=== PATIENT | female | born 1940 | race Caucasian/White ===

== ENCOUNTER 2018-04-02 13:24 | Outpatient (CLI) | payer MEDICARE, MEDICAID, SELFPAY ==
[2018-04-02 13:23] VITALS: BP 151/71; PULSE 84; RESP 14; O2SAT 94
--- NOTE | 2018-04-02 13:45 | DI.REPORT_ITS ---
SYMPTOMS/DIAGNOSIS: LUMBAR RADICULOPATHY PAIN CLINIC LUMBAR SPINE: Fluoroscopy Time: 42.15 sec C-arm fluoroscopy was provided for guidance with Pain Clinic injections. Please see procedure note for details.
[2018-04-02] MEDS: methylPREDNISolone ACETATE 40 MG/ML VIAL 80 MG IM (13:49)
[2018-04-02] MEDS: Omnipaque 240 MG/ML 50 ML BTL IJ (13:59)
[2018-04-02 14:00] VITALS: BP 132/91; PULSE 92; RESP 19; O2SAT 94
--- NOTE | 2018-04-02 14:07 | PDOC.PAIN_ITS ---
Date of Service: 04/02/18 Time of Service: 14:05 Pain Clinic Procedure Note Patient Problems: Current Active Problems Problem Status Onset Spondylosis of lumbar region without myelopathy or radiculopathy Chronic CANDAL EPIDURAL STEROID WITH CATHETER INJECTION PROCEDURE NOTE COMMENTS: Previous back surgery. I reviewed the patient's evaluation with Ms. Mcnamara. DX: Lumbosacral radiculopathy VIRGEN CASIANO has been referred to the [facility] for lumbar epidural steroid injection. Patient was greeted by the nurse who verified patients name and . Patient was then taken to the fluoroscopy suite. Patient was interviewed and the medical record reviewed. There were no medical , pharmacologic, radiographic, or other structural contraindications to attempting fluoroscopically guided lumbar epidural steroid injection. Risks and expected side effects as well as potential benefits of the procedure were reviewed and voiced concerns addressed. The patient consent form was signed and witnessed. Standard time-out procedure was performed. Patient was placed in the prone position on the fluoroscopy table and automated blood pressure cuff and pulse oximeter applied. The skin entry point for entering/approaching the epidural space at the sacral hiatus and marked. Following thorough chlorhexadine preparation of the skin and draping and 1% lidocaine infiltration of the skin entry point and subcutaneous tissues, a 17 gauge Touhy needle was placed under fluoroscopic guidance and with loss of resistance technique into the epidural space. Needle tip placement and depth were aided and confirmed by fluoroscopy. There was no paresthesia or return of blood or CSF through the needle. An Arrow cath was thread to the L5 vertebral body and 1 cc's of Omnipaque 240 was injected with clear epidural spread confirmed with fluoroscopy. 80mg depomedrol was injected. There was not any unusual discomfort expressed. Vital signs were stable throughout the procedure and were as recorded in nursing records. Follow up plans and appointments were discussed.Post procedure instruction was given as documented in nursing records and having met discharge criteria and was discharged from the [facility]. COMMENTS: If this procedure is found to be helpful, it can be completed up to 3 times per 12 months.
== END 2018-04-02 13:25 ==
PROVIDERS: PCP Nurse Practitioner; Visit Provider Preventive Medicine Occupational Medicine
DX: M54.16 Radiculopathy, lumbar region (principal); G89.29 Other chronic pain
CPT/HCPCS: 62323; 72100; J1030; Q9967

== ENCOUNTER 2018-05-07 12:38 | Outpatient (CLI) | payer MEDICARE, MEDICAID, SELFPAY ==
--- NOTE | 2018-05-07 06:00 | DI.COMBO_ITS ---
SYMPTOMS/DIAGNOSIS: CAUDAL EPIDURAL STEROID INJECTION PAIN CLINIC LUMBAR SPINE: Fluoroscopy Time: 62.3 sec C-arm fluoroscopy was provided for guidance with Pain Clinic injection. Hard copy images show needle positioning over the sacrum. Please see procedure note for details.
[2018-05-07 12:47] VITALS: BP 125/63; PULSE 93; RESP 18; TEMP 36.8; O2SAT 97
--- NOTE | 2018-05-07 13:17 | PDOC.PAIN ---
Pain Clinic Procedure Note Current Active Problems Problem Status Onset Lumbar radiculitis Acute CAUDAL EPIDURAL STEROID WITH CATHETER INJECTION PROCEDURE NOTE COMMENTS: She did very well with her last caudal epidural steroid injection. VIRGEN CASIANO has been referred to the [facility] for lumbar epidural steroid injection. Patient was greeted by the nurse who verified patients name and . Patient was then taken to the fluoroscopy suite. Patient was interviewed and the medical record reviewed. There were no medical, pharmacologic, radiographic, or other structural contraindications to attempting fluoroscopically guided lumbar epidural steroid injection. Risks and expected side effects as well as potential benefits of the procedure were reviewed and voiced concerns addressed. The patient consent form was signed and witnessed. Standard time-out procedure was performed. Patient was placed in the prone position on the fluoroscopy table and automated blood pressure cuff and pulse oximeter applied. The skin entry point for entering/approaching the epidural space at the sacral hiatus and marked. Following thorough chlorhexadine preparation of the skin and draping and 1% lidocaine infiltration of the skin entry point and subcutaneous tissues, a 17 gauge Touhy needle was placed under fluoroscopic guidance and with loss of resistance technique into the epidural space. Needle tip placement and depth were aided and confirmed by fluoroscopy. There was no paresthesia or return of blood or CSF through the needle. An Arrow cath was thread to the L5-S1 and 1 cc's of Omnipaque 240 was injected with clear epidural spread confirmed with fluoroscopy. 80mg depomedrol was injected. There was not any unusual discomfort expressed. Vital signs were stable throughout the procedure and were as recorded in nursing records. Follow up plans and appointments were discussed.Post procedure instruction was given as documented in nursing records and having met discharge criteria and was discharged from the [facility]. COMMENTS: This procedure can be completed up to 3 times per 12 months if it is found to be effective.
[2018-05-07 13:28] VITALS: BP 130/71; PULSE 96; RESP 20; O2SAT 95
[2018-05-07] MEDS: Omnipaque 240 MG/ML 50 ML BTL IJ (13:29)
[2018-05-07] MEDS: methylPREDNISolone ACETATE 80 MG/ML VIAL IM (13:30)
--- NOTE | 2018-05-25 15:07 | PDOC.PAIN_ITS ---
Pain Clinic Procedure Note Current Active Problems Problem Status Onset Lumbar radiculitis Acute CAUDAL EPIDURAL STEROID WITH CATHETER INJECTION PROCEDURE NOTE COMMENTS: She did very well with her last caudal epidural steroid injection. VIRGEN CASIANO has been referred to the [facility] for lumbar epidural steroid injection. Patient was greeted by the nurse who verified patients name and . Patient was then taken to the fluoroscopy suite. Patient was interviewed and the medical record reviewed. There were no medical , pharmacologic, radiographic, or other structural contraindications to attempting fluoroscopically guided lumbar epidural steroid injection. Risks and expected side effects as well as potential benefits of the procedure were reviewed and voiced concerns addressed. The patient consent form was signed and witnessed. Standard time-out procedure was performed. Patient was placed in the prone position on the fluoroscopy table and automated blood pressure cuff and pulse oximeter applied. The skin entry point for entering/approaching the epidural space at the sacral hiatus and marked. Following thorough chlorhexadine preparation of the skin and draping and 1% lidocaine infiltration of the skin entry point and subcutaneous tissues, a 17 gauge Touhy needle was placed under fluoroscopic guidance and with loss of resistance technique into the epidural space. Needle tip placement and depth were aided and confirmed by fluoroscopy. There was no paresthesia or return of blood or CSF through the needle. An Arrow cath was thread to the L5-S1 and 1 cc' s of Omnipaque 240 was injected with clear epidural spread confirmed with fluoroscopy. 80mg depomedrol was injected. There was not any unusual discomfort expressed. Vital signs were stable throughout the procedure and were as recorded in nursing records. Follow up plans and appointments were discussed.Post procedure instruction was given as documented in nursing records and having met discharge criteria and was discharged from the [facility]. COMMENTS: This procedure can be completed up to 3 times per 12 months if it is found to be effective.
== END 2018-05-07 12:58 ==
PROVIDERS: PCP Nurse Practitioner; Visit Provider Preventive Medicine Occupational Medicine
DX: M54.16 Radiculopathy, lumbar region (principal)
CPT/HCPCS: 62323; 72100; J1040; Q9967

== ENCOUNTER 2018-07-11 21:36 | Inpatient (IN) | payer MEDICARE, MEDICAID, SELFPAY ==
[2018-07-11] VITALS (7 sets, daily range): BP systolic 110–164; BP diastolic 34–135; PULSE 90–98; RESP 15–24; TEMP 36.9; O2SAT 95–98
--- NOTE | 2018-07-11 22:00 | W.ED.GENAD ---
Discharge Plan Disposition Patient Disposition: [facility] INPATIENT Condition: Improving Discharge Details Chief Complaint: Dizzy/Sync Clinical Impression: Near syncope Reason For Visit: ALEX Primary Care Provider: Jocy Kate ED Provider: Raffy Licea Home Meds and New Rx's Prescriptions: No Action pregabalin 75 mg capsule 75 mg PO BID 28 Days Qty: 56 RF: 0 tolterodine 4 MG capsule,extended release 24hr 4 mg PO DAILY Qty: 90 RF: 3 omeprazole 40 MG capsule,delayed release(DR/EC) 40 mg PO DAILY Qty: 30 RF: 12 levothyroxine [Synthroid] 125 MCG tablet 125 mcg PO DAILY Qty: 90 RF: 3 enalapril maleate 20 MG tablet 20 mg PO DAILY Qty: 135 RF: 3 acetaminophen 650 MG tablet 1,300 mg PO PRN RF: 0 diaper,brief,adult,disposable [Adult Briefs - Large] 1 EACH misc 1 ea Miscellaneous PRN Qty: 100 RF: 6 trazodone 100 MG tablet 100 mg PO DAILY Qty: 90 RF: 3 nitroglycerin 0.4 MG tablet, sublingual 0.4 mg Sublingual PRN Qty: 100 RF: 3 duloxetine 60 mg Capsule,Delayed Release(Dr/Ec) 60 mg PO DAILY RF: 0 Medical Decision Making 77-year-old female presents from home with generalized weakness over a day and a half time associated with one mechanical fall in the second this evening associated with lightheadedness and during which she struck her head. She arrives to the emergency department awake, alert, interactive; afebrile, pulse 97, blood pressure 164/70. Differential diagnosis includes UTI, occult [place], dehydration, electrolyte abnormality. Patient had IV access established, referred for laboratory testing, EKG, CT scan of the head and cervical spine. Diagnostic studies show slightly low magnesium and mildly elevated BUN and creatinine. Her CT scan of the head and C-spine are unremarkable for acute findings as is her chest x-ray. Given her age, near syncope, I do feel she will be admitted for mild fluid resuscitation and telemetry. Case discussed with Dr Le and patient to be admited. Lab Data Lab results reviewed: Yes I reviewed the patient's lab results. Laboratory Tests Range/Units 07/11/18 07/11/18 07/11/18 22:00 22:00 22:09 WBC (4.4-10.8) k/cumm 11.07 H RBC (4.00-5.20) m/cumm 3.29 L Hgb (12.0-15.5) g/dL 10.2 L Hct (36.0-46.0) % 31.6 L MCV (80-95) fL 96.0 H MCH (27.0-33.0) pg 31.0 MCHC (32.0-36.0) g/dL 32.3 RDW (11.7-14.6) % 14.7 H Plt Count (130-400) x1000/uL 263 MPV (8.0-11.0) fL 9.8 Immature Gran % 1.2 Neutrophils % 69.2 Lymphocytes % 19.1 Monocytes % 9.1 Eosinophils % 1.1 Basophils % 0.3 Absolute Neutrophils (1.2-6.7) k/cumm 7.66 H Absolute Lymphocytes (1.2-3.4) k/cumm 2.11 Absolute Monocytes (0.11-0.7) k/cumm 1.01 H Absolute Eosinophils (0.0-0.7) k/cumm 0.12 Absolute Basophils (0.0-0.2) k/cumm 0.03 Sodium (136-145) mmol/L 138 Potassium (3.5-5.1) mmol/L 4.2 Chloride (98-107) mmol/L 99 Carbon Dioxide (21.0-32.0) mmol/L 28.7 Anion Gap (3-11) mmol/L 10.3 BUN (7-18) mg/dL 19 H Creatinine (0.55-1.02) mg/dL 1.32 H Estimated GFR/1.73 m2 (mL/min/1.73m2) 39.13 Glucose (70-100) mg/dL 160 H Calcium (8.5-10.1) mg/dL 8.8 Magnesium (1.8-2.4) mg/dL 1.7 L Total Bilirubin (0.2-1.0) mg/dL 0.4 AST (15-37) U/L 27 ALT (12-78) U/L 28 Alkaline Phosphatase (46-116) U/L 61 Troponin I (0.00-0.06) ng/mL < 0.02 Total Protein (6.4-8.2) g/dL 6.9 Albumin (3.4-5.0) g/dL 3.4 Urine Color (Yellow) Yellow Urine Clarity Clear Urine pH (5-8) 6.5 Ur Specific [place] (1.005-1.025) 1.015 Urine Protein (Negative) mg/dL Negative Urine Ketones (Negative) mg/dL Negative Urine Blood (Negative) Negative Urine Nitrite (Negative) Negative Urine Bilirubin (Negative) Negative Urine Urobilinogen (Up TO 0.2) EU/dL 1.0 H Ur Leukocyte Esterase (Negative) Negative Urine Glucose (Negative) mg/dL Negative ECG Data Attestation: I personally reviewed and interpreted this ECG (s) as follows: Interpretation: Elderly normal sinus rhythm, rate of 96, the QRS is narrow, there is no ST segment elevation. There are Q waves present in the inferior leads HPI General Mode of arrival: EMS. Date/Time Provider Initiated Documentation: 07/11/18 22:06. Limitations to Documentation: no limitations. Information obtained by: patient. History of Present Illness 77 year old F presents to the emergency department with the chief complaint of Fall at home with weakness, described as moderate, and is localized to the back. Patient reports no radiation. and it has been constant. No relieving factors improve symptom(s), No exacerbating factors reported . HPI Narrative: 77-year-old female presents from home via EMS. Says she has a day and a half of the gradual onset of generalized weakness. Associated with mild lightheadedness. She states that she had 2 falls at home today. The first was a mechanical fall which her slipper caught, second felt lightheaded but did fall striking her right knee and struck her head. No loss of consciousness. She has no new numbness, tingling, or weakness of the lower extremity. She has chronic back pain and spinal stenosis which is persistent. Denies recent illness. States she lives alone at the [facility]. Related Data Home Medications Medication Instructions Recorded Confirmed levothyroxine [Synthroid] 125 mcg PO DAILY #90 tab-cap 10/15/17 07/11/18 omeprazole 40 mg PO DAILY #30 capsule. 10/15/17 07/11/18 tolterodine 4 mg PO DAILY #90 tab-cap 10/15/17 07/11/18 enalapril maleate 20 mg PO DAILY #135 tab-cap 12/22/17 07/11/18 acetaminophen 1,300 mg PO PRN 01/13/18 07/11/18 diaper,brief,adult,disposable #100 ea 01/27/18 06/30/18 [Adult Brief] nitroglycerin 0.4 mg SUBLINGUAL PRN #100 tab-cap 03/16/18 07/11/18 trazodone 100 mg PO DAILY #90 tab-cap 03/16/18 07/11/18 pregabalin 75 mg capsule 75 mg PO BID 28 Days #56 cap 06/30/18 07/11/18 duloxetine 60 mg PO DAILY 07/11/18 07/11/18 Previous Rx's Medication Instructions Recorded levothyroxine [Synthroid] 125 mcg PO DAILY #90 tab-cap 10/15/17 omeprazole 40 mg PO DAILY #30 capsule. 10/15/17 tolterodine 4 mg PO DAILY #90 tab-cap 10/15/17 enalapril maleate 20 mg PO DAILY #135 tab-cap 12/22/17 diaper,brief,adult,disposable #100 ea 01/27/18 [Adult Brief] nitroglycerin 0.4 mg SUBLINGUAL PRN #100 tab-cap 03/16/18 trazodone 100 mg PO DAILY #90 tab-cap 03/16/18 pregabalin 75 mg capsule 75 mg PO BID 28 Days #56 cap 06/30/18 Allergies Allergy/AdvReac Type Severity Reaction Status Date / Time fentanyl [From Duragesic] Allergy Intermediate RASH, Verified 07/11/18 21:53 ITCHING oxybutynin chloride AdvReac Intermediate Itching Verified 07/11/18 21:53 [From Ditropan] tramadol AdvReac Intermediate ITCHING Verified 07/11/18 21:53 ENVIRONMENTAL Allergy RHINITIS Uncoded 07/11/18 21:53 General Stated Complaint: Dizzy/Sync ARMEN: 3 Review of Systems Review of Systems 8 systems reviewed and otherwise negative PFSH Family History Mother Essential hypertension Neoplasm Sister Diabetes Medical History Angina pectoris Arthropathy COPD (chronic obstructive pulmonary disease) Chronic low back pain Claustrophobia Diet-controlled diabetes mellitus Diverticulosis Essential hypertension Gastroesophageal reflux disease Hyperlipidemia Hypothyroidism Impaired mobility Migraine Osteoarthritis RLS (restless legs syndrome) Spinal stenosis Urge urinary incontinence Social History Smoking/Tobacco Use Status: Former Tobacco Use Surgical History Abdominal hysterectomy Cholecystectomy (~09/2002) Colonoscopy - MAC (05/23/17) Extraction of cataract (~10/2007) Laminectomy (03/27/09) Open Carpal Tunnel release (~1998) Replacement of total knee joint TVT (~05/2004) Exam Narrative Exam Narrative: GEN: awake, alert, oriented 3. Pleasant, well groomed, interactive. HEAD: Normocephalic, atraumatic ENT: Mucous membranes moist, oropharynx unremarkable, External ear exam unremarkable EYES: PERRL, EOMI NECK: Full ROM, no GONZALO, no menigismus, minimal upper midline tenderness to palpation CHEST/RESP: Nontender, clear to auscultation bilateral, no wheeze/rhonchi/rales CARDIOVASCULAR: RRR, no murmur, rub liborio. 2+ Rad pulse bilateral ABDOMEN: Soft, nontender, no mass. +Bowel sounds. Patient with minimal back pain on palpation without step-off or deformity peer EXT: Full ROM, no edema, no rash. With each leg off the bed independently, motor grade 5 out of 5. Sensation intact throughout including the saddle distribution. Mild edematous changes of both lower extremities, right greater than left. No palpable cords or focal tenderness Neuro: Grossly normal neurologic exam, conversant, interactive. Psych: Speech fluent, thoughts congruent, affect normal Course Vital Signs Temperature 36.9 C 07/11/18 21:43 Pulse 97 H 07/11/18 21:43 Respiratory Rate 24 07/11/18 21:43 Blood Pressure 164/70 H 07/11/18 21:43 Pulse Oximetry 96 07/11/18 21:43 Temperature 36.9 C 07/11/18 21:43 Temperature Source Skin 07/11/18 21:43 Pulse 97 H 07/11/18 21:43 Respiratory Rate 24 07/11/18 21:56 Respiratory Effort Non-Labored 07/11/18 21:56 Respiratory Depth Normal 07/11/18 21:56 Respiratory Pattern Normal 07/11/18 21:56 Blood Pressure 164/70 H 07/11/18 21:43 Pulse Oximetry 96 07/11/18 21:43 Oxygen Delivery Method Room Air 07/11/18 21:43 Oxygen Flow Rate 0 07/11/18 21:43 Pain Level 10 07/11/18 21:43
[2018-07-11 22:12] LABS: Abs Immature Grans 0.13 k/cumm (0.0-0.09); Absolute Basophil Count 0.03 k/cumm (0.0-0.2); Absolute Eosinophil Count 0.12 k/cumm (0.0-0.7); Absolute Lymphocyte Count 2.11 k/cumm (1.2-3.4); Absolute Monocyte Count 1.01 k/cumm (0.11-0.7); Absolute Neutrophil Count 7.66 k/cumm (1.2-6.7); Basophils % 0.3; Eosinophils % 1.1; HCT 31.6 % (36.0-46.0); HGB 10.2 g/dL (12.0-15.5); Immature Grans % 1.2; Lymphocytes % 19.1; Mean Corp. HGB Concentration 32.3 g/dL (32.0-36.0); Mean Platelet Volume 9.8 fL (8.0-11.0); Monocytes % 9.1; Neutrophils % 69.2; Platelet Count 263 x1000/uL (130-400); RBC 3.29 m/cumm (4.00-5.20); RBC Distribution Width 14.7 % (11.7-14.6); White Blood Cell Count 11.07 k/cumm (4.4-10.8)
[2018-07-11 22:15] LABS: Bilirubin Negative (Negative); Blood Negative (Negative); Clarity Clear; Glucose Negative (Negative); Ketones Negative (Negative); Leukocyte Esterase Negative (Negative); Nitrite Negative (Negative); Specific Gravity 1.015 (1.005-1.025); pH 6.5 (5-8)
--- NOTE | 2018-07-11 22:15 | DI.RAD_ITS ---
SYMPTOMS/DIAGNOSIS: FALL, POSTERIOR PAIN CHEST X-RAY, PA AND LATERAL: Comparison is 12/05/17. The heart size and pulmonary vasculature are within normal limits. The lungs are clear and well expanded. No effusions or pneumothoraces are identified. Degenerative changes are seen in the spine. IMPRESSION: No acute pulmonary process.
[2018-07-11 22:30] LABS: ALT 28 U/L (12-78); AST 27 U/L (15-37); Albumin 3.4 g/dL (3.4-5.0); Alkaline Phosphatase 61 U/L (46-116); Anion Gap 10.3 mmol/L (3-11); BUN 19 mg/dL (7-18); Bilirubin, Total 0.4 mg/dL (0.2-1.0); CO2 28.7 mmol/L (21.0-32.0); CREATININE 1.32 mg/dL (0.55-1.02); Calcium 8.8 mg/dL (8.5-10.1); Chloride 99 mmol/L (98-107); Estimated GFR 39.13 (mL/min/1.73m2); Glucose 160 mg/dL (70-100); Magnesium 1.7 mg/dL (1.8-2.4); Potassium 4.2 mmol/L (3.5-5.1); Sodium 138 mmol/L (136-145); Total Protein 6.9 g/dL (6.4-8.2); Troponin I < 0.02 ng/mL (0.00-0.06)
--- NOTE | 2018-07-11 22:36 | DI.CT_ITS ---
SYMPTOMS/DIAGNOSIS: POSTERIOR PAIN S/P FALL CT BRAIN: Noncontrast examination. No priors. The ventricles and sulci are consistent with the patient's age. There are areas of decreased attenuation in the white matter consistent with small vessel ischemic disease. No intracranial hemorrhage, infarct, midline shift or mass effect is identified. The ventricles are intact. The basilar cisterns are patent. The visualized paranasal sinuses are clear. There is opacification of a few of the inferior left mastoid air cells, but no fracture is identified. The left mastoid air cells are well pneumatized. The calvarium is intact. IMPRESSION: No acute intracranial process. CT SCAN OF THE CERVICAL SPINE: Multiple contiguous axial images of the cervical spine were obtained. Sagittal and coronal reformatted images were evaluated on the Siemens workstation. There is patient motion artifact, which does limit the examination. There is a reversal of the normal cervical lordosis centered at C4. No acute fractures or subluxations are seen. Moderately severe degenerative changes are present throughout the cervical spine. The odontoid is intact. The lateral masses are well aligned. There is no significant prevertebral soft tissue swelling. The visualized lung apices are clear. IMPRESSION: No acute fracture or subluxation of the cervical spine.
--- NOTE | 2018-07-11 22:41 | DI.VRAD_ITS ---
EXAM: XR Chest, 2 Views EXAM DATE/TIME: 07/11/2018 10:01 PM CLINICAL HISTORY: 77 years old, female; Injury or trauma; Fall; Initial encounter; Sprain or strain; Patient HX: S/P fall, posterior pain TECHNIQUE: XR of the chest, 2 views. COMPARISON: CR CHEST 2 VIEWS PA,LAT 12/05/2017 8:41 PM FINDINGS: Lungs: No airspace consolidation. Pleural space: No pleural effusion. No pneumothorax. Heart/Mediastinum: No cardiomegaly. Vasculature: Tortuous thoracic aorta similar to the previous study. Bones/joints: Probable calcific tendinitis in the right shoulder. Degenerative changes in the shoulders. Degenerative changes in the spine. IMPRESSION: No acute cardiopulmonary pathology. Dictated and Authenticated by: Fabby Arevalo MD. Ordering:TOMMY HERNANDEZ MD
--- NOTE | 2018-07-11 22:52 | DI.VRAD_ITS ---
EXAM: CT Head Without Intravenous Contrast EXAM DATE/TIME: 07/11/2018 10:01 PM CLINICAL HISTORY: 77 years old, female; Injury or trauma; Fall; Initial encounter; Sprain or strain, cervical ligaments; Patient HX: S/P fall, posterior pain TECHNIQUE: Axial computed tomography images of the head/brain without intravenous contrast. All CT scans at this facility use at least one of these dose optimization techniques: automated exposure control; mA and/or kV adjustment per patient size (includes targeted exams where dose is matched to clinical indication); or iterative reconstruction. Coronal and sagittal reformatted images were created and reviewed. COMPARISON: No relevant prior studies available. FINDINGS: Brain: Moderate cerebral atrophy. Moderate periventricular white matter hypodensity. Ventricles: No ventriculomegaly. Bones/joints: No acute fracture. Sinuses: No acute sinusitis. Mastoid air cells: Small amount of fluid in the inferior right mastoid air cells. Soft tissues: No suspicious lesions. Vasculature: Atherosclerosis. IMPRESSION: No acute intracranial findings. EXAM: CT Cervical Spine Without Intravenous Contrast EXAM DATE/TIME: 07/11/2018 10:01 PM CLINICAL HISTORY: 77 years old, female; Injury or trauma; Fall; Initial encounter; Sprain or strain, cervical ligaments; Patient HX: S/P fall, posterior pain TECHNIQUE: Axial computed tomography images of the cervical spine without intravenous contrast. Coronal and sagittal reformatted images were created and reviewed. COMPARISON: No relevant prior studies available. FINDINGS: Vertebrae: Reversal of the normal cervical lordosis. No acute fracture or subluxation. Discs/Spinal canal/Neural foramina: Uncovertebral hypertrophy. Posterior disc osteophyte complexes, multilevel, contributing to multilevel neuroforaminal and central canal stenosis. Multilevel disc space narrowing. Soft tissues: No suspicious lesions. Lungs: No consolidation. Vasculature: Atherosclerosis. IMPRESSION: No cervical spine fracture. Degenerative changes. Dictated and Authenticated by: Fabby Arevalo MD. Ordering:TOMMY HERNANDEZ MD
[2018-07-11] MEDS: Normal Saline 1,000 ML 150 ML IV (23:14)
[2018-07-11] MEDS: MAGNESIUM SULFATE 1 GM/100 ML BAG IVPB (23:14)
[2018-07-12] VITALS (11 sets, daily range): BP systolic 110–158; BP diastolic 47–81; PULSE 81–93; RESP 4–20; TEMP 36–37.5; O2SAT 93–99
--- NOTE | 2018-07-12 04:54 | W.PM.HP.N ---
Date of service: 07/11/18 Time of Service: 23:55 Assessment and Plan (1) Near syncope: Current visit: Yes Status: Acute Patient had tripping at home but also felt dizzy with near syncopal episode. She did strike her head with a negative CT of her head. Her neck also no findings on CT. Continue to monitor on telemetry as we monitor for occult infection with low-grade fever. She does have chronic COPD and chronic untreated diabetes. She may have been dehydrated with her diabetes untreated and urinary frequency and we will IV hydrate during the stay. (2) Frequent falls: Current visit: Yes Status: Acute Patient has had increased falls recently with her spinal stenosis and increased pain in her lower extremities. She also is overweight. She has lost her over the last year and a half and lives alone which may have also caused her to have increased falling. Physical therapy can assess as needed. She may need assisted living at this time. (3) Spinal stenosis: Current visit: No Status: Chronic She has back pain with lower extremity weakness which is chronic status post failed surgery for spinal stenosis. She is on Lyrica which is new for and is sedating her which may put her at increased risk for falls with her already decreased mobility from arthritis and back pain. Monitor during the hospital stay if she increases ambulation. (4) Diabetes mellitus, controlled: Current visit: No Status: Chronic Hypoglycemia upon admission, need to check glucometers with short acting insulin coverage and reevaluate glycemic control with a hemoglobin A1c. Long-term she may need to restart therapy. Dietary counseling as needed. History of Present Illness Chief Complaint: No syncope with tripping and falling and generalized weakness over 2 days Narrative: This is a 77-year-old lady who lives alone in her apartment at [facility] having lost her about a year and a half ago. She has a history of increasing weakness over the last couple of days with tripping and falling one time striking the back of her head and her right lower extremity. She also has had increased edema over her right lower extremity. She denies any loss of consciousness with her falling but did feel dizzy. She has been eating and drinking normally and recently has stopped treatment for diabetes with chronic urinary frequency on treatment for overactive bladder. She denies any hypoglycemic symptoms. She has no new focalizing neurological complaints with weakness in the lower extremities status post surgery for spinal stenosis. She is overweight and is having problems with ambulation with her arthritis and chronic back pain which radiates into her lower extremities. Back surgery basically failed. She recently was placed on Lyrica and she attributes her right leg swelling to the change in this medication. This medication does make her more sedated. Does not appear to be helping her back pain and radiation of pain into her legs thus far 1 month of treatment. She does have a history of COPD but does not use inhalers presently. She was a previous smoker. Denies any cough or increasing shortness of breath. She has had no chills or rigors and denies any upper respiratory symptoms. She has no GI complaints as mentioned. She presently has no headache even though she did strike the back of her head and in the ED evaluation did reveal a negative CT of the neck and head. Chest x-ray was also done and had no evidence of acute process. The nurse who admitted the patient does report that she has a low-grade fever presently. Her urine dipstick was negative in the emergency room. A urine culture will be sent. She did have a low magnesium and appears slightly dry upon presentation to the ED and is on IV hydration presently. Pertinent review of systems and history otherwise unrevealing. Patient has been having more difficulty going around since the of her and she is overweight with significant musculoskeletal restrictions. Review of Systems Review of Systems As per HPI, otherwise negative or noncontributory. PFSH Family History Mother Essential hypertension Neoplasm Sister Diabetes Medical History Angina pectoris Arthropathy COPD (chronic obstructive pulmonary disease) Chronic low back pain Claustrophobia Diet-controlled diabetes mellitus Diverticulosis Essential hypertension Gastroesophageal reflux disease Hyperlipidemia Hypothyroidism Impaired mobility Migraine Osteoarthritis RLS (restless legs syndrome) Spinal stenosis Urge urinary incontinence Social History Smoking/Tobacco Use Status: Former Tobacco Use Surgical History Abdominal hysterectomy Cholecystectomy (~09/2002) Colonoscopy - MAC (05/23/17) Extraction of cataract (~10/2007) Laminectomy (03/27/09) Open Carpal Tunnel release (~1998) Replacement of total knee joint TVT (~05/2004) Meds Home Medications Medication Instructions Recorded Confirmed Type levothyroxine [Synthroid] 125 mcg PO DAILY #90 tab-cap 10/15/17 07/11/18 Rx omeprazole 40 mg PO DAILY #30 capsule. 10/15/17 07/11/18 Rx tolterodine 4 mg PO DAILY #90 tab-cap 10/15/17 07/11/18 Rx enalapril maleate 20 mg PO DAILY #135 tab-cap 12/22/17 07/11/18 Rx acetaminophen 1,300 mg PO PRN 01/13/18 07/11/18 History diaper,brief,adult,disposable #100 ea 01/27/18 06/30/18 Rx [Adult Brief] nitroglycerin 0.4 mg SUBLINGUAL PRN #100 tab-cap 03/16/18 07/11/18 Rx trazodone 100 mg PO DAILY #90 tab-cap 03/16/18 07/11/18 Rx pregabalin 75 mg capsule 75 mg PO BID 28 Days #56 cap 06/30/18 07/11/18 Rx duloxetine 60 mg PO DAILY 07/11/18 07/11/18 History Allergies Allergy/AdvReac Type Severity Reaction Status Date / Time fentanyl [From Duragesic] Allergy Intermediate RASH, Verified 07/11/18 21:53 ITCHING oxybutynin chloride AdvReac Intermediate Itching Verified 07/11/18 21:53 [From Ditropan] tramadol AdvReac Intermediate ITCHING Verified 07/11/18 21:53 ENVIRONMENTAL Allergy RHINITIS Uncoded 07/11/18 21:53 Exam Narrative Exam Narrative: General: Patient is awake, alert and oriented x3. She is in no acute distress. HEENT: Normocephalic with eyes revealing pupils equal reactive light symmetrically with extraocular movement intact, there is evidence of bilateral cataract surgery with lens implants, sclera anicteric. Ears with increased cerumen right ear but normal tympanic membranes bilaterally. Oropharynx with pink, moist mucosa without lesions and the patient is edentulous with her denture plates at home. Neck: Supple without JVD or carotid bruits. Back: Kyphotic with loss of lordotic curve in the lumbar spine, decreased range of motion and tender to palpation of the lumbar spine with surgical scar noted. No CVA tenderness. Lungs: Decreased aeration diffusely with slightly increased expiratory phase but no expiratory wheeze, rhonchi with coarse rales on the right hemithorax without focalizing. Heart: Regular rate and rhythm with quite systolic murmur left sternal border. Breasts: Grossly normal with detailed exam not performed. Abdomen: Obese, slightly protuberant but soft with bowel sounds positive in all quadrants. No palpable hepatosplenomegaly. Nontender. Genitalia and rectal exam: Deferred. Extremities: 1+ pitting edema over the right ankle and trace over the left with negative Homans sign on the right, no cyanosis or clubbing. Pulses are intact with good capillary refill. Well-healed surgical scar over the left knee. Neuro: Cranial nerves II through XII grossly intact, no focalizing motor deficits. Skin: Pale, warm and dry. Neuropsych: Normal memory and mentation, normal affect with good variation and good eye contact. Normal mood. Results Labs : 07/12/18 05:37 07/12/18 05:37 Laboratory Results - last 24 hr 07/11/18 07/11/18 07/11/18 22:00 22:00 22:09 WBC 11.07 H RBC 3.29 L Hgb 10.2 L Hct 31.6 L MCV 96.0 H MCH 31.0 MCHC 32.3 RDW 14.7 H Plt Count 263 MPV 9.8 Immature Gran % 1.2 Neutrophils % 69.2 Lymphocytes % 19.1 Monocytes % 9.1 Eosinophils % 1.1 Basophils % 0.3 Absolute Neutrophils 7.66 H Absolute Lymphocytes 2.11 Absolute Monocytes 1.01 H Absolute Eosinophils 0.12 Absolute Basophils 0.03 Sodium 138 Potassium 4.2 Chloride 99 Carbon Dioxide 28.7 Anion Gap 10.3 BUN 19 H Creatinine 1.32 H Estimated GFR/1.73 m2 39.13 Glucose 160 H Calcium 8.8 Magnesium 1.7 L Total Bilirubin 0.4 AST 27 ALT 28 Alkaline Phosphatase 61 Troponin I < 0.02 Total Protein 6.9 Albumin 3.4 Urine Color Yellow Urine Clarity Clear Urine pH 6.5 Ur Specific [place] 1.015 Urine Protein Negative Urine Ketones Negative Urine Blood Negative Urine Nitrite Negative Urine Bilirubin Negative Urine Urobilinogen 1.0 H Ur Leukocyte Esterase Negative Urine Glucose Negative Last Vital Signs Temp 37.5 C 07/12/18 00:40 Pulse 86 07/12/18 00:40 Resp 20 07/12/18 00:40 BP 144/81 H 07/12/18 00:40 Pulse Ox 94 L 07/12/18 00:40
[2018-07-12 05:49] LABS: HCT 30.6 % (36.0-46.0); HGB 9.9 g/dL (12.0-15.5); Mean Corp. HGB Concentration 32.4 g/dL (32.0-36.0); Mean Corpuscular Hemoglobin 31.3 pg (27.0-33.0); Mean Corpuscular Volume 96.8 fL (80-95); Mean Platelet Volume 9.4 fL (8.0-11.0); Platelet Count 226 x1000/uL (130-400); RBC 3.16 m/cumm (4.00-5.20); RBC Distribution Width 14.6 % (11.7-14.6)
[2018-07-12] MEDS: Levothyroxine 125 MCG TAB PO (05:51)
[2018-07-12] MEDS: Enoxaparin 40 MG/0.4 ML SYR SC (05:51)
[2018-07-12] MEDS: Albuterol/Ipratropium 3 ML UPD VIAL UPD (05:52)
[2018-07-12] MEDS: Normal Saline 1,000 ML 150 ML IV (06:03)
[2018-07-12 06:11] LABS: ALT 24 U/L (12-78); AST 19 U/L (15-37); Albumin 3.1 g/dL (3.4-5.0); Alkaline Phosphatase 48 U/L (46-116); Anion Gap 6.5 mmol/L (3-11); BUN 17 mg/dL (7-18); Bilirubin, Total 0.5 mg/dL (0.2-1.0); CO2 31.5 mmol/L (21.0-32.0); CREATININE 1.16 mg/dL (0.55-1.02); Calcium 8.5 mg/dL (8.5-10.1); Chloride 102 mmol/L (98-107); Estimated GFR 45.42 (mL/min/1.73m2); Glucose 129 mg/dL (70-100); Magnesium 2.2 mg/dL (1.8-2.4); Potassium 3.9 mmol/L (3.5-5.1); Sodium 140 mmol/L (136-145); TSH (W/Ref FT4) 2.94 uIU/mL (0.358-3.74); Total Protein 6.3 g/dL (6.4-8.2)
[2018-07-12 06:12] LABS: Troponin I < 0.02 ng/mL (0.00-0.06)
--- NOTE | 2018-07-12 07:35 | PHARADMIT ---
Addendum entered by Brea Angel 07/13/18 14:06: Pharmacy Note Subjective Patient is working w/ PT due to increased falls Objective VS okay SCr-1.14(down) h/h-10.5/33.0(up) BNP-pending A1c-6.5 Assessment enalapril dose decreased from 20 to 10 mg daily furosemide given X1 Plan contiune to watch VS, labs and for med changes Original Note: Admission Pharmacy Clinical Review near syncope, mild dehydration Code Status Full Code Current Weight Wgt- 107.4 kg Renally Cleared and Narrow Therapeutic Index Meds CrCl~ 35.6 mL/min Meds-OK QTc Value / Action Taken QTc-440 NA BP Control, Fever BP- 144/81 Tmax- 37.5C Electrolytes reviewed Na- 140 K+3.9 Mag-2.2 DVT Prophylaxis Yes Lovenox 40mg Opiate Usage / Scheduled Bowel Regimen Ordered No Yes Plt/SCr for Heparin / Enoxaparin Plts-226 SCr-1.16 INR for Warfarin na H/H stable, WBC/Bands H&H- 9.9/30.6 WBC-8.20 Antibiotic appropriateness none Cultures and Sensitivities none Surgical ABX d/c within 24 hr NA DM control / Insulin Dosing BG- 129 Aspart Heart Failure (Check EF%) (SEBASTIÁN's, B-Block, Diuretics) Vasotec, NTG IV to PO Switch no Home Meds Reviewed Yes Home Meds Not Ordered Ordered Comments
--- NOTE | 2018-07-12 07:46 | PDOC.CMIN ---
Care Management Initial Assess REASON FOR HOSPITALIZATION:: Near syncope, mild dehydration PAST MEDICAL HISTORY/PAST SURGICAL HISTORY:: Medical: Angina Pectrois, COPD, Clausrophobia, diabetes, hypertension, hypothyroidism, migraine. Surgical: CJ, Cholecystectomy, colonoscopy, cataract extraction, laminectomy, carpal tunnel release, TKA PREVIOUS FUNCTIONAL STATUS/SOCIAL/FAMILY SUPPORTS:: Lives alone at her apartment in [place] at the [facility]. One son, Feliberto, still lives in [place] and remains very supportive. CURRENT FUNCTIONAL STATUS:: Sveta was sitting up on the edge of the bed preparing to transfer into her recliner. Telemetry was in place. Alert and cheerful. Uses her FWW to ambulate at home. ADVANCE DIRECTIVES:: None on file Has patient been provided with information about the portal?: No Did the patient sign up for the portal?: No CODE STATUS:: Full Code INSURANCE COVERAGE / FINANCIAL ISSUES:: Medicare. Medicaid CURRENT HOME/COMMUNITY SERVICES/EQUIPMENT:: Homemaker service 4 hours/wk through [facility] and [place] Owns a FWW. PRIMARY CARE PHYSICIAN:: KIN: Jocy Kate NP POTENTIAL DISCHARGE NEEDS:: Sveta would like to have the Homemaker service for more than 4 hours per week. States that there is not enough time to complete all of the tasks and clean the floors. PATIENT/FAMILY EDUCATION NEEDS:: Discharge instructions and understanding the importance of follow up visits with her PCP. ANTICIPATED BARRIERS TO DISCHARGE:: None identified TRANSPORTATION:: Private car with son, Feliberto. PLAN:: Sveta will return home to her apartment at the [facility] and resume her current services. Feliberto will transport.
[2018-07-12] MEDS: DULoxetine 30 MG CAP 60 MG PO (08:27)
[2018-07-12] MEDS: Tolterodine 2 MG CAPCR 4 MG PO (08:28)
[2018-07-12] MEDS: Omeprazole 20 MG CAPCR 40 MG PO (08:28)
[2018-07-12] MEDS: ENALAPRIL 10 MG TAB 20 MG PO (08:28)
[2018-07-12] MEDS: Pregabalin 25 MG CAP 75 MG PO (08:28)
[2018-07-12] MEDS: Insulin Aspart 300 UNITS/3 ML PEN SC (08:29)
--- NOTE | 2018-07-12 09:50 | INITIAL_ITS ---
Care Management Initial Assess REASON FOR HOSPITALIZATION:: Near syncope, mild dehydration PAST MEDICAL HISTORY/PAST SURGICAL HISTORY:: Medical: Angina Pectrois, COPD, Clausrophobia, diabetes, hypertension, hypothyroidism, migraine. Surgical: CJ , Cholecystectomy, colonoscopy, cataract extraction, laminectomy, carpal tunnel release, TKA PREVIOUS FUNCTIONAL STATUS/SOCIAL/FAMILY SUPPORTS:: Lives alone at her apartment in [place] at the [facility]. One son, Feliberto, still lives in [place] and remains very supportive. CURRENT FUNCTIONAL STATUS:: Sveta was sitting up on the edge of the bed preparing to transfer into her recliner. Telemetry was in place. Alert and cheerful. Uses her FWW to ambulate at home. ADVANCE DIRECTIVES:: None on file Has patient been provided with information about the portal?: No Did the patient sign up for the portal?: No CODE STATUS:: Full Code INSURANCE COVERAGE / FINANCIAL ISSUES:: Medicare. Medicaid CURRENT HOME/COMMUNITY SERVICES/EQUIPMENT:: Homemaker service 4 hours/wk through [facility] and [place] Owns a FWW. PRIMARY CARE PHYSICIAN:: KIN: Jocy Kate NP POTENTIAL DISCHARGE NEEDS:: Sveta would like to have the Homemaker service for more than 4 hours per week. States that there is not enough time to complete all of the tasks and clean the floors. PATIENT/FAMILY EDUCATION NEEDS:: Discharge instructions and understanding the importance of follow up visits with her PCP. ANTICIPATED BARRIERS TO DISCHARGE:: None identified TRANSPORTATION:: Private car with son, Feliberto. PLAN:: Sveta will return home to her apartment at the [facility] and resume her current services. Feliberto will transport.
[2018-07-12] MEDS: Normal Saline 1,000 ML 75 ML IV (12:30)
--- NOTE | 2018-07-12 13:12 | PGE_ITS ---
Date of Service Date of service: 07/12/18 Time of Service: 12:15 Assessment and Plan (1) Near syncope: Current visit: Yes Status: Acute Patient's clinical presentation does appear to be multifactorial. She may have been slightly dehydrated on presentation, though she is not orthostatic this morning or clinically dehydrated after getting fluids overnight. She did strike her head but she had a negative CT of her head. Continue to monitor on telemetry. She has not been febrile or had other symptoms of occult infection. She does have subacutely developing right lower extremity swelling that is asymmetric. She did not experience symptoms consistent with acute PE, but I think I will get a d-dimer and consider CT of the chest if positive. Given lack of response to Lyrica and possible contribution to her dizziness, we will stop this medication. (2) Frequent falls: Current visit: Yes Status: Acute Patient has had increased falls recently with her spinal stenosis and increased pain in her lower extremities. She also is overweight. She has lost her over the last year and a half and lives alone which may have also caused her to have increased falling. Physical therapy can assess as needed. She may need assisted living at this time. (3) Spinal stenosis: Current visit: No Status: Chronic Chronic back pain and right lower extremity weakness related to her spinal stenosis likely contributed to her tripping. I would like her to get a physical therapy evaluation before leaving.. (4) Diabetes mellitus, controlled: Current visit: No Status: Chronic Mild hyperglycemia. A1c ordered for the morning. (5) Anemia, macrocytic: Current visit: Yes Status: Acute Anemia stable overnight, I do not think there is an acute bleed. I agree with checking occult blood of the stool. It is macrocytic, so with her vague neurologic symptoms I think a B12 level would be prudent. (6) DVT prophylaxis: Current visit: Yes Status: Acute On Lovenox Subjective Patient reports: tolerating a regular diet; denies diarrhea, nausea, vomiting and fever Interval history since last seen: States he feels a little better than she did last night. She has not had any new falls. She still feels a shaky sensation in her body that she relates to the dizziness that she feels in her chest and arms and legs. Her extremities sometimes will shake. She also notes her chronic back pain and right lower extremity weakness, as well as the recent development of swelling in that right lower extremity as noted in the HPI. She denies any episodes of chest pain or acute shortness of breath related to her presentation over the last few days. She does think that Lyrica may be contributing to her symptoms, and states has not helped her pain at all. She denies shortness of breath now, but states she does get short of breath with any exertion. Exam Narrative Exam Narrative: General: Patient is awake, alert and oriented. She is in no acute distress. HEENT: Normocephalic, atraumatic, including in nuchal area where she hit her head. MMM. Lungs: CTAB with normal effort Heart: Regular rate and rhythm with 1/6 systolic murmur left sternal border. Abdomen: Obese, slightly protuberant but soft and nontender. Extremities: 1-2+ pitting edema over the right ankle and trace over the left with some tenderness with palpation of the foot, but not up the calf on the right. No redness or heat. no cyanosis or clubbing. Pulses are intact with good capillary refill. Neuro: sensation to light touch grossly normal, but she does seem to have slightly diminished strength to plantar and dorsiflexion on the right foot versus left. Normal speech and coordination. Skin: Pale, warm and dry. No rash. Objective Objective Clinical Data: Abnormal lab results 07/11/18 07/11/18 07/11/18 Range/Units 22:00 22:00 22:09 WBC 11.07 H (4.4-10.8) k/cumm RBC 3.29 L (4.00-5.20) m/cumm Hgb 10.2 L (12.0-15.5) g/dL Hct 31.6 L (36.0-46.0) % MCV 96.0 H (80-95) fL RDW 14.7 H (11.7-14.6) % Absolute Neutrophils 7.66 H (1.2-6.7) k/cumm Absolute Monocytes 1.01 H (0.11-0.7) k/cumm BUN 19 H (7-18) mg/dL Creatinine 1.32 H (0.55-1.02) mg/dL Glucose 160 H (70-100) mg/dL Magnesium 1.7 L (1.8-2.4) mg/dL Total Protein (6.4-8.2) g/dL Albumin (3.4-5.0) g/dL Urine Urobilinogen 1.0 H (Up TO 0.2) EU/dL 07/12/18 07/12/18 Range/Units 05:37 05:37 WBC (4.4-10.8) k/cumm RBC 3.16 L (4.00-5.20) m/cumm Hgb 9.9 L (12.0-15.5) g/dL Hct 30.6 L (36.0-46.0) % MCV 96.8 H (80-95) fL RDW (11.7-14.6) % Absolute Neutrophils (1.2-6.7) k/cumm Absolute Monocytes (0.11-0.7) k/cumm BUN (7-18) mg/dL Creatinine 1.16 H (0.55-1.02) mg/dL Glucose 129 H (70-100) mg/dL Magnesium (1.8-2.4) mg/dL Total Protein 6.3 L (6.4-8.2) g/dL Albumin 3.1 L (3.4-5.0) g/dL Urine Urobilinogen (Up TO 0.2) EU/dL Vital Signs Temperature 36.8 C 07/12/18 11:42 Temperature Source Tympanic 07/12/18 11:42 Pulse 81 07/12/18 11:42 Pulse Rhythm Regular 07/12/18 09:12 Pulse 90 07/11/18 23:40 Respiratory Rate 18 07/12/18 11:42 Respiratory Effort Non-Labored 07/12/18 09:12 Respiratory Depth Normal 07/12/18 09:12 Respiratory Pattern Normal 07/12/18 09:12 Blood Pressure 125/56 L 07/12/18 11:42 Blood Pressure Mean 62 07/11/18 23:02 Pulse Oximetry 94 L 07/12/18 11:42 Oxygen Delivery Method Room Air 07/12/18 11:42 Oxygen Flow Rate 0 07/12/18 11:42 Pain Level 0 07/12/18 11:42 Intake & Output 07/11/18 07/12/18 07/12/18 23:59 11:59 23:59 Intake Total 1100 / 1100 967.5 / 967.5 Output Total 950 / 950 Balance 150 / 150 967.5 / 967.5 Weight 107.411 kg 107.411 kg Intake: IV 1100 / 1100 967.5 / 967.5 Output: Urine 950 / 950 Other: Urine Color Yellow Urine Appearance Clear Urine Odor Normal Comment Patient was incontinent of large amount of urine and also voided 4oo cc in commode. Voiding Methods Diaper Incontinent Laboratory Results WBC 8.20 k/cumm (4.4-10.8) 07/12/18 05:37 RBC 3.16 m/cumm (4.00-5.20) L 07/12/18 05:37 Hgb 9.9 g/dL (12.0-15.5) L 07/12/18 05:37 Hct 30.6 % (36.0-46.0) L 07/12/18 05:37 MCV 96.8 fL (80-95) H 07/12/18 05:37 MCH 31.3 pg (27.0-33.0) 07/12/18 05:37 MCHC 32.4 g/dL (32.0-36.0) 07/12/18 05:37 RDW 14.6 % (11.7-14.6) 07/12/18 05:37 Plt Count 226 x1000/uL (130-400) 07/12/18 05:37 MPV 9.4 fL (8.0-11.0) 07/12/18 05:37 Immature Gran % 1.2 07/11/18 22:00 Neutrophils % 69.2 07/11/18 22:00 Lymphocytes % 19.1 07/11/18 22:00 Monocytes % 9.1 07/11/18 22:00 Eosinophils % 1.1 07/11/18 22:00 Basophils % 0.3 07/11/18 22:00 Absolute Neutrophils 7.66 k/cumm (1.2-6.7) H 07/11/18 22:00 Absolute Lymphocytes 2.11 k/cumm (1.2-3.4) 07/11/18 22:00 Absolute Monocytes 1.01 k/cumm (0.11-0.7) H 07/11/18 22:00 Absolute Eosinophils 0.12 k/cumm (0.0-0.7) 07/11/18 22:00 Absolute Basophils 0.03 k/cumm (0.0-0.2) 07/11/18 22:00 Sodium 140 mmol/L (136-145) 07/12/18 05:37 Potassium 3.9 mmol/L (3.5-5.1) 07/12/18 05:37 Chloride 102 mmol/L (98-107) 07/12/18 05:37 Carbon Dioxide 31.5 mmol/L (21.0-32.0) 07/12/18 05:37 Anion Gap 6.5 mmol/L (3-11) 07/12/18 05:37 BUN 17 mg/dL (7-18) 07/12/18 05:37 Creatinine 1.16 mg/dL (0.55-1.02) H 07/12/18 05:37 Estimated GFR/1.73 m2 45.42 (mL/min/1.73m2) 07/12/18 05:37 Glucose 129 mg/dL (70-100) H 07/12/18 05:37 Calcium 8.5 mg/dL (8.5-10.1) 07/12/18 05:37 Magnesium 2.2 mg/dL (1.8-2.4) 07/12/18 05:37 Total Bilirubin 0.5 mg/dL (0.2-1.0) 07/12/18 05:37 AST 19 U/L (15-37) 07/12/18 05:37 ALT 24 U/L (12-78) 07/12/18 05:37 Alkaline Phosphatase 48 U/L (46-116) 07/12/18 05:37 Troponin I < 0.02 ng/mL (0.00-0.06) 07/12/18 05:37 Total Protein 6.3 g/dL (6.4-8.2) L 07/12/18 05:37 Albumin 3.1 g/dL (3.4-5.0) L 07/12/18 05:37 TSH 2.94 uIU/mL (0.358-3.74) 07/12/18 05:37 Urine Color Yellow (Yellow) 07/11/18 22:09 Urine Clarity Clear 07/11/18 22:09 Urine pH 6.5 (5-8) 07/11/18 22:09 Ur Specific [place] 1.015 (1.005-1.025) 07/11/18 22:09 Urine Protein Negative mg/dL (Negative) 07/11/18 22:09 Urine Ketones Negative mg/dL (Negative) 07/11/18 22:09 Urine Blood Negative (Negative) 07/11/18 22:09 Urine Nitrite Negative (Negative) 07/11/18 22:09 Urine Bilirubin Negative (Negative) 07/11/18 22: Urine Urobilinogen 1.0 EU/dL (Up TO 0.2) H 07/11/18 22:09 Ur Leukocyte Esterase Negative (Negative) 07/11/18 22:09 Urine Glucose Negative mg/dL (Negative) 07/11/18 22:09
[2018-07-12 14:25] LABS: Troponin I < 0.02 ng/mL (0.00-0.06)
[2018-07-12] MEDS: Nystatin POWDER 60 GM JAR TP ×2 (14:36→21:27)
[2018-07-12 14:39] LABS: D-Dimer 671 ng/mlFEU (<500)
--- NOTE | 2018-07-12 17:26 | DI.CT_ITS ---
SYMPTOM/DIAGNOSIS: POSITIVE D-DIMER, R/O PE CT CHEST: CT angiography was performed with multi slice acquisition and multi planar and 3D reconstruction. CT scan of the chest was performed according to the pulmonary embolus protocol. Comparison chest x-ray is 07/11/18 There is no evidence of a pulmonary embolus. The thoracic aorta is of normal caliber with atherosclerosis present. No aneurysm or dissection is seen. Heart size is within normal limits. No significant pericardial effusion is seen. No findings to suggest right ventricular dysfunction present. Coronary artery calcifications are present. No significant mediastinal or hilar adenopathy, pleural effusion or pneumothorax is identified. No focal consolidating infiltrates are seen in the lungs. There is scarring in the bases bilaterally. The tracheobronchial tree is unremarkable. Mild emphysematous changes are seen in the lung apices. Degenerative changes are seen in the spine. IMPRESSION: No evidence of a pulmonary embolus, thoracic aortic dissection or aneurysm.
[2018-07-12] MEDS: Omnipaque 350 MG/ML 100 ML BTL IJ (18:06)
--- NOTE | 2018-07-12 18:24 | DI.VRAD_ITS ---
EXAM: CT Angiography Chest With Intravenous Contrast EXAM DATE/TIME: 07/12/2018 5:28 PM CLINICAL HISTORY: 77 years old, female; Pain; Other: Positive d - dimer R/O pe TECHNIQUE: Axial computed tomographic angiography images of the chest with intravenous contrast using CT angiography protocol. All CT scans at this facility use at least one of these dose optimization techniques: automated exposure control; mA and/or kV adjustment per patient size (includes targeted exams where dose is matched to clinical indication); or iterative reconstruction. Coronal and sagittal reformatted images were created and reviewed. MIP reconstructed images were created and reviewed. CONTRAST: 100 ml of omni 350 administered intravenously. COMPARISON: CR XR CHEST 2V PA LATERAL 07/11/2018 10:12 PM FINDINGS: No evidence of PE. No significant focal consolidation. No pleural effusion. No pneumothorax. No adenopathy. Unremarkable upper abdomen. No acute mediastinal or aortic abnormality. IMPRESSION: No specific etiology identified for the patient's symptoms. Dictated and Authenticated by: Richie Box MD. Ordering:ZULEYMA LAZO MD
[2018-07-12] MEDS: Acetaminophen 500 MG TAB 1000 MG PO (21:27)
[2018-07-12] MEDS: traZODone 100 MG TAB PO (21:27)
[2018-07-12] MEDS: Normal Saline Flush 10 ML SYR IVP (21:27)
[2018-07-13] VITALS (13 sets, daily range): BP systolic 113–163; BP diastolic 54–76; PULSE 79–95; RESP 1–20; TEMP 36.5–37.3; O2SAT 92–96
[2018-07-13] MEDS: Levothyroxine 125 MCG TAB PO (06:03)
[2018-07-13] MEDS: Albuterol/Ipratropium 3 ML UPD VIAL UPD (06:03)
[2018-07-13] MEDS: Enoxaparin 40 MG/0.4 ML SYR SC (06:03)
[2018-07-13 06:51] LABS: HGB 10.5 g/dL (12.0-15.5); Mean Corp. HGB Concentration 31.8 g/dL (32.0-36.0); Mean Corpuscular Hemoglobin 31.2 pg (27.0-33.0); Mean Corpuscular Volume 97.9 fL (80-95); Mean Platelet Volume 10.1 fL (8.0-11.0); Platelet Count 225 x1000/uL (130-400); RBC 3.37 m/cumm (4.00-5.20); RBC Distribution Width 14.7 % (11.7-14.6); White Blood Cell Count 6.44 k/cumm (4.4-10.8)
[2018-07-13 07:05] LABS: Hemoglobin A1C 6.5 % (4.5-6.2)
[2018-07-13 07:34] LABS: Anion Gap 5.2 mmol/L (3-11); BUN 14 mg/dL (7-18); CO2 32.8 mmol/L (21.0-32.0); CREATININE 1.14 mg/dL (0.55-1.02); Calcium 9.1 mg/dL (8.5-10.1); Chloride 103 mmol/L (98-107); Estimated GFR 46.34 (mL/min/1.73m2); Glucose 133 mg/dL (70-100); Potassium 4.7 mmol/L (3.5-5.1); Sodium 141 mmol/L (136-145); Vitamin B12 436 pg/mL (193-986)
[2018-07-13] MEDS: Nystatin POWDER 60 GM JAR TP ×3 (08:22→21:11)
[2018-07-13] MEDS: Omeprazole 20 MG CAPCR 40 MG PO (08:22)
[2018-07-13] MEDS: DULoxetine 30 MG CAP 60 MG PO (08:23)
[2018-07-13] MEDS: ENALAPRIL 10 MG TAB 20 MG PO (08:23)
[2018-07-13] MEDS: Tolterodine 2 MG CAPCR 4 MG PO (08:23)
--- NOTE | 2018-07-13 09:48 | PT.INIE ---
Date of service: 07/13/18 Time of Service: 09:48 PT Notes Inpatient Physical Therapy Evaluation Date: 07/13/18 Referring Doctor: Felipe Nick PT Orders: PT CONSULT: assess for safety and mobility Precautions: Fall precautions Patient Profile/Admitting Diagnosis: Pt is a 77yr old female admitted with near syncope and right lower extremity edema and weakness, fall at home. PMHX: spinal stenosis s/p laminectomy, chronic obstructive pulmonary disease, diabetes mellitus, migraines, osteoarthritis, urinary urge incontinence, left total knee arthroplasty, restless leg syndrome, hypertension, diverticulosis, cholecystectomy, claustrophobia, gastroesophageal reflux disease, hypothyroidism, cataract extraction, carpal tunnel release Social History/Home Situation: Lives alone in an apartment at [facility], has elevator to enter, no stairs. Baseline mobility independent gait household distances with FWW, independent with ADLS. States she would like to get a commode because she has urinary frequency and sometimes doesn't make it to the bathroom at night. Reports she has had ongoing right leg weakness of unknown cause, it is just weaker and sometimes my knee gives out. Equipment Owned/DME: 4WW, would like a bedside commode for nighttime due to urinary urgency Subjective: Pt sitting in chair, alert and agreeable to PT Consult. States she fell once at home because the floor was slippery, the second time was because she felt lightheaded. Pt states her head still feels funny but cannot be more specific. Objective: General Observation: telemetry Mental Status: A&Ox3 Pain: no c/o pain ROM: Right Upper Extremity: AROM shoulder flexion 95 degrees, elbow and wrist WNL Left Upper Extremity: AROM shoulder flexion 95 degrees, elbow and wrist WNL Right Lower Extremity: AROM hip flexion 95, knee and ankle WNL Left Lower Extremity: AROM hip flexion 90, knee and ankle WNL Strength: Right Upper Extremity: 4/5 shoulder flexion, 5/5 bicep, 5/5 paint tinter Left Upper Extremity: 4/5 shoulder flexion, 5/5 bicep, 5/5 paint tinter Right Lower Extremity: 2/5 hip flexion, 3/5 quad, 1/5 DF/PF Left Lower Extremity: 4/5 hip flexion, 4/5 quad, 5/5 DF/PF Bed Mobility/Transfers: Sit-stand: supervision Stand-sit: SBA Gait: SBA with FWW 40ftx2, slow step to gait pattern, cues to stand closer to FWW, pt has tendency to stand behind walker and lean over. Pt reports head feeling funny but no syncope or shortness of breath with exertion. Pt left up in chair when session completed. Therex: Pt issued and instructed in LE Strengthening therex program and performed ankle pumps, long arc quads x 20 reps, hip flexion R 10 reps, hip flexion left 20 reps Balance: Static Sitting: normal Dynamic Sitting: normal Static Standing: fair Dynamic Standing: fair Special Tests: Mobility Limitations Standardized Measure [facility] AM-PAC 6 clicks Basic Mobility Inpatient Short Form: Raw Score: 18 Standardized Score: 43.63 CMS Score: 46.58% CMS Modifier: CK Informed Consent/Education: Patient instructed in purpose of PT consult and plan of care. Assessment: Pt is a 77yr old female admitted with near syncope and right lower extremity edema and weakness, fall at home in setting of spinal stenosis s/p laminectomy, chronic obstructive pulmonary disease, diabetes mellitus, migraines, osteoarthritis, urinary urge incontinence, left total knee arthroplasty. Patient presents with the following impairment level findings: weakness throughout right LE making it difficult for her to lift her leg into/out of car and bed and putting her at increased risk of falls with mobility, decreased strength with sit-stand transfers due to right leg weakness, decreased static and dynamic balance putting her at risk of falls requiring use of FWW or 4WW for gait stability, decreased gait distance duration due to weakness. Pt would benefit from physical therapy intervention for strengthening and progressive mobility training, anticipate she will be able to return to home setting when medically cleared, would benefit from home PT to improve her strength and reduce risk of falls. Pt would benefit from bedside commode to improve safety with toileting at night due to urinary urgency and right leg weakness putting her at risk of falling if rushing to the bathroom. Impairments are contributing to the following functional limitations: AMPAC score CMS Score: 46.58% Patient is assessed as a Moderate 84955 complexity based on the following: History: see above Examination:see above Presentation: evolving Decision Making: AMPAC score CMS Score: 46.58% Goals: Goals X1 week 1. Supine-Sit : independent 2. Sit-Supine : independent 3. Sit-Stand : supervision with FWW 4. Stand-Sit : supervision 5. Bed-Chair : supervision with FWW 6. Chair-Bed : supervision with FWW 7. Gait : SBA with FWW 75ftx2 8. Independent with home exercise program Plan of Care/Treatment Plan: 1-2x/day, 7 days/week x 1 week. Plan of care has been reviewed with the ENVIRONMENTAL EPIDEMIOLOGIST providing the service under Physical Therapy direction. Initiate Physical Therapy intervention for strengthening, bed mobility, transfers, gait, stairs, balance training, use of assistive device. DISCHARGE RECOMMENDATIONS: Home with home PT, bedside commode for safe toileting at night TREATMENT CODE/TIME: 35 IE 9:46 G Codes in the area mobility of walking and moving around: current status [id number] CK projected status GP [id number]. Discharge status (if discharging) GP [id number] CK based on [facility] score CMS Score: 46.58% Cortney Maldonado PT
--- NOTE | 2018-07-13 10:00 | IN_ITS ---
Date of service: 07/13/18 Time of Service: 09:48 PT Notes Inpatient Physical Therapy Evaluation Date: 07/13/18 Referring Doctor: Felipe Nick PT Orders: PT CONSULT: assess for safety and mobility Precautions: Fall precautions Patient Profile/Admitting Diagnosis: Pt is a 77yr old female admitted with near syncope and right lower extremity edema and weakness, fall at home. PMHX: spinal stenosis s/p laminectomy, chronic obstructive pulmonary disease, diabetes mellitus, migraines, osteoarthritis, urinary urge incontinence, left total knee arthroplasty, restless leg syndrome, hypertension, diverticulosis, cholecystectomy, claustrophobia, gastroesophageal reflux disease, hypothyroidism , cataract extraction, carpal tunnel release Social History/Home Situation: Lives alone in an apartment at [facility], has elevator to enter, no stairs. Baseline mobility independent gait household distances with FWW, independent with ADLS. States she would like to get a commode because she has urinary frequency and sometimes doesn't make it to the bathroom at night. Reports she has had ongoing right leg weakness of unknown cause, it is just weaker and sometimes my knee gives out. Equipment Owned/DME: 4WW, would like a bedside commode for nighttime due to urinary urgency Subjective: Pt sitting in chair, alert and agreeable to PT Consult. States she fell once at home because the floor was slippery, the second time was because she felt lightheaded. Pt states her head still feels funny but cannot be more specific. Objective: General Observation: telemetry Mental Status: A&Ox3 Pain: no c/o pain ROM: Right Upper Extremity: AROM shoulder flexion 95 degrees, elbow and wrist WNL Left Upper Extremity: AROM shoulder flexion 95 degrees, elbow and wrist WNL Right Lower Extremity: AROM hip flexion 95, knee and ankle WNL Left Lower Extremity: AROM hip flexion 90, knee and ankle WNL Strength: Right Upper Extremity: 4/5 shoulder flexion, 5/5 bicep, 5/5 hull inspector Left Upper Extremity: 4/5 shoulder flexion, 5/5 bicep, 5/5 hull inspector Right Lower Extremity: 2/5 hip flexion, 3/5 quad, 1/5 DF/PF Left Lower Extremity: 4/5 hip flexion, 4/5 quad, 5/5 DF/PF Bed Mobility/Transfers: Sit-stand: supervision Stand-sit: SBA Gait: SBA with FWW 40ftx2, slow step to gait pattern, cues to stand closer to FWW, pt has tendency to stand behind walker and lean over. Pt reports head feeling funny but no syncope or shortness of breath with exertion. Pt left up in chair when session completed. Therex: Pt issued and instructed in LE Strengthening therex program and performed ankle pumps, long arc quads x 20 reps, hip flexion R 10 reps, hip flexion left 20 reps Balance: Static Sitting: normal Dynamic Sitting: normal Static Standing: fair Dynamic Standing: fair Special Tests: Mobility Limitations Standardized Measure [facility] AM-PAC 6 clicks Basic Mobility Inpatient Short Form: Raw Score: 18 Standardized Score: 43.63 CMS Score: 46.58% CMS Modifier: CK Informed Consent/Education: Patient instructed in purpose of PT consult and plan of care. Assessment: Pt is a 77yr old female admitted with near syncope and right lower extremity edema and weakness, fall at home in setting of spinal stenosis s /p laminectomy, chronic obstructive pulmonary disease, diabetes mellitus, migraines, osteoarthritis, urinary urge incontinence, left total knee arthroplasty. Patient presents with the following impairment level findings: weakness throughout right LE making it difficult for her to lift her leg into/out of car and bed and putting her at increased risk of falls with mobility, decreased strength with sit-stand transfers due to right leg weakness, decreased static and dynamic balance putting her at risk of falls requiring use of FWW or 4WW for gait stability, decreased gait distance duration due to weakness. Pt would benefit from physical therapy intervention for strengthening and progressive mobility training, anticipate she will be able to return to home setting when medically cleared, would benefit from home PT to improve her strength and reduce risk of falls. Pt would benefit from bedside commode to improve safety with toileting at night due to urinary urgency and right leg weakness putting her at risk of falling if rushing to the bathroom. Impairments are contributing to the following functional limitations: AMPAC score CMS Score: 46.58% Patient is assessed as a Moderate 20730 complexity based on the following: History: see above Examination:see above Presentation: evolving Decision Making: AMPAC score CMS Score: 46.58% Goals: Goals X1 week 1. Supine-Sit : independent 2. Sit-Supine : independent 3. Sit-Stand : supervision with FWW 4. Stand-Sit : supervision 5. Bed-Chair : supervision with FWW 6. Chair-Bed : supervision with FWW 7. Gait : SBA with FWW 75ftx2 8. Independent with home exercise program Plan of Care/Treatment Plan: 1-2x/day, 7 days/week x 1 week. Plan of care has been reviewed with the AUDIOVISUAL LIBRARIAN providing the service under Physical Therapy direction. Initiate Physical Therapy intervention for strengthening, bed mobility, transfers, gait, stairs, balance training, use of assistive device. DISCHARGE RECOMMENDATIONS: Home with home PT, bedside commode for safe toileting at night TREATMENT CODE/TIME: 35 IE 9:46 G Codes in the area mobility of walking and moving around: current status [id number]- CK projected status GP [id number]. Discharge status (if discharging) GP G8980 CK based on [facility] score CMS Score: 46.58% Cortney Maldonado PT
--- NOTE | 2018-07-13 11:28 | PDOC.CMPRO ---
- If Service Date Differs Date of service: 07/13/18 Time of Service: 11:28 Care Management Progress Note S/O: CM met with Sveta in her room she is sitting up in the chair. CM reviewed patients chart and patient was reviewed at multidisciplinary rounds. Sveta continues as an inpatient today. She continues to have some dizziness with ambulation. She is not feeling ready to return home today.CM left a voicemail for [facility] case resource manager Analisa Damon to notify of admission and assist in facilitating community resources. Sveta does not have clothes to return home in and would like some brought from her home. CM will also contact [facility] nurse to see if she can be of assistance. A: Sveta is a 77 year old female admitted with dehydration and near syncope. P: Sveta will be discharged home when she is medically ready per provider. She states she will transport home with RCT coordinated by CM, at time of discharge. CM attempting to coordinate obtaining clothes for patient for time of discharge. She will resume services through [facility] homemaker and her community CM Analisa Damon.
--- NOTE | 2018-07-13 11:40 | CMPROGNOTE_ITS ---
- If Service Date Differs Date of service: 07/13/18 Time of Service: 11:28 Care Management Progress Note S/O: CM met with Sveta in her room she is sitting up in the chair. CM reviewed patients chart and patient was reviewed at multidisciplinary rounds. Sveta continues as an inpatient today. She continues to have some dizziness with ambulation. She is not feeling ready to return home today.CM left a voicemail for [facility] manager of case management Analisa Damon to notify of admission and assist in facilitating community resources. Sveta does not have clothes to return home in and would like some brought from her home. CM will also contact [facility] nurse to see if she can be of assistance. A: Sveta is a 77 year old female admitted with dehydration and near syncope. P: Sveta will be discharged home when she is medically ready per provider. She states she will transport home with RCT coordinated by CM, at time of discharge. CM attempting to coordinate obtaining clothes for patient for time of discharge. She will resume services through [facility] homemaker and her community CM Analisa Damon.
--- NOTE | 2018-07-13 12:44 | W.PM.PROGNOT ---
Date of Service Date of service: 07/13/18 Time of Service: 12:45 Assessment and Plan (1) Near syncope: Current visit: Yes Status: Acute Patient's lightheadedness still appears to be multifactorial. Dehydrated on presentation, though not orthostatic the next morning. Her blood pressures have been running low for her age, so I have decreased the enalapril dose. Continue to monitor on telemetry, no events so far. She has not been febrile or had other symptoms of occult infection. She does have subacutely developing right lower extremity swelling that is asymmetric. Elevated d-dimer but CT chest negative for PE or other pathology. She may have some CHF with lower extremity edema and now some rales. I will get a BNP and try a dose of Lasix. She may just have atelectasis she is not moving much. Given lack of response to Lyrica and possible contribution to her dizziness, we will stop this medication. (2) Frequent falls: Current visit: Yes Status: Acute Patient has had increased falls recently with her spinal stenosis and increased pain in her lower extremities. She also is overweight. She has lost her over the last year and a half and lives alone which may have also caused her to have increased falling. Physical therapy consult ordered, and they are working with her. (3) Spinal stenosis: Current visit: No Status: Chronic Chronic back pain and right lower extremity weakness related to her spinal stenosis likely contributed to her tripping. Getting physical therapy. We have also stopped the Lyrica as it may have been contributing to her dizziness was not helping her pain. (4) Diabetes mellitus, controlled: Current visit: No Status: Chronic Mild hyperglycemia. A1c ordered for the morning shows good control with an A1c of 6.5 (5) Anemia, macrocytic: Current visit: Yes Status: Acute Anemia stable again, no acute bleed. No occult blood of the stool. It is macrocytic, but B12 level normal. (6) DVT prophylaxis: Current visit: Yes Status: Acute On Lovenox Subjective Patient reports: tolerating a regular diet and voiding w/o difficulty; denies diarrhea, nausea, vomiting, shortness of breath and fever Interval history since last seen: Patient states she is feeling a little better today. She still feels a little lightheaded when she is up walking in the room. She denies chest pain or palpitations. She still has swelling in her legs. She has been working with physical therapy. Exam Narrative Exam Narrative: General: Patient is awake, alert and oriented. She is in no acute distress. HEENT: MMM. No neck masses or jugular venous distention Lungs: CTAB with normal effort Heart: Regular rate and rhythm with 1/6 systolic murmur left sternal border. Abdomen: Obese, slightly protuberant but soft and nontender. Extremities: 1+ pitting edema over the right ankle and trace over the left with no tenderness. Pulses are intact with good capillary refill. Skin: Pale, warm and dry. No rash. Objective Objective Clinical Data: Abnormal lab results 07/12/18 07/13/18 07/13/18 Range/Units 13:56 06:07 06:07 RBC 3.37 L (4.00-5.20) m/cumm Hgb 10.5 L (12.0-15.5) g/dL Hct 33.0 L (36.0-46.0) % MCV 97.9 H (80-95) fL MCHC 31.8 L (32.0-36.0) g/dL RDW 14.7 H (11.7-14.6) % D-Dimer 671 H (<500) ng/mlFEU Carbon Dioxide 32.8 H (21.0-32.0) mmol/L Creatinine 1.14 H (0.55-1.02) mg/dL Glucose 133 H (70-100) mg/dL Hemoglobin A1c (4.5-6.2) % 07/13/18 Range/Units 06:07 RBC (4.00-5.20) m/cumm Hgb (12.0-15.5) g/dL Hct (36.0-46.0) % MCV (80-95) fL MCHC (32.0-36.0) g/dL RDW (11.7-14.6) % D-Dimer (<500) ng/mlFEU Carbon Dioxide (21.0-32.0) mmol/L Creatinine (0.55-1.02) mg/dL Glucose (70-100) mg/dL Hemoglobin A1c 6.5 H (4.5-6.2) % Vital Signs Temperature 36.7 C 07/13/18 11:30 Temperature Source Tympanic 07/13/18 11:30 Pulse 85 07/13/18 11:30 Pulse Rhythm Regular 07/13/18 07:27 Pulse 90 07/11/18 23:40 Respiratory Rate 18 07/13/18 11:30 Respiratory Effort Non-Labored 07/13/18 07:27 Respiratory Depth Normal 07/13/18 07:27 Respiratory Pattern Normal 07/13/18 07:27 Blood Pressure 113/54 L 07/13/18 11:30 Blood Pressure Mean 62 07/11/18 23:02 Pulse Oximetry 95 07/13/18 11:30 Oxygen Delivery Method Room Air 07/13/18 11:30 Oxygen Flow Rate 0 07/13/18 11:30 Pain Level 0 07/12/18 15:35 Intake & Output 07/12/18 07/13/18 07/13/18 23:59 11:59 23:59 Intake Total 1606.25 / 1606.25 250 / 250 Output Total 1400 / 1400 600 / 600 Balance 206.25 / 206.25 -350 / -350 Intake: IV 1126.25 / 1126.25 Oral 480 / 480 250 / 250 Output: Urine 1400 / 1400 600 / 600 Other: Urine Color Yellow Yellow Yellow Urine Appearance Clear Clear Urine Odor Normal Comment pt voided independently and provided self richard care at this time. Stool Size Moderate Stool Characteristics Soft Brown Voiding Methods Bedside Commode Bedside Commode Bedside Commode Laboratory Results WBC 6.44 k/cumm (4.4-10.8) 07/13/18 06:07 RBC 3.37 m/cumm (4.00-5.20) L 07/13/18 06:07 Hgb 10.5 g/dL (12.0-15.5) L 07/13/18 06:07 Hct 33.0 % (36.0-46.0) L 07/13/18 06:07 MCV 97.9 fL (80-95) H 07/13/18 06:07 MCH 31.2 pg (27.0-33.0) 07/13/18 06:07 MCHC 31.8 g/dL (32.0-36.0) L 07/13/18 06:07 RDW 14.7 % (11.7-14.6) H 07/13/18 06:07 Plt Count 225 x1000/uL (130-400) 07/13/18 06:07 MPV 10.1 fL (8.0-11.0) 07/13/18 06:07 Immature Gran % 1.2 07/11/18 22:00 Neutrophils % 69.2 07/11/18 22:00 Lymphocytes % 19.1 07/11/18 22:00 Monocytes % 9.1 07/11/18 22:00 Eosinophils % 1.1 07/11/18 22:00 Basophils % 0.3 07/11/18 22:00 Absolute Neutrophils 7.66 k/cumm (1.2-6.7) H 07/11/18 22:00 Absolute Lymphocytes 2.11 k/cumm (1.2-3.4) 07/11/18 22:00 Absolute Monocytes 1.01 k/cumm (0.11-0.7) H 07/11/18 22:00 Absolute Eosinophils 0.12 k/cumm (0.0-0.7) 07/11/18 22:00 Absolute Basophils 0.03 k/cumm (0.0-0.2) 07/11/18 22:00 D-Dimer 671 ng/mlFEU (<500) H 07/12/18 13:56 Sodium 141 mmol/L (136-145) 07/13/18 06:07 Potassium 4.7 mmol/L (3.5-5.1) D 07/13/18 06:07 Chloride 103 mmol/L (98-107) 07/13/18 06:07 Carbon Dioxide 32.8 mmol/L (21.0-32.0) H 07/13/18 06:07 Anion Gap 5.2 mmol/L (3-11) 07/13/18 06:07 BUN 14 mg/dL (7-18) 07/13/18 06:07 Creatinine 1.14 mg/dL (0.55-1.02) H 07/13/18 06:07 Estimated GFR/1.73 m2 46.34 (mL/min/1.73m2) 07/13/18 06:07 Glucose 133 mg/dL (70-100) H 07/13/18 06:07 Hemoglobin A1c 6.5 % (4.5-6.2) H 07/13/18 06:07 Calcium 9.1 mg/dL (8.5-10.1) 07/13/18 06:07 Magnesium 2.2 mg/dL (1.8-2.4) 07/12/18 05:37 Total Bilirubin 0.5 mg/dL (0.2-1.0) 07/12/18 05:37 AST 19 U/L (15-37) 07/12/18 05:37 ALT 24 U/L (12-78) 07/12/18 05:37 Alkaline Phosphatase 48 U/L (46-116) 07/12/18 05:37 Troponin I < 0.02 ng/mL (0.00-0.06) 07/12/18 13:56 Total Protein 6.3 g/dL (6.4-8.2) L 07/12/18 05:37 Albumin 3.1 g/dL (3.4-5.0) L 07/12/18 05:37 Vitamin B12 436 pg/mL (193-986) 07/13/18 06:07 TSH 2.94 uIU/mL (0.358-3.74) 07/12/18 05:37 Urine Color Yellow (Yellow) 07/11/18 22:09 Urine Clarity Clear 07/11/18 22:09 Urine pH 6.5 (5-8) 07/11/18 22:09 Ur Specific [place] 1.015 (1.005-1.025) 07/11/18 22:09 Urine Protein Negative mg/dL (Negative) 07/11/18 22:09 Urine Ketones Negative mg/dL (Negative) 07/11/18 22:09 Urine Blood Negative (Negative) 07/11/18 22:09 Urine Nitrite Negative (Negative) 07/11/18 22:09 Urine Bilirubin Negative (Negative) 07/11/18 22:09 Urine Urobilinogen 1.0 EU/dL (Up TO 0.2) H 07/11/18 22:09 Ur Leukocyte Esterase Negative (Negative) 07/11/18 22:09 Urine Glucose Negative mg/dL (Negative) 07/11/18 22:09
[2018-07-13] MEDS: Furosemide 20 MG/2 ML VIAL IVP (13:03)
[2018-07-13] MEDS: Normal Saline Flush 10 ML SYR IVP ×2 (13:04→21:10)
--- NOTE | 2018-07-13 13:22 | PT.INTREAT ---
Date of service: 07/13/18 Time of Service: 13:22 PT Notes Inpatient Physical Therapy Treatment Note Date: 07/13/18 PRECAUTIONS: Fall precautions SUBJECTIVE: Pt sitting in chair, states she feels better than she did this morning, maybe I will go home tomorrow?. Reports her head feels fuzzy but not lightheaded. OBJECTIVE: General observation: telemetry Pain: no c/o pain Bed Mobility/Transfers: Sit-stand: supervision Stand-sit: supervision Gait: SBA with FWW 40ftx2, slow step to gait pattern, cues to stand closer to FWW. Improved jolie this afternoon. Pt with right dorsiflexion weakness which could put her at increased risk of falls if she has decreased clearance right foot, discussed with patient importance of strengthening right dorsiflexion, right quad and right hip flexors to improve step sequence and stability with gait. Therex: Performed ankle pumps, long arc quads x 20 reps, hip flexion R 10 reps, hip flexion left 20 reps Balance: Static Sitting: normal Dynamic Sitting: normal Static Standing: fair Dynamic Standing: fair ASSESSMENT: Mobilizing well with transfers and short distance gait with FWW, continues with right LE weakness which was present prior to admission. Pt would benefit from home PT follow up at discharge to focus on R LE strengthening, balance training and gait training. PLAN: Progress gait Progress strengthening TREATMENT CODE/TIME: 23min TAx1 TPX 1 1326 Cortney Maldonado PT
--- NOTE | 2018-07-13 16:02 | CHAPLAIN ---
Sveta was sitting up in her chair playing games on her iPad when I visited. She was very pleasant and easily engaged in conversation. Her a year a half ago and they had moved the [employer] from [facility] because their son wanted to them to be closer. He lives in [place] and is very supportive, Sveta said. She has trouble getting around some, because of arthritis in her back and this keeps her from getting out, and even going to the meals at the [employer]. She seems to be comfortable here, and expects to be discharged soon.
[2018-07-13 16:06] LABS: NT-proBNP 519 pg/mL
--- NOTE | 2018-07-13 16:21 | DM INPTCON_ITS ---
DESCRIPTION/ASSESSMENT: Appreciate diabetes consult for Sveta Persaud, 77 year old who is hospitalized with recent falls secondary to spinal stenosis. BMI 40 A1c 6.6 now at 6.5 taking no diabetes medication at home. Blood sugars here 120-142 eating 38-43 grams carbohydrate at a meal. INTERVENTION: Given her age, A1c without medication, and her current blood sugars, no intervention suggested at this time. PLAN: Will follow blood sugars and support self management if desired.
[2018-07-13] MEDS: Insulin Aspart 300 UNITS/3 ML PEN SC (16:42)
[2018-07-13] MEDS: traZODone 100 MG TAB PO (21:10)
[2018-07-14 03:42] VITALS: BP 148/69; PULSE 88; RESP 18; TEMP 37.2; O2SAT 92
[2018-07-14] MEDS: Enoxaparin 40 MG/0.4 ML SYR SC (05:55)
[2018-07-14] MEDS: Levothyroxine 125 MCG TAB PO (05:55)
[2018-07-14 06:49] LABS: HCT 34.9 % (36.0-46.0); HGB 11.3 g/dL (12.0-15.5); Mean Corp. HGB Concentration 32.4 g/dL (32.0-36.0); Mean Corpuscular Hemoglobin 31.1 pg (27.0-33.0); Mean Corpuscular Volume 96.1 fL (80-95); Mean Platelet Volume 9.6 fL (8.0-11.0); Platelet Count 264 x1000/uL (130-400); RBC 3.63 m/cumm (4.00-5.20); RBC Distribution Width 14.6 % (11.7-14.6); White Blood Cell Count 8.66 k/cumm (4.4-10.8)
[2018-07-14 06:54] LABS: Anion Gap 8.3 mmol/L (3-11); BUN 19 mg/dL (7-18); CO2 30.7 mmol/L (21.0-32.0); CREATININE 1.13 mg/dL (0.55-1.02); Calcium 9.8 mg/dL (8.5-10.1); Chloride 99 mmol/L (98-107); Estimated GFR 46.82 (mL/min/1.73m2); Glucose 134 mg/dL (70-100); Potassium 4.5 mmol/L (3.5-5.1); Sodium 138 mmol/L (136-145)
[2018-07-14 07:19] VITALS: PULSE 85
[2018-07-14 07:25] VITALS: O2SAT 94
[2018-07-14 07:40] VITALS: BP 141/67; PULSE 82; RESP 18; TEMP 37.3; O2SAT 94
[2018-07-14] MEDS: ENALAPRIL 10 MG TAB PO (08:13)
[2018-07-14] MEDS: Tolterodine 2 MG CAPCR 4 MG PO (08:13)
[2018-07-14] MEDS: DULoxetine 30 MG CAP 60 MG PO (08:13)
[2018-07-14] MEDS: Nystatin POWDER 60 GM JAR TP (08:13)
[2018-07-14] MEDS: Omeprazole 20 MG CAPCR 40 MG PO (08:13)
--- NOTE | 2018-07-14 09:34 | PT.INTREAT ---
Date of service: 07/14/18 Time of Service: 09:35 PT Notes Inpatient Physical Therapy Treatment Note Date: 07/14/18 PRECAUTIONS: Fall SUBJECTIVE: Sveta states that she feels better today than she has over the past several days. OBJECTIVE: PAIN: No complaints of pain BED MOBILITY/TRANSFERS Sit-stand: S Stand-sit: S GAIT Assistive Device: FWW Weight bearing: Full Assist: SBA Distance: 200' Deviation: Increased fatigue THEREX: Patient completed several exercises for UE strengthening, as per flow sheet. ASSESSMENT: Patient tolerated session with complaints of increased fatigue following gait training. Patient was able to tolerate a progression in gait distance with FWW support requiring SBA only. Patient would benefit from continued gait and transfer training as well as strengthening for improved ability to perform daily functional tasks as well as for improved gait duration. PLAN: Continue with PTs POC TREATMENT CODE/TIME: 25 minutes; TA x2
--- NOTE | 2018-07-14 10:03 | PDOC.CMDIS ---
- If Service Date Differs Date of service: 07/14/18 Time of Service: 10:04 LACE Index Scoring Tool - Questions: Length of Stay (in days): 3 Acuity (Admit via E.D.?): Yes Comorbidities: Diabetes w/o Complication Care Management Discharge Reason for Hospitalization: Near syncope, mild dehydration Discharge Plan: Sveta will be discharged home with new services through home health PT. CM contacted home health and provided update. CM spoke with Josep DUARTE and he will bring up Sveta's clothing.CM to coordinate RCT services at time of discharge. She will follow up with primary care as directed. She will resume services through [facility] moderate needs and [facility] she will return to [facility]. Patient/Family Education Needs: Discharge education, limitations and follow up plan of care including ask me three and self management. AMANDA reviewed Sveta's readiness to return home she states she feels better however she does not like the thought of traveling in the snow. Services Needed at Discharge: Home Health Care Services, Physical Therapy, Transportation
--- NOTE | 2018-07-14 10:12 | CMDISCH_ITS ---
- If Service Date Differs Date of service: 07/14/18 Time of Service: 10:04 LACE Index Scoring Tool - Questions: Length of Stay (in days): 3 Acuity (Admit via E.D.?): Yes Comorbidities: Diabetes w/o Complication Care Management Discharge Reason for Hospitalization: Near syncope, mild dehydration Discharge Plan: Sveta will be discharged home with new services through home health PT. CM contacted home health and provided update. CM spoke with Josep DUARTE and he will bring up Sveta's clothing.CM to coordinate RCT services at time of discharge. She will follow up with primary care as directed. She will resume services through [facility] moderate needs and [facility] she will return to [facility]. Patient/Family Education Needs: Discharge education, limitations and follow up plan of care including ask me three and self management. AMANDA reviewed Sveta's readiness to return home she states she feels better however she does not like the thought of traveling in the snow. Services Needed at Discharge: Home Health Care Services, Physical Therapy, Transportation
[2018-07-14 11:35] VITALS: BP 141/72; PULSE 90; RESP 18; TEMP 36.7; O2SAT 95
--- NOTE | 2018-07-14 12:22 | W.PM.DS.N ---
Date of service: 07/14/18 Time of Service: 12:22 DS: Diagnosis Discharge Diagnosis (1) Near syncope: Status: Acute (2) Frequent falls: Status: Acute (3) Spinal stenosis: Status: Chronic (4) Diabetes mellitus, controlled: Status: Chronic (5) Anemia, macrocytic: Status: Acute Discharge Plan Disposition Patient Disposition: HOME W/HOME HEALTH SERVICE Condition: Improving Discharge Details Chief Complaint: Dizzy/Sync Reason For Visit: NEAR SYNCOPE, MILD DEHYDRATION Admit Date/Time: 07/11/18 23:03 Admit Provider: Jon Alexander Attending Provider: Jon Alexander Primary Care Provider: Jocy Kate ED Provider: Raffy Licea Hospital Course Hospital Course: Sveta Persaud is a 77 year old female with a past medical history significant for controlled diabetes, spinal stenosis, with chronic right leg weakness, hypertension, hypothyroidism and GERD who presented to the ED on 07/12/18 with reports of increasing weakness over the days prior to her presentation. She reported that she had fallen at home and struck the back of her head and her right leg. She also reported increased edema in her RLE which she believed to be related to recently starting Lyrica. The Lyrica has also been making her very sleepy and not helping her pain. She reported dizziness but no loss of consciousness. In the ED she had a negative CT of the neck and head. Chest x-ray was also done and had no evidence of acute process. UA was not suspicious for infection. She did have a low magnesium at 1.7 and received supplementation with improvement to 2.2. She appeared to be dehydrated and was admitted for IV hydration and further work up of her near syncope with telemetry monitoring. She was not found to be orthostatic, however, her blood pressure was mildly low and her home blood pressure medication, Enalapril, dose was cut in half. Her dizziness resolved with IV hydration and decreased blood pressure medication. Telemetry revealed normal sinus rhythm with heart rates in the 80s. She worked with PT, who recommended ongoing home PT. She lives in assisted living at [facility]. She will be discharged home with home PT and nursing as she will need medication assistance and blood pressure monitoring. She will follow up with her PCP and the pain clinic as scheduled. She will remain on the lowered dose of Enalapril upon discharge home. This case was discussed with Dr. Pedroza who is in agreement. Home Meds and New Rx's Prescriptions: New enalapril maleate 10 mg Tablet 10 mg PO DAILY Qty: 30 RF: 0 acetaminophen [Mapap Extra Strength] 500 mg Tablet 1,000 mg PO Q4H PRN PRN (Reason: fever or pain) Qty: 0 RF: 0 nystatin 100,000 unit/gram Powder Topical TID Qty: 0 RF: 0 Continue tolterodine 4 MG capsule,extended release 24hr 4 mg PO DAILY Qty: 90 RF: 3 omeprazole 40 MG capsule,delayed release(DR/EC) 40 mg PO DAILY Qty: 30 RF: 12 levothyroxine [Synthroid] 125 MCG tablet 125 mcg PO DAILY Qty: 90 RF: 3 diaper,brief,adult,disposable [Adult Briefs - Large] 1 EACH misc 1 ea Miscellaneous PRN Qty: 100 RF: 6 trazodone 100 MG tablet 100 mg PO DAILY Qty: 90 RF: 3 nitroglycerin 0.4 MG tablet, sublingual 0.4 mg Sublingual PRN Qty: 100 RF: 3 duloxetine 60 mg Capsule,Delayed Release(Dr/Ec) 60 mg PO DAILY RF: 0 Discontinued pregabalin 75 mg capsule 75 mg PO BID 28 Days Qty: 56 RF: 0 enalapril maleate 20 MG tablet 20 mg PO DAILY Qty: 135 RF: 3 acetaminophen 650 MG tablet 1,300 mg PO PRN RF: 0 Discharge Instructions Instructions: Dehydration (DC) Additional Instructions: Your Enalapril dose has been decreased to 10 mg. Stop taking Lyrica. Follow up with your PCP and at the pain clinic as scheduled. Home health will see you at home for PT and to monitor your blood pressure. Be careful changing positions. Wear the ROBERTO stockings during the day, elevate your feet when you are sitting. Take care! Stand Alone Forms: Nursing Discharge Form Referrals: Jocy Kate NP [Primary Care Provider] - 07/21/18 9:30 am Activity:: Activity as Tolerated Equipment/Supplies:: No Equipment Needed Diet:: Carb Counting Discharge Orders Discharge Orders: Discharge Order (Routine); Ordered 07/14/18 Ordered By: Heidi Eng Exam Const General: cooperative, comfortable and no acute distress Orientation: alert, awake and oriented x3 HENMT Head: normocephalic Mouth: moist mucous membranes Neck Neck: supple and no JVD Resp Effort & Inspection: normal respiratory effort Auscultation: clear to auscultation bilaterally Cardio Rate: regular rate Rhythm: regular rhythm Heart Sounds: no murmurs GI Palpation: soft, no masses and nontender Auscultation: normal bowel sounds Extrem General: edema (Edema to BLEs, right greater than left. Slight right foot drop. ) DS: Data Vitals/I&O Vitals and I&O: Vital Signs Temperature 37.3 C 07/14/18 07:40 Temperature Source Tympanic 07/14/18 07:40 Pulse 82 07/14/18 07:40 Pulse Rhythm Regular 07/14/18 08:38 Pulse 90 07/11/18 23:40 Respiratory Rate 18 07/14/18 07:40 Respiratory Effort Non-Labored 07/14/18 08:38 Respiratory Depth Normal 07/14/18 08:38 Respiratory Pattern Normal 07/14/18 08:38 Blood Pressure 141/67 H 07/14/18 07:40 Blood Pressure Mean 62 07/11/18 23:02 Pulse Oximetry 94 L 07/14/18 07:40 Oxygen Delivery Method Room Air 07/14/18 07:40 Oxygen Flow Rate 0 07/14/18 07:40 Pain Level 0 07/13/18 15:19 Intake & Output 07/13/18 07/14/18 07/14/18 23:59 11:59 23:59 Intake Total 850 / 850 240 / 240 Output Total 1300 / 1300 800 / 800 Balance -450 / -450 -560 / -560 Weight 102.73 kg Intake: Oral 850 / 850 240 / 240 Output: Urine 1300 / 1300 800 / 800 Other: Urine Color Yellow Yellow Urine Appearance Clear Clear Urine Odor None Stool Size Moderate Stool Characteristics Soft Brown Voiding Methods Bedside Commode Bedside Commode Incontinent Completed studies during hospitalization [Text1]: 07/13/18: CHEST X-RAY, PA AND LATERAL: Comparison is 12/05/17. The heart size and pulmonary vasculature are within normal limits. The lungs are clear and well expanded. No effusions or pneumothoraces are identified. Degenerative changes are seen in the spine. IMPRESSION: No acute pulmonary process. CT BRAIN: Noncontrast examination. No priors. The ventricles and sulci are consistent with the patient's age. There are areas of decreased attenuation in the white matter consistent with small vessel ischemic disease. No intracranial hemorrhage, infarct, midline shift or mass effect is identified. The ventricles are intact. The basilar cisterns are patent. The visualized paranasal sinuses are clear. There is opacification of a few of the inferior left mastoid air cells, but no fracture is identified. The left mastoid air cells are well pneumatized. The calvarium is intact. IMPRESSION: No acute intracranial process. CT SCAN OF THE CERVICAL SPINE: Multiple contiguous axial images of the cervical spine were obtained. Sagittal and coronal reformatted images were evaluated on the Siemens workstation. There is patient motion artifact, which does limit the examination. There is a reversal of the normal cervical lordosis centered at C4. No acute fractures or subluxations are seen. Moderately severe degenerative changes are present throughout the cervical spine. The odontoid is intact. The lateral masses are well aligned. There is no significant prevertebral soft tissue swelling. The visualized lung apices are clear. IMPRESSION: No acute fracture or subluxation of the cervical spine. CT CHEST: CT angiography was performed with multi slice acquisition and multi planar and 3D reconstruction. CT scan of the chest was performed according to the pulmonary embolus protocol. Comparison chest x-ray is 07/11/18 There is no evidence of a pulmonary embolus. The thoracic aorta is of normal caliber with atherosclerosis present. No aneurysm or dissection is seen. Heart size is within normal limits. No significant pericardial effusion is seen. No findings to suggest right ventricular dysfunction present. Coronary artery calcifications are present. No significant mediastinal or hilar adenopathy, pleural effusion or pneumothorax is identified. No focal consolidating infiltrates are seen in the lungs. There is scarring in the bases bilaterally. The tracheobronchial tree is unremarkable. Mild emphysematous changes are seen in the lung apices. Degenerative changes are seen in the spine. IMPRESSION: No evidence of a pulmonary embolus, thoracic aortic dissection or aneurysm. Labs on day of discharge: Labs from last 24 hours 07/14/18 07/14/18 07/13/18 06:20 06:20 15:27 WBC 8.66 D RBC 3.63 L Hgb 11.3 L Hct 34.9 L MCV 96.1 H MCH 31.1 MCHC 32.4 RDW 14.6 Plt Count 264 MPV 9.6 Sodium 138 Potassium 4.5 Chloride 99 Carbon Dioxide 30.7 Anion Gap 8.3 BUN 19 H Creatinine 1.13 H Estimated GFR/1.73 m2 46.82 Glucose 134 H Calcium 9.8 NT-Pro-B Natriuret Pep 519 H
--- NOTE | 2018-07-14 12:51 | PT.INDS ---
Date of service: 07/14/18 Time of Service: 12:51 PT Notes Inpatient Physical Therapy Discharge Summary Date: 07/14/18 Dates of Service: 07/13/18-07/14/18 SUBJECTIVE: NT OBJECTIVE: 07/13/18-07/14/18 Bed Mobility/Transfers: Sit-stand: supervision Stand-sit: supervision Gait: SBA with FWW 200ft Balance: Static Sitting: normal Dynamic Sitting: normal Static Standing: fair Dynamic Standing: fair Assessment: Pt is a 77yr old female admitted with near syncope and right lower extremity edema and weakness, fall at home in setting of spinal stenosis s/p laminectomy, chronic obstructive pulmonary disease, diabetes mellitus, migraines, osteoarthritis, urinary urge incontinence, left total knee arthroplasty. Patient was seen for 3 PT visits. Progressed from SBA gait with FWW 40ftx2 to SBA gait with FWW 200ft. Pt is discharged to home, home PT recommended for R LE Strengthening, balance training and gait training. Goals: Goals X1 week 1. Supine-Sit : independent 2. Sit-Supine : independent 3. Sit-Stand : supervision with FWW 4. Stand-Sit : supervision 5. Bed-Chair : supervision with FWW 6. Chair-Bed : supervision with FWW 7. Gait : SBA with FWW 75ftx2 8. Independent with home exercise program Pt met goals 1-8 DISCHARGE RECOMMENDATIONS: Home with home PT, bedside commode for safe toileting at night G Codes in the area mobility of walking and moving around: projected status GP [id number]. Discharge status (if discharging) GP [id number] CK Cortney Maldonado PT
--- NOTE | 2018-07-14 12:54 | INDS_ITS ---
Date of service: 07/14/18 Time of Service: 12:51 PT Notes Inpatient Physical Therapy Discharge Summary Date: 07/14/18 Dates of Service: 07/13/18-07/14/18 SUBJECTIVE: NT OBJECTIVE: 07/13/18-07/14/18 Bed Mobility/Transfers: Sit-stand: supervision Stand-sit: supervision Gait: SBA with FWW 200ft Balance: Static Sitting: normal Dynamic Sitting: normal Static Standing: fair Dynamic Standing: fair Assessment: Pt is a 77yr old female admitted with near syncope and right lower extremity edema and weakness, fall at home in setting of spinal stenosis s /p laminectomy, chronic obstructive pulmonary disease, diabetes mellitus, migraines, osteoarthritis, urinary urge incontinence, left total knee arthroplasty. Patient was seen for 3 PT visits. Progressed from SBA gait with FWW 40ftx2 to SBA gait with FWW 200ft. Pt is discharged to home, home PT recommended for R LE Strengthening, balance training and gait training. Goals: Goals X1 week 1. Supine-Sit : independent 2. Sit-Supine : independent 3. Sit-Stand : supervision with FWW 4. Stand-Sit : supervision 5. Bed-Chair : supervision with FWW 6. Chair-Bed : supervision with FWW 7. Gait : SBA with FWW 75ftx2 8. Independent with home exercise program Pt met goals 1-8 DISCHARGE RECOMMENDATIONS: Home with home PT, bedside commode for safe toileting at night G Codes in the area mobility of walking and moving around: projected status GP [id number]. Discharge status (if discharging) GP [id number] CK Cortney Maldonado PT
[2018-07-14 13:07] VITALS: PULSE 92
--- NOTE | 2018-07-14 15:28 | PDOC.HHF2F ---
1. Encounter Date and Reason I certify that VIRGEN CASIANO was seen by Heidi Eng on 07/14/18 and that I had a [id number] encounter with this patient that meets the physician face to face encounter requirements. 2. Clinical Findings Supporting Skilled Need and Homebound Status I certify that home health services are medically necessary, include either intermittent care home and/or physical/speech therapy, and that this patient is homebound in that absences from the home require considerable and taxing effort and are infrequent or of short duration, or are attributable to the need to receive medical care. [X] (a) Attached documentation from encounter provides clinical findings supporting skilled need and homebound status (including what assistance patient requires to leave the home). The encounter with the patient was in whole, or in part, for the following medical condition, which is the primary reason for home health care: NEAR SYNCOPE, MILD DEHYDRATION [facility]: Needed to monitor medical conditions, monitor blood pressure and heart rate (Enalapril decreased). Assist with medication adherence. Physical Therapy: Needed to work on strength and endurance after hospitalization. Ongoing PT recommended by PT at [facility]. Speech Therapy: Homebound: Unable to leave home without assistance. 3. Certification and Authentication I certify that I composed the above information based on my clinical judgement relating to this patient's medical condition and, if applicable, clinical findings communicated to me by the NPP or inpatient physician who performed the Home Health Referral. All further orders will be obtained through Dr. Son (Community Based Physician - PCP)
--- NOTE | 2018-07-14 15:31 | HHF2F_ITS ---
1. Encounter Date and Reason I certify that VIRGEN CASIANO was seen by Heidi Eng on 07/14/18 and that I had a [id number] encounter with this patient that meets the physician face to face encounter requirements. 2. Clinical Findings Supporting Skilled Need and Homebound Status I certify that home health services are medically necessary, include either intermittent prison and/or physical/speech therapy, and that this patient is homebound in that absences from the home require considerable and taxing effort and are infrequent or of short duration, or are attributable to the need to receive medical care. [X] (a) Attached documentation from encounter provides clinical findings supporting skilled need and homebound status (including what assistance patient requires to leave the home). The encounter with the patient was in whole, or in part, for the following medical condition, which is the primary reason for home health care: NEAR SYNCOPE, MILD DEHYDRATION [facility]: Needed to monitor medical conditions, monitor blood pressure and heart rate (Enalapril decreased). Assist with medication adherence. Physical Therapy: Needed to work on strength and endurance after hospitalization. Ongoing PT recommended by PT at [facility]. Speech Therapy: Homebound: Unable to leave home without assistance. 3. Certification and Authentication I certify that I composed the above information based on my clinical judgement relating to this patient's medical condition and, if applicable, clinical findings communicated to me by the NPP or inpatient physician who performed the Home Health Referral. All further orders will be obtained through Dr. Son ( Community Based Physician - PCP)
== END 2018-07-14 13:59 | disposition home health service (06) | DRG 312 ==
LOC: ER 23:11 → MS 07-12 01:18
PROVIDERS: Family Medicine; Admitting Provider Family Medicine; Emergency Provider Emergency Medicine; PCP Nurse Practitioner; Visit Provider Internal Medicine
DX: R55 Syncope and collapse (principal); R79.1 Abnormal coagulation profile; E86.0 Dehydration; Z04.3 Encounter for examination and observation following other accident; R29.6 Repeated falls; M48.00 Spinal stenosis, site unspecified; E11.9 Type 2 diabetes mellitus without complications; D53.9 Nutritional anemia, unspecified; I10 Essential (primary) hypertension; E03.9 Hypothyroidism, unspecified; K21.9 Gastro-esophageal reflux disease without esophagitis; W19.XXXA Unspecified fall, initial encounter; N32.81 Overactive bladder; J44.9 Chronic obstructive pulmonary disease, unspecified
CPT/HCPCS: 36415; 71275; 80048; 80053; 85027; 93005; 96361; 96365; 97110; 97162; 97530; 99223; 99232; 99239; 99285; J1650; 70450; 71046; 72125; 81003; 82272; 82607; 83036; 83735; 83880; 84443; 84484; 85025; 85379; 93010; J1941; J3475; J3490; J7620

== ENCOUNTER → 2018-10-13 10:24 | Outpatient (BNVA) | payer MEDICARE, SELFPAY | PROVIDERS: PCP Nurse Practitioner; Referring Provider Nurse Practitioner; Visit Provider Orthopaedic Surgery | DX: M19.011 Primary osteoarthritis, right shoulder (principal); M25.511 Pain in right shoulder; M25.562 Pain in left knee; Z96.652 Presence of left artificial knee joint | CPT/HCPCS: 99213 ==

== ENCOUNTER 2018-11-02 08:32 | Day surgery (SDC) | payer MEDICARE, MEDICAID, SELFPAY ==
[2018-11-02 08:46] VITALS: BP 130/56; PULSE 89; RESP 18; TEMP 37.4; O2SAT 92
--- NOTE | 2018-11-02 10:06 | DI.RAD_ITS ---
SYMPTOMS/DIAGNOSIS: OSTEOARTHRITIS RT SHOULDER C-ARM FLUOROSCOPY OF THE RIGHT SHOULDER: Fluoroscopy Time: 3.4 seconds 0.28mGys Fluoroscopy was provided for Dr. Paulson for guidance with shoulder injection. Please see procedure note for details.
[2018-11-02] MEDS: methylPREDNISolone ACETATE 80 MG/ML VIAL (10:30)
--- NOTE | 2018-11-02 10:38 | W.PM.DSUDISC ---
Discharge Plan Disposition Patient Disposition: HOME Condition: Good Discharge Details Reason For Visit: flouroscopically guided R shoulder injection Attending Provider: Raffy Paulson Primary Care Provider: Jocy Kate Home Meds and New Rx's Prescriptions: Continued hydrocodone-acetaminophen 5-325 mg tablet 1 tab PO BID MDD 2 tabs PRN (Reason: pain) Qty: 14 RF: 0 trazodone 100 MG tablet 100 mg PO DAILY Qty: 90 RF: 3 nitroglycerin 0.4 MG tablet, sublingual 0.4 mg Sublingual PRN Qty: 100 RF: 3 enalapril maleate 10 mg tablet 10 mg PO DAILY Qty: 90 RF: 3 tolterodine 2 mg tablet 2 mg PO BID Qty: 60 RF: 3 Adult Briefs - Large misc 1 ea Miscellaneous PRN Qty: 100 RF: 6 multivitamin [Daily Multi-Vitamin] 1 EACH tablet 1 tab DAILY RF: 0 celecoxib [Celebrex] 200 MG capsule 200 mg BID RF: 0 sennosides [Senokot] 1 TAB tablet 4 tab PRN RF: 0 polyethylene glycol 3350 17 GM powder in packet DAILY RF: 0 enalapril maleate 5 MG tablet 5 mg DAILY RF: 0 atorvastatin [Lipitor] 10 MG tablet 1 tab DAILY RF: 0 metoprolol succinate 200 MG tablet extended release 24 hr 200 mg DAILY RF: 0 acetaminophen-codeine [Tylenol-Codeine #3] 1 TAB tablet 1 tab PRN RF: 0 amlodipine [Norvasc] 5 MG tablet 1 tab DAILY RF: 0 esomeprazole magnesium [Nexium] 40 MG capsule,delayed release(DR/EC) 1 tab DAILY RF: 0 hydrochlorothiazide 25 MG tablet 1 tab DAILY RF: 0 loratadine 10 MG tablet 1 tab PRN RF: 0 escitalopram oxalate [Lexapro] 10 MG tablet 10 mg DAILY RF: 0 duloxetine 60 mg Capsule,Delayed Release(Dr/Ec) 60 mg PO DAILY RF: 0 acetaminophen [Mapap Extra Strength] 500 mg Tablet 1,000 mg PO Q4H PRN PRN (Reason: fever or pain) Qty: 0 RF: 0 nystatin 100,000 unit/gram Powder Topical TID Qty: 0 RF: 0 omeprazole 40 mg capsule,delayed release(DR/EC) 40 mg PO DAILY RF: 0 levothyroxine [Synthroid] 125 mcg tablet 125 mcg PO DAILY RF: 0 Discharge Instructions Additional Instructions: Apply ice to R shoulder 4 times/day for 1 hour each time for next 48 hours. Take arthritis strength tylenol for pain. Rest R arm for next 48 hours. After 48 hours, use R arm as much as your discomfort allows you to. Follow up with in one month. Referrals: Raffy Paulson MD [ [facility] STAFF PHYSICIAN] - (f/u in one month) Activity:: Activity as Tolerated Diet:: As Tolerated Discharge Orders Discharge Orders: Discharge Order (Routine); Ordered 11/02/18 Ordered By: Raffy Paulson DS: Diagnosis Discharge Diagnosis (1) DJD of both shoulders: Status: Chronic
--- NOTE | 2018-11-02 17:06 | ROE_ITS ---
DATE OF PROCEDURE: November 02, 2018 PREOPERATIVE DIAGNOSIS: Osteoarthritis, right shoulder. POSTOPERATIVE DIAGNOSIS: Same. PROCEDURE: C-arm guided injection of right shoulder with local anesthetic and corticosteroids. ANESTHESIA: Local. SURGEON: Raffy Paulson M.D. INDICATIONS: This is a 77-year-old white female with significant day-to-day pain in her right should er due to osteoarthritis. She is not presently a candidate for total shoulder arthroplasty. She wou ld like some pain relief that may delay the need for total shoulder replacement to a later date. Int erarticular injection of her right shoulder with steroids was recommended. It was felt that it shoul d be fluoroscopically-guided to ensure that the injection was indeed into the shoulder joint. The ri sks and complications of the procedure were explained to the patient in detail preoperatively. PROCEDURE: The patient was placed supine on the operating table. The anterior shoulder was prepped with alcohol. An 18 gauge spinal needle was then inserted under C-arm guidance into the right should er. I then injected into the shoulder joint 15 cc's of 0.5% Marcaine with epinephrine solution along with 80 mg of Depo-Medrol. I then removed the spinal needle. I then performed passive motion to he r shoulder to distribute the medication and within a minute had excellent relief of pain. She was no actively able to forward flex her right shoulder and abduct her right shoulder well beyond 120 degre es without pain. The patient was then discharged to the Day Surgery Unit in good condition. The patient was given instructions to apply ice to her right shoulder four times a day for an hour ea ch time over the next 48 hours. She will rest her right shoulder for 48 hours and then resume activi ties within tolerance of pain. She will follow-up in my office in one month.
== END 2018-11-02 11:20 | disposition home or self-care (01) ==
PROVIDERS: PCP Nurse Practitioner; Visit Provider Orthopaedic Surgery
PROC: (CPT 20610; principal; 2018-11-02 10:00)
DX: M19.011 Primary osteoarthritis, right shoulder (principal); M25.511 Pain in right shoulder
CPT/HCPCS: 20610; 77002; 73030; J1040

== ENCOUNTER → 2018-12-09 09:28 | Outpatient (BNVA) | payer MEDICARE, MEDICAID, SELFPAY | PROVIDERS: PCP Nurse Practitioner; Referring Provider Nurse Practitioner; Visit Provider Orthopaedic Surgery | DX: Z98.890 Other specified postprocedural states (principal); M19.011 Primary osteoarthritis, right shoulder; M19.012 Primary osteoarthritis, left shoulder | CPT/HCPCS: 99212 ==

== ENCOUNTER 2019-01-26 10:24 | Outpatient (REF) | payer MEDICARE, MEDICAID, SELFPAY ==
[2019-01-26 13:01] LABS: HCT 35.6 % (36.0-46.0); HGB 11.2 g/dL (12.0-15.5); Mean Corp. HGB Concentration 31.5 g/dL (32.0-36.0); Mean Corpuscular Hemoglobin 30.6 pg (27.0-33.0); Mean Corpuscular Volume 97.3 fL (80-95); Mean Platelet Volume 10.1 fL (8.0-11.0); Platelet Count 278 x1000/uL (130-400); RBC 3.66 m/cumm (4.00-5.20); RBC Distribution Width 14.2 % (11.7-14.6); White Blood Cell Count 6.87 k/cumm (4.4-10.8)
[2019-01-26 13:21] LABS: COMMENT (LAB VIEW ONLY) 167.97 mg/dL; Microalb ug/mg Crea 7.7 ug/mg Cr
[2019-01-26 13:28] LABS: ALT 20 U/L (12-78); AST 16 U/L (15-37); Albumin 3.9 g/dL (3.4-5.0); Alkaline Phosphatase 55 U/L (46-116); Anion Gap 8.3 mmol/L (3-11); BUN 15 mg/dL (7-18); Bilirubin, Total 0.5 mg/dL (0.2-1.0); CO2 30.7 mmol/L (21.0-32.0); CREATININE 0.97 mg/dL (0.55-1.02); Calcium 9.1 mg/dL (8.5-10.1); Chloride 103 mmol/L (98-107); Cholesterol 179 mg/dL (50-200); Estimated GFR 55.69 (mL/min/1.73m2); Glucose 127 mg/dL (70-100); HDL Cholesterol 43 mg/dL (40-60); LDL CHOLESTEROL 109 mg/dL (<100); Potassium 4.5 mmol/L (3.5-5.1); Sodium 142 mmol/L (136-145); TSH (W/Ref FT4) 1.04 uIU/mL (0.358-3.74); Total Protein 7.1 g/dL (6.4-8.2); Triglyceride 140 mg/dL (30-150)
[2019-01-26 13:41] LABS: Hemoglobin A1C 6.8 % (4.5-6.2)
== END 2019-01-26 10:44 ==
LOC: LBN 10:24
PROVIDERS: PCP Nurse Practitioner; Visit Provider Nurse Practitioner
DX: D53.9 Nutritional anemia, unspecified (principal); E03.9 Hypothyroidism, unspecified; E11.9 Type 2 diabetes mellitus without complications; E78.5 Hyperlipidemia, unspecified; I10 Essential (primary) hypertension
CPT/HCPCS: 80053; 80061; 83721; 85027; 82043; 82570; 83036; 84443

== ENCOUNTER 2019-06-02 11:45 | Outpatient (CLI) | payer MEDICARE, MEDICAID, SELFPAY ==
--- NOTE | 2019-06-02 10:51 | DI.RAD_ITS ---
EXAM: XR KNEE RT 2V AP,LAT INDICATION: KNEE PAIN. COMPARISON: RIGHT KNEE 3 VIEWS from 06/14/2014 TECHNIQUE: 2D digital imaging was performed. FINDINGS: The bones are intact and normally mineralized. The articular surfaces appear well maintained. There is a small suprapatellar joint effusion. Atherosclerosis is present. IMPRESSION: Small joint effusion.
--- NOTE | 2019-06-02 10:52 | DI.RAD_ITS ---
EXAM: XR SHOULDER LT COMPLETE 2+V INDICATION: SHOULDER PAIN. COMPARISON: LEFT SHOULDER COMPLETE from 09/16/2017 TECHNIQUE: 2D digital imaging was performed. FINDINGS: There is again seen a large osteophyte arising from the inferior aspect of the humeral head. The gle nohumeral joint is otherwise unremarkable. Mild degenerative changes are also seen at the acromiocla vicular joint. No acute fracture or dislocation is present. No suspicious lytic or sclerotic lesion s are seen. The soft tissues are unremarkable. IMPRESSION: Stable degenerative changes of the left shoulder.
== END 2019-06-02 12:05 ==
PROVIDERS: PCP Nurse Practitioner; Referring Provider Nurse Practitioner; Visit Provider Orthopaedic Surgery
DX: M25.512 Pain in left shoulder (principal); M19.012 Primary osteoarthritis, left shoulder; M25.712 Osteophyte, left shoulder; M25.561 Pain in right knee; M25.461 Effusion, right knee; M17.11 Unilateral primary osteoarthritis, right knee; M19.011 Primary osteoarthritis, right shoulder
CPT/HCPCS: 20610; 99214; 73030; 73560; J1040

== ENCOUNTER 2019-06-07 09:04 | Day surgery (SDC) | payer MEDICARE, MEDICAID, SELFPAY ==
[2019-06-07 09:10] VITALS: BP 162/66; PULSE 78; RESP 18; TEMP 36; O2SAT 97
[2019-06-07] MEDS: methylPREDNISolone ACETATE 80 MG/ML VIAL IM (10:29)
--- NOTE | 2019-06-07 10:37 | W.PM.DSUDISC ---
Discharge Plan Disposition Patient Disposition: HOME Condition: Good Discharge Details Reason For Visit: OA (L) SHOULDER Attending Provider: Raffy Paulson Primary Care Provider: Jocy Kate Home Meds and New Rx's Prescriptions: Continued albuterol sulfate 90 mcg/actuation aerosol powdr breath activated 2 inh IH Q6H PRN (Reason: shortness of breath or wheezing) Qty: 1 RF: 5 duloxetine 60 mg capsule,delayed release(DR/EC) 60 mg PO DAILY Qty: 30 RF: 5 trazodone 100 mg tablet 100 mg PO DAILY Qty: 90 RF: 3 nitroglycerin 0.4 mg tablet, sublingual 0.4 mg Sublingual PRN Qty: 100 RF: 3 enalapril maleate 10 mg tablet 10 mg PO DAILY Qty: 90 RF: 3 acetaminophen [Mapap Extra Strength] 500 mg tablet 1,000 mg PO Q4H PRN PRN (Reason: fever or pain) Qty: 120 RF: 3 hydrocodone-acetaminophen 5-325 mg tablet 1 tab PO QHS MDD chronic back pain PRN (Reason: pain) Qty: 28 RF: 0 flu vacc qs 2019-20 (6 mos up) 60 mcg (15 mcg x 4)/0.5 mL suspension 0.5 ml IM ONCE Qty: 1 RF: 0 (DME) blood-glucose meter [Accu-Chek Guide Glucose Meter] Misc See Rx Instructions .ROUTE .MEDSUPPLY Qty: 1 RF: 0 (DME) Blood Glucose Test Strip See Rx Instructions .ROUTE .MEDSUPPLY Qty: 50 RF: 3 (DME) lancets Misc See Rx Instructions .ROUTE .MEDSUPPLY Qty: 50 RF: 3 (DME) diaper,brief,adult,disposable Misc 1 ea Miscellaneous PRN Qty: 100 RF: 6 Myrbetriq 25 mg tablet extended release 24 hr 25 mg PO DAILY Qty: 90 RF: 1 multivitamin [Daily Multi-Vitamin] 1 EACH tablet 1 tab DAILY RF: 0 omeprazole 40 mg capsule,delayed release(DR/EC) 40 mg PO DAILY RF: 0 levothyroxine [Synthroid] 125 mcg tablet 125 mcg PO DAILY RF: 0 Discharge Instructions Additional Instructions: Rest L shoulder for next 48 hours. Apply ice bag to L shoulder 4 times/day for 1 hour each time over next 48 hours. After 48 hours, use L arm as much as your discomfort allows. Follow up with in 1 month. Referrals: Raffy Paulson MD [ [facility] STAFF PHYSICIAN] - (f/u in one month.) Activity:: Activity as Tolerated Diet:: As Tolerated Discharge Orders Discharge Orders: Discharge Order (Routine); Ordered 06/07/19 Ordered By: Raffy Paulson DS: Diagnosis Discharge Diagnosis (1) DJD of both shoulders: Status: Chronic
--- NOTE | 2019-06-07 11:26 | DI.RAD_ITS ---
EXAM: LT SHOULDER INJECTION CLINICAL HISTORY: OSTEOARTHRITIS, LEFT SHOULDER TECHNIQUE: 2D and realtime digital imaging was performed. COMPARISON: No exams were available for comparison FINDINGS: A needle is positioned over the left shoulder joint in conjunction with a joint injection carried out by Dr. Paulson. Please see the procedure report for further information. Fluoro Time: 3.8 sec
--- NOTE | 2019-06-07 15:32 | ROE_ITS ---
DATE OF PROCEDURE: June 07, 2019 PREOPERATIVE DIAGNOSIS: Osteoarthritis, left shoulder. POSTOPERATIVE DIAGNOSIS: Same. PROCEDURE: [id number] intra-articular steroid injection, left shoulder. ANESTHESIA: Local, 0.5% Marcaine with an epinephrine solution. SURGEON: Raffy Paulson M.D. INDICATIONS: This is a 78-year-old white female with bilateral osteoarthritis of the shoulders. She received a O-ewk-[id number] steroid injection to her right shoulder several months ago with good relief of pain. She is so pleased with the pain relief on the right side, she wishes now to have an injecti on into her left shoulder because of increasing pain from osteoarthritis. The risks and complication s of the procedure have been explained to the patient in detail preoperatively. PROCEDURE: The patient was taken to the Operating Room on 06/07/19. She was placed supine on the ope rating table. With the help of the C-arm image intensifier and a pair of ring forceps I localized th e shoulder joint. I prepped the skin with alcohol and put an 18 gauge needle directly through my ski n cong into the shoulder joint. I advanced the needle until it encountered the humeral head. C-arm image intensification was used to confirm that the needle was in fact in the shoulder joint. I then injected through the spinal needle 15 cc's of 0.5% Marcaine with an epinephrine solution, along with 80 mg of Depo-Medrol into her left shoulder. The needle was removed. Hemostasis was obtained with p ressure. I passively put her left shoulder through a range of motion for a couple of minutes to dist ribute the medication. Within a couple of minutes she had full relief of her pain and improved activ e motion of her left shoulder. The patient was discharged to the Day Surgery Unit in good condition. The patient was discharged home from the Day Surgery Unit when fully recovered from her procedure. S he was given instructions to rest her shoulder for 48 hours. After 48 hours she may resume activitie s as tolerated. She will apply ice to the left shoulder four times a day for an hour each time over the next 48 hours. She should follow-up with me in one month.
== END 2019-06-07 10:52 | disposition home or self-care (01) ==
PROVIDERS: PCP Nurse Practitioner; Visit Provider Orthopaedic Surgery
PROC: (CPT 20610; principal; 2019-06-07 09:45)
DX: M19.011 Primary osteoarthritis, right shoulder (principal); M25.511 Pain in right shoulder
CPT/HCPCS: 20610; 77002; 73020; J1040

== ENCOUNTER → 2019-06-22 12:58 | Outpatient (BNVA) | payer MEDICARE, MEDICAID, SELFPAY | PROVIDERS: PCP Nurse Practitioner; Referring Provider Nurse Practitioner; Visit Provider Nurse Practitioner Gerontology | DX: R32 Unspecified urinary incontinence (principal); E11.9 Type 2 diabetes mellitus without complications; I10 Essential (primary) hypertension | CPT/HCPCS: 51798; 99204; 99215 ==

== ENCOUNTER → 2019-07-06 09:08 | Outpatient (BNVA) | payer MEDICARE, MEDICAID, SELFPAY | PROVIDERS: PCP Nurse Practitioner; Referring Provider Nurse Practitioner; Visit Provider Orthopaedic Surgery | DX: Z98.890 Other specified postprocedural states (principal); M19.012 Primary osteoarthritis, left shoulder; J44.9 Chronic obstructive pulmonary disease, unspecified; Z87.891 Personal history of nicotine dependence; I10 Essential (primary) hypertension | CPT/HCPCS: 99213 ==

== ENCOUNTER 2019-08-04 00:55 | Outpatient (CLI) | payer MEDICARE, MEDICAID, SELFPAY ==
--- NOTE | 2019-08-04 14:21 | DI.US_ITS ---
EXAM: US CAROTID CLINICAL HISTORY: decreased pedal pulse, impaired circulation, angina pectoris, essential HTN, other specific signs and symptoms involving circulatory, R09.89, I99.9, I20.9, I10, E78.5 TECHNIQUE: Ultrasound performed using standard protocol. COMPARISON: No exams were available for comparison FINDINGS: There is mixed calcific and noncalcific plaque seen along the common carotid arteries and in the comm on carotid bulbs and proximal internal and external carotid arteries. The right internal carotid art twin shows velocity elevations in the proximal and midportion consistent with 50-69 percent stenosis. This is not significantly changed from the previous exam. The left internal carotid artery shows si gnificantly elevated systolic velocities, consistent with a greater than 70 percent stenosis. Both v ertebral arteries show antegrade flow. IMPRESSION: Stenosis of the right proximal and mid internal carotid artery of 50-69 percent. Greater than 70 per cent stenosis of the left internal carotid artery.
== END 2019-08-04 01:15 ==
PROVIDERS: PCP Nurse Practitioner; Visit Provider Nurse Practitioner
DX: I65.23 Occlusion and stenosis of bilateral carotid arteries (principal); I20.9 Angina pectoris, unspecified; I10 Essential (primary) hypertension; E78.5 Hyperlipidemia, unspecified; R09.89 Other specified symptoms and signs involving the circulatory and respiratory systems
CPT/HCPCS: 93880

== ENCOUNTER 2019-09-04 10:28 | Emergency (ER) | payer MEDICARE, MEDICAID, SELFPAY ==
[2019-09-04 10:31] VITALS: BP 138/50; PULSE 106; RESP 16; TEMP 37.2; O2SAT 95
--- NOTE | 2019-09-04 11:00 | ED.GENADUL_ITS ---
Discharge Plan Disposition Patient Disposition: HOME Discharge Details Chief Complaint: Orthopedic Clinical Impression: Leg pain, right Primary Care Provider: Jocy Kate ED Provider: Raul Orellana Home Meds and New Rx's Prescriptions: Continued albuterol sulfate 90 mcg/actuation aerosol powdr breath activated 2 inh IH Q6H PRN (Reason: shortness of breath or wheezing) Qty: 1 RF: 5 duloxetine 60 mg capsule,delayed release(DR/EC) 60 mg PO DAILY Qty: 30 RF: 5 trazodone 100 mg tablet 100 mg PO DAILY Qty: 90 RF: 3 nitroglycerin 0.4 mg tablet, sublingual 0.4 mg Sublingual PRN Qty: 100 RF: 3 enalapril maleate 10 mg tablet 10 mg PO DAILY Qty: 90 RF: 3 acetaminophen [Mapap Extra Strength] 500 mg tablet 1,000 mg PO Q4H PRN PRN (Reason: fever or pain) Qty: 120 RF: 3 flu vacc qs 2019- (6 mos up) 60 mcg (15 mcg x 4)/0.5 mL suspension 0.5 ml IM ONCE Qty: 1 RF: 0 (DME) blood-glucose meter [Accu-Chek Guide Glucose Meter] Misc See Rx Instructions .ROUTE .MEDSUPPLY Qty: 1 RF: 0 (DME) Blood Glucose Test Strip See Rx Instructions .ROUTE .MEDSUPPLY Qty: 50 RF: 3 (DME) lancets Misc See Rx Instructions .ROUTE .MEDSUPPLY Qty: 50 RF: 3 baclofen 10 mg tablet 10 mg PO QHS Qty: 30 RF: 4 (DME) diaper,brief,adult,disposable Misc 1 ea Miscellaneous PRN Qty: 100 RF: 6 Myrbetriq 25 mg tablet extended release 24 hr 25 mg PO DAILY Qty: 90 RF: 1 aspirin [Adult Low Dose Aspirin] 81 mg tablet,delayed release (DR/EC) 81 mg PO DAILY RF: 0 atorvastatin 40 mg tablet 40 mg PO QPM Qty: 90 RF: 3 multivitamin [Daily Multi-Vitamin] 1 EACH tablet 1 tab DAILY RF: 0 omeprazole 40 mg capsule,delayed release(DR/EC) 40 mg PO DAILY RF: 0 levothyroxine [Synthroid] 125 mcg tablet 125 mcg PO DAILY RF: 0 No Action prednisone 20 mg tablet 20 mg PO DAILY Qty: 7 RF: 0 Discharge Instructions Instructions: Fall Prevention for Older Adults (ED), Leg Pain (ED) Additional Instructions: It is unclear at this time with causing her leg pain. I am concerned about the potential for a deep vein thrombus (DVT). Please start taking blood thinner as prescribed. You should have an ultrasound performed as soon as possible. An ultrasound has been ordered to be performed on Friday. Please call [facility] diagnostic imaging Friday morning to arrange time for this study - . Please contact your primary care physician to arrange follow-up. Return to the ER for any worsening or new concerning symptoms. Referrals: Jocy Kate NP [Primary Care Provider] - Discharge Data Discharge Date/Time-TO BE ENTERED AT DEPARTURE: 09/04/19 12:03 Medical Decision Making 1104??78-year-old female here with right lower extremity pain over the past month, chronic edema, tender posteriorly specifically proximal lower leg posteriorly. I obtained and reviewed outside hospital records including results of CT angiogram aortic lower extremity runoff from 08/18/2019 that revealed diffuse erythematous changes in keeping with the patient's age, with multifocal stenosis in mesenteric and renal arteries and focal severe stenosis of both right and left common iliac arteries that are heavily calcified. Three-vessel runoff present bilaterally. Also of note a 14 mm hyperenhancing left liver mass. Results were reviewed with the patient. Considered ischemic process. Patient does have palpable equal posterior tibialis. Concern for DVT. I have contacted technologist infectious disease to request DVT study. [id number] --unfortunately no mining engineering technologist is available to perform ultrasound today. I will prescribe Eliquis 2 empirically treat the patient for DVT while she awaits ultrasound study. I will order outpatient ultrasound study to expedite outpatient work-up. Patient was advised to follow-up with her primary care physician and to return immediately should have any worsening or new concerning symptoms. HPI General Mode of arrival: ambulatory . Date/Time Provider Initiated Documentation: 09/04/19 10:29 . Limitations to Documentation: no limitations . Information obtained by: patient . HPI Narrative: 78-year-old female with multiple medical problems including history of osteoarthritis, restless leg syndrome, diabetes, GERD, chronic low back pain, emphysema, presents with chief complaint of leg pain. Patient notes right leg pain is been going on for about a month. Pain much worse over the past 1 week. Pain is localized to her posterior lateral lower leg. She has associated swelling. No rash or fever. Of note, patient was recently seen at [facility] for CT angiogram aortic lower extremity runoff. Patient is not sure of the results of the study but notes she was told she would need six-month follow-up. Related Data Home Medications Medication Instructions Recorded Confirmed multivitamin [Daily Multi-Vitamin] 1 tab DAILY 06/14/14 09/04/19 levothyroxine [Synthroid] 125 mcg PO DAILY 11/02/18 09/04/19 omeprazole 40 mg PO DAILY 11/02/18 09/04/19 albuterol sulfate 90 mcg/actuation 2 inh IH Q6H PRN #1 each 01/26/19 09/04/19 breath activated powder inhaler blood sugar diagnostic #50 each 05/11/19 09/04/19 blood-glucose meter #1 each 05/11/19 09/04/19 lancets #50 each 05/11/19 09/04/19 diaper,brief,adult,disposable #100 ea 05/21/19 09/04/19 acetaminophen 500 mg tablet 1,000 mg PO Q4H PRN PRN #120 tab 05/25/19 09/04/19 duloxetine 60 mg capsule,delayed 60 mg PO DAILY #30 cap 05/25/19 09/04/19 release enalapril maleate 10 mg tablet 10 mg PO DAILY #90 tab 05/25/19 09/04/19 nitroglycerin 0.4 mg sublingual 0.4 mg SUBLINGUAL PRN #100 tab-cap 05/25/19 09/04/19 tablet trazodone 100 mg tablet 100 mg PO DAILY #90 tab-cap 05/25/19 09/04/19 mirabegron 25 mg tablet,extended 25 mg PO DAILY #90 tab 05/31/19 09/04/19 release 24 hr aspirin 81 mg tablet,delayed 81 mg PO DAILY 07/12/19 09/04/19 release atorvastatin 40 mg tablet 40 mg PO QPM #90 tab 07/19/19 09/04/19 baclofen 10 mg tablet 10 mg PO QHS #30 tab 07/27/19 09/04/19 prednisone 20 mg tablet 20 mg PO DAILY #7 tab 09/09/19 09/09/19 Previous Rx's Medication Instructions Recorded albuterol sulfate 90 mcg/actuation 2 inh IH Q6H PRN #1 each 01/26/19 breath activated powder inhaler blood sugar diagnostic #50 each 05/11/19 blood-glucose meter #1 each 05/11/19 lancets #50 each 05/11/19 diaper,brief,adult,disposable #100 ea 05/21/19 acetaminophen 500 mg tablet 1,000 mg PO Q4H PRN PRN #120 tab 05/25/19 duloxetine 60 mg capsule,delayed 60 mg PO DAILY #30 cap 05/25/19 release enalapril maleate 10 mg tablet 10 mg PO DAILY #90 tab 05/25/19 nitroglycerin 0.4 mg sublingual 0.4 mg SUBLINGUAL PRN #100 tab-cap 05/25/19 tablet trazodone 100 mg tablet 100 mg PO DAILY #90 tab-cap 05/25/19 mirabegron 25 mg tablet,extended 25 mg PO DAILY #90 tab 05/31/19 release 24 hr atorvastatin 40 mg tablet 40 mg PO QPM #90 tab 07/19/19 baclofen 10 mg tablet 10 mg PO QHS #30 tab 07/27/19 prednisone 20 mg tablet 20 mg PO DAILY #7 tab 09/09/19 Allergies Allergy/AdvReac Type Severity Reaction Status Date / Time fentanyl [From Duragesic] Allergy Intermediate RASH, Verified 09/09/19 11:33 ITCHING oxybutynin chloride AdvReac Intermediate Itching Verified 09/09/19 11:33 [From Ditropan] tramadol AdvReac Intermediate ITCHING Verified 09/09/19 11:33 ENVIRONMENTAL Allergy RHINITIS Uncoded 09/09/19 11:33 General Stated Complaint: Orthopedic ARMEN: 3 Review of Systems All systems reviewed & are unremarkable except as noted in HPI and below Cardiovascular Cardiovascular: Denies chest pain Musculoskeletal Musculoskeletal: Reports back pain (Chronic unchanged) [facility] Medical History Angina pectoris Arthropathy Chronic low back pain Claustrophobia Claustrophobia (Inactive) COPD (chronic obstructive pulmonary disease) Diverticulosis Essential hypertension Gastroesophageal reflux disease Hyperlipidemia Hypothyroidism Impaired mobility Left carotid stenosis (Acute) Lower gastrointestinal bleed (Inactive) Migraine Near syncope (Inactive) Osteoarthritis RLS (restless legs syndrome) Spinal stenosis Stress incontinence (Acute) Urge urinary incontinence Surgical History Abdominal hysterectomy Age 29 Cholecystectomy (~09/2002) Colonoscopy - MAC (05/23/17) Extraction of cataract (~10/2007) Bilateral Laminectomy (03/27/09) L3-L5,medial facetectomy,L3-L4 and L4-L5. Open Carpal Tunnel release (~1998) Left Right done by Dr. Paulson 2017 Replacement of total knee joint Left 2012 TVT (~05/2004) Family History Mother Essential hypertension Neoplasm Lymphoma Sister , DM Complications at age 53. Diabetes Social History Smoking/Tobacco Use Status: Former Tobacco Use Alcohol Intake: current Alcohol Intake frequency: holidays/special occasions only Alcohol type: wine Drug use: Never Substance use type: does not use Adopted: No Caregiver/Support person: No Foster care: No Household members: none Housing: apartment Number of Children: 3 Do you need help understanding health information?: Often Pets and animals: No Sexually active: No Current gender identity: female What type of physical activity do you participate in: none Seatbelt use: always Do you feel safe at home: Yes ([place]) Do you feel safe in your relationship?: Yes Exam Const General: cooperative and no acute distress HENMT Mouth: moist mucous membranes Resp Auscultation: clear to auscultation bilaterally, no rales, no rhonchi and no wheezes Cardio Jugular venous pressure: no JVD Rate: regular rate and not tachycardic Rhythm: regular rhythm Skin General skin exam: no rashes or lesions noted Neuro General: alert, awake and tone normal Extrem General: edema Laterality: right (Lower leg 1+ pitting (patient notes this is chronic)) Right lower extremity: edema Details: pitting and 1+ and lower leg Details: tenderness Location: of the posterior calf Course Vital Signs Vital signs: Vital Signs Temperature 37.2 C 09/04/19 10:31 Pulse 106 H 09/04/19 10:31 Respiratory Rate 16 09/04/19 10:31 Blood Pressure 138/50 L 09/04/19 10:31 Pulse Oximetry 95 09/04/19 10:31 Temperature 37.2 C 09/04/19 10:31 Temperature Source Temporal Artery Scan 09/04/19 10:31 Pulse 106 H 09/04/19 10:31 Respiratory Rate 16 09/04/19 10:31 Respiratory Effort Non-Labored 09/04/19 10:34 Blood Pressure 138/50 L 09/04/19 10:31 Blood Pressure Position Sitting 09/04/19 10:31 Pulse Oximetry 95 09/04/19 10:31 Oxygen Delivery Method Room Air 09/04/19 10:31 Oxygen Flow Rate 0 09/04/19 10:31 Pain Level 5 09/04/19 10:31
[2019-09-04] MEDS: Apixaban 5 MG TAB 10 MG PO (11:59)
== END 2019-09-04 12:03 | disposition home or self-care (01) ==
PROVIDERS: Emergency Provider Student in an Organized Health Care Education/Training Program; PCP Nurse Practitioner
DX: M79.661 Pain in right lower leg (principal); R60.0 Localized edema; E11.9 Type 2 diabetes mellitus without complications; J44.9 Chronic obstructive pulmonary disease, unspecified; Z87.891 Personal history of nicotine dependence; I10 Essential (primary) hypertension
CPT/HCPCS: 99283

== ENCOUNTER 2019-09-06 07:12 | Outpatient (CLI) | payer MEDICARE, MEDICAID, SELFPAY ==
--- NOTE | 2019-09-06 13:49 | DI.US_ITS ---
EXAM: US LOWER EXTREMITY VENOUS RT CLINICAL HISTORY: SWELLING AND PAIN x 1 MONTH, WORSE LAST WEEK TECHNIQUE: Lower extremity venous ultrasound performed using grayscale, color-flow, and spectral Dop pler analysis. COMPARISON: No exams were available for comparison FINDINGS: The common femoral, femoral and popliteal veins demonstrate normal compressibility, augmentation, and color Doppler. The posterior tibial veins are patent. The saphenous vein appears free of thrombus. No Tang's cyst or hematoma is seen. IMPRESSION: No evidence of DVT.
== END 2019-09-06 07:32 ==
PROVIDERS: PCP Nurse Practitioner; Visit Provider Student in an Organized Health Care Education/Training Program
DX: M79.661 Pain in right lower leg (principal); R22.41 Localized swelling, mass and lump, right lower limb
CPT/HCPCS: 93971

== ENCOUNTER 2019-09-17 02:07 | Outpatient (CLI) | payer MEDICARE, MEDICAID, SELFPAY ==
[2019-09-17 10:12] LABS: CREATININE 1.12 mg/dL (0.55-1.02); Estimated GFR 47.17 (mL/min/1.73m2)
--- NOTE | 2019-09-17 10:38 | DI.CT_ITS ---
EXAM: CT ABDOMEN W CLINICAL HISTORY: evaluate liver lesion. ? hemangioma, abnl CT, R93.5 TECHNIQUE: Post IV contrast during arterial, venous phases as well as delayed imaging. FINDINGS: The lesion in the lateral left lobe of the liver is somewhat difficult to evaluate due to small size and location. On the arterial phase, there is a rounded area of enhancement seen at the anterior, lateral left lobe of the liver measuring 1.6 cm. On venous phase images, the lesion is less dense. On the 5 minutes de layed image, the lesion is no longer visible. The findings likely represent a hemangioma. The patient is status post cholecystectomy. The pancreas, spleen and adrenals are unremarkable. There are bilate ral prominent extrarenal pelves. There is severe atherosclerotic changes of the abdominal aorta. Adva nced degenerative changes of the spine are also seen. IMPRESSION: 16 millimeter lesion in the lateral left lobe of the liver likely represents a hemangioma.
[2019-09-17] MEDS: Omnipaque 350 MG/ML 100 ML BTL IJ (11:11)
== END 2019-09-17 02:27 ==
PROVIDERS: PCP Nurse Practitioner; Visit Provider Nurse Practitioner
DX: R93.5 Abnormal findings on diagnostic imaging of other abdominal regions, including retroperitoneum (principal); D18.03 Hemangioma of intra-abdominal structures; K76.89 Other specified diseases of liver
CPT/HCPCS: 74160; 82565; J3490

== ENCOUNTER 2019-11-11 12:58 | Outpatient (REF) | payer MEDICARE, MEDICAID, SELFPAY ==
[2019-11-11 18:31] LABS: ALT 34 U/L (14-59); AST 25 U/L (15-37); Albumin 4.4 g/dL (3.4-5.0); Alkaline Phosphatase 58 U/L (46-116); BUN 16 mg/dL (7-18); Bilirubin, Total 0.4 mg/dL (0.2-1.0); CREATININE 0.97 mg/dL (0.55-1.02); Calcium 9.8 mg/dL (8.5-10.1); Calculated LDL 50 mg/dL (<100); Chloride 101 mmol/L (98-107); Cholesterol 124 mg/dL (<200); Estimated GFR 55.69 (mL/min/1.73m2); Glucose 138 mg/dL (74-106); HDL Cholesterol 59 mg/dL (40-60); Potassium 4.5 mmol/L (3.5-5.1); Sodium 142 mmol/L (136-145); Total Protein 7.6 g/dL (6.4-8.2); Triglyceride 79 mg/dL (<150)
[2019-11-11 19:01] LABS: HCT 30.2 % (36.0-46.0); HGB 9.2 g/dL (12.0-15.5); Mean Corp. HGB Concentration 30.5 g/dL (32.0-36.0); Mean Corpuscular Hemoglobin 28.1 pg (27.0-33.0); Mean Corpuscular Volume 92.4 fL (80-95); Platelet Count 405 x1000/uL (130-400); RBC 3.27 m/cumm (4.00-5.20); RBC Distribution Width 18.9 % (11.7-14.6); White Blood Cell Count 11.96 k/cumm (4.4-10.8)
[2019-11-11 19:04] LABS: FREE T4 1.24 ng/dL (0.76-1.46)
[2019-11-11 21:39] LABS: Hemoglobin A1C 7.2 % (3.8-5.6)
== END 2019-11-11 13:18 ==
LOC: LBN 12:58
PROVIDERS: PCP Nurse Practitioner; Visit Provider Nurse Practitioner
DX: E11.9 Type 2 diabetes mellitus without complications (principal); I10 Essential (primary) hypertension; E78.5 Hyperlipidemia, unspecified; E03.9 Hypothyroidism, unspecified; I20.9 Angina pectoris, unspecified; M47.816 Spondylosis without myelopathy or radiculopathy, lumbar region
CPT/HCPCS: 80053; 80061; 85027; 83036; 84439; 84443

== ENCOUNTER → 2020-02-15 11:30 | Outpatient (BNVA) | payer OTHER, MEDICAID, SELFPAY | PROVIDERS: PCP Nurse Practitioner; Referring Provider Nurse Practitioner; Visit Provider Orthopaedic Surgery | DX: M70.51 Other bursitis of knee, right knee (principal); M19.012 Primary osteoarthritis, left shoulder; Z79.890 Hormone replacement therapy | CPT/HCPCS: 99214 ==

== ENCOUNTER 2020-02-21 13:51 | Outpatient (REF) | payer OTHER, MEDICAID, SELFPAY ==
[2020-02-21 19:19] LABS: Anion Gap 11.9 mmol/L (3-11); BUN 20 mg/dL (7-18); CO2 28.1 mmol/L (21.0-32.0); CREATININE 1.15 mg/dL (0.55-1.02); Calcium 9.6 mg/dL (8.5-10.1); Chloride 100 mmol/L (98-107); Estimated GFR 45.64 (mL/min/1.73m2); Glucose 246 mg/dL (74-106); Potassium 3.8 mmol/L (3.5-5.1); Sodium 140 mmol/L (136-145)
== END 2020-02-21 14:11 ==
LOC: LBN 13:51
PROVIDERS: PCP Nurse Practitioner; Visit Provider Nurse Practitioner
DX: R60.0 Localized edema (principal)
CPT/HCPCS: 80048

== ENCOUNTER 2020-02-29 07:35 | Outpatient (CLI) | payer OTHER, MEDICAID, SELFPAY ==
[2020-02-29 07:56] VITALS: BP 166/54; PULSE 91; RESP 20; TEMP 36.8; O2SAT 94
--- NOTE | 2020-02-29 08:40 | DI.RAD_ITS ---
EXAM: XR PAIN CLINIC LUMBAR SP 2V CLINICAL HISTORY: Dx: Lumbar Spondylosis TECHNIQUE: 2D and realtime digital imaging was performed. CONTRAST MATERIAL: Refer to procedure report. COMPARISON: No exams were available for comparison FINDINGS: Fluoroscopy was provided for Dr. Clement during the performance of a bilateral lumbar medial branch block . Please refer to the procedure report for complete details. Fluoro time: 44.9 seconds IMPRESSION:
[2020-02-29] MEDS: Omnipaque 240 MG/ML 50 ML BTL IJ (08:41)
[2020-02-29] MEDS: Bupivacaine 0.5% Pres-Free 10 ML VIAL IJ (08:41)
[2020-02-29 08:50] VITALS: BP 129/65; PULSE 97; RESP 14; O2SAT 95
--- NOTE | 2020-02-29 09:04 | PDOC.PAIN_ITS ---
Pain Clinic Procedure Note Procedure Note Procedure Note: Lumbar/Sacral Medial Branch Blocks VIRGEN CASIANO has been referred to the [facility] Management [facility] for lumbar/sacral medial branch blocks. Pre-operative diagnosis: lumbar spondylosis Post-operative diagnosis: same as above Comment: patient is status post lumbar decompressive laminectomy by Dr Sebastian about 2-3 years ago. She continues to have axial back pain that is worse with prolonged standing. She had prior bilateral lumbar RFA, with variable results. After evaluation with Ms Mcnamara, decision was made to pursue diagnostic bilateral lumbar MBB. Patient was interviewed and the medical record reviewed. There were no medical, pharmacologic, radiographic or other structural contraindications to attempting fluoroscopically guided local anesthetic lumbar/sacral medial branch blocks. Risks and expected side effects as well as potential benefit of the procedure were reviewed and voiced concerns addressed. The printed consent form was signed and witnessed. Standard time-out procedure was performed. Patient was placed in the prone position on the fluoroscopy table and automated blood pressure cuff and pulse oximeter applied. The skin entry points for approaching the anatomic target points of the segmental medial branches of bilateral L3, L4, L5-DR were identified with anfluoroscopy and marked. Following thorough Chlorhexadine preparation of the skin and draping and 1% lidocaine infiltration of the skin entry points and subcutaneous tissues, a 22 gauge 5'' spinal needle was placed under fluoroscopic guidance down on to the target point for each respective segmental medial branch.Position was confirmed in A/P, oblique and lateral views with 0.25ml of omnipaque 240. Using this method 0.5ml 0.5% Bupivacaine was injected. Vital signs were stable throughout the procedure and were as recorded in the docflowsheet by the nursing staff. Follow up plans and appointments were discussed and was instructed to keep careful note of how the usual pain was modified by these injections. Rizwana alexander was asked to keep a pain diary for the next 24 hours using a numeric pain scale of 0-10 and report these results at the follow-up visit. Post procedure instruction was given as documented in the nursing documentation and having met discharge criteria. Patient was discharged from the Pain Management Center. Based on the medial branches blocked today, if the patient has adequate relief and we are able to proceed to radiofrequency ablation, the treatment should result in the denervation of the bilateral L4/5 and L5/S1 facets. We would expect to denervate a total of 4 facets during the radiofrequency ablation. COMMENTS: patient tolerated procedure well. Pre-procedure pain level with lumbar extension was 6 out of 10, post-procedure pain level with lumbar extension is 2 out of 6. I personally performed the entire procedure. Cesar Clement MD Pain Management CC: Jocy Kate APRN
== END 2020-02-29 07:55 ==
PROVIDERS: PCP Nurse Practitioner; Visit Provider Internal Medicine
DX: M47.816 Spondylosis without myelopathy or radiculopathy, lumbar region (principal)
CPT/HCPCS: 64493; 64494; 72100; Q9967

== ENCOUNTER 2020-03-06 12:07 | Day surgery (SDC) | payer OTHER, MEDICAID, SELFPAY ==
[2020-03-06 12:30] VITALS: BP 119/50; PULSE 85; RESP 18; TEMP 36; O2SAT 97
--- NOTE | 2020-03-06 12:45 | DI.RAD_ITS ---
EXAM: XR SHOULDER LT 1V CLINICAL HISTORY: OA left shoulder. TECHNIQUE: Fluoroscopy was provided for Dr. Paulson For guidance with performing injection procedure. COMPARISON: No exams were available for comparison FINDINGS: Please see procedure note for details. Fluoro Time: 2.6 seconds RADIATION DOSE DELIVERED:
[2020-03-06] MEDS: methylPREDNISolone ACETATE 80 MG/ML VIAL (13:40)
--- NOTE | 2020-03-06 13:45 | W.PM.DSUDISC ---
Discharge Plan Disposition Patient Disposition: HOME Condition: Good Discharge Details Reason For Visit: C-ARM GUIDED INJECTION L SHOULDER Attending Provider: Raffy Paulson Primary Care Provider: Jocy Kate Home Meds and New Rx's Prescriptions: No Action albuterol sulfate 90 mcg/actuation aerosol powdr breath activated 2 inh IH Q6H PRN (Reason: shortness of breath or wheezing) Qty: 1 RF: 5 trazodone 100 mg tablet 100 mg PO DAILY Qty: 90 RF: 3 nitroglycerin 0.4 mg tablet, sublingual 0.4 mg Sublingual PRN Qty: 100 RF: 3 enalapril maleate 10 mg tablet 10 mg PO DAILY Qty: 90 RF: 3 furosemide 20 mg tablet 20 mg PO DAILY Qty: 30 RF: 0 potassium chloride 8 mEq capsule, extended release 8 meq PO DAILY Qty: 30 RF: 0 (DME) compr.stocking,knee,long,large Misc See Rx Instructions .ROUTE .MEDSUPPLY Qty: 4 RF: 0 prednisone 5 mg tablet 5 mg PO DAILY Qty: 30 RF: 0 flu vacc qs 2019- (6 mos up) 60 mcg (15 mcg x 4)/0.5 mL suspension 0.5 ml IM ONCE Qty: 1 RF: 0 (DME) blood-glucose meter [Accu-Chek Guide Glucose Meter] Misc See Rx Instructions .ROUTE .MEDSUPPLY Qty: 1 RF: 0 (DME) blood sugar diagnostic [Blood Glucose Test] Strip See Rx Instructions .ROUTE .MEDSUPPLY Qty: 50 RF: 3 (DME) lancets Misc See Rx Instructions .ROUTE .MEDSUPPLY Qty: 50 RF: 3 aspirin [Adult Low Dose Aspirin] 81 mg tablet,delayed release (DR/EC) 81 mg PO DAILY RF: 0 atorvastatin 40 mg tablet 40 mg PO QPM Qty: 90 RF: 3 duloxetine 60 mg capsule,delayed release(DR/EC) 60 mg PO DAILY Qty: 30 RF: 5 levothyroxine [Synthroid] 125 mcg tablet 125 mcg PO DAILY Qty: 90 RF: 3 omeprazole 40 mg capsule,delayed release(DR/EC) 40 mg PO DAILY Qty: 90 RF: 3 (DME) diaper,brief,adult,disposable Misc 1 ea Miscellaneous PRN Qty: 100 RF: 6 acetaminophen [Mapap Extra Strength] 500 mg tablet 1,000 mg PO Q4H PRN PRN (Reason: fever or pain) Qty: 120 RF: 3 Myrbetriq 25 mg tablet extended release 24 hr 25 mg PO DAILY Qty: 90 RF: 1 multivitamin [Daily Multi-Vitamin] 1 EACH tablet 1 tab DAILY RF: 0 Discharge Instructions Additional Instructions: Rest L shoulder for next 2 days. After 2 days, use L arm as much as your discomfort allows. Apply ice to L shoulder 4 times/day for 1 hour each time for next 48 hours. Take Tylenol or ibuprofen for pain. Follow up with in 2 weeks. Referrals: Raffy Paulson MD [ [facility] STAFF PHYSICIAN] - (f/u in 2 weeks.) Activity:: Activity as Tolerated Diet:: As Tolerated Discharge Orders Discharge Orders: Discharge Order (Routine); Ordered 03/06/20 Ordered By: Raffy Paulson DS: Diagnosis Discharge Diagnosis (1) Primary osteoarthritis, left shoulder: Status: Acute
--- NOTE | 2020-03-06 14:05 | W.PM.OP ---
Date of service: 03/06/20 Time of Service: 14:05 Operative Note Operative Note DATE OF PROCEDURE: 03/06/20 PRE-OP DIAGNOSIS: Osteoarthritis left shoulder POST-OP DIAGNOSIS: same PROCEDURE: C arm guided intra-articular injection left shoulder SURGEON: Raffy Paulson ANESTHESIA: none COMPLICATIONS: None Patient was transported to: same day Indications: There is a 79-year-old white female with known osteoarthritis of her left shoulder. She is trying to avoid arthroplasty as long as possible. She had good relief of pain from an intra-articular injection of her left shoulder a year ago. She is requesting another C-arm guided injection of her left shoulder now for relief of pain. She is hoping to avoid arthroplasty as long as possible. Procedure Description: Patient seen the operating on 03/06/2020 and placed supine on the operative table. Uterine ring forceps were used to localize the shoulder joint with help of the C arm. The skin was marked and an 18-gauge spinal needle was then inserted anteriorly until the contacted humeral head near the glenohumeral joint space. C-arm once again was brought in to confirm good placement of the needle. Through the spinal needle I injected into her joint 15 cc of 0.5% Marcaine with epinephrine solution along with 80 mg of Depo-Medrol. Needle was removed pressure was applied to the puncture wound followed by a Band-Aid. Patient was discharged to the surgery unit in good condition. She is given instructions to rest her left arm for the next 48 hours. She is to apply ice to the left shoulder 4 times a day for an hour each time for the next 48 hours. After 48 hours she can resume activities as tolerated with the left arm. She will take Tylenol or ibuprofen for pain. She will follow-up with Dr. Paulson in the office in 1 month.
== END 2020-03-06 14:40 | disposition home or self-care (01) ==
PROVIDERS: PCP Nurse Practitioner; Visit Provider Orthopaedic Surgery
PROC: (CPT 20610; principal; 2020-03-06 14:00)
DX: M19.012 Primary osteoarthritis, left shoulder (principal); M25.512 Pain in left shoulder
CPT/HCPCS: 20610; 77002; 73020; J1040

== ENCOUNTER 2020-03-28 10:30 | Outpatient (CLI) | payer OTHER, MEDICAID, SELFPAY ==
[2020-03-28 10:33] VITALS: BP 137/66; PULSE 102; RESP 22; TEMP 36.2; O2SAT 94
--- NOTE | 2020-03-28 11:15 | DI.RAD_ITS ---
EXAM: XR PAIN CLINIC LUMBAR SP 2V CLINICAL HISTORY: Lumbar Spondylosis. TECHNIQUE: Fluoroscopy was provided for the referring physician for guidance with performing injecti on procedure. COMPARISON: No exams were available for comparison FINDINGS: Please see procedure note for details. Fluoro Time: 51.1 sec RADIATION DOSE DELIVERED:
[2020-03-28] MEDS: Lidocaine 2% Pres-Free 5 ML VIAL IJ (11:22)
[2020-03-28] MEDS: Omnipaque 240 MG/ML 50 ML BTL IJ (11:22)
[2020-03-28 11:31] VITALS: BP 168/75; PULSE 108; RESP 22; O2SAT 97
--- NOTE | 2020-03-28 12:29 | PDOC.PAIN ---
Pain Clinic Procedure Note Procedure Note Procedure Note: Lumbar/Sacral Medial Branch Blocks VIRGEN CASIANO has been referred to the [facility] for lumbar/sacral medial branch blocks. Pre-operative diagnosis: lumbar spondylosis Post-operative diagnosis: same as above Comment: patient is status post lumbar decompressive laminectomy by Dr Sebastian about 2-3 years ago. She continues to have axial back pain that is worse with prolonged standing. She had prior bilateral lumbar RFA, with variable results. After evaluation with Ms Mcnamara, decision was made to pursue diagnostic bilateral lumbar MBB. She received excellent pain relief from first diagnostic lumbar mBB and she returns for confirmatory lumbar MBB. Patient was interviewed and the medical record reviewed. There were no medical, pharmacologic, radiographic or other structural contraindications to attempting fluoroscopically guided local anesthetic lumbar/sacral medial branch blocks. Risks and expected side effects as well as potential benefit of the procedure were reviewed and voiced concerns addressed. The printed consent form was signed and witnessed. Standard time-out procedure was performed. Patient was placed in the prone position on the fluoroscopy table and automated blood pressure cuff and pulse oximeter applied. The skin entry points for approaching the anatomic target points of the segmental medial branches of bilateral L3, L4, L5-DR were identified with anfluoroscopy and marked. Following thorough Chlorhexadine preparation of the skin and draping and 1% lidocaine infiltration of the skin entry points and subcutaneous tissues, a 22 gauge 5'' spinal needle was placed under fluoroscopic guidance down on to the target point for each respective segmental medial branch.Position was confirmed in A/P, oblique and lateral views with 0.25ml of omnipaque 240. Using this method 0.5ml 2% Lidocaine was injected. Vital signs were stable throughout the procedure and were as recorded in the docflowsheet by the nursing staff. Follow up plans and appointments were discussed and was instructed to keep careful note of how the usual pain was modified by these injections. Specifically was asked to keep a pain diary for the next 24 hours using a numeric pain scale of 0-10 and report these results at the follow-up visit. Post procedure instruction was given as documented in the nursing documentation and having met discharge criteria. Patient was discharged from the [facility]. Based on the medial branches blocked today, if the patient has adequate relief and we are able to proceed to radiofrequency ablation, the treatment should result in the denervation of the bilateral L4/5 and L5/S1 facets. We would expect to denervate a total of 4 facets during the radiofrequency ablation. COMMENTS: patient tolerated procedure well. I personally performed the entire procedure. Cesar Clement MD Pain Management CC: Jocy Kate APRN
== END 2020-03-28 10:50 ==
PROVIDERS: PCP Nurse Practitioner; Visit Provider Internal Medicine
DX: M47.816 Spondylosis without myelopathy or radiculopathy, lumbar region (principal)
CPT/HCPCS: 64493; 64494; 72100; Q9967

== ENCOUNTER → 2020-06-07 10:13 | Outpatient (BNVA) | payer OTHER, MEDICAID, SELFPAY | PROVIDERS: PCP Nurse Practitioner; Referring Provider Nurse Practitioner; Visit Provider Orthopaedic Surgery | DX: M70.51 Other bursitis of knee, right knee (principal); M19.012 Primary osteoarthritis, left shoulder; Z98.890 Other specified postprocedural states; J44.9 Chronic obstructive pulmonary disease, unspecified; I10 Essential (primary) hypertension | CPT/HCPCS: 99213 ==

== ENCOUNTER 2020-07-04 14:04 | Outpatient (CLI) | payer OTHER, MEDICAID, SELFPAY ==
--- NOTE | 2020-07-04 13:00 | DI.RAD_ITS ---
EXAM: XR SHOULDER LT COMPLETE 2+V CLINICAL HISTORY: left shoulder pain. TECHNIQUE: 2D digital imaging was performed. COMPARISON: CR XR SHOULDER LT COMPLETE 2+V from 06/02/2019 FINDINGS: BONES: No acute fracture is present. No bony destructive lesion is seen. JOINTS: No dislocation present. Marked degenerative changes are seen at the glenohumeral joint with l oss of the joint space and a large osteophyte from the humeral head. Mild degenerative changes are s een at the acromioclavicular joint. SOFT TISSUE: Normal. IMPRESSION: Marked degenerative changes of the shoulder as described. DATA REPOSITORY: RADIATION DOSE DELIVERED:
== END 2020-07-04 14:24 ==
PROVIDERS: PCP Nurse Practitioner; Referring Provider Nurse Practitioner; Visit Provider Student in an Organized Health Care Education/Training Program
DX: M19.012 Primary osteoarthritis, left shoulder (principal); M25.512 Pain in left shoulder; J44.9 Chronic obstructive pulmonary disease, unspecified; I10 Essential (primary) hypertension
CPT/HCPCS: 99204; 99215; 73030

== ENCOUNTER 2020-07-13 17:07 | Emergency (ER) | payer OTHER, MEDICAID, SELFPAY ==
[2020-07-13 17:09] VITALS: BP 151/79; PULSE 104; RESP 18; TEMP 36.3; O2SAT 95
--- NOTE | 2020-07-13 17:17 | W.ED.GENAD ---
Discharge Plan Disposition Patient Disposition: HOME Condition: Stable Discharge Details Clinical Impression: Peripheral edema, Sprain of right knee/leg, Contusion of foot, right, Cellulitis of right leg Primary Care Provider: Jocy Kate ED Provider: Fidelia Mckeon Home Meds and New Rx's Prescriptions: New cephalexin [Keflex] 500 mg capsule 500 mg PO QID 7 Days Qty: 28 RF: 0 Continued (DME) compr.stocking,knee,long,large Misc See Rx Instructions .ROUTE .MEDSUPPLY Qty: 4 RF: 0 (DME) blood-glucose meter [Accu-Chek Guide Glucose Meter] Misc See Rx Instructions .ROUTE .MEDSUPPLY Qty: 1 RF: 0 (DME) Blood Glucose Test Strip See Rx Instructions .ROUTE .MEDSUPPLY Qty: 50 RF: 3 (DME) lancets Misc See Rx Instructions .ROUTE .MEDSUPPLY Qty: 50 RF: 3 aspirin [Adult Low Dose Aspirin] 81 mg tablet,delayed release (DR/EC) 81 mg PO DAILY RF: 0 levothyroxine [Synthroid] 125 mcg tablet 125 mcg PO DAILY Qty: 90 RF: 3 omeprazole 40 mg capsule,delayed release(DR/EC) 40 mg PO DAILY Qty: 90 RF: 3 (DME) diaper,brief,adult,disposable Misc 1 ea Miscellaneous PRN Qty: 100 RF: 6 acetaminophen [Mapap Extra Strength] 500 mg tablet 1,000 mg PO Q4H PRN PRN (Reason: fever or pain) Qty: 120 RF: 3 Myrbetriq 25 mg tablet extended release 24 hr 25 mg PO DAILY Qty: 90 RF: 1 albuterol sulfate 90 mcg/actuation aerosol powdr breath activated 2 inh IH Q6H PRN (Reason: shortness of breath or wheezing) Qty: 1 RF: 5 baclofen 10 mg tablet 10 mg PO QHS Qty: 30 RF: 4 atorvastatin 40 mg tablet 40 mg PO QPM Qty: 90 RF: 3 duloxetine 60 mg capsule,delayed release(DR/EC) 60 mg PO DAILY Qty: 30 RF: 5 enalapril maleate 10 mg tablet 10 mg PO DAILY Qty: 90 RF: 3 nitroglycerin 0.4 mg tablet, sublingual 0.4 mg Sublingual PRN Qty: 100 RF: 3 multivitamin [Daily Multi-Vitamin] 1 EACH tablet 1 tab DAILY RF: 0 trazodone 100 mg tablet 100 mg PO HS RF: 0 Discharge Instructions Instructions: Cellulitis (ED), Foot Contusion (ED), Leg Sprain (ED) Additional Instructions: Keep your legs elevated as much as possible. Take the antibiotics until finished. Return to the radiology department tomorrow for a right leg ultrasound to rule out a dvt (blood clot). You will follow up in the emergency department for the result and further recommendations or treatment if indicated. Discharge Data Discharge Physician: Fidelia Mckeon Medical Decision Making 1715 -- 79-year-old female with a history of COPD, osteoarthritis, morbid obesity, impaired mobility with chronic use of the walker who presents with right leg pain status post fall a few days ago. Bilateral lower extremity 1+ pitting edema. There is slight erythema to the right distal lower extremity consistent with a possible early cellulitis. She has faintly palpable pulses not neurovascular intact. There is also ecchymosis noted to the right second third and fourth toes. Differential diagnosis includes fracture, cellulitis, less likely DVT. As ultrasound not available, will obtain x-rays and give a dose of Keflex to treat for possible early cellulitis. Right foot x-ray notes a questionable thin cortical break in the medial aspect of proximal right third metatarsal bone, consider follow-up CT to further evaluate . 1900 --CT negative for acute fracture. Will give 2 tabs of Eliquis for prophylactic treatment while pending Doppler ultrasound to rule out DVT. An order was placed for Doppler ultrasound to be obtained tomorrow. We will send with a prescription for Keflex. Also send with 2 tabs of Eliquis to go for the a.m. if patient unable to return till tomorrow afternoon. Medical Records Medical records reviewed: Yes I reviewed the patient's medical records. Imaging Data Radiologic Study: Radiologist's impression: XR Right Foot Complete Exam date and time: 07/13/2020 5:54 PM Age: 79 years old Clinical indication: Injury or trauma; Fall; Blunt trauma; Lower leg and foot; Right; Injury date: Unknown TECHNIQUE: Imaging protocol: XR Right foot. Views: 3 or more views. COMPARISON: CT ANGIOGRAM AORTA LOWER EXTREMITY RUNOFF 08/18/2019 2:02 PM FINDINGS: Bones/joints: Thin cortical break in the medial aspect of the right 3rd metatarsal bone. Positioning of frontal view is somewhat obliqued. Evaluation at the Lisfranc joint is also limited. No gross evidence displaced or angulated fracture. Soft tissues: Extensive soft tissue swelling in the dorsum and plantar regions of the mid to forefoot. IMPRESSION: Somewhat limited study with thin cortical break in the medial aspect of the proximal right 3rd meta tarsal bone. Consider follow-up CT to evaluate for other fractures or dislocations, if any. XR Right Tibia and Fibula Exam date and time: 07/13/2020 5:54 PM Age: 79 years old Clinical indication: Injury or trauma; Fall; Blunt trauma; Lower leg and foot; Right; Injury date: Unknown TECHNIQUE: Imaging protocol: XR Right tibia and fibula. Views: 2 views. COMPARISON: CR XR KNEE RT 2V AP,LAT 06/02/2019 11:13 AM FINDINGS: Bones/joints: No acute fracture or dislocation. Old well corticated deformity below the medial malleolus. Soft tissues: Normal. IMPRESSION: No acute osseous injury in the tibia/fibula. CT Right Lower Extremity Without Contrast, Foot Exam date and time: 07/13/2020 6:15 PM Age: 79 years old Clinical indication: Pain; Foot; Right TECHNIQUE: Imaging protocol: CT of the Right lower extremity without contrast was performed. Exam focused on the foot. Radiation optimization: All CT scans at this facility use at least one of these dose optimization techniques: automated exposure control; mA and/or kV adjustment per patient size (includes targeted exams where dose is matched to clinical indication); or iterative reconstruction. COMPARISON: CR XR FOOT RT COMPLETE 07/13/2020 5:44 PM FINDINGS: Bones/joints: No evidence for fracture or dislocation. Incidental posterior calcaneal enthesophyte. Well-corticated fragment below the medial malleolus from prior avulsion. Soft tissues: Extensive soft tissue swelling predominantly in the dorsal aspect of the foot. No gross evidence for medial or lateral tendon rupture. The Achilles tendon is intact. IMPRESSION: 1. No acute fracture or dislocation. 2. Extensive soft tissue swelling without evidence for hematoma or significant tendinous injury. HPI General Mode of arrival: EMS. Date/Time Provider Initiated Documentation: 07/13/20 17:07. Limitations to Documentation: no limitations. Information obtained by: patient. HPI Narrative: Pt is a 79yo F who presents to the ED w/ a complaint of right leg pain after a fall a few days ago. Patient states she slipped while walking with her walker onto her bottom twisting her right leg. She states she has pain extending from her right knee down to her right foot and has bruising around her toes. She states she has still been ambulating but with pain. She does have a history of chronic leg swelling but feels it is slightly worse than her right leg. She denies any pain in her hip. Her PCP is aware of her complaint of right leg pain and also sent her in here for further evaluation for possible blood clot. Related Data Home Medications Medication Instructions Recorded Confirmed multivitamin [Daily Multi-Vitamin] 1 tab DAILY 06/14/14 07/13/20 blood sugar diagnostic #50 each 05/11/19 07/04/20 blood-glucose meter #1 each 05/11/19 07/04/20 lancets #50 each 05/11/19 07/04/20 aspirin 81 mg tablet,delayed 81 mg PO DAILY 07/12/19 07/13/20 release levothyroxine 125 mcg tablet 125 mcg PO DAILY #90 tab 10/06/19 07/13/20 omeprazole 40 mg capsule,delayed 40 mg PO DAILY #90 cap 10/06/19 07/13/20 release diaper,brief,adult,disposable #100 ea 01/10/20 07/04/20 compr.stocking,knee,long,large #4 each 02/02/20 07/04/20 acetaminophen 500 mg tablet 1,000 mg PO Q4H PRN PRN #120 tab 02/04/20 07/13/20 mirabegron 25 mg tablet,extended 25 mg PO DAILY #90 tab 02/04/20 07/13/20 release 24 hr albuterol sulfate 90 mcg/actuation 2 inh IH Q6H PRN #1 each 03/07/20 07/13/20 breath activated powder inhaler baclofen 10 mg tablet 10 mg PO QHS #30 tab 04/27/20 07/13/20 atorvastatin 40 mg tablet 40 mg PO QPM #90 tab 06/12/20 07/13/20 duloxetine 60 mg capsule,delayed 60 mg PO DAILY #30 cap 06/12/20 07/13/20 release enalapril maleate 10 mg tablet 10 mg PO DAILY #90 tab 06/12/20 07/13/20 nitroglycerin 0.4 mg sublingual 0.4 mg SUBLINGUAL PRN #100 tab-cap 06/12/20 07/13/20 tablet cephalexin [Keflex] 500 mg PO QID 7 Days #28 cap 07/13/20 trazodone 100 mg PO HS 07/13/20 07/13/20 Previous Rx's Medication Instructions Recorded blood sugar diagnostic #50 each 05/11/19 blood-glucose meter #1 each 05/11/19 lancets #50 each 05/11/19 levothyroxine 125 mcg tablet 125 mcg PO DAILY #90 tab 10/06/19 omeprazole 40 mg capsule,delayed 40 mg PO DAILY #90 cap 10/06/19 release diaper,brief,adult,disposable #100 ea 01/10/20 compr.stocking,knee,long,large #4 each 02/02/20 acetaminophen 500 mg tablet 1,000 mg PO Q4H PRN PRN #120 tab 02/04/20 mirabegron 25 mg tablet,extended 25 mg PO DAILY #90 tab 02/04/20 release 24 hr albuterol sulfate 90 mcg/actuation 2 inh IH Q6H PRN #1 each 03/07/20 breath activated powder inhaler baclofen 10 mg tablet 10 mg PO QHS #30 tab 04/27/20 atorvastatin 40 mg tablet 40 mg PO QPM #90 tab 06/12/20 duloxetine 60 mg capsule,delayed 60 mg PO DAILY #30 cap 06/12/20 release enalapril maleate 10 mg tablet 10 mg PO DAILY #90 tab 06/12/20 nitroglycerin 0.4 mg sublingual 0.4 mg SUBLINGUAL PRN #100 tab-cap 06/12/20 tablet cephalexin [Keflex] 500 mg PO QID 7 Days #28 cap 07/13/20 Allergies Allergy/AdvReac Type Severity Reaction Status Date / Time fentanyl [From Duragesic] Allergy Intermediate RASH, Verified 07/13/20 17:52 ITCHING oxybutynin chloride AdvReac Intermediate Itching Verified 07/13/20 17:52 [From Ditropan] tramadol AdvReac Intermediate ITCHING Verified 07/13/20 17:52 ENVIRONMENTAL Allergy RHINITIS Uncoded 07/13/20 17:52 General Stated Complaint: Vascular ARMEN: 3 Review of Systems All systems reviewed & are unremarkable except as noted in HPI and below Constitutional Constitutional: Reports as per HPI, Denies chills and Denies fever(s) Eyes Eyes: Denies blurry vision ENT Ears, Nose, Mouth, and Throat: Denies dizziness, Denies sore throat and Denies throat swelling Cardiovascular Cardiovascular: Denies chest pain and Denies dyspnea Respiratory Respiratory: Denies cough and Denies dyspnea Gastrointestinal Gastrointestinal: Denies abdominal pain, Denies diarrhea and Denies vomiting Genitourinary Genitourinary: Denies hematuria and Denies dysuria Musculoskeletal Musculoskeletal: Denies back pain and Denies numbness Integumentary/Breasts Skin/Breast: Denies lesions and Denies rash Neurologic Neurologic: Denies dizziness, Denies localized weakness and Denies numbness Allergic/Immunologic Allergic/Immunologic: Denies throat swelling [facility] Medical History (Updated 07/13/20 @ 19:11 by Fidelia Mckeon DO) Angina pectoris Arthropathy Chronic low back pain Chronic pain Claustrophobia Claustrophobia COPD (chronic obstructive pulmonary disease) Degenerative spondylolisthesis Diverticulosis Essential hypertension Gastroesophageal reflux disease Hyperlipidemia Hypothyroidism Impaired mobility Left carotid stenosis Lower gastrointestinal bleed Migraine Near syncope Osteoarthritis RLS (restless legs syndrome) Spinal stenosis Stress incontinence Urge urinary incontinence Surgical History Abdominal hysterectomy Age 29 Cholecystectomy (~09/2002) Colonoscopy - MAC (05/23/17) Extraction of cataract (~10/2007) Bilateral Laminectomy (03/27/09) L3-L5,medial facetectomy,L3-L4 and L4-L5. Open Carpal Tunnel release (~1998) Left Right done by Dr. Paulson 2017 Replacement of total knee joint Left 2012 TVT (~05/2004) Family History Mother Essential hypertension Neoplasm Lymphoma Sister , DM Complications at age 53. Diabetes Social History Smoking/Tobacco Use Status: Former Tobacco Use Smoking risk assessment performed?: Yes Alcohol Intake: former Drug use: Never Substance use type: does not use Adopted: No Caregiver/Support person: No Foster care: No Household members: none Housing: apartment Number of Children: 3 Do you need help understanding health information?: Often Pets and animals: No Sexually active: No Current gender identity: female What type of physical activity do you participate in: none Seatbelt use: always Do you feel safe at home: Yes ([facility]) Do you feel safe in your relationship?: Yes Exam Const General: cooperative, healthy appearing and no acute distress HENMT Head: normal to inspection Mouth: oral mucosae normal Eyes General: appearance normal, both eyes and all related structures Neck Neck: normal visual inspection Resp Effort & Inspection: normal respiratory effort and able to speak in complete sentences Cardio Rate: regular rate Skin General skin exam: no rashes or lesions noted Neuro General: patient alert, patient awake and patient oriented x3 Motor: muscle tone normal throughout Extrem Other: Bilateral lower extremity edema, 1+ pitting, extending to the foot. Fairly symmetrical bilateral legs. Right lower extremity with faint not well-circumscribed erythema extending from distal right leg down to ankle. Scattered fluid-filled vesicles to right lower extremity. No abscesses. Pain in right knee with range of motion with negative anterior and posterior drawer test. No pain with valgus or varus stress. No ligamentous laxity. No right calf tenderness. There is ecchymosis noted just proximal to the right second third and fourth toes at the base. There are faintly palpable right DP and PT pulses. Bilateral hips nontender. No pelvic instability. Right hip appears normal to inspection. Psych Appearance: grossly normal Affect: normal affect Course Vital Signs Vital signs: Vital Signs Temperature 97.3 F L 07/13/20 17:09 Pulse 104 H 07/13/20 17:09 Respiratory Rate 18 07/13/20 17:09 Blood Pressure 151/79 H 07/13/20 17:09 Pulse Oximetry 95 07/13/20 17:09 Temperature 97.3 F L 07/13/20 17:09 Temperature Source Skin 07/13/20 17:09 Pulse 104 H 07/13/20 17:09 Respiratory Rate 18 07/13/20 17:09 Respiratory Effort 07/13/20 17:15 Blood Pressure 151/79 H 07/13/20 17:09 Blood Pressure Position Sitting 07/13/20 17:09 Pulse Oximetry 95 07/13/20 17:09 Oxygen Delivery Method Room Air 07/13/20 17:09 Oxygen Flow Rate 0 07/13/20 17:09 Pain Level 0 07/13/20 17:09 Comment 07/13/20 17:09
--- NOTE | 2020-07-13 17:30 | DI.RAD_ITS ---
EXAM: XR TIB/FIB RT CLINICAL HISTORY: s/p fall, r/o acute fx. TECHNIQUE: 2D digital imaging was performed. COMPARISON: No exams were available for comparison FINDINGS: BONES: No acute fracture is present. No bony destructive lesion is seen. Visualized portion of knee a nd ankle joints are unremarkable. SOFT TISSUE: Normal. IMPRESSION: Unremarkable radiographs of the right tibia and fibula. DATA REPOSITORY: RADIATION DOSE DELIVERED:
--- NOTE | 2020-07-13 17:35 | DI.RAD_ITS ---
EXAM: XR FOOT RT COMPLETE CLINICAL HISTORY: s/p fall, r/o acute fracture toes. TECHNIQUE: 2D digital imaging was performed. COMPARISON: No previous for comparison. FINDINGS: BONES: No acute fracture is present. No bony destructive lesion is seen. JOINTS: No dislocation present. SOFT TISSUE: Prominent soft tissue swelling of the midfoot. IMPRESSION: 1. No acute fracture or dislocation. 2. Marked soft tissue swelling of the midfoot. DATA REPOSITORY: RADIATION DOSE DELIVERED:
[2020-07-13] MEDS: Cephalexin 500 MG CAP PO (18:07)
--- NOTE | 2020-07-13 18:09 | DI.VRAD_ITS ---
PROCEDURE INFORMATION: Exam: XR Right Foot Complete Exam date and time: 07/13/2020 5:54 PM Age: 79 years old Clinical indication: Injury or trauma; Fall; Blunt trauma; Lower leg and foot; Right; Injury date: Unknown TECHNIQUE: Imaging protocol: XR Right foot. Views: 3 or more views. COMPARISON: CT ANGIOGRAM AORTA LOWER EXTREMITY RUNOFF 08/18/2019 2:02 PM FINDINGS: Bones/joints: Thin cortical break in the medial aspect of the right 3rd metatarsal bone. Positioning of frontal view is somewhat obliqued. Evaluation at the Lisfranc joint is also limited. No gross evidence displaced or angulated fracture. Soft tissues: Extensive soft tissue swelling in the dorsum and plantar regions of the mid to forefoot. IMPRESSION: Somewhat limited study with thin cortical break in the medial aspect of the proximal right 3rd meta tarsal bone. Consider follow-up CT to evaluate for other fractures or dislocations, if any. Dictated and Authenticated by: Angelina Pederson MD. Ordering:TRINIDAD Mistry MD
--- NOTE | 2020-07-13 18:11 | DI.VRAD_ITS ---
PROCEDURE INFORMATION: Exam: XR Right Tibia and Fibula Exam date and time: 07/13/2020 5:54 PM Age: 79 years old Clinical indication: Injury or trauma; Fall; Blunt trauma; Lower leg and foot; Right; Injury date: Unknown TECHNIQUE: Imaging protocol: XR Right tibia and fibula. Views: 2 views. COMPARISON: CR XR KNEE RT 2V AP,LAT 06/02/2019 11:13 AM FINDINGS: Bones/joints: No acute fracture or dislocation. Old well corticated deformity below the medial malleolus. Soft tissues: Normal. IMPRESSION: No acute osseous injury in the tibia/fibula. Dictated and Authenticated by: Angelina Pederson MD. Ordering:TRINIDAD Mistry MD
--- NOTE | 2020-07-13 18:38 | DI.CT_ITS ---
EXAM: CT LOWER EXTREMITY RT WO CLINICAL HISTORY: r/o fracture R 3rd metatarsal bone. TECHNIQUE: Imaging Protocol: Axial computed tomography images with coronal and sagittal reformatted images were created and reviewed. COMPARISON: CT CT ANGIOGRAM AORTA LOWER EXTREMITY RUNOFF from 08/18/2019 FINDINGS: Bones: The osseous structures and articular surfaces are intact. There is no evidence of fracture or dislocation. Bony alignment is satisfactory. No cellulitic or osteomyelitic changes are identified. There is no evidence of joint space narrowing or cystic degeneration seen. No lytic or sclerotic le sions are identified. Soft Tissues: Extensive soft tissue swelling of the dorsal aspect of the foot. IMPRESSION: 1. No acute fracture or dislocation. 2. Extensive soft tissue swelling of the foot. RADIATION DOSE DELIVERED: 286.56mGy.cm Total DLP 286.56mGy.cm Total DLP DATA REPOSITORY: All CT scans at this facility are submitted to the National Radiology Data Registry (NRDR) Dose Index Registry (DIR) with the [employer] (ACR). RADIATION OPTIMIZATION: All CT scans at this facility use at least one of these dose optimization te chniques: automated exposure control; mA and/or kV adjustment per patient size (includes targeted exa ms where dose is matched to clinical indication); or iterative reconstruction.
--- NOTE | 2020-07-13 18:58 | DI.VRAD_ITS ---
PROCEDURE INFORMATION: Exam: CT Right Lower Extremity Without Contrast, Foot Exam date and time: 07/13/2020 6:15 PM Age: 79 years old Clinical indication: Pain; Foot; Right TECHNIQUE: Imaging protocol: CT of the Right lower extremity without contrast was performed. Exam focused on the foot. Radiation optimization: All CT scans at this facility use at least one of these dose optimization techniques: automated exposure control; mA and/or kV adjustment per patient size (includes targeted exams where dose is matched to clinical indication); or iterative reconstruction. COMPARISON: CR XR FOOT RT COMPLETE 07/13/2020 5:44 PM FINDINGS: Bones/joints: No evidence for fracture or dislocation. Incidental posterior calcaneal enthesophyte. Well-corticated fragment below the medial malleolus from prior avulsion. Soft tissues: Extensive soft tissue swelling predominantly in the dorsal aspect of the foot. No gross evidence for medial or lateral tendon rupture. The Achilles tendon is intact. IMPRESSION: 1. No acute fracture or dislocation. 2. Extensive soft tissue swelling without evidence for hematoma or significant tendinous injury. Dictated and Authenticated by: Angelina Pederson MD. Ordering:TRINIDAD Mistry MD
[2020-07-13 19:09] VITALS: BP 143/90; PULSE 94; RESP 18; TEMP 36.6; O2SAT 94
[2020-07-13] MEDS: Acetaminophen 325 MG TAB 650 MG PO (19:11)
[2020-07-13] MEDS: Apixaban 5 MG TAB 10 MG PO ×2 (19:43)
--- NOTE | 2020-07-13 19:47 | NUR.NOTE ---
Referral to Care Management needing help with transportation and making appointment.Nursing Note:
--- NOTE | 2020-07-14 12:28 | PDOC.ERCMPRO ---
- If Service Date Differs Date of service: 07/14/20 Time of Service: 12:28 Care Management Progress Note Sveta comes to the ED on 07/13/20 for a sprain of her right knee and contusion of right foot. Dr. Mckeon, ED provider, orders a doppler ultrasound for Tuesday, July 14, 2020. is asked to help coordinate the diagnostic appointment and transportation to and from the appointment. attempts to reach Sveta by phone but the phone number in her chart is not accepting messages or incoming phone calls ([phone]). A review of her patient chart reveals Sveta is connected to [facility], so CM contacts the [facility] office and speaks with Josep Suarez, coordinator. With his assistance, the message is given to Sveta, asking she call . A short while later, Sveta calls and is advised of the diagnostic appointment this afternoon at 2:00 pm. She is also instructed to call [facility] to do a covid-19 screening over the phone, so [facility] can provide transportation to and from the appointment.
== END 2020-07-13 20:00 | disposition home or self-care (01) ==
PROVIDERS: Emergency Provider Physician Assistant; PCP Nurse Practitioner
DX: L03.115 Cellulitis of right lower limb (principal); S83.91XA Sprain of unspecified site of right knee, initial encounter; S90.31XA Contusion of right foot, initial encounter; W18.39XA Other fall on same level, initial encounter; X50.9XXA Other and unspecified overexertion or strenuous movements or postures, initial encounter; J44.9 Chronic obstructive pulmonary disease, unspecified; Z87.891 Personal history of nicotine dependence; I10 Essential (primary) hypertension
CPT/HCPCS: 99284; 73590; 73630; 73700; 99285

== ENCOUNTER 2020-07-14 14:40 | Emergency (ER) | payer OTHER, MEDICAID, SELFPAY ==
[2020-07-14 14:45] VITALS: BP 125/52; PULSE 90; RESP 20; TEMP 36.6; O2SAT 96
--- NOTE | 2020-07-14 14:56 | ED.GENADUL_ITS ---
Discharge Plan Disposition Patient Disposition: HOME Condition: Stable Discharge Details Clinical Impression: Leg pain Primary Care Provider: Jocy Kate ED Provider: Mackenzie Apple Home Meds and New Rx's Prescriptions: Continued (DME) compr.stocking,knee,long,large Misc See Rx Instructions .ROUTE .MEDSUPPLY Qty: 4 RF: 0 (DME) blood-glucose meter [Accu-Chek Guide Glucose Meter] Misc See Rx Instructions .ROUTE .MEDSUPPLY Qty: 1 RF: 0 (DME) Blood Glucose Test Strip See Rx Instructions .ROUTE .MEDSUPPLY Qty: 50 RF: 3 (DME) lancets Misc See Rx Instructions .ROUTE .MEDSUPPLY Qty: 50 RF: 3 aspirin [Adult Low Dose Aspirin] 81 mg tablet,delayed release (DR/EC) 81 mg PO DAILY RF: 0 levothyroxine [Synthroid] 125 mcg tablet 125 mcg PO DAILY Qty: 90 RF: 3 omeprazole 40 mg capsule,delayed release(DR/EC) 40 mg PO DAILY Qty: 90 RF: 3 (DME) diaper,brief,adult,disposable Misc 1 ea Miscellaneous PRN Qty: 100 RF: 6 acetaminophen [Mapap Extra Strength] 500 mg tablet 1,000 mg PO Q4H PRN PRN (Reason: fever or pain) Qty: 120 RF: 3 Myrbetriq 25 mg tablet extended release 24 hr 25 mg PO DAILY Qty: 90 RF: 1 albuterol sulfate 90 mcg/actuation aerosol powdr breath activated 2 inh IH Q6H PRN (Reason: shortness of breath or wheezing) Qty: 1 RF: 5 baclofen 10 mg tablet 10 mg PO QHS Qty: 30 RF: 4 atorvastatin 40 mg tablet 40 mg PO QPM Qty: 90 RF: 3 duloxetine 60 mg capsule,delayed release(DR/EC) 60 mg PO DAILY Qty: 30 RF: 5 enalapril maleate 10 mg tablet 10 mg PO DAILY Qty: 90 RF: 3 nitroglycerin 0.4 mg tablet, sublingual 0.4 mg Sublingual PRN Qty: 100 RF: 3 multivitamin [Daily Multi-Vitamin] 1 EACH tablet 1 tab DAILY RF: 0 trazodone 100 mg tablet 100 mg PO HS RF: 0 cephalexin [Keflex] 500 mg capsule 500 mg PO QID 7 Days Qty: 28 RF: 0 Discharge Instructions Instructions: Leg Pain (ED) Additional Instructions: Follow up with primary care provider in 3-5 days. Return to ED sooner if any worsening or concerns. The ultrasound of your leg that was done today was negative for blood clot. Referrals: Jocy Kate NP [Primary Care Provider] - Discharge Data Discharge Date/Time-TO BE ENTERED AT DEPARTURE: 07/14/20 15:10 Medical Decision Making Discussed ultrasound results with patient, verbalized understanding. She is complaining of leg/knee pain, given a lidocaine patch for her knee. EXAM: US LOWER EXTREMITY VENOUS RT CLINICAL HISTORY: RT LEG PAIN, SWELLING, ? DVT TECHNIQUE: Right lower extremity venous ultrasound performed using grayscale, color-flow, and spectral Doppler analysis. COMPARISON: US US LOWER EXTREMITY VENOUS RT from 09/06/2019 FINDINGS: The right common femoral, femoral and popliteal veins demonstrate normal compressibility, augmentation, and color Doppler. The posterior tibial veins are patent. The saphenofemoral junction is unremarkable. There is no evidence of a Tang cyst. Edema seen in the soft tissues of the lower extremity. IMPRESSION: No DVT. HPI General Mode of arrival: ambulatory (walker) . Date/Time Provider Initiated Documentation: 07/14/20 14:56 . Limitations to Documentation: no limitations . Information obtained by: patient . HPI Narrative: 79-year-old female presents for recheck of ultrasound of lower extremity which is negative for DVT at this time. Patient is taking cephalexin as previously prescribed. Discussed results with patient, verbalized understanding. No complaints otherwise she is alert and oriented x3. Related Data Home Medications Medication Instructions Recorded Confirmed multivitamin [Daily Multi-Vitamin] 1 tab DAILY 06/14/14 07/14/20 blood sugar diagnostic #50 each 05/11/19 07/14/20 blood-glucose meter #1 each 05/11/19 07/14/20 lancets #50 each 05/11/19 07/14/20 aspirin 81 mg tablet,delayed 81 mg PO DAILY 07/12/19 07/14/20 release levothyroxine 125 mcg tablet 125 mcg PO DAILY #90 tab 10/06/19 07/14/20 omeprazole 40 mg capsule,delayed 40 mg PO DAILY #90 cap 10/06/19 07/14/20 release diaper,brief,adult,disposable #100 ea 01/10/20 07/14/20 compr.stocking,knee,long,large #4 each 02/02/20 07/14/20 acetaminophen 500 mg tablet 1,000 mg PO Q4H PRN PRN #120 tab 02/04/20 07/14/20 mirabegron 25 mg tablet,extended 25 mg PO DAILY #90 tab 02/04/20 07/14/20 release 24 hr albuterol sulfate 90 mcg/actuation 2 inh IH Q6H PRN #1 each 03/07/20 07/14/20 breath activated powder inhaler baclofen 10 mg tablet 10 mg PO QHS #30 tab 04/27/20 07/14/20 atorvastatin 40 mg tablet 40 mg PO QPM #90 tab 06/12/20 07/14/20 duloxetine 60 mg capsule,delayed 60 mg PO DAILY #30 cap 06/12/20 07/14/20 release enalapril maleate 10 mg tablet 10 mg PO DAILY #90 tab 06/12/20 07/14/20 nitroglycerin 0.4 mg sublingual 0.4 mg SUBLINGUAL PRN #100 tab-cap 06/12/20 07/14/20 tablet cephalexin [Keflex] 500 mg PO QID 7 Days #28 cap 07/13/20 07/14/20 trazodone 100 mg PO HS 07/13/20 07/14/20 Previous Rx's Medication Instructions Recorded blood sugar diagnostic #50 each 05/11/19 blood-glucose meter #1 each 05/11/19 lancets #50 each 05/11/19 levothyroxine 125 mcg tablet 125 mcg PO DAILY #90 tab 10/06/19 omeprazole 40 mg capsule,delayed 40 mg PO DAILY #90 cap 10/06/19 release diaper,brief,adult,disposable #100 ea 01/10/20 compr.stocking,knee,long,large #4 each 02/02/20 acetaminophen 500 mg tablet 1,000 mg PO Q4H PRN PRN #120 tab 02/04/20 mirabegron 25 mg tablet,extended 25 mg PO DAILY #90 tab 02/04/20 release 24 hr albuterol sulfate 90 mcg/actuation 2 inh IH Q6H PRN #1 each 03/07/20 breath activated powder inhaler baclofen 10 mg tablet 10 mg PO QHS #30 tab 04/27/20 atorvastatin 40 mg tablet 40 mg PO QPM #90 tab 06/12/20 duloxetine 60 mg capsule,delayed 60 mg PO DAILY #30 cap 06/12/20 release enalapril maleate 10 mg tablet 10 mg PO DAILY #90 tab 06/12/20 nitroglycerin 0.4 mg sublingual 0.4 mg SUBLINGUAL PRN #100 tab-cap 06/12/20 tablet cephalexin [Keflex] 500 mg PO QID 7 Days #28 cap 07/13/20 Allergies Allergy/AdvReac Type Severity Reaction Status Date / Time fentanyl [From Duragesic] Allergy Intermediate RASH, Verified 07/14/20 14:54 ITCHING oxybutynin chloride AdvReac Intermediate Itching Verified 07/14/20 14:54 [From Ditropan] tramadol AdvReac Intermediate ITCHING Verified 07/14/20 14:54 ENVIRONMENTAL Allergy RHINITIS Uncoded 07/14/20 14:54 General Stated Complaint: Recheck ARMEN: 5 Review of Systems All systems reviewed & are unremarkable except as noted in HPI and below Musculoskeletal Musculoskeletal: Reports arthralgias (Leg pain) [facility] Medical History (Updated 07/14/20 @ 15:08 by Mackenzie Apple) Angina pectoris Arthropathy Chronic low back pain Chronic pain Claustrophobia Claustrophobia COPD (chronic obstructive pulmonary disease) Degenerative spondylolisthesis Diverticulosis Essential hypertension Gastroesophageal reflux disease Hyperlipidemia Hypothyroidism Impaired mobility Left carotid stenosis Lower gastrointestinal bleed Migraine Near syncope Osteoarthritis RLS (restless legs syndrome) Spinal stenosis Stress incontinence Urge urinary incontinence Surgical History Abdominal hysterectomy Age 29 Cholecystectomy (~09/2002) Colonoscopy - MAC (05/23/17) Extraction of cataract (~10/2007) Bilateral Laminectomy (03/27/09) L3-L5,medial facetectomy,L3-L4 and L4-L5. Open Carpal Tunnel release (~1998) Left Right done by Dr. Paulson 2017 Replacement of total knee joint Left 2011 TVT (~05/2004) Family History Mother Essential hypertension Neoplasm Lymphoma Sister , DM Complications at age 53. Diabetes Social History Smoking/Tobacco Use Status: Former Tobacco Use Smoking risk assessment performed?: Yes Alcohol Intake: former Drug use: Never Substance use type: does not use Adopted: No Caregiver/Support person: No Foster care: No Household members: none Housing: apartment Number of Children: 3 Do you need help understanding health information?: Often Pets and animals: No Sexually active: No Current gender identity: female What type of physical activity do you participate in: none Seatbelt use: always Do you feel safe at home: Yes ([place]) Do you feel safe in your relationship?: Yes Exam Narrative Exam Narrative: Constitutional: Alert and oriented x3. Appears stated age. Normal body habitus. Chest: RRR, Normal S1, S2, distal pulses intact. Resp: Lungs clear to auscultation bilaterally, no wheezes, rales, or rhonchi. Musculoskeletal: Normal gait, 5/5 strength to all four extremities. Skin: No suspicious rashes or lesions. Capillary refill less than 2 sec. Neurologic: Cranial nerves II-XII intact. Alert and oriented x 3. DTR's intact. Hematologic/Lymphatic: No ecchymosis, no lymphadenopathy. Course Vital Signs Vital signs: Vital Signs Temperature 36.6 C 07/14/20 14:45 Pulse 90 07/14/20 14:45 Respiratory Rate 07/14/20 14:45 Blood Pressure 125/52 L 07/14/20 14:45 Pulse Oximetry 96 07/14/20 14:45 Temperature 36.6 C 07/14/20 14:45 Temperature Source Skin 07/14/20 14:45 Pulse 90 07/14/20 14:45 Respiratory Rate 20 07/14/20 14:45 Respiratory Effort 07/14/20 14:52 Blood Pressure 125/52 L 07/14/20 14:45 Blood Pressure Position Sitting 07/14/20 14:45 Pulse Oximetry 96 07/14/20 14:45 Oxygen Delivery Method Room Air 07/14/20 14:45 Oxygen Flow Rate 0 07/14/20 14:45 Pain Level 10 07/14/20 14:45
[2020-07-14] MEDS: Lidocaine 5% Patch 1 PATCH (15:21)
== END 2020-07-14 15:10 | disposition home or self-care (01) ==
PROVIDERS: Emergency Provider Registered Nurse Emergency; PCP Nurse Practitioner
DX: M79.661 Pain in right lower leg (principal); Z71.2 Person consulting for explanation of examination or test findings

== ENCOUNTER 2020-07-24 14:02 | Outpatient (REF) | payer OTHER, MEDICAID, SELFPAY ==
[2020-07-24 18:30] LABS: HCT 28.6 % (36.0-46.0); HGB 8.8 g/dL (11.2-15.7); MCH 28.8 pg (27.0-33.0); MCHC 30.8 % (32.0-36.0); MCV 93.5 fL (80-95); MPV 10.2 fL (8.0-11.0); Platelet Count 438 10^3/uL (130-400); RBC 3.06 10^6/uL (3.93-5.22); RDW 18.6 % (11.7-14.6); RDW-SD 63.8 fL; WBC 17.11 10^3/uL (4.4-10.8)
[2020-07-24 18:46] LABS: ALT 16 U/L (14-59); AST 13 U/L (15-37); Alkaline Phosphatase 60 U/L (46-116); Anion Gap 5.8 mmol/L (3-11); BUN 18 mg/dL (7-18); Bilirubin, Total 0.4 mg/dL (0.2-1.0); CO2 33.2 mmol/L (21.0-32.0); CREATININE 1.15 mg/dL (0.55-1.02); Calcium 9.3 mg/dL (8.5-10.1); Chloride 102 mmol/L (98-107); Estimated GFR 45.64 (mL/min/1.73m2); Glucose 198 mg/dL (74-106); Potassium 4.3 mmol/L (3.5-5.1); Sodium 141 mmol/L (136-145); Total Protein 7.4 g/dL (6.4-8.2)
[2020-07-24 18:50] LABS: Hemoglobin A1C 7.1 % (<5.7)
== END 2020-07-24 14:22 ==
LOC: LBN 14:02
PROVIDERS: PCP Nurse Practitioner; Visit Provider Nurse Practitioner
DX: I10 Essential (primary) hypertension (principal); E03.9 Hypothyroidism, unspecified; R60.9 Edema, unspecified; E11.9 Type 2 diabetes mellitus without complications
CPT/HCPCS: 80053; 85027; 83036; 84443

== ENCOUNTER 2020-08-27 14:10 | Inpatient (IN) | payer OTHER, MEDICAID, SELFPAY ==
[2020-08-27] VITALS (33 sets, daily range): BP systolic 133–176; BP diastolic 40–135; PULSE 72–96; RESP 15–26; TEMP 36.4–37; O2SAT 86–98
--- NOTE | 2020-08-27 14:15 | DI.RAD_ITS ---
EXAM: XR SHOULDER LT COMPLETE 2+V CLINICAL HISTORY: fall/pain. TECHNIQUE: 2D digital imaging was performed. COMPARISON: CR XR SHOULDER LT COMPLETE 2+V from 07/04/2020 FINDINGS: There is no evidence of acute fracture or dislocation. However, there are advanced osteoarthritic de generative changes in the glenohumeral joint again noted including advanced joint space narrowing and there is also a large gonzalez-type osteophyte on the inferior articular surface of the humeral head. There are no soft tissue calcifications. No osseous lesions. IMPRESSION: Advanced degenerative changes in the glenohumeral joint, unchanged from previous. DATA REPOSITORY: RADIATION DOSE DELIVERED:
--- NOTE | 2020-08-27 14:15 | RT.EKG_ITS ---
APPROVED REPORT Exam: Resting ECG Patient Location: E HR:93 bpm ECG Measurements Heart Rate 93 AXIS LA 192 P 39 QRSd 100 QRS 46 QT 411 T 54 QTc 514 Conclusion Sinus rhythm. Ventricular premature complex Prolonged QT interval...QTc >500mS
--- NOTE | 2020-08-27 14:15 | DI.RAD_ITS ---
EXAM: XR CHEST 1V IN DI DEPT CLINICAL HISTORY: fall. TECHNIQUE: 2D digital imaging was performed. COMPARISON: CR XR CHEST 2V PA LATERAL from 07/11/2018 FINDINGS: Heart size is upper normal. The mediastinum is not widened. Lungs are clear. No infiltrates nor obvious pleural effusions. IMPRESSION: No acute pulmonary findings on this single AP portable view of the chest. DATA REPOSITORY: RADIATION DOSE DELIVERED:
--- NOTE | 2020-08-27 14:15 | DI.CT_ITS ---
EXAM: CT HEAD WO CLINICAL HISTORY: fall,ams. TECHNIQUE: Imaging Protocol: Axial computed tomography images with coronal and sagittal reformatted images were created and reviewed COMPARISON: CT CT HEAD CERVICAL SPINE WO from 07/11/2018 FINDINGS: There are no skull fractures nor fluid in the visualized paranasal sinuses. There is no evidence of intracranial hemorrhage, mass effect, or shift of midline structures. There are no extra-axial fluid collections. The ventricles are not enlarged or shifted and there is no blo od within the ventricular system nor within the basal cisterns. There is calcification noted within both internal carotid arteries at the skull base as well as withi n both vertebral arteries again noted. There is some periventricular hypodensity again noted consist ent with chronic small vessel disease. Also areas of hypodensity in both external capsules, more so on the right side, most probably post ischemic and exhibiting no change from previous 2018 study. IMPRESSION: No acute intracranial findings on this noninfused CT scan of the brain. If clinically indicated follow-up MRI can be performed for added sensitivity and specificity. RADIATION DOSE DELIVERED: 909.96mGy.cm Total DLP DATA REPOSITORY: All CT scans at this facility are submitted to the National Radiology Data Registry (NRDR) Dose Index Registry (DIR) with the [employer] (ACR). RADIATION OPTIMIZATION: All CT scans at this facility use at least one of these dose optimization te chniques: automated exposure control; mA and/or kV adjustment per patient size (includes targeted exa ms where dose is matched to clinical indication); or iterative reconstruction.
--- NOTE | 2020-08-27 14:15 | RT.EKG_ITS ---
APPROVED REPORT Exam: Resting ECG Patient Location: E HR:92 bpm ECG Measurements Heart Rate 92 AXIS NM 188 P 56 QRSd 102 QRS 38 QT 416 T 52 QTc 517 Conclusion Sinus rhythm. Ventricular premature complex. QTc >500mS
[2020-08-27 14:36] LABS: Abs Immature Grans 0.08 10^3/uL (0.0-0.06); Absolute Basophil Count 0.04 10^3/uL (0.0-0.2); Absolute Eosinophil Count 0.03 10^3/uL (0.0-0.7); Absolute Neutrophil Count 12.56 10^3/uL (1.2-6.7); Basophils % 0.3; Eosinophils % 0.2; HGB 8.7 g/dL (11.2-15.7); Immature Grans % 0.5; Lymphocytes % 6.8; MCH 27.7 pg (27.0-33.0); MCHC 31.1 % (32.0-36.0); MCV 89.2 fL (80-95); MPV 9.7 fL (8.0-11.0); Monocytes % 6.8; Neutrophils % 85.4; Nucleated RBC 0 %; Platelet Count 358 10^3/uL (130-400); RBC 3.14 10^6/uL (3.93-5.22); RDW 19.1 % (11.7-14.6); RDW-SD 62.2 fL; WBC 14.71 10^3/uL (4.4-10.8)
[2020-08-27 14:49] LABS: PTT Activated 23.6 sec (21.0-27.5); Prothrombin Time 10.4 sec (9.3-11.0)
[2020-08-27 14:51] LABS: Anisocytosis 2+; Diff Comment RBC Morph Reviewed; Hypochromasia 1+; Microcytosis 1+; Polychromasia Present
[2020-08-27 14:52] LABS: Poikilocytes 2+
[2020-08-27 15:03] LABS: ALT 19 U/L (14-59); AST 31 U/L (15-37); Albumin 3.8 g/dL (3.4-5.0); Alkaline Phosphatase 56 U/L (46-116); BUN 15 mg/dL (7-18); Bilirubin, Total 0.9 mg/dL (0.2-1.0); CREATININE 1.02 mg/dL (0.55-1.02); Calcium 9.2 mg/dL (8.5-10.1); Chloride 102 mmol/L (98-107); Estimated GFR 52.41 (mL/min/1.73m2); Glucose 152 mg/dL (74-106); Magnesium 1.9 mg/dL (1.8-2.4); Potassium 4.1 mmol/L (3.5-5.1); Sodium 141 mmol/L (136-145); TSH (W/Ref FT4) 2.81 uIU/mL (0.36-3.74); Total Protein 7.6 g/dL (6.4-8.2); Troponin I < 0.05 ng/mL (<0.06)
--- NOTE | 2020-08-27 15:04 | ED.GENADUL_ITS ---
Discharge Plan Disposition Patient Disposition: [facility] INPATIENT Condition: Stable Discharge Details Clinical Impression: Fall, Dehydration Admit Date/Time: 08/28/20 11:05 Admit Provider: Jon Alexander Attending Provider: Jon Alexander Primary Care Provider: Jocy Kate ED Provider: Apolonia Pang Discharge Data Discharge Date/Time-TO BE ENTERED AT DEPARTURE: 08/27/20 19:25 Medical Decision Making <ANNIE Berman - Last Filed: 08/28/20 15:17> 79-year-old medically complicated female who lives at home alone presents via EMS for having been on the ground for an unknown period of time. She apparently fell near the bed but cannot tell me exactly why she fell or how she fell. Feel as though initiating a syncopal work-up is indicated. We will also add a CPK for evaluation of possible rhabdo. Will obtain CT imaging of her head, x-ray of her chest, x-ray of her left shoulder. Patient is initially unclear as to what she would like the disposition of this evaluation to be. She tells me she would rather go home if at all possible. I feel as though at a minimal she should be evaluated here in the ER for a minimum of a repeat EKG and troponin at 3 hours. Initial laboratory values reveal a white blood cell count of 14.71 hemoglobin 8.4, hematocrit 28, platelet count 358. The laboratory values appear to be near baseline when compared to her 2 most recent laboratory draws. INR 1.0 chemistries unremarkable. Creatinine 1.02 with a GFR 52.41. Glucose 152. Creatinine kinase 243. Initial troponin less than 0.05. TSH 281. Urinalysis is clear, negative for nitrates. Micro pending. CT imaging of head read by virtual radiology as no acute hemorrhage or midline shift. Chest x-ray read by virtual radiology as no acute cardiopulmonary process. At time of signout shoulder x-ray pending. Care signed out to my colleague ANNIE Pang. At time of signout awaiting repeat EKG and troponin and final assessment and disposition. As stated before patient states that she would ra ther go home, but she is elderly, lives at home alone, and I do have my concerns. She does appear to be of sound mind and can make her own decisions. Disposition may eventually be difficult. Medical Records Medical records reviewed: Yes I reviewed the patient's medical records. Lab Data Lab results reviewed: Yes I reviewed the patient's lab results. Lab results narrative: Laboratory Tests Range/Units 08/27/20 08/27/20 08/27/20 14:15 14:30 14:30 WBC (4.4-10.8) 10^3/uL 14.71 H RBC (3.93-5.22) 10^6/uL 3.14 L Hgb (11.2-15.7) g/dL 8.7 L Hct (36.0-46.0) % 28.0 L MCV (80-95) fL 89.2 MCH (27.0-33.0) pg 27.7 MCHC (32.0-36.0) % 31.1 L RDW (11.7-14.6) % 19.1 H Plt Count (130-400) 10^3/uL 358 MPV (8.0-11.0) fL 9.7 Immature Gran % 0.5 Neutrophils % 85.4 Lymphocytes % 6.8 Monocytes % 6.8 Eosinophils % 0.2 Basophils % 0.3 Nucleated RBC % % 0 Absolute Neutrophils (1.2-6.7) 10^3/uL 12.56 H Absolute Lymphocytes (1.2-3.4) 10^3/uL 1.00 L Absolute Monocytes (0.1-0.8) 10^3/uL 1.00 H Absolute Eosinophils (0.0-0.7) 10^3/uL 0.03 Absolute Basophils (0.0-0.2) 10^3/uL 0.04 RBC Morphology See below Polychromasia Present Hypochromasia 1+ Poikilocytosis 2+ Anisocytosis 2+ Microcytosis 1+ PT (9.3-11.0) sec INR (0.9-1.1) APTT (21.0-27.5) sec Sodium (136-145) mmol/L 141 Potassium (3.5-5.1) mmol/L 4.1 Chloride (98-107) mmol/L 102 Carbon Dioxide (21.0-32.0) mmol/L 31.0 Anion Gap (3-11) mmol/L 8.0 BUN (7-18) mg/dL 15 Creatinine (0.55-1.02) mg/dL 1.02 Estimated GFR/1.73 m2 (mL/min/1.73m2) 52.41 Glucose (74-106) mg/dL 152 H Calcium (8.5-10.1) mg/dL 9.2 Magnesium (1.8-2.4) mg/dL 1.9 Total Bilirubin (0.2-1.0) mg/dL 0.9 AST (15-37) U/L 31 ALT (14-59) U/L 19 Alkaline Phosphatase (46-116) U/L 56 Creatine Kinase (26-192) U/L 243 H Troponin I (<0.06) ng/mL < 0.05 Total Protein (6.4-8.2) g/dL 7.6 Albumin (3.4-5.0) g/dL 3.8 TSH (0.36-3.74) uIU/mL 2.81 Urine Color (Yellow) Urine Clarity (Clear) Urine pH (5-8) Ur Specific [place] (1.005-1.025) Urine Protein (Negative) mg/dL Urine Ketones (Negative) mg/dL Urine Blood (Negative) Urine Nitrite (Negative) Urine Bilirubin (Negative) Urine Urobilinogen (Up TO 0.2) EU/dL Ur Leukocyte Esterase (Negative) Urine Glucose (Negative) mg/dL Range/Units 08/27/20 08/27/20 14:30 14:55 WBC (4.4-10.8) 10^3/uL RBC (3.93-5.22) 10^6/uL Hgb (11.2-15.7) g/dL Hct (36.0-46.0) % MCV (80-95) fL MCH (27.0-33.0) pg MCHC (32.0-36.0) % RDW (11.7-14.6) % Plt Count (130-400) 10^3/uL MPV (8.0-11.0) fL Immature Gran % Neutrophils % Lymphocytes % Monocytes % Eosinophils % Basophils % Nucleated RBC % % Absolute Neutrophils (1.2-6.7) 10^3/uL Absolute Lymphocytes (1.2-3.4) 10^3/uL Absolute Monocytes (0.1-0.8) 10^3/uL Absolute Eosinophils (0.0-0.7) 10^3/uL Absolute Basophils (0.0-0.2) 10^3/uL RBC Morphology Polychromasia Hypochromasia Poikilocytosis Anisocytosis Microcytosis PT (9.3-11.0) sec 10.4 INR (0.9-1.1) 1.0 APTT (21.0-27.5) sec 23.6 Sodium (136-145) mmol/L Potassium (3.5-5.1) mmol/L Chloride (98-107) mmol/L Carbon Dioxide (21.0-32.0) mmol/L Anion Gap (3-11) mmol/L BUN (7-18) mg/dL Creatinine (0.55-1.02) mg/dL Estimated GFR/1.73 m2 (mL/min/1.73m2) Glucose (74-106) mg/dL Calcium (8.5-10.1) mg/dL Magnesium (1.8-2.4) mg/dL Total Bilirubin (0.2-1.0) mg/dL AST (15-37) U/L ALT (14-59) U/L Alkaline Phosphatase (46-116) U/L Creatine Kinase (26-192) U/L Troponin I (<0.06) ng/mL Total Protein (6.4-8.2) g/dL Albumin (3.4-5.0) g/dL TSH (0.36-3.74) uIU/mL Urine Color (Yellow) Yellow Urine Clarity (Clear) Sl cloudy Urine pH (5-8) 6.0 Ur Specific [place] (1.005-1.025) >= 1.030 H Urine Protein (Negative) mg/dL Negative Urine Ketones (Negative) mg/dL Negative Urine Blood (Negative) Negative Urine Nitrite (Negative) Negative Urine Bilirubin (Negative) Negative Urine Urobilinogen (Up TO 0.2) EU/dL 0.2 Ur Leukocyte Esterase (Negative) Negative Urine Glucose (Negative) mg/dL Negative ECG Data Attestation: I personally reviewed and interpreted this ECG (s) as follows: Interpretation: Please see official report by Dr. Licea. Sinus rhythm, ventricular rate of 93. Prolonged QT interval. No STEMI. <ANNIE Flores - Last Filed: 08/27/20 19:42> Care transition myself and Eugenio Hannah PA-C. Please see his initial note regarding presentation, history and exam. In brief, patient is a pleasant 79-year-old female who last spoke with family at noon yesterday and seemed to be well at that time. However, did not have her routine phone calls last night and was subsequently found down next to the bed today prior to arrival. Unclear mechanism. Labs completed thus far show leukocytosis with a white count of 14. She is anemic with a hemoglobin of 8.7. Was 8.8 1-month ago and 9.2 last spring. No electrolyte abnormalities. Glucose slightly high at 152. CK slightly high at 243, normal kidney function. Initial troponin less than 0.05. TSH within normal limits. UA significant for elevated specific gravity but otherwise no evidence of infection. Patient is currently receiving hydration. Imaging reviewed by radiologist: FINDINGS: Brain: There is no intra-axial hemorrhage. There are moderate confluent and patchy foci of periventricular and subcortical white matter hypodensities, unchanged and could be due to chronic microvascular ischemic disease. There is parenchymal volume loss with compensatory dilatation of ventricles, sulci and basilar cisterns. There is no extra-axial fluid collection. There is a hypodensity noted in the left medial occipital lobe (image 19 series 2), more pronounced than the previous CT head exam dated 07/11/2018. There is stable encephalomalacia in the left temporal lobe, likely sequela of remote infarction. There is stable chronic lacunar infarction in the right external capsule. Cerebral ventricles: No ventriculomegaly. Bones/joints: Unremarkable. No acute fracture. Paranasal sinuses: Visualized sinuses are unremarkable. No fluid levels. Mastoid air cells: There is opacification of the right inferior mastoid air cells, unchanged and could be due to chronic mastoid effusions. Orbital cavity: Patient is status post cataract extraction bilaterally. Vasculature: There are calcifications of bilateral carotid siphons. Soft tissues: Unremarkable. IMPRESSION: 1. No intracranial hemorrhage or midline shift. 2. There is a hypodense region in the left medial occipital lobe, new from previous exam dated 07/11/2018 and might reflect age indeterminate infarction. If the patient is symptomatic, MRI is recommended. Otherwise stable [id number] periventricular white matter hypodensities which could be due to chronic microvascular ischemic disease and stable foci of chronic infarctions. FINDINGS: Lungs: Unremarkable. No consolidation. Pleural space: Unremarkable. No pleural effusion. No pneumothorax. Heart/Mediastinum: Unremarkable. No cardiomegaly. Bones/joints: There is mild osteoarthritis of the left glenohumeral joint. There is no acute fracture. IMPRESSION: No acute cardiopulmonary process . Discussed findings with with patient. Patient seems quite drowsy throughout my discussion with her. She is alert, oriented and answering all my questions appropriately but continually has to be prompted to wake up more. I am wondering if some of this may have been due to the patient being on both oxycodone and trazodone. She is unable to tell me when she last took these medications. She is able to follow commands, no notable deficit. Patient continues to deny shortness of breath or chest pain. Denies any indication suggest CVA, PE at this time. Repeat troponin is pending. Pupils are normal, she does not appear acutely intoxicated. Spoke with patients granddaughter, Pat [phone]. She expresses concern for her grandmother. She states she has been falling more frequently over time. She states that while she is at the highest level of care b ut not getting routine care as there is limited staffing with home health. Patient's repeat troponin remains less than 0.05. Spoke with the patient regarding admission. I am quite concerned with her going home. Her son Feliberto, , also agrees to do it amado had said regarding falls. He is quite happy to hear that she can be admitted. I do feel that evaluation with physical therapy as well as consultation with care management would be appropriate for her. I am concerned for patient safety if she goes home this evening. I did advise that she and her [employer] on her person. She does report that she has [employer] but typically keeps on her walker. Consulted with Dr. Alexander who agrees to admission. HPI <ANNIE Berman - Last Filed: 08/28/20 15:17> General Mode of arrival: EMS . Date/Time Provider Initiated Documentation: 08/27/20 14:18 . Limitations to Documentation: no limitations . Information obtained by: patient, family and EMS . HPI Narrative: This is a 79-year-old female who lives at the [place] by herself, typically ambulates using a walker. She presents today via EMS. I was able to speak with her son Feliberto who gives additional HPI. They typically talk to her on a daily basis, last known contact was sometime early yesterday afternoon. She did not answer her phone yesterday evening or this morning, they went to check on her and she was lying on the ground near the bed. She was complaining of left shoulder pain. Son reports that she was talking more slowly than usual but not necessarily any more confused. He does report a cognitive decline over the past year or so. They have talked about getting her additional home resources or even getting her in a long-term care facility but she has been resistant. She has a past medical history that includes chronic low back pain, COPD, hypertension, GERD, hyperlipidemia, hypothyroidism. Patient tells me that she knows that she fell, does not recall exactly when this occurred, or why she fell. When EMS found her she has been incontinent of urine. Patient's only concern right now is that of left shoulder pain. When I talked to her son, apparently she has been evaluated for chronic shoulder pain and he is not sure whether this is new or not. Related Data Home Medications Medication Instructions Recorded Confirmed multivitamin [Daily Multi-Vitamin] 1 tab DAILY 06/14/14 08/27/20 blood sugar diagnostic #50 each 05/11/19 08/27/20 blood-glucose meter #1 each 05/11/19 08/27/20 lancets #50 each 05/11/19 08/27/20 aspirin 81 mg tablet,delayed 81 mg PO DAILY 07/12/19 08/27/20 release levothyroxine 125 mcg tablet 125 mcg PO DAILY #90 tab 10/06/19 08/27/20 omeprazole 40 mg capsule,delayed 40 mg PO DAILY #90 cap 10/06/19 08/27/20 release diaper,brief,adult,disposable #100 ea 01/10/20 08/27/20 compr.stocking,knee,long,large #4 each 02/02/20 08/27/20 mirabegron 25 mg tablet,extended 25 mg PO DAILY #90 tab 02/04/20 08/27/20 release 24 hr baclofen 10 mg tablet 10 mg PO QHS #30 tab 04/27/20 08/27/20 atorvastatin 40 mg tablet 40 mg PO QPM #90 tab 06/12/20 08/27/20 duloxetine 60 mg capsule,delayed 60 mg PO DAILY #30 cap 06/12/20 08/27/20 release enalapril maleate 10 mg tablet 10 mg PO DAILY #90 tab 06/12/20 08/27/20 nitroglycerin 0.4 mg sublingual 0.4 mg SUBLINGUAL PRN #100 tab-cap 06/12/20 08/27/20 tablet acetaminophen 500 mg tablet 1,000 mg PO Q4H PRN PRN #120 tab 07/20/20 08/27/20 albuterol sulfate 90 mcg/actuation 2 inh IH Q6H PRN #1 each 07/20/20 08/27/20 breath activated powder inhaler trazodone 100 mg tablet 100 mg PO HS #90 tab 08/21/20 08/27/20 oxycodone 5 mg tablet 5 mg PO QHS PRN #30 tab MDD 5mg 08/22/20 08/27/20 Previous Rx's Medication Instructions Recorded blood sugar diagnostic #50 each 05/11/19 blood-glucose meter #1 each 05/11/19 lancets #50 each 05/11/19 levothyroxine 125 mcg tablet 125 mcg PO DAILY #90 tab 10/06/19 omeprazole 40 mg capsule,delayed 40 mg PO DAILY #90 cap 10/06/19 release diaper,brief,adult,disposable #100 ea 01/10/20 compr.stocking,knee,long,large #4 each 02/02/20 mirabegron 25 mg tablet,extended 25 mg PO DAILY #90 tab 02/04/20 release 24 hr baclofen 10 mg tablet 10 mg PO QHS #30 tab 04/27/20 atorvastatin 40 mg tablet 40 mg PO QPM #90 tab 06/12/20 duloxetine 60 mg capsule,delayed 60 mg PO DAILY #30 cap 06/12/20 release enalapril maleate 10 mg tablet 10 mg PO DAILY #90 tab 06/12/20 nitroglycerin 0.4 mg sublingual 0.4 mg SUBLINGUAL PRN #100 tab-cap 06/12/20 tablet acetaminophen 500 mg tablet 1,000 mg PO Q4H PRN PRN #120 tab 07/20/20 albuterol sulfate 90 mcg/actuation 2 inh IH Q6H PRN #1 each 07/20/20 breath activated powder inhaler trazodone 100 mg tablet 100 mg PO HS #90 tab 08/21/20 oxycodone 5 mg tablet 5 mg PO QHS PRN #30 tab MDD 5mg 08/22/20 Allergies Allergy/AdvReac Type Severity Reaction Status Date / Time fentanyl [From Duragesic] Allergy Intermediate RASH, Verified 08/27/20 14:51 ITCHING oxybutynin chloride AdvReac Intermediate Itching Verified 08/27/20 14:51 [From Ditropan] tramadol AdvReac Intermediate ITCHING Verified 08/27/20 14:51 ENVIRONMENTAL Allergy RHINITIS Uncoded 08/27/20 14:51 General Stated Complaint: AMS/LOC ARMEN: 2 Review of Systems <ANNIE Berman - Last Filed: 08/28/20 15:17> Constitutional Constitutional: Denies fatigue, Denies fever(s) and Denies headache(s) Eyes Eyes: Denies change in vision ENT Ears, Nose, Mouth, and Throat: Denies headache(s) and Denies neck pain Cardiovascular Cardiovascular: Denies chest pain and Denies dyspnea Respiratory Respiratory: Denies cough and Denies dyspnea Gastrointestinal Gastrointestinal: Denies abdominal pain, Denies nausea and Denies vomiting Genitourinary Genitourinary: Denies dysuria Musculoskeletal Musculoskeletal: Reports back pain (Chronic) and Denies neck pain Integumentary/Breasts Skin/Breast: Denies erythema Neurologic Neurologic: Denies headache(s) Endocrine Endocrine: Denies fatigue PFSH <ANNIE Berman - Last Filed: 08/28/20 15:17> Medical History Angina pectoris Arthropathy Chronic low back pain Chronic pain Claustrophobia Claustrophobia COPD (chronic obstructive pulmonary disease) Degenerative spondylolisthesis Diverticulosis Essential hypertension Gastroesophageal reflux disease Hyperlipidemia Hypothyroidism Hypothyroidism Impaired mobility Left carotid stenosis Lower gastrointestinal bleed Migraine Near syncope Osteoarthritis RLS (restless legs syndrome) Spinal stenosis Stress incontinence Urge urinary incontinence Surgical History Abdominal hysterectomy Age 29 Cholecystectomy (~09/2002) Colonoscopy - MAC (05/23/17) Extraction of cataract (~10/2007) Bilateral Laminectomy (03/27/09) L3-L5,medial facetectomy,L3-L4 and L4-L5. Open Carpal Tunnel release (~1998) Left Right done by Dr. Paulson 2017 Replacement of total knee joint Left 2011 TVT (~05/2004) Family History Mother Essential hypertension Neoplasm Lymphoma Sister , DM Complications at age 53. Diabetes Social History Smoking/Tobacco Use Status: Former Tobacco Use Smoking risk assessment performed?: Yes Alcohol Intake: former Drug use: Never Substance use type: does not use Adopted: No Caregiver/Support person: No Foster care: No Household members: none Housing: apartment Number of Children: 3 Do you need help understanding health information?: Often Pets and animals: No Sexually active: No Current gender identity: female What type of physical activity do you participate in: none Seatbelt use: always Do you feel safe at home: Yes ([place]) Do you feel safe in your relationship?: Yes Exam <ANNIE Berman - Last Filed: 08/28/20 15:17> Const General: cooperative, comfortable and no acute distress Nutritional Appearance: obese Orientation: alert, awake and oriented x3 HENMT Head: normal to inspection, no palpable skull fracture, normocephalic and atraumatic Face and sinus: normal facial exam Mouth: moist mucous membranes Throat: posterior oropharynx normal Eyes General: appearance normal, both eyes and all related structures Alignment and Position: alignment normal Periorbital: periorbital findings normal Eyelids: eyelids normal Conjunctivae: conjunctivae normal Sclera: sclerae normal Cornea: corneas normal EOM: EOM intact bilaterally Direct ophthalmoscopy: normal light reflex Neck Neck: normal visual inspection, full ROM, no lymphadenopathy, no meningeal signs, trachea midline, supple and nontender Resp Effort & Inspection: normal respiratory effort and able to speak in complete sentences Auscultation: clear to auscultation bilaterally Cardio Rate: regular rate Rhythm: regular rhythm GI Inspection: normal to inspection and obesity Palpation: soft, not firm, no guarding, no pulsatile masses and nontender Auscultation: normal bowel sounds Back/Spine/Pelvis Back: back tenderness (Diffuse mild lumbar) Skin General skin exam: no rashes or lesions noted Trauma: other (Abrasions bilateral feet) Neuro General: patient alert, patient awake, patient oriented x3, moves all extremities and no focal motor deficits Cognition: normal cognition Speech: speech normal Motor: muscle tone normal throughout Sensory Exam: no sensory deficits noted Extrem Right upper extremity: normal to inspection, full ROM and normal capillary refill Left upper extremity: normal capillary refill and shoulder/upper arm (Left arm, elbow, hand, wrist unremarkable. ) Details: tenderness (Proximal humerus, minimal erythema-ecchymosis), axillary nerve sensory function normal and abnormal ROM Details: held in an abnormal fashion Details: in ADduction, pain with active ROM and pain with passive ROM Right lower extremity: normal to inspection, full ROM and normal capillary refill Left lower extremity: normal to inspection, full ROM and normal capillary refill Psych Appearance: grossly normal Mental Status: mental status grossly normal Course <ANNIE Berman - Last Filed: 08/28/20 15:17> Vital Signs Vital signs: Vital Signs Temperature 36.5 C 08/27/20 14:16 Pulse 93 H 08/27/20 14:16 Respiratory Rate 22 08/27/20 14:16 Pulse Oximetry 95 08/27/20 14:16 Temperature 36.5 C 08/27/20 14:16 Temperature Source Temporal Artery Scan 08/27/20 14:16 Pulse 93 H 08/27/20 14:16 Respiratory Rate 23 08/27/20 14:34 Respiratory Effort 08/27/20 14:34 Respiratory Depth Normal 08/27/20 14:34 Respiratory Pattern Normal 08/27/20 14:34 Blood Pressure Position Supine 08/27/20 14:16 Pulse Oximetry 95 08/27/20 14:16 Oxygen Delivery Method Room Air 08/27/20 14:16 Oxygen Flow Rate 0 08/27/20 14:16 Lab/Test Results Lab/Test Results: Laboratory Tests Range/Units 08/27/20 08/27/20 14:30 14:30 WBC (4.4-10.8) 10^3/uL 14.71 H RBC (3.93-5.22) 10^6/uL 3.14 L Hgb (11.2-15.7) g/dL 8.7 L Hct (36.0-46.0) % 28.0 L MCV (80-95) fL 89.2 MCH (27.0-33.0) pg 27.7 MCHC (32.0-36.0) % 31.1 L RDW (11.7-14.6) % 19.1 H Plt Count (130-400) 10^3/uL 358 MPV (8.0-11.0) fL 9.7 Immature Gran % 0.5 Neutrophils % 85.4 Lymphocytes % 6.8 Monocytes % 6.8 Eosinophils % 0.2 Basophils % 0.3 Nucleated RBC % % 0 Absolute Neutrophils (1.2-6.7) 10^3/uL 12.56 H Absolute Lymphocytes (1.2-3.4) 10^3/uL 1.00 L Absolute Monocytes (0.1-0.8) 10^3/uL 1.00 H Absolute Eosinophils (0.0-0.7) 10^3/uL 0.03 Absolute Basophils (0.0-0.2) 10^3/uL 0.04 RBC Morphology See below Polychromasia Present Hypochromasia 1+ Poikilocytosis 2+ Anisocytosis 2+ Microcytosis 1+ PT (9.3-11.0) sec 10.4 INR (0.9-1.1) 1.0 APTT (21.0-27.5) sec 23.6 Sign Out <ANNIE Berman - Last Filed: 08/28/20 15:17> Sign Out Data: Sign Out Comment: Awaiting official read of the left shoulder, final laboratory values to return including a repeat EKG and troponin at 3 hours. Patient will require repeat evaluation and final disposition. She does live at home alone, typically ambulates with a walker. Last updated by Kevin Hannah PA at 08/27/20 16:22
[2020-08-27 15:06] LABS: Bilirubin Negative (Negative); Blood Negative (Negative); Clarity Sl Cloudy (Clear); Glucose Negative (Negative); Ketones Negative (Negative); Leukocyte Esterase Negative (Negative); Nitrite Negative (Negative); Specific Gravity >= 1.030 (1.005-1.025); Urobilinogen 0.2 EU/dL (Up TO 0.2)
[2020-08-27 15:07] LABS: Creatine Kinase 243 U/L (26-192)
--- NOTE | 2020-08-27 15:58 | DI.VRAD_ITS ---
PROCEDURE INFORMATION: Exam: CT Head Without Contrast Exam date and time: 08/27/2020 3:31 PM Age: 79 years old Clinical indication: Injury or trauma; Fall; Blunt trauma (contusions or hematomas) TECHNIQUE: Imaging protocol: Computed tomography of the head without contrast. COMPARISON: CT HEAD CERVICAL SPINE WO 07/11/2018 10:20 PM FINDINGS: Brain: There is no intra-axial hemorrhage. There are moderate confluent and patchy foci of periventricular and subcortical white matter hypodensities, unchanged and could be due to chronic microvascular ischemic disease. There is parenchymal volume loss with compensatory dilatation of ventricles, sulci and basilar cisterns. There is no extra-axial fluid collection. There is a hypodensity noted in the left medial occipital lobe (image 19 series 2), more pronounced than the previous CT head exam dated 07/11/2018. There is stable encephalomalacia in the left temporal lobe, likely sequela of remote infarction. There is stable chronic lacunar infarction in the right external capsule. Cerebral ventricles: No ventriculomegaly. Bones/joints: Unremarkable. No acute fracture. Paranasal sinuses: Visualized sinuses are unremarkable. No fluid levels. Mastoid air cells: There is opacification of the right inferior mastoid air cells, unchanged and could be due to chronic mastoid effusions. Orbital cavity: Patient is status post cataract extraction bilaterally. Vasculature: There are calcifications of bilateral carotid siphons. Soft tissues: Unremarkable. IMPRESSION: 1. No intracranial hemorrhage or midline shift. 2. There is a hypodense region in the left medial occipital lobe, new from previous exam dated 07/11/2018 and might reflect age indeterminate infarction. If the patient is symptomatic, MRI is recommended. Otherwise stable lyjs-ef-hvuxnsil periventricular white matter hypodensities which could be due to chronic microvascular ischemic disease and stable foci of chronic infarctions. Dictated and Authenticated by: Jaspreet Schneider MD. Ordering:JUSTICE Brown MD
--- NOTE | 2020-08-27 16:00 | DI.VRAD_ITS ---
PROCEDURE INFORMATION: Exam: XR Chest, 1 View Exam date and time: 08/27/2020 2:27 PM Age: 79 years old Clinical indication: Injury or trauma; Fall; Blunt trauma (contusions or hematomas) TECHNIQUE: Imaging protocol: XR of the chest Views: 1 view. COMPARISON: CR XR CHEST 2V PA LATERAL 07/11/2018 10:12 PM FINDINGS: Lungs: Unremarkable. No consolidation. Pleural space: Unremarkable. No pleural effusion. No pneumothorax. Heart/Mediastinum: Unremarkable. No cardiomegaly. Bones/joints: There is mild osteoarthritis of the left glenohumeral joint. There is no acute fracture. IMPRESSION: No acute cardiopulmonary process . Dictated and Authenticated by: Jaspreet Schneider MD. Ordering:JUSTICE Brown MD
[2020-08-27] MEDS: Normal Saline 1,000 ML 1000 ML IV (16:09)
[2020-08-27] MEDS: Acetaminophen 325 MG TAB 650 MG PO ×2 (16:24→20:39)
--- NOTE | 2020-08-27 16:49 | DI.VRAD_ITS ---
PROCEDURE INFORMATION: Exam: XR Left Shoulder Exam date and time: 08/27/2020 2:29 PM Age: 79 years old Clinical indication: Injury or trauma TECHNIQUE: Imaging protocol: XR Left shoulder. Views: 2 or more views. COMPARISON: CR XR SHOULDER LT COMPLETE 2+V 1 09/03/2019 1:43 PM FINDINGS: Bones/joints: There is no definite acute fracture or dislocation. There is marked osteoarthritis of the left shoulder joint with narrowing of the glenohumeral joint, subchondral sclerosis and large marginal osteophyte. There is calcific tendinopathy of the left rotator cuff. Lungs: Visualized left lung is clear. Soft tissues: Normal. IMPRESSION: 1. No acute fracture or dislocation. 2. Moderate to marked osteoarthritis of the left shoulder joint, unchanged. Dictated and Authenticated by: Jaspreet Schneider MD. Ordering:JUSTICE Brown MD
[2020-08-27 17:52] LABS: Troponin I < 0.05 ng/mL (<0.06)
--- NOTE | 2020-08-27 18:51 | HPE_ITS ---
Date of service: 08/27/20 Time of Service: 18:52 Assessment and Plan Assessment and plan (1) Altered mental status: Start date: 08/27/20 Status: Acute Assessment and plan: This is a 79-year-old lady who lives alone and has presentation with altered mental status most likely secondary to a combination of her medical regimen which may be sedating and mild dehydration. She will be admitted for observation with gentle IV hydration overnight and follow-up CPK in the morning the patient falling at home and being found on the ground. She does not have any apparent injuries with negative imaging. She was sleeping at the time of my exam and hopefully may be reevaluated by PT and OT in the morning along with reevaluation of her living alone with what appears to be progressive dementia. Qualifiers: Altered mental status type: disorientation Qualified Code(s): R41.0 - Disorientation, unspecified (2) Dehydration: Start date: 08/27/20 Status: Acute Assessment and plan: Patient was down for an unknown amount of time home since her CPK was mildly elevated to be gently hydrated overnight watching closely for fluid overload. She does have a history of cardiac disease but there is no mention of of CHF. (3) Frequent falls: Status: Chronic Assessment and plan: Patient does have a history of frequent falls at home with chronic arthritis and chronic left shoulder pain on narcotics at night at least. He is being reevaluated by PT for safety at home and may need increased services at home prior to discharge. (4) Diabetes mellitus, controlled: Status: Chronic Assessment and plan: The patient does carry a diagnosis of diabetes but is not on treatment. She is monitored at home. She will continue monitoring during the hospital stay. Qualifiers: Diabetes mellitus type: type 2 Diabetes mellitus [facility] insulin use: without [facility] use Diabetes mellitus complication detail: with chronic kidney disease Chronic kidney disease stage: stage 3 (moderate) Diabetes mellitus complication status: with kidney complications Qualified Code(s): E11.22 - Type 2 diabetes mellitus with diabetic chronic kidney disease; N18.30 - Chronic kidney disease, stage 3 unspecified History of Present Illness History of Present Illness Chief Complaint: Follow-up at home with an unknown time down, altered mental status Narrative: This is a 79-year-old female patient who lives alone and was found by family after not answering phone calls in her home on the ground. She was down for an unknown amount of time. Patient was unable to say exactly when she fell but felt that she was near her bed. Patient had an evaluation in the ED for her syncopal episode with negative imaging and no true significant lab findings with patient chronically having CKD which is mild and stable and anemia. She had 2 troponins which were negative. He does have chronic left shoulder pain with severe arthritis with no changes on imaging today. She is moderately obese and appears fairly sedentary. He was unable to be ambulated in the ED and was admitted for observation to have PT and OT evaluation for safety at home along with no IV hydration for possible dehydration. CPKs were normal upon admission and these will be repeated in the morning. Patient was unable to offer any further history. She does take sedating medications at night for sleep with trazodone at a 100 mg dose along with Percocet for 7.5 mg dose of oxycodone. This may be the cause of altered mental status and her trazodone dose will be half tonight with Percocet being held. If she has any skin pain Toradol IV and low-dose will be given until reevaluation in the morning by PT. Review of Systems Narrative: 13 point review of systems otherwise unrevealing or stable with limitations of the interviewer secondary to altered mental status. [facility] Medical History Angina pectoris Arthropathy Chronic low back pain Chronic pain Claustrophobia Claustrophobia COPD (chronic obstructive pulmonary disease) Degenerative spondylolisthesis Diverticulosis Essential hypertension Gastroesophageal reflux disease Hyperlipidemia Hypothyroidism Hypothyroidism Impaired mobility Left carotid stenosis Lower gastrointestinal bleed Migraine Near syncope Osteoarthritis RLS (restless legs syndrome) Spinal stenosis Stress incontinence Urge urinary incontinence Surgical History Abdominal hysterectomy Age 29 Cholecystectomy (~09/2002) Colonoscopy - MAC (05/23/17) Extraction of cataract (~10/2007) Bilateral Laminectomy (03/27/09) L3-L5,medial facetectomy,L3-L4 and L4-L5. Open Carpal Tunnel release (~1998) Left Right done by Dr. Paulson 2016 Replacement of total knee joint Left 2011 TVT (~05/2004) Family History Mother Essential hypertension Neoplasm Lymphoma Sister , DM Complications at age 53. Diabetes Social History Smoking/Tobacco Use Status: Former Tobacco Use Smoking risk assessment performed?: Yes Alcohol Intake: former Drug use: Never Substance use type: does not use Adopted: No Caregiver/Support person: No Foster care: No Household members: none Housing: apartment Number of Children: 3 Do you need help understanding health information?: Often Pets and animals: No Sexually active: No Current gender identity: female What type of physical activity do you participate in: none Seatbelt use: always Do you feel safe at home: Yes ([place]) Do you feel safe in your relationship?: Yes Meds Home Medications and Allergies Home Medications Medication Instructions Recorded Confirmed Type multivitamin [Daily Multi-Vitamin] 1 tab DAILY 06/14/14 08/27/20 History blood sugar diagnostic #50 each 05/11/19 08/27/20 Rx blood-glucose meter #1 each 05/11/19 08/27/20 Rx lancets #50 each 05/11/19 08/27/20 Rx aspirin 81 mg tablet,delayed 81 mg PO DAILY 07/12/19 08/27/20 History release levothyroxine 125 mcg tablet 125 mcg PO DAILY #90 tab 10/06/19 08/27/20 Rx omeprazole 40 mg capsule,delayed 40 mg PO DAILY #90 cap 10/06/19 08/27/20 Rx release diaper,brief,adult,disposable #100 ea 01/10/20 08/27/20 Rx compr.stocking,knee,long,large #4 each 02/02/20 08/27/20 Rx mirabegron 25 mg tablet,extended 25 mg PO DAILY #90 tab 02/04/20 08/27/20 Rx release 24 hr baclofen 10 mg tablet 10 mg PO QHS #30 tab 04/27/20 08/27/20 Rx atorvastatin 40 mg tablet 40 mg PO QPM #90 tab 06/12/20 08/27/20 Rx duloxetine 60 mg capsule,delayed 60 mg PO DAILY #30 cap 06/12/20 08/27/20 Rx release enalapril maleate 10 mg tablet 10 mg PO DAILY #90 tab 06/12/20 08/27/20 Rx nitroglycerin 0.4 mg sublingual 0.4 mg SUBLINGUAL PRN #100 tab-cap 06/12/20 08/27/20 Rx tablet acetaminophen 500 mg tablet 1,000 mg PO Q4H PRN PRN #120 tab 07/20/20 08/27/20 Rx albuterol sulfate 90 mcg/actuation 2 inh IH Q6H PRN #1 each 07/20/20 08/27/20 Rx breath activated powder inhaler trazodone 100 mg tablet 100 mg PO HS #90 tab 08/21/20 08/27/20 Rx oxycodone 5 mg tablet 5 mg PO QHS PRN #30 tab MDD 5mg 08/22/20 08/27/20 Rx Allergies Allergy/AdvReac Type Severity Reaction Status Date / Time fentanyl [From Duragesic] Allergy Intermediate RASH, Verified 08/27/20 14:51 ITCHING oxybutynin chloride AdvReac Intermediate Itching Verified 08/27/20 14:51 [From Ditropan] tramadol AdvReac Intermediate ITCHING Verified 08/27/20 14:51 ENVIRONMENTAL Allergy RHINITIS Uncoded 08/27/20 14:51 Exam Narrative Exam Narrative: General: Patient is moderately obese and at the time of my visit she was sleeping and snoring loudly but arousable. She was unable to carry on conversation. She appeared in no acute distress. She was not oriented to person place or time. HEENT: Normocephalic, eyes closed but when open pupils are equal and react light symmetrically with extraocular movement intact and sclera anicteric. Oropharynx with dry oral mucosa the patient appearing edentulous. External ears and nose normal. Neck: Supple without JVD. Lungs: Fair aeration and clear to auscultation and percussion with no focalized rales or rhonchi. No expiratory wheeze. Breast: Exam deferred. Back: Appears to have stooped posture. Heart: Regular rate and rhythm with no murmurs gallops appreciated. Abdomen: Obese contour, soft and nontender to palpation with no palpable hepatosplenomegaly. Bowel sounds are positive but decreased in all quadrants. Genitalia/rectal: Exam deferred with patient wearing adult diaper. Extremities: Gross nonpitting edema lower extremities with well-healed TKA surgical scar in the left knee and osteoarthritic changes of both knees. Peripheral pulses intact. No clubbing or cyanosis. Skin: Pale, warm and dry with normal turgor. Neuro: Cranial nerves II through XII appear to be grossly intact, no focalizing motor deficits with patient moving all extremities but patient appears generally deconditioned and weak. Psych: Flattened affect and mood noninterpretable. He does not appear to be having any abnormal thought processes or delusions presently but is not at her baseline according to family. Remote and recent memory impaired presently. Results Imaging Imaging Studies: EXAM: CT HEAD WO CLINICAL HISTORY: fall,ams. TECHNIQUE: Imaging Protocol: Axial computed tomography images with coronal and sagittal reformatted images were created and reviewed COMPARISON: CT CT HEAD CERVICAL SPINE WO from 07/11/2018 FINDINGS: There are no skull fractures nor fluid in the visualized paranasal sinuses. There is no evidence of intracranial hemorrhage, mass effect, or shift of midline structures. There are no extra-axial fluid collections. The ventricles are not enlarged or shifted and there is no blood within the ventricular system nor within the basal cisterns. There is calcification noted within both internal carotid arteries at the skull base as well as within both vertebral arteries again noted. There is some periventricular hypodensity again noted consistent with chronic small vessel disease. Also areas of hypodensity in both external capsules, more so on the right side, most probably post ischemic and exhibiting no change from previous 2018 study. IMPRESSION: No acute intracranial findings on this noninfused CT scan of the brain. If clinically indicated follow-up MRI can be performed for added sensitivity and specificity. Dictated By: Trever Madera M.D. EXAM: XR CHEST 1V IN DI DEPT CLINICAL HISTORY: fall. TECHNIQUE: 2D digital imaging was performed. COMPARISON: CR XR CHEST 2V PA LATERAL from 07/11/2018 FINDINGS: Heart size is upper normal. The mediastinum is not widened. Lungs are clear. No infiltrates nor obvious pleural effusions. IMPRESSION: No acute pulmonary findings on this single AP portable view of the chest. Dictated By: Trever Madera M.D. EXAM: XR SHOULDER LT COMPLETE 2+V CLINICAL HISTORY: fall/pain. TECHNIQUE: 2D digital imaging was performed. COMPARISON: CR XR SHOULDER LT COMPLETE 2+V from 07/04/2020 FINDINGS: There is no evidence of acute fracture or dislocation. However, there are advanced osteoarthritic degenerative changes in the glenohumeral joint again noted including advanced joint space narrowing and there is also a large gonzalez- type osteophyte on the inferior articular surface of the humeral head. There are no soft tissue calcifications. No osseous lesions. IMPRESSION: Advanced degenerative changes in the glenohumeral joint, unchanged from previous. Dictated By: Trever Madera M.D. Labs Result diagrams: 08/27/20 14:30 08/27/20 14:30 Labs: Laboratory Results - last 24 hr 08/27/20 08/27/20 08/27/20 14:15 14:30 14:30 WBC 14.71 H RBC 3.14 L Hgb 8.7 L Hct 28.0 L MCV 89.2 MCH 27.7 MCHC 31.1 L RDW 19.1 H Plt Count 358 MPV 9.7 Immature Gran % 0.5 Neutrophils % 85.4 Lymphocytes % 6.8 Monocytes % 6.8 Eosinophils % 0.2 Basophils % 0.3 Nucleated RBC % 0 Absolute Neutrophils 12.56 H Absolute Lymphocytes 1.00 L Absolute Monocytes 1.00 H Absolute Eosinophils 0.03 Absolute Basophils 0.04 RBC Morphology See below Polychromasia Present Hypochromasia 1+ Poikilocytosis 2+ Anisocytosis 2+ Microcytosis 1+ PT INR APTT Sodium 141 Potassium 4.1 Chloride 102 Carbon Dioxide 31.0 Anion Gap 8.0 BUN 15 Creatinine 1.02 Estimated GFR/1.73 m2 52.41 Glucose 152 H Calcium 9.2 Magnesium 1.9 Total Bilirubin 0.9 AST 31 ALT 19 Alkaline Phosphatase 56 Creatine Kinase 243 H Troponin I < 0.05 Total Protein 7.6 Albumin 3.8 TSH 2.81 Urine Color Urine Clarity Urine pH Ur Specific [place] Urine Protein Urine Ketones Urine Blood Urine Nitrite Urine Bilirubin Urine Urobilinogen Ur Leukocyte Esterase Urine Glucose 08/27/20 08/27/20 08/27/20 14:30 14:55 17:30 WBC RBC Hgb Hct MCV MCH MCHC RDW Plt Count MPV Immature Gran % Neutrophils % Lymphocytes % Monocytes % Eosinophils % Basophils % Nucleated RBC % Absolute Neutrophils Absolute Lymphocytes Absolute Monocytes Absolute Eosinophils Absolute Basophils RBC Morphology Polychromasia Hypochromasia Poikilocytosis Anisocytosis Microcytosis PT 10.4 INR 1.0 APTT 23.6 Sodium Potassium Chloride Carbon Dioxide Anion Gap BUN Creatinine Estimated GFR/1.73 m2 Glucose Calcium Magnesium Total Bilirubin AST ALT Alkaline Phosphatase Creatine Kinase Troponin I < 0.05 Total Protein Albumin TSH Urine Color Yellow Urine Clarity Sl cloudy Urine pH 6.0 Ur Specific [place] >= 1.030 H Urine Protein Negative Urine Ketones Negative Urine Blood Negative Urine Nitrite Negative Urine Bilirubin Negative Urine Urobilinogen 0.2 Ur Leukocyte Esterase Negative Urine Glucose Negative Last Vital Signs Temp 36.4 C L 08/27/20 18:46 Pulse 87 08/27/20 18:46 Resp 21 08/27/20 18:46 BP 144/46 H 08/27/20 18:46 Pulse Ox 95 08/27/20 18:46 COVID-19 Screening Have you, or household traveled for leisure in last 14 days?: No Had IN PERSON contact w/suspected or confirmed C-19 person: No
[2020-08-27] MEDS: Baclofen 10 MG TAB PO (20:39)
[2020-08-27] MEDS: Heparin 5,000 UNITS/ML VIAL 5000 UNITS SC (20:39)
[2020-08-27] MEDS: Atorvastatin 40 MG TAB PO (20:39)
[2020-08-27] MEDS: Normal Saline Flush 10 ML SYR IVP (20:40)
[2020-08-27] MEDS: traZODone 50 MG TAB PO (21:52)
[2020-08-27] MEDS: Normal Saline 1,000 ML 100 ML IV (23:44)
[2020-08-28] VITALS (7 sets, daily range): BP systolic 109–157; BP diastolic 58–79; PULSE 70–92; RESP 17–18; TEMP 34.7–37.3; O2SAT 95–97
[2020-08-28] MEDS: Acetaminophen 325 MG TAB 650 MG PO ×3 (05:16→19:17)
[2020-08-28 07:13] LABS: Abs Immature Grans 0.11 10^3/uL (0.0-0.06); Absolute Basophil Count 0.04 10^3/uL (0.0-0.2); Absolute Eosinophil Count 0.18 10^3/uL (0.0-0.7); Absolute Lymphocyte Count 1.48 10^3/uL (1.2-3.4); Absolute Monocyte Count 0.86 10^3/uL (0.1-0.8); Absolute Neutrophil Count 5.61 10^3/uL (1.2-6.7); Basophils % 0.5; Eosinophils % 2.2; HCT 26.3 % (36.0-46.0); HGB 8.1 g/dL (11.2-15.7); Immature Grans % 1.3; Lymphocytes % 17.9; MCH 27.7 pg (27.0-33.0); MCHC 30.8 % (32.0-36.0); MCV 90.1 fL (80-95); MPV 9.6 fL (8.0-11.0); Monocytes % 10.4; Neutrophils % 67.7; Nucleated RBC 0 %; Platelet Count 318 10^3/uL (130-400); RBC 2.92 10^6/uL (3.93-5.22); RDW 19.6 % (11.7-14.6); RDW-SD 63.3 fL; WBC 8.28 10^3/uL (4.4-10.8)
[2020-08-28 07:28] LABS: ALT 18 U/L (14-59); AST 21 U/L (15-37); Albumin 3.2 g/dL (3.4-5.0); Alkaline Phosphatase 47 U/L (46-116); Anion Gap 7.2 mmol/L (3-11); BUN 12 mg/dL (7-18); Bilirubin, Total 0.6 mg/dL (0.2-1.0); CO2 28.8 mmol/L (21.0-32.0); CREATININE 0.99 mg/dL (0.55-1.02); Calcium 8.3 mg/dL (8.5-10.1); Chloride 108 mmol/L (98-107); Estimated GFR 54.25 (mL/min/1.73m2); Glucose 124 mg/dL (74-106); Potassium 3.6 mmol/L (3.5-5.1); Sodium 144 mmol/L (136-145); Total Protein 6.6 g/dL (6.4-8.2)
[2020-08-28 07:37] LABS: Anisocytosis 1+; Basophilic Stippling Present; Hypochromasia 1+; Microcytosis 1+; Polychromasia Present
[2020-08-28 08:26] LABS: Creatine Kinase 168 U/L (26-192)
[2020-08-28] MEDS: Normal Saline Flush 10 ML SYR IVP ×4 (08:29→16:33)
[2020-08-28] MEDS: Omeprazole 20 MG CAPCR 40 MG PO (08:36)
[2020-08-28] MEDS: Levothyroxine 125 MCG TAB PO (08:37)
[2020-08-28] MEDS: Multivitamin TAB 1 TAB PO (08:37)
[2020-08-28] MEDS: Aspirin E.C. 81 MG TABEC PO (08:37)
[2020-08-28] MEDS: Enalapril 5 MG TAB 10 MG PO (08:37)
[2020-08-28] MEDS: Mirabegron 25 MG TABCR PO (08:37)
[2020-08-28] MEDS: DULoxetine 30 MG CAP 60 MG PO (08:38)
[2020-08-28] MEDS: Ketorolac 15 MG/ML VIAL IVP ×2 (08:52→16:33)
[2020-08-28] MEDS: Normal Saline 1,000 ML 100 ML IV (08:53)
--- NOTE | 2020-08-28 08:55 | IN_ITS ---
Date of service: 08/28/20 Time of Service: 08:55 PT Notes Visit Reasons: ALTERED MENTAL STATUS,MILD DEHYDRATION Physical Therapy Inpatient Initial Evaluation Date: 08/20/2020 Referring Doctor: Jon Alexander MD PT Orders: PT CONSULT: Limited ability Precautions: Fall. Standard. Activity as tolerated. Patient Profile/Admitting Diagnosis: Sveta is a 79-year-old female who presented to the ED on 08/27/2020 via EMS due to family concern for patient who has not been answering her calls. Patient was found on the floor by EMS staff who are not sure how long the patient has stayed down on the floor prior to being found. Patient is diagnosed with altered mental status with question of progressive dementia, dementia, and frequent falls. PMHX: Medical History Angina pectoris Arthropathy Chronic low back pain Chronic pain Claustrophobia Claustrophobia COPD (chronic obstructive pulmonary disease) Degenerative spondylolisthesis Diverticulosis Essential hypertension Gastroesophageal reflux disease Hyperlipidemia Hypothyroidism Hypothyroidism Impaired mobility Left carotid stenosis Lower gastrointestinal bleed Migraine Near syncope Osteoarthritis RLS (restless legs syndrome) Spinal stenosis Stress incontinence Urge urinary incontinence Surgical History Abdominal hysterectomy Age 29 Cholecystectomy (~09/2002) Colonoscopy - MAC (05/23/17) Extraction of cataract (~10/2007) Bilateral Laminectomy (03/27/09) L3-L5,medial facetectomy,L3-L4 and L4-L5. Open Carpal Tunnel release (~1998) Left Right done by Dr. Paulson 2016 Replacement of total knee joint Left 2011 TVT (~05/2004) Social History/Home Situation: Lives alone on the fourth floor of the [facility]. She states that she will be getting about 20 hours of help once she goes home. Her son Feliberto has been very much involved and as of today, has just been added in patient's HIPAA list. Modified independent with all mobility ADLs using 4WW. Equipment Owned/DME: 4WW, shower chair Subjective: Complains of considerable pain and the right shoulder at 4?5/10 and was unable to readily grab the bed rail during rolling rolling activity. Re ported being shaky and unsteady and felt like her knees were going to give way. Objective: General Observation: Supine in bed. IV in the right UE. Mental Status: Alert and oriented as to person. Able to follow single step commands. Responses were a little conflicting, first stating that her L knee was weak and hurting and then later her right was the weaker and hurting more. Pain: 4-5/10 in R shoulder and in B knees ROM: Right Upper Extremity: Shoulder Flexion allows only up to 20 degrees due to pain. Shoulder abduction allows only up to 20 degrees due to pain. Elbow flexion WFL. Wrist flexion WFL. Opening and closing of hand WFL. Left Upper Extremity: Shoulder Flexion WFL. Shoulder abduction WFL. Elbow flexion WFL. Wrist flexion WFL. Opening and closing of hand WFL. Right Lower Extremity: Hip flexion allows nothing beyond 90 degrees due to weakness . Hip abduction about 20 degrees, gravity-eliminated. Knee flexion 45 degrees to about 90 degrees. Knee extension -45 degrees. Ankle dorsiflexion about 10 degrees beyond neutral. Ankle plantarflexion WFL. Left Lower Extremity: Hip flexion WFL. Hip abduction WFL. Knee flexion WFL. Ankle dorsiflexion WFL. Ankle plantarflexion WFL. Strength: Right Upper Extremity: Shoulder flexors 2-/5. Shoulder abductors 2-/5. Elbow flexors 3/5. Elbow extensors 3/5. Grief Counselor strong. Left Upper Extremity: Shoulder flexors 4-/5. Shoulder abductors 4-/5. Elbow flexors 54-5. Elbow extensors 4-/5. Grief Counselor strong. Right Lower Extremity: Hip flexors 3-/5. Hip abductors 3-/5. Knee flexors 4-/5. Knee extensors 4-/5. Ankle dorsiflexors 4/5. Ankle plantarflexors 4/5. Left Lower Extremity: Hip flexors 3-/5. Hip abductors 3-/5. Knee flexors 3-5. Knee extensors 3-/5. Ankle dorsiflexors 3-/5. Ankle plantarflexors 3-/5. Sensation: Intact as to pain and pressure on bilateral lower extremities. Bed Mobility/Transfers: Rolling moderate assist with report of 4-5/10 pain in R shoulder while reaching for the L bed rail with R hand Supine to sit CGA with HOB at 30 degrees Sit to supine minimal assist Sit to stand minimal assist Stand to sit minimal assist Bed to chair minimal assist Chair to bed minimal assist Gait: Instructed patient with trunk positioning and walker mechanics to maintain COG over B feet and walker to minimize buckling of L knee. Tolerated 8 feet appearing to be shaky and unsteady with complaints of knee wanting to give way. Reports 4-5/10 pain in R shoulder and B knees. Balance: Static Sitting: Normal Dynamic Sitting: Normal Static Standing: Fair Dynamic Standing: Fair Special Tests: Mobility Limitations Standardized Measure [facility] AM-PAC 6 clicks Basic Mobility Inpatient Short Form: Raw Score: 16 CMS Score: 54% deficit 4-stage balance Test: Unable to hold feet together, semi-tandem, full-tandem and one-legged stance for 10 seconds indicating a high risk for falls. Informed Consent/Education: Patient instructed in purpose of PT consult and plan of care. Assessment: Sveta demonstrates functional mobility decline requiring physical assistance with all mobility ADL performance, impairment with balance, difficulty with walking, and increased fall risk due to admitting diagnoses and co-morbidities. Patient presents with clinical signs and symptoms consistent with current/admitting diagnoses that have resulted to mobility limitations, gait instability, generalized weakness, and impairment of motor control as demonstrated by the following impairment level findings: 1. Decreased strength to R UE and B LE major muscle groups 2. Impaired standing balance 3. Impaired activity tolerance 4. Limitation of joint range of motion in R shoulder R LE Impairments are contributing to the following functional limitations: 1. Dependent bed mobility skills 2. Increased dependence with transfers 3. Inability to safely ambulate without assistive device and physical assistance 4. Increase completion time for mobility ADL performance 5. Increased fall risk 6. Inability to negotiate steps alone safely Patient is assessed as a 18234 moderate complexity based on the following: History: 79-year-old female with impairment level findings, functional limitations, and past medical history as indicated above Examination: Demonstrable impairment in strength, balance, and mobility level with underlying impairments and functional limitations as documented above Presentation:Evolving Decision Makin moderate complexity Goals: Goals X1 week 1. Supine-Sit independent 2. Sit-Supine independent 3. Sit-Stand independent 4. Stand-Sit independent 5. Bed-Chair independent 6. Chair-Bed independent 7. Independent gait on level surface with use of least restrictive device for at least 300 feet without report of pain nor dyspnea 8. Good static and dynamic standing balance/tolerance Plan of Care/Treatment Plan: 1-2x/day, 7 days/week x 1 week. Plan of care has been reviewed with the WIRE HANGER providing the service under Physical Therapy direction. Initiate Physical Therapy intervention for strengthening, bed mobility, transfers, gait, stairs, balance training, use of assistive device. DISCHARGE RECOMMENDATIONS: Patient will benefit from custodial facility placement for continued skilled physical therapy services in order to progress mobility level, strength, and balance in preparation for a safe discharge to home. TREATMENT CODE/TIME: 21088 x 25 minutes, 68273 x 22 minutes beginning at 8:55 AM. Thank you for the opportunity to participate in the care of this patient. May Reid PT, DPT, CLT [facility] [place], [place]
--- NOTE | 2020-08-28 11:31 | W.PM.PROGNOT ---
Date of Service Date of service: 08/28/20 Time of Service: 11:31 Assessment and Plan Assessment and plan (1) Altered mental status: Start date: 08/28/20 Start time: 12:40 Status: Acute Assessment and plan: Appears to be baseline, able to answer questions appropriately. Worsening mentation likely due to dehydration. Qualifiers: Altered mental status type: disorientation Qualified Code(s): R41.0 - Disorientation, unspecified (2) Dehydration: Start date: 08/28/20 Start time: 12:42 Status: Acute Assessment and plan: CK has normalized, BUN Creatinine better than baseline. Will d/c IVF (3) Frequent falls: Start date: 08/28/20 Start time: 12:43 Status: Chronic Assessment and plan: Continue to work with PT/OT she would benefit from rehab, however she is refusing at this time. We will keep her for PT as she was unable to make it to the door today without sitting. (4) Diabetes mellitus, controlled: Start date: 08/28/20 Start time: 12:46 Status: Chronic Assessment and plan: The patient does carry a diagnosis of diabetes but is not on treatment. She is monitored at home. She will continue monitoring during the hospital stay. Qualifiers: Diabetes mellitus type: type 2 Diabetes mellitus fci insulin use: without fci use Diabetes mellitus complication status: with kidney complications Diabetes mellitus complication detail: with chronic kidney disease Chronic kidney disease stage: stage 3 (moderate) Qualified Code(s): E11.22 - Type 2 diabetes mellitus with diabetic chronic kidney disease; N18.30 - Chronic kidney disease, stage 3 unspecified (5) Primary osteoarthritis, left shoulder: Start date: 08/28/20 Start time: 12:46 Status: Acute Assessment and plan: She is on percocet and trazadone which is likely contributing to her falls. Percocet held at this time and trazadone halved as this also could contribute to AMS. She is agreeable to voltaren gel for pain will have applied QID. (6) Discharge planning issues: Start date: 08/28/20 Start time: 12:48 Status: Acute Assessment and plan: She would benefit from rehab for strengthening and conditioning. At this time she wants to go home. She is unable to ambulate to door inside room, therefore will continue to work with PT at this time. If she does go home recommend h/h PT/OT, SKEIN BLEACHER and RN services as it appears her dementia may be worsening and she lives alone Palliative consulted. above case discussed with Dr. jarrett who is in agreement. Subjective Subjective Patient reports: no new complaints Interval history since last seen: Sitting up in chair. Feels better, c/o arm pain, offered voltaren gel which she is agreeable to. She does not want to go to rehab at this time, however she would benefit from increased rehabilitation for weakness. Will keep her as inpatient for possible SNIF placement and PT. She denies CP, SOB, N/V/D Exam Narrative Exam Narrative: Const: AAOx2, cooperative, sitting up in chair NAD Eyes: Perrla, EOMI Resp: diminished, clear Cardio: RRR, no murmur, ectopic beats GI: Abd obese soft nontender Skin: abrasion to left knee bruising to left foot and toes from fall. Extrem: no clubbing, cyanosis, +1 nonpitting edema Objective Last Vital Signs Temp 36.5 C 08/28/20 11:16 Pulse 84 08/28/20 11:16 Resp 17 08/28/20 11:16 BP 141/58 H 08/28/20 11:16 Pulse Ox 96 08/28/20 11:16 Laboratory Results - last 24 hr 08/27/20 08/27/20 08/27/20 14:15 14:30 14:30 WBC 14.71 H RBC 3.14 L Hgb 8.7 L Hct 28.0 L MCV 89.2 MCH 27.7 MCHC 31.1 L RDW 19.1 H Plt Count 358 MPV 9.7 Immature Gran % 0.5 Neutrophils % 85.4 Lymphocytes % 6.8 Monocytes % 6.8 Eosinophils % 0.2 Basophils % 0.3 Nucleated RBC % 0 Absolute Neutrophils 12.56 H Absolute Lymphocytes 1.00 L Absolute Monocytes 1.00 H Absolute Eosinophils 0.03 Absolute Basophils 0.04 RBC Morphology See below Polychromasia Present Hypochromasia 1+ Poikilocytosis 2+ Basophilic Stippling Anisocytosis 2+ Microcytosis 1+ PT INR APTT Sodium 141 Potassium 4.1 Chloride 102 Carbon Dioxide 31.0 Anion Gap 8.0 BUN 15 Creatinine 1.02 Estimated GFR/1.73 m2 52.41 Glucose 152 H Calcium 9.2 Magnesium 1.9 Total Bilirubin 0.9 AST 31 ALT 19 Alkaline Phosphatase 56 Creatine Kinase 243 H Troponin I < 0.05 Total Protein 7.6 Albumin 3.8 TSH 2.81 Urine Color Urine Clarity Urine pH Ur Specific [place] Urine Protein Urine Ketones Urine Blood Urine Nitrite Urine Bilirubin Urine Urobilinogen Ur Leukocyte Esterase Urine Glucose 08/27/20 08/27/20 08/27/20 14:30 14:55 17:30 WBC RBC Hgb Hct MCV MCH MCHC RDW Plt Count MPV Immature Gran % Neutrophils % Lymphocytes % Monocytes % Eosinophils % Basophils % Nucleated RBC % Absolute Neutrophils Absolute Lymphocytes Absolute Monocytes Absolute Eosinophils Absolute Basophils RBC Morphology Polychromasia Hypochromasia Poikilocytosis Basophilic Stippling Anisocytosis Microcytosis PT 10.4 INR 1.0 APTT 23.6 Sodium Potassium Chloride Carbon Dioxide Anion Gap BUN Creatinine Estimated GFR/1.73 m2 Glucose Calcium Magnesium Total Bilirubin AST ALT Alkaline Phosphatase Creatine Kinase Troponin I < 0.05 Total Protein Albumin TSH Urine Color Yellow Urine Clarity Sl cloudy Urine pH 6.0 Ur Specific [place] >= 1.030 H Urine Protein Negative Urine Ketones Negative Urine Blood Negative Urine Nitrite Negative Urine Bilirubin Negative Urine Urobilinogen 0.2 Ur Leukocyte Esterase Negative Urine Glucose Negative 08/28/20 08/28/20 06:03 06:03 WBC 8.28 D RBC 2.92 L Hgb 8.1 L Hct 26.3 L MCV 90.1 MCH 27.7 MCHC 30.8 L RDW 19.6 H Plt Count 318 MPV 9.6 Immature Gran % 1.3 Neutrophils % 67.7 Lymphocytes % 17.9 Monocytes % 10.4 Eosinophils % 2.2 Basophils % 0.5 Nucleated RBC % 0 Absolute Neutrophils 5.61 Absolute Lymphocytes 1.48 Absolute Monocytes 0.86 H Absolute Eosinophils 0.18 Absolute Basophils 0.04 RBC Morphology See below Polychromasia Present Hypochromasia 1+ Poikilocytosis Basophilic Stippling Present Anisocytosis 1+ Microcytosis 1+ PT INR APTT Sodium 144 Potassium 3.6 Chloride 108 H Carbon Dioxide 28.8 Anion Gap 7.2 BUN 12 Creatinine 0.99 Estimated GFR/1.73 m2 54.25 Glucose 124 H Calcium 8.3 L Magnesium Total Bilirubin 0.6 AST 21 ALT 18 Alkaline Phosphatase 47 Creatine Kinase 168 Troponin I Total Protein 6.6 Albumin 3.2 L TSH Urine Color Urine Clarity Urine pH Ur Specific [place] Urine Protein Urine Ketones Urine Blood Urine Nitrite Urine Bilirubin Urine Urobilinogen Ur Leukocyte Esterase Urine Glucose
[2020-08-28] MEDS: Heparin 5,000 UNITS/ML VIAL 5000 UNITS SC ×2 (11:51→19:19)
--- NOTE | 2020-08-28 12:13 | PT.INTREAT ---
Date of service: 08/28/20 Time of Service: 11:35 PT Notes Visit Reasons: ALTERED MENTAL STATUS,MILD DEHYDRATION Inpatient Physical Therapy Treatment Note [facility] Date: 08/28/2020 PRECAUTIONS: Fall SUBJECTIVE: Sveta states that she is having some L shoulder pain, and that she is fearful of walking as her knee has been buckling. OBJECTIVE: PAIN: Patient c/o L shoulder pain, increasing with gait training and use of FWW. BED MOBILITY/TRANSFERS Sit-stand: SBA Stand-sit: SBA GAIT Assistive Device: FWW Weight bearing: Full Assist: CGA Distance: 25' x2 Deviation: C/o increased L shoulder pain, seated rest x1 THEREX: Patient was instructed in a LE strengthening and stabilization program, in a long-sitting position, as per flow sheet. She demonstrates R LE weakness, and is not able to complete SLR. ASSESSMENT: Patient tolerated session well with c/o increased L shoulder pain with use of FWW with gait training, although was able to tolerate a progression in gait distance, requiring CGA. PLAN: She would benefit from continued gait and transfer training as well as global strengthening for improved activity tolerance and mobility. TREATMENT CODE/TIME: 25 minutes; 09342, [id number]
[2020-08-28] MEDS: Diclofenac 1% Gel 100 GM TUBE TP ×3 (12:49→19:18)
--- NOTE | 2020-08-28 14:24 | CHAPLAIN ---
Sveta was sitting up in her chair. She was pleasant and easily engaged in a conversation, telling me that she fell out of bed at home, doesn't remember falling, and was found a few hours later by her son. She said she is comfortable until she moves and that her left shoulder is very sore. We did not talk about anything in depth. She asked me to get her some water, which I did. I'll continue to visit.
--- NOTE | 2020-08-28 15:07 | PHA.REVIEW ---
Pharmacy Admission Review - Admission Clinical Review (Last Reviewed 08/27/20 @ 23:31 by Jon Alexander) Discharge planning issues (Acute) Fall (Acute) Dehydration (Acute) Dehydration (Acute) Altered mental status (Acute) Primary osteoarthritis, left shoulder (Acute) fentanyl [From Duragesic] Allergy (Intermediate, Verified 08/27/20 14:51) RASH, ITCHING oxybutynin chloride [From Ditropan] Adverse Reaction (Intermediate, Verified 08/27/20 14:51) Itching tramadol Adverse Reaction (Intermediate, Verified 08/27/20 14:51) ITCHING ENVIRONMENTAL Allergy (Uncoded 08/27/20 14:51) RHINITIS Height 5 ft 5 in Weight 101.1 kg - Renal Dosing Renal Dosing: BUN 12 mg/dL (7-18) 08/28/20 06:03 Creatinine 0.99 mg/dL (0.55-1.02) 08/28/20 06:03 Medications needing adjustments: Reviewed (Crcl ~55.2 mL/min using adjusted body weight, current meds okay.) - Anticoagulation Anticoagulation: Hgb 8.1 g/dL (11.2-15.7) L 08/28/20 06:03 Hct 26.3 % (36.0-46.0) L 08/28/20 06:03 Plt Count 318 10^3/uL (130-400) 08/28/20 06:03 INR 1.0 (0.9-1.1) 08/27/20 14:30 Creatinine 0.99 mg/dL (0.55-1.02) 08/28/20 06:03 DVT Prohphylaxis: Reviewed Medications: Heparin Therapeutic Anticoagulation: N/A - Opiate Usage Evaluate Pain Scale/Pains Meds: Reviewed Scheduled Bowel Reg ordered if on Opiates?: No (has PRN meds ordered) - Relevant Labs Sodium 144 mmol/L (136-145) 08/28/20 06:03 Potassium 3.6 mmol/L (3.5-5.1) 08/28/20 06:03 Chloride 108 mmol/L (98-107) H 08/28/20 06:03 Magnesium 1.9 mg/dL (1.8-2.4) 08/27/20 14:30 Electrolytes, C-Reactive P, ESR: Reviewed - DM Control DM Control: Glucose 124 mg/dL (74-106) H 08/28/20 06:03 Finger Stick Blood Glucose 159 Finger Stick Blood Glucose 136 Insulin Dosing: Intervened (BG elevated so far this admission, A1c from July 2020 was 7.1 and has been trending up for the past 2 years. Not on any meds for this here or at home. Will mention to provider) - Heart Failure/MT Heart Failure/MT: Troponin I < 0.05 ng/mL (<0.06) 08/27/20 17:30 EF%, SEBASTIÁN's, B-Blockers, Diuretics: Reviewed - BP Control BP Control: Blood Pressure 141/58 Blood Pressure 157/79 If elevated: Intervened (Has been elevated so far this admission, will mention to provider.) - Qtc Review If Elevated: Reviewed (Most recent QTc was 514, has tramadol ordered) - IV to PO Switch IV Medications: Reviewed - Home Meds Home Med List reviewed: Reviewed (Separate admin of levothyroxine from multivitamin. Multiple [employer]IOR [employer]IC[employer] depressants: baclofen, oxycodone,trazodone.) Relevent Home Meds Not ordered & why?: oxycodone (has tapentadol ordered PRN) - Current meds Current Medication Order Review: Intervened (Fixed sigs on albuterol order (prn prn) and nitroglycerin (Q5min prn x3 prn)) - Comments Comments/Follow Ups: Watch BP, SCr, BG, H/H, and for med changes (possible need of BM meds, avoid QT prolonging meds, renal dose adjustments).
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
[2020-08-28] MEDS: Atorvastatin 40 MG TAB PO (19:18)
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
[2020-08-28] MEDS: Baclofen 10 MG TAB PO (22:02)
[2020-08-28] MEDS: traZODone 50 MG TAB PO (22:02)
[2020-08-29] VITALS (7 sets, daily range): BP systolic 107–170; BP diastolic 54–80; PULSE 81–88; RESP 16–19; TEMP 36.4–37; O2SAT 93–98
[2020-08-29] MEDS: Acetaminophen 325 MG TAB 650 MG PO ×4 (00:26→18:17)
[2020-08-29 00:32] LABS: COVID-19 RT-PCR UVMMC Result Negative (Negative)
[2020-08-29] MEDS: Heparin 5,000 UNITS/ML VIAL 5000 UNITS SC ×3 (03:46→19:44)
[2020-08-29] MEDS: Levothyroxine 125 MCG TAB PO (06:04)
[2020-08-29] MEDS: Omeprazole 20 MG CAPCR 40 MG PO (07:30)
[2020-08-29] MEDS: DULoxetine 30 MG CAP 60 MG PO (07:30)
[2020-08-29] MEDS: Aspirin E.C. 81 MG TABEC PO (07:30)
[2020-08-29] MEDS: Enalapril 5 MG TAB 10 MG PO (07:30)
[2020-08-29] MEDS: Multivitamin TAB 1 TAB PO (07:30)
[2020-08-29] MEDS: Mirabegron 25 MG TABCR PO (07:31)
[2020-08-29] MEDS: Diclofenac 1% Gel 100 GM TUBE TP ×4 (07:39→19:43)
--- NOTE | 2020-08-29 09:08 | PT.INTREAT ---
Date of service: 08/29/20 Time of Service: 08:35 PT Notes Visit Reasons: ALTERED MENTAL STATUS,MILD DEHYDRATION Inpatient Physical Therapy Treatment Note [facility] Date: 08/29/2020 PRECAUTIONS: Fall SUBJECTIVE: Sveta reports that she is feeling better today. She reports that at baseline she uses 4WW with ambulation. OBJECTIVE: PAIN: No c/o pain BED MOBILITY/TRANSFERS Sit-stand: S Stand-sit: S GAIT Assistive Device: FWW 4WW Weight bearing: Full Assist: SBA in a.m.; S in p.m. Distance: 100' with both FWW and with 4WW in a.m.; 200' + 100' in p.m. THEREX: Patient was instructed in a LE strengthening and stabilization program, in a seated position in a.m. and in a supine position in p.m., as per flow sheet. She continues to demonstrate R LE weakness. 4WW MECHANICS: Patient demonstrates safe and appropriate use of brakes, locks, and seat to demonstrate seated rest utilizing 4WW. ASSESSMENT: Patient tolerated session well without complaint. She was able to tolerate a progression in gait distance with both FWW and 4WW with SBA. PLAN: She would benefit from continued gait and transfer training as well as global strengthening for improved activity tolerance and mobility. TREATMENT CODE/TIME: Session 1: 20 minutes; 86687 Session 2: 20 minutes; 49731, 86163
[2020-08-29] MEDS: Normal Saline Flush 10 ML SYR IVP (11:04)
[2020-08-29] MEDS: Ketorolac 15 MG/ML VIAL IVP (11:04)
--- NOTE | 2020-08-29 13:10 | PGE_ITS ---
Date of Service Date of service: 08/29/20 Time of Service: 13:10 Assessment and Plan Assessment and plan (1) Altered mental status: Status: Resolved Assessment and plan: thought to be at baseline Qualifiers: Altered mental status type: disorientation Qualified Code(s): R41.0 - Disorientation, unspecified (2) Dehydration: Status: Resolved Assessment and plan: resolved and tolerating PO (3) Frequent falls: Status: Chronic Assessment and plan: fall risk precautions PT following (4) Diabetes mellitus, controlled: Status: Chronic Assessment and plan: blood sugars controlled. continue diabetic diet sliding scale ac/hs Qualifiers: Chronic kidney disease stage: stage 3 (moderate) Diabetes mellitus complication detail: with chronic kidney disease Diabetes mellitus complication status: with kidney complications Diabetes mellitus detention insulin use: without buttermilk drier operator use Diabetes mellitus type: type 2 Qualified Code(s): E11.22 - Type 2 diabetes mellitus with diabetic chronic kidney disease; N18.30 - Chronic kidney disease, stage 3 unspecified (5) Impaired mobility and ADLs: Status: Acute Assessment and plan: PT/OT (6) Hypothyroidism: Status: Acute Assessment and plan: continue levothyroxine TSH 2.81 (7) Discharge planning issues: Status: Acute Assessment and plan: case management following plan is to discharge home in 2-3 days if medically stable and safe for discharge Subjective Subjective Patient reports: no new complaints, feels better, tolerating liquids well and tolerating a regular diet Interval history since last seen: working with physical therapy and slowly progressing Exam Const General: cooperative, comfortable and no acute distress Nutritional Appearance: obese Orientation: alert, awake and oriented x3 HENMT Head: normal to inspection, no palpable skull fracture, normocephalic and atraumatic Face and sinus: normal facial exam Mouth: moist mucous membranes Eyes General: appearance normal, both eyes and all related structures Alignment and Position: alignment normal Conjunctivae: conjunctivae normal Sclera: sclerae normal Neck Neck: normal visual inspection, full ROM, no lymphadenopathy, no meningeal signs, supple and nontender Resp Effort & Inspection: normal respiratory effort and able to speak in complete sentences Auscultation: clear to auscultation bilaterally Cardio Rate: regular rate Rhythm: regular rhythm GI Inspection: normal to inspection and obesity Palpation: soft, not firm, no guarding, no pulsatile masses and nontender Auscultation: normal bowel sounds Back/Spine/Pelvis Back: back tenderness (Diffuse mild lumbar) Skin General skin exam: no rashes or lesions noted Trauma: other (Abrasions bilateral feet) Neuro General: patient alert, patient awake, patient oriented x3, moves all extremities and no focal motor deficits Cognition: normal cognition Speech: speech normal Motor: muscle tone normal throughout Sensory Exam: no sensory deficits noted Psych Appearance: grossly normal Mental Status: mental status grossly normal Objective Last Vital Signs Temp 37 C 08/29/20 10:59 Pulse 82 08/29/20 10:59 Resp 18 08/29/20 10:59 BP 148/80 H 08/29/20 10:59 Pulse Ox 94 08/29/20 10:59 Laboratory Results - last 24 hr 08/27/20 19:00 SARS-CoV-2 (PCR) Negative Nasopharyn COVID-19 PCR Not Applicable Ref Test Perform Site [facility] lab
--- NOTE | 2020-08-29 15:53 | PDOC.CMPRO ---
- If Service Date Differs Date of service: 08/29/20 Time of Service: 15:53 Care Management Progress Note S/O: Sveta was sitting up in her chair when CM met with her. Per PT, Sveta has been working very hard and has been progressing with her goals wonderfully. CM discussed her plan with the care team, and it was decided that as long as Sveta continues to improve she will likely be ready to discharge home in 2-3 days, avoiding a SNF altogether. CM discussed this with Sveta, who was very happy at the thought of returning home, as she does not want to go to rehab, but she also doesn't want to disappoint her son, Feliberto. CM called and left a message with Feliberto, updating him on her plan. CM will continue to follow. A: Sveta is a 79 year old female admitted to [facility] on 08/28/20 with AMS, dehydration. P: Sveta continues to improve, working with PT on her goals to gain strength in order to be independent enough to return home. Per PT, she may only need a few more days working with them to get her back to her baseline, using a 4WW. She will remain at [facility] for this therapy and to be monitored medically. Once she returns home she will need new orders for PT, OT, NAVIGATING OFFICER. She will be driven home via private vehicle by family vs RCT. She will follow up with her PCP and discharge plan of care. CM will continue to follow and support discharge planning considerations.
[2020-08-29] MEDS: Atorvastatin 40 MG TAB PO (19:43)
[2020-08-29] MEDS: Baclofen 10 MG TAB PO (21:31)
[2020-08-29] MEDS: traZODone 50 MG TAB PO (21:31)
[2020-08-30] VITALS (7 sets, daily range): BP systolic 125–159; BP diastolic 68–80; PULSE 84–89; RESP 16–19; TEMP 36.5–37; O2SAT 93–97
[2020-08-30] MEDS: Acetaminophen 325 MG TAB 650 MG PO ×4 (00:29→17:59)
[2020-08-30] MEDS: Albuterol HFA 8 GM 60 PUFF INH IH (02:51)
[2020-08-30] MEDS: Heparin 5,000 UNITS/ML VIAL 5000 UNITS SC ×3 (03:03→19:55)
[2020-08-30] MEDS: Levothyroxine 125 MCG TAB PO (05:16)
--- NOTE | 2020-08-30 07:40 | OT.INIE ---
Occupational Therapy Notes Inpatient Occupational Therapy Evaluation Date: 08/30/20 Referring Doctor: Zoraida Rome NP OT Orders: Non Urgent Precautions: Fall, Standard, Full PATIENT PROFILE/ADMITTING DIAGNOSIS: Pt is a 79-year-old female who presented to the ED on 08/27/2020 via EMS. Her family was concerned after pt had not been answering her calls. Patient was found on the floor by her son and EMS was called, they are not sure how long the patient has stayed down on the floor prior to being found. Patient is admitted with the dx of altered mental status, dementia, and frequent falls. Past Medical History: Medical History Angina pectoris Arthropathy Chronic low back pain Chronic pain Claustrophobia Claustrophobia COPD (chronic obstructive pulmonary disease) Degenerative spondylolisthesis Diverticulosis Essential hypertension Gastroesophageal reflux disease Hyperlipidemia Hypothyroidism Hypothyroidism Impaired mobility Left carotid stenosis Lower gastrointestinal bleed Migraine Near syncope Osteoarthritis RLS (restless legs syndrome) Spinal stenosis Stress incontinence Urge urinary incontinence Surgical History Abdominal hysterectomy Age 29 Cholecystectomy (~09/2002) Colonoscopy - MAC (05/23/17) Extraction of cataract (~10/2007) Bilateral Laminectomy (03/27/09) L3-L5,medial facetectomy,L3-L4 and L4-L5. Open Carpal Tunnel release (~1998) Left Right done by Dr. Paulson 2016 Replacement of total knee joint Left 2011 TVT (~05/2004) Social History/Home Situation: Pt lives alone with her cat, she states that she has meals on wheels and doesn't drive any more but utilizes RCT. She notes that she is fairly (I) at her baseline level of function with her ADLs. She sometimes has difficulties with LE dressing which she states is her baseline. She has a son who lives nearby and a granddaughter who she is close with and she refers to her as her daughter. She notes that she has a walk in shower which she has grab bars and a seat. She did have a mutton puncher however notes that she is looking forward to services when she returns home. Equipment owned/DME: shower chair, grab bars, 4WW SUBJECTIVE: Pt was sitting in chair when OT arrived. She was agreeable to OT session and notes that she is not interested in SNF and is looking forward to returning home. OBJECTIVE: General Observation: Pt was pleasant and agreeable to OT session, IV (R) UE not connected. Mental Status: A&Ox3 Pain: no c/o pain ROM: RUE AROM WFL L UE AROM WFL STRENGTH: RUE 4-/5 throughout globally LUE 4/5 throughout globally FUNCTIONAL MOBILITY/ADLS: Transfers with 4WW Sit-Stand SBA Stand-sit SBA BATHING sitting in chair with max (A) Set up Bathing UE (I) face, (B) and abdomen with min (A) on lower abdomen Bathing LE (I) (B) LE To knees and max (A) below knees DRESSING sitting in chair Dressing UE Min (A) don and doffing hospital gown Dressing LE Max (A) don and doffing (B) socks GROOMING (I) brushing hair TOILETING NT EATING NT BALANCE: Static sitting Normal Dynamic Sitting Normal SPECIAL TESTS: Daily Activity Limitations Standardized Measure [facility] AM -PAC ?6 clicks? Daily Activity Inpatient Short Form: Raw score: 19 INFORMED CONSENT/EDUCATION: Pt instructed in purpose of OT Consult and plan of care. ASSESSMENT: Patient is a 79-year-old female referred to occupational therapy services with diagnosis of altered mental status, dementia, and frequent falls.. Patient presents with clinical signs and symptoms consistent with dx, as demonstrated by the following impairment level findings/functional limitations: Impairments in ADL/IADL and leisure activities, decreased standing tolerance which is likely contributed to her arthritis in her spine, decreased functional activity tolerance, decreased LE dressing and bathing, decreased functional mobility required for ADLS which is improving with progression of Physical Therapy services. AMPAC score 19 Patient is assessed as a Low 42790 complexity based on the following: History: see above Examination: see above Presentation: evolving Decision Making: AMPAC score 19 GOALS Goals x1 week 1. Transfers (S) 2. Dressing sitting in chair (I) UE/LE 3. Bathing sitting in chair (I) UE/LE 4. Toileting on toilet (I) 5. Eating (I) PLAN OF CARE/TREATMENT PLAN: 1x/day, 5 days/ week x 1week Initiate Occupational Therapy Services for bathing, dressing, grooming, toileting, eating, transfer training. DISCHARGE RECOMMENDATIONS OT recommends that pt to return home with HHOT when medically cleared per MD. TREATMENT TIME/MINUTES/CODES 38787, 85567, 30 minutes (07:10) Yesenia Neil OTR/[facility]
[2020-08-30] MEDS: Enalapril 5 MG TAB 10 MG PO (08:02)
[2020-08-30] MEDS: Multivitamin TAB 1 TAB PO (08:02)
[2020-08-30] MEDS: Mirabegron 25 MG TABCR PO (08:02)
[2020-08-30] MEDS: DULoxetine 30 MG CAP 60 MG PO (08:02)
[2020-08-30] MEDS: Aspirin E.C. 81 MG TABEC PO (08:02)
[2020-08-30] MEDS: Normal Saline Flush 10 ML SYR IVP ×2 (08:03→17:59)
[2020-08-30] MEDS: Omeprazole 20 MG CAPCR 40 MG PO (08:52)
[2020-08-30] MEDS: Diclofenac 1% Gel 100 GM TUBE TP ×4 (08:52→19:55)
--- NOTE | 2020-08-30 09:59 | W.NUTRFU ---
Date of service: 08/30/20 Time of Service: 10:00 Nutritional Follow up NOTE: 79 year old female admitted with dehydration. Palliative care patient. BMI indicates class 1 obesity. PMH: Dm2, HTN, OA, myalgia. Most recent A1c: 7.1% (07/24/20) indicates well controlled DM. Following regular diet and currently meeting nutrient and fluid needs. Does not appear at nutritional risk at this time. Will continue to follow. Time Spent in Nutritional Counseling and Treatment: 0
--- NOTE | 2020-08-30 12:15 | PT.INTREAT ---
Date of service: 08/30/20 Time of Service: 12:15 PT Notes Visit Reasons: ALTERED MENTAL STATUS,MILD DEHYDRATION Inpatient Physical Therapy Treatment Note [facility] Date: 08/30/2020 PRECAUTIONS: Fall. WBAT in BUE/LE. SUBJECTIVE: Sveta reports that she did not have a good night's rest due to the commotion that happened last night. She agrees that she has significantly improved since she first came here to the hospital. Continues to complain of left shoulder pain that is aggravated with weight bearing and exercise performance but subsides with rest. OBJECTIVE: PAIN: Pain in the left shoulder at 8/10 after ambulation activity and during exercise performance BED MOBILITY/TRANSFERS Sit-stand: S Stand-sit: S GAIT Assistive Device: 4WW Weight bearing: WBAT B UE Assist: SBA Distance: 250 feet +250 feet with complaint of 8/10 pain in the left shoulder. Trunk more erect. Increased swing time on the right side and decreased stance time on the left. Decreased step height in the right LE. THEREX/THERA ACT: Instruction and training provided in standing level exercises while holding onto stair rail to increase strength and balance awareness. Activities included sidestepping to right x5 for 2 sets, sidestepping to left x5 for 2 sets, toe taps x10 onto stair platform about 12 inches high to increase step height, bilateral heel raises x10 with complaint of 8/10 pain in the left shoulder. Heating pad placed on left shoulder after session and nurse Huy was informed of pain report. Right hip flexion significantly decreased compared to the left side. 4WW MECHANICS: Required minimal cueing x 2 given to lock walker brakes prior to sitting down for safety. ASSESSMENT: Sveta demonstrates increasing tolerance to challenges and increased ambulation distance and level of activity. Barrier to achieving goals at this time include pain in the left shoulder that continuing to limit activity performance. PLAN: Progress regimen for strengthening, balance, and gait training as tolerated by patient to achieve initially established goal. TREATMENT CODE/TIME: 36193 x 15 minutes, 36443 x 10 minutes beginning at 12:15 PM.
--- NOTE | 2020-08-30 14:38 | W.PM.PROGNOT ---
Date of Service Date of service: 08/30/20 Time of Service: 14:38 Assessment and Plan Assessment and plan (1) Altered mental status: Status: Resolved Assessment and plan: thought to be at baseline Qualifiers: Altered mental status type: disorientation Qualified Code(s): R41.0 - Disorientation, unspecified (2) Dehydration: Status: Resolved Assessment and plan: resolved and tolerating PO (3) Frequent falls: Status: Chronic Assessment and plan: fall risk precautions PT following (4) Diabetes mellitus, controlled: Status: Chronic Assessment and plan: blood sugars controlled. 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 use: without senior care use Diabetes mellitus complication status: with kidney complications Diabetes mellitus complication detail: with chronic kidney disease Chronic kidney disease stage: stage 3 (moderate) Qualified Code(s): E11.22 - Type 2 diabetes mellitus with diabetic chronic kidney disease; N18.30 - Chronic kidney disease, stage 3 unspecified (5) Impaired mobility and ADLs: Status: Acute Assessment and plan: PT/OT (6) Hypothyroidism: Status: Acute Assessment and plan: continue levothyroxine TSH 2.81 (7) Discharge planning issues: Status: Acute Assessment and plan: case management following plan is to discharge home in 1-2 days if medically stable and safe for discharge discussed with Dr Bunn Subjective Subjective Patient reports: no new complaints, feels better, tolerating liquids well and tolerating a regular diet Interval history since last seen: working with physical therapy and slowly progressing Exam Const General: cooperative, comfortable and no acute distress Nutritional Appearance: obese Orientation: alert, awake and oriented x3 [facility] Head: normal to inspection, no palpable skull fracture, normocephalic and atraumatic Face and sinus: normal facial exam Mouth: moist mucous membranes Eyes General: appearance normal, both eyes and all related structures Alignment and Position: alignment normal Conjunctivae: conjunctivae normal Sclera: sclerae normal Neck Neck: normal visual inspection, full ROM, no lymphadenopathy, no meningeal signs, supple and nontender Resp Effort & Inspection: normal respiratory effort and able to speak in complete sentences Auscultation: clear to auscultation bilaterally Cardio Rate: regular rate Rhythm: regular rhythm GI Inspection: normal to inspection and obesity Palpation: soft, not firm, no guarding, no pulsatile masses and nontender Auscultation: normal bowel sounds Back/Spine/Pelvis Back: back tenderness (Diffuse mild lumbar) Skin General skin exam: no rashes or lesions noted Trauma: other (Abrasions bilateral feet) Neuro General: patient alert, patient awake, patient oriented x3, moves all extremities and no focal motor deficits Cognition: normal cognition Speech: speech normal Motor: muscle tone normal throughout Sensory Exam: no sensory deficits noted Psych Appearance: grossly normal Mental Status: mental status grossly normal Objective Last Vital Signs Temp 36.8 C 08/30/20 11:30 Pulse 84 08/30/20 11:30 Resp 18 08/30/20 11:30 BP 139/77 08/30/20 11:30 Pulse Ox 94 08/30/20 11:30
--- NOTE | 2020-08-30 14:51 | CHAPLAIN ---
Sveta was up in her chair when I visited. She reported that she is doing well with PT and hoping to go home soon, but her son isn't able to pick her up until Friday, she said. (That may be the plan, anyway, according to CM notes.) Her son Feliberto lives in [place], and has Sveta's cat, Baby, with him. Sveta talked about her granddaughter who lives in [place], [place]. Her father, Sveta's son, was killed in a car accident when she was young, but Sveta said she has remained close with her. She and her brother often spend weekends at Sveta's house. Sveta's proud of her PT progress, and said with the extra help scheduled to come to her apartment, she thinks she will be at home by herself.
--- NOTE | 2020-08-30 16:53 | CMPROGNOTE_ITS ---
- If Service Date Differs Date of service: 08/30/20 Time of Service: 16:53 Care Management Progress Note S/O: Sveta was sitting up in her chair when CM visited with her. Her provider was in the room, and stated that she will be ready for discharge once PT feels that she is independent enough to be home by herself, with HH support. Sveta stated that she would not have a ride home until Friday. CM stated that we will arrange transportation if she is ready before the weekend. CM discussed her p rogress with PT, who reported that Sveta is doing very well, and is very close to being ready for discharge, by Friday at the latest. CM will coordinate transportation once her discharge date is clear. CM did contact HH to inform them of her potential discharge. CM will continue to follow. A: Sveta is a 79 year old female admitted to [facility] on 08/28/20 with AMS, dehydration. P: Sveta continues to improve, working with PT on her goals to gain strength in order to be independent enough to return home. Per PT, she may only need a couple more days working with them to get her back to her baseline, using a 4WW. She will remain at [facility] for this therapy and to be monitored medically. Once she returns home she will need new orders for HH RN, PT, OT, LEAF COVERER. She will be driven home via private vehicle by [facility]. She will follow up with her PCP and discharge plan of care. CM will continue to follow and support discharge planning considerations.
[2020-08-30] MEDS: Atorvastatin 40 MG TAB PO (19:55)
[2020-08-30] MEDS: Baclofen 10 MG TAB PO (21:26)
[2020-08-30] MEDS: traZODone 50 MG TAB PO (21:26)
[2020-08-31] MEDS: Acetaminophen 325 MG TAB 650 MG PO ×5 (00:16→23:33)
[2020-08-31 03:58] VITALS: BP 145/74; PULSE 87; RESP 17; TEMP 36.5; O2SAT 92
[2020-08-31] MEDS: Heparin 5,000 UNITS/ML VIAL 5000 UNITS SC ×3 (04:48→19:42)
[2020-08-31] MEDS: Levothyroxine 125 MCG TAB PO (05:28)
[2020-08-31] MEDS: Omeprazole 20 MG CAPCR 40 MG PO (06:55)
[2020-08-31 06:58] LABS: Abs Immature Grans 0.12 10^3/uL (0.0-0.06); Absolute Basophil Count 0.04 10^3/uL (0.0-0.2); Absolute Eosinophil Count 0.25 10^3/uL (0.0-0.7); Absolute Lymphocyte Count 1.92 10^3/uL (1.2-3.4); Absolute Monocyte Count 0.79 10^3/uL (0.1-0.8); Basophils % 0.5; Eosinophils % 2.9; HCT 26.1 % (36.0-46.0); Immature Grans % 1.4; Lymphocytes % 22.3; MCH 27.5 pg (27.0-33.0); MCHC 30.7 % (32.0-36.0); MCV 89.7 fL (80-95); Monocytes % 9.2; Neutrophils % 63.7; Nucleated RBC 0 %; Platelet Count 376 10^3/uL (130-400); RBC 2.91 10^6/uL (3.93-5.22); RDW 19.4 % (11.7-14.6); RDW-SD 63.1 fL; WBC 8.62 10^3/uL (4.4-10.8)
[2020-08-31 07:36] VITALS: BP 157/67; PULSE 85; RESP 18; TEMP 37.1; O2SAT 94
[2020-08-31] MEDS: Aspirin E.C. 81 MG TABEC PO (07:38)
[2020-08-31] MEDS: Enalapril 5 MG TAB 10 MG PO (07:38)
[2020-08-31] MEDS: Diclofenac 1% Gel 100 GM TUBE TP ×4 (07:39→19:42)
[2020-08-31] MEDS: Multivitamin TAB 1 TAB PO (07:39)
[2020-08-31] MEDS: DULoxetine 30 MG CAP 60 MG PO (07:39)
[2020-08-31] MEDS: Mirabegron 25 MG TABCR PO (07:39)
--- NOTE | 2020-08-31 07:54 | OT.INTREAT ---
Date of service: 08/31/20 Time of Service: 07:35 Occupational Therapy Notes Occupational Therapy Inpatient Treatment Note Date: 08/31/20 PRECAUTIONS: Fall, Standard, Full SUBJECTIVE: Pt was sitting in chair when OT arrived, she reports that she may be going home today and is agreeable to OT session. OBJECTIVE: PAIN:6/10 pain in (L) shoulder BATHING: sitting in chair with max (A) Set up/clean up with min vc throughout Upper Body: (I) face, (B) UE and abdomen Lower Body: (I) (B) LE DRESSING: sitting in chair Upper Extremity: (I) [facility] gown Lower Extremity: NT GROOMING: (I) brushing hair ASSESSMENT/PLAN: Pt is able to perform her ADLs with increased (I). She is hoping to return home today and is demonstrating increased functional activity tolerance and increased (I) in her ADL routine. TREATMENT CODES/TIME: 80628, 20 minutes (07:35) Yesenia Neil, OTR/[facility] [place]
--- NOTE | 2020-08-31 08:58 | PDOC.CMPRO ---
- If Service Date Differs Date of service: 08/31/20 Time of Service: 08:59 Care Management Progress Note S/O: Sveta was sitting up in a chair when CM met with her. She stated that she was going home today and that her son would be picking her up. According to PT she is doing very well and is now independent in her room. A little later CM received a call from her son Feliberto stating that he could not pick his mother up today and that he would do so tomorrow. CM offered to schedule transport through [facility] but Feliberto stated that she would have no way to get into her home as he has the chiang. Sveta will discharge tomorrow. A: Sveta is a 79 year old female admitted to [facility] on 08/28/20 with AMS, dehydration. 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 [facility] was notifies by CM of this admission today. She will follow up with her neurologist and PCP and plan of care. Sveta's son Feliberto will transport via private vehicle. CM will continue to follow and support discharge planning considerations.
--- NOTE | 2020-08-31 10:44 | W.PM.DS.N ---
Date of service: 08/31/20 Time of Service: 10:45 DS: Diagnosis Discharge Diagnosis (1) Altered mental status: Status: Resolved (2) Dehydration: Status: Resolved (3) Frequent falls: Status: Chronic (4) Diabetes mellitus, controlled: Status: Chronic (5) Impaired mobility and ADLs: Status: Acute (6) Hypothyroidism: Status: Acute Discharge Plan Disposition Patient Disposition: HOME W/HOME HEALTH SERVICE Condition: Stable Discharge Details Reason For Visit: ALTERED MENTAL STATUS,MILD DEHYDRATION Admit Date/Time: 08/28/20 11:05 Admit Provider: Jon Alexander Attending Provider: Jon Alexander Primary Care Provider: Jocy Kate Hospital Course Hospital Course: This is a 79-year-old lady who lives alone and presented to the ED with altered mental status, most likely secondary to a combination of her medical regimen which may be sedating and mild dehydration. She will be admitted for observation with gentle IV hydration overnight and follow-up CPK. She did not have any apparent injuries with negative imaging. She was evaluated by physical therapy and slowly started improving. Her mental status improved and she is thought to be at her baseline. She has been alert and oriented and without behavioral issues or confusion. she is eating and drinking well. case management was following and therapy feels she could benefit from some ongoing rehab. Home health services will follow her outpatient. She is medically stable and ready for discharge to home. Unfortunately her son was unavailable to pick her up or to unlock her apartment so she could enter. her discharge is delayed until tomorrow. discussed with DR Stephen Rodriguez Meds and New Rx's Prescriptions: New melatonin 5 mg capsule 5 mg PO HS MAY REPEAT X1 Qty: 60 RF: 0 Continued (DME) compr.stocking,knee,long,large Misc See Rx Instructions .ROUTE .MEDSUPPLY Qty: 4 RF: 0 (DME) blood-glucose meter [Accu-Chek Guide Glucose Meter] Misc See Rx Instructions .ROUTE .MEDSUPPLY Qty: 1 RF: 0 (DME) Blood Glucose Test Strip See Rx Instructions .ROUTE .MEDSUPPLY Qty: 50 RF: 3 (DME) lancets Misc See Rx Instructions .ROUTE .MEDSUPPLY Qty: 50 RF: 3 oxycodone 5 mg tablet 5 mg PO QHS MDD 5mg PRN (Reason: pain) Qty: 30 RF: 0 aspirin [Adult Low Dose Aspirin] 81 mg tablet,delayed release (DR/EC) 81 mg PO DAILY RF: 0 levothyroxine [Synthroid] 125 mcg tablet 125 mcg PO DAILY Qty: 90 RF: 3 omeprazole 40 mg capsule,delayed release(DR/EC) 40 mg PO DAILY Qty: 90 RF: 3 (DME) diaper,brief,adult,disposable Misc 1 ea Miscellaneous PRN Qty: 100 RF: 6 Myrbetriq 25 mg tablet extended release 24 hr 25 mg PO DAILY Qty: 90 RF: 1 baclofen 10 mg tablet 10 mg PO QHS Qty: 30 RF: 4 atorvastatin 40 mg tablet 40 mg PO QPM Qty: 90 RF: 3 duloxetine 60 mg capsule,delayed release(DR/EC) 60 mg PO DAILY Qty: 30 RF: 5 enalapril maleate 10 mg tablet 10 mg PO DAILY Qty: 90 RF: 3 nitroglycerin 0.4 mg tablet, sublingual 0.4 mg Sublingual PRN Qty: 100 RF: 3 acetaminophen [Mapap Extra Strength] 500 mg tablet 1,000 mg PO Q4H PRN PRN (Reason: fever or pain) Qty: 120 RF: 3 albuterol sulfate 90 mcg/actuation aerosol powdr breath activated 2 inh IH Q6H PRN (Reason: shortness of breath or wheezing) Qty: 1 RF: 5 multivitamin [Daily Multi-Vitamin] 1 EACH tablet 1 tab DAILY RF: 0 Changed trazodone 100 mg tablet 50 mg PO HS Qty: 90 RF: 3 Discharge Instructions Instructions: Dehydration (DC) Additional Instructions: take all medication as prescribed drink at least 6 glasses of fluids daily to stay well hydrated. Stand Alone Forms: Nursing Discharge Form Referrals: Jocy Kate NP [Primary Care Provider] - 09/13/20 9:30 am Activity:: Activity as Tolerated Equipment/Supplies:: Walker Diet:: As Tolerated Discharge Orders Discharge Orders: Discharge Order (Routine); Ordered 08/31/20 Ordered By: Jazzy Sousa DS: Summary Status at Discharge Functional status at discharge: uses cane/walker Overall status at discharge: patient is progressing back to baseline Mental Status: mental status grossly normal Speech and Movement: speech and movement normal Mood: congruent mood Affect: normal affect Exam Const General: cooperative, comfortable and no acute distress Nutritional Appearance: obese Orientation: alert, awake and oriented x3 HENRI Head: normal to inspection, no palpable skull fracture, normocephalic and atraumatic Face and sinus: normal facial exam Mouth: moist mucous membranes Eyes General: appearance normal, both eyes and all related structures Alignment and Position: alignment normal Conjunctivae: conjunctivae normal Sclera: sclerae normal Neck Neck: normal visual inspection, full ROM, no lymphadenopathy, no meningeal signs, supple and nontender Resp Effort & Inspection: normal respiratory effort and able to speak in complete sentences Auscultation: clear to auscultation bilaterally Cardio Rate: regular rate Rhythm: regular rhythm GI Inspection: normal to inspection and obesity Palpation: soft, not firm, no guarding, no pulsatile masses and nontender Auscultation: normal bowel sounds Back/Spine/Pelvis Back: back tenderness (Diffuse mild lumbar) Skin General skin exam: no rashes or lesions noted Trauma: other (Abrasions bilateral feet) Neuro General: patient alert, patient awake, patient oriented x3, moves all extremities and no focal motor deficits Cognition: normal cognition Speech: speech normal Motor: muscle tone normal throughout Sensory Exam: no sensory deficits noted Psych Appearance: grossly normal Mental Status: mental status grossly normal Speech and Movement: speech and movement normal Mood: congruent mood Affect: normal affect DS: Data Vitals/I&O Vitals and I&O: Vital Signs Temperature 37.1 C 08/31/20 07:36 Temperature Source Tympanic 08/31/20 07:36 Pulse 85 08/31/20 07:36 Pulse Rhythm Regular 08/31/20 08:21 Pulse 82 08/27/20 17:16 Respiratory Rate 18 08/31/20 07:36 Respiratory Effort Non-Labored 08/31/20 08:21 Respiratory Depth Normal 08/31/20 08:21 Respiratory Pattern Normal 08/31/20 08:21 Blood Pressure 157/67 H 08/31/20 07:36 Blood Pressure Mean 60 08/27/20 17:16 Blood Pressure Position Supine 08/27/20 14:16 Pulse Oximetry 94 08/31/20 07:36 Oxygen Delivery Method Room Air 08/31/20 07:36 Oxygen Flow Rate 0 08/31/20 07:36 Pain Level 6 08/31/20 07:36 Comment 08/31/20 07:36 Intake & Output 08/30/20 08/30/20 08/31/20 11:59 23:59 11:59 Intake Total 480 / 1130 650 / 1130 370 / 370 Balance 480 / 1130 650 / 1130 370 / 370 Weight 102.3 kg 100.1 kg Intake: IV Oral 480 / 1120 640 / 1120 360 / 360 Other: Urine Color Pale Yellow Yellow Urine Appearance Clear Clear Urine Odor Normal Strong Comment Patient was incontinent in brief before making it to the toilet in room. Stool Size Moderate Voiding Methods Toilet Incontinent Toilet Diaper Data Completed and Pending Labs on day of discharge: Labs from last 24 hours 08/31/20 08/31/20 08/31/20 06:10 06:10 06:05 WBC 8.62 RBC 2.91 L Hgb 8.0 L Hct 26.1 L MCV 89.7 MCH 27.5 MCHC 30.7 L RDW 19.4 H Plt Count 376 MPV 10.0 Immature Gran % 1.4 Neutrophils % 63.7 Lymphocytes % 22.3 Monocytes % 9.2 Eosinophils % 2.9 Basophils % 0.5 Nucleated RBC % 0 Absolute Neutrophils 5.50 Absolute Lymphocytes 1.92 Absolute Monocytes 0.79 Absolute Eosinophils 0.25 Absolute Basophils 0.04 Iron Pending TIBC Pending Transferrin % Sat Pending Ferritin Pending PFSH Medical History Angina pectoris Arthropathy Chronic low back pain Chronic pain Claustrophobia Claustrophobia COPD (chronic obstructive pulmonary disease) Degenerative spondylolisthesis Diverticulosis Essential hypertension Gastroesophageal reflux disease Hyperlipidemia Hypothyroidism Hypothyroidism Impaired mobility Left carotid stenosis Lower gastrointestinal bleed Migraine Near syncope Osteoarthritis RLS (restless legs syndrome) Spinal stenosis Stress incontinence Urge urinary incontinence Surgical History Abdominal hysterectomy Age 29 Cholecystectomy (~09/2002) Colonoscopy - MAC (05/23/17) Extraction of cataract (~10/2007) Bilateral Laminectomy (03/27/09) L3-L5,medial facetectomy,L3-L4 and L4-L5. Open Carpal Tunnel release (~1998) Left Right done by Dr. Paulson 2017 Replacement of total knee joint Left 2012 TVT (~05/2004) Family History Mother Essential hypertension Neoplasm Lymphoma Sister , DM Complications at age 53. Diabetes Social History Smoking/Tobacco Use Status: Former Tobacco Use Smoking risk assessment performed?: Yes Alcohol Intake: former Drug use: Never Substance use type: does not use Adopted: No Caregiver/Support person: No Foster care: No Household members: none Housing: apartment Number of Children: 3 Do you need help understanding health information?: Often Pets and animals: No Sexually active: No Current gender identity: female What type of physical activity do you participate in: none Seatbelt use: always Do you feel safe at home: Yes ([facility]) Do you feel safe in your relationship?: Yes
--- NOTE | 2020-08-31 10:52 | PDOC.HHF2F ---
Home Health Certification Home Health Certification: 1. Encounter Date and Reason I certify that VIRGEN CASIANO was seen by Jazzy Sousa on 08/31/20 and that I had a [id number] encounter with this patient that meets the physician face to face encounter requirements. 2. Clinical Findings Supporting Skilled Need and Homebound Status I certify that home health services are medically necessary, include either intermittent assisted and/or physical/speech therapy, and that this patient is homebound in that absences from the home require considerable and taxing effort and are infrequent or of short duration, or are attributable to the need to receive medical care. [X] (a) Attached documentation from encounter provides clinical findings supporting skilled need and homebound status (including what assistance patient requires to leave the home). The encounter with the patient was in whole, or in part, for the following medical condition, which is the primary reason for home health care: ALTERED MENTAL STATUS,MILD DEHYDRATION [facility]: routine nursing evaluation, medication oversight Physical and Occupational Therapy: routine evaluation and treatment [employer]: routine management Homebound: patient is unable to safely leave her home independently d/t decreased strength and endurance, unsteady gait, impaired transfers and inability to negotiate stairs unassisted. 3. Certification and Authentication I certify that I composed the above information based on my clinical judgement relating to this patient's medical condition and, if applicable, clinical findings communicated to me by the NPP or inpatient physician who performed the Home Health Referral. All further orders will be obtained through (Community Based Physician - PCP)
--- NOTE | 2020-08-31 10:55 | PT.INTREAT ---
Date of service: 08/31/20 Time of Service: 08:25 PT Notes Visit Reasons: ALTERED MENTAL STATUS,MILD DEHYDRATION Inpatient Physical Therapy Treatment Note [facility] Date: 08/31/2020 PRECAUTIONS: Fall SUBJECTIVE: Sveta feels that she is at her baseline, she would like to go home today. OBJECTIVE: PAIN: Patient c/o LBP with increased gait distance. BED MOBILITY/TRANSFERS Sit-stand: I Stand-sit: I Bed-chair: I Chair-bed: I GAIT Assistive Device: 4WW Weight bearing: Full Assist: S Distance: 100' + 150' Deviation: Seated rest x1 THEREX: Patient was instructed in a LE strengthening program, in a seated position, as per flow sheet. She demonstrates R LE weakness. TOILETING: Patient toileted and don/doff pull-up, independently ASSESSMENT: Patient tolerated session well with some c/o LBP with increased gait distance, requiring seated rest x1. She is able to demonstrates safety with independent transfers and ambulation within her room with 4WW at this time. PLAN: Discharge to home later today with PT services for continued global strengthening. TREATMENT CODE/TIME: 30 minutes; [id number], [id number]
[2020-08-31 10:58] LABS: Iron 21 ug/dL (50-170); Total Iron Binding Capacity 399 ug/dL (250-450); Transferrin Sat 5 % (15-50)
[2020-08-31 11:12] LABS: Ferritin 15 ng/mL (8-252)
[2020-08-31 11:30] VITALS: BP 120/62; PULSE 82; RESP 18; TEMP 36.5; O2SAT 94
[2020-08-31 15:15] VITALS: BP 137/66; PULSE 88; RESP 18; TEMP 36.7; O2SAT 95
--- NOTE | 2020-08-31 15:15 | CHAPLAIN ---
Sveta was hoping to be discharged today when I visited with her this morning. She said her son will be able to pick her up and she's looking forward to being back in her apartment at [facility], with her cat, and more support. Sveta shared some more personal history, telling me about two sons who in accidents, and twin daughters who at . Her four years ago after they were for more than 60 years. Sveta remains close with a granddaughter who lives in [place], [place].
[2020-08-31 19:28] VITALS: BP 137/80; PULSE 82; RESP 17; TEMP 36.6; O2SAT 94
[2020-08-31] MEDS: Atorvastatin 40 MG TAB PO (19:42)
[2020-08-31] MEDS: Melatonin 3 MG TAB 6 MG PO (21:07)
[2020-08-31] MEDS: Baclofen 10 MG TAB PO (21:08)
[2020-08-31] MEDS: traZODone 50 MG TAB PO (21:08)
[2020-08-31 23:46] VITALS: BP 120/71; PULSE 84; RESP 18; TEMP 36.5; O2SAT 91
[2020-09-01] MEDS: Heparin 5,000 UNITS/ML VIAL 5000 UNITS SC (03:35)
[2020-09-01 03:50] VITALS: BP 121/74; PULSE 81; RESP 18; TEMP 36.1; O2SAT 92
[2020-09-01] MEDS: Levothyroxine 125 MCG TAB PO (05:07)
[2020-09-01] MEDS: Acetaminophen 325 MG TAB 650 MG PO (05:07)
[2020-09-01] MEDS: Mirabegron 25 MG TABCR PO (07:45)
[2020-09-01] MEDS: Aspirin E.C. 81 MG TABEC PO (07:45)
[2020-09-01] MEDS: Multivitamin TAB 1 TAB PO (07:45)
[2020-09-01] MEDS: Omeprazole 20 MG CAPCR 40 MG PO (07:45)
[2020-09-01] MEDS: DULoxetine 30 MG CAP 60 MG PO (07:45)
[2020-09-01] MEDS: Enalapril 5 MG TAB 10 MG PO (07:45)
[2020-09-01] MEDS: Normal Saline Flush 10 ML SYR IVP (07:45)
[2020-09-01] MEDS: Diclofenac 1% Gel 100 GM TUBE TP (07:48)
[2020-09-01 08:14] VITALS: BP 148/61; PULSE 82; RESP 18; TEMP 36.8; O2SAT 94
--- NOTE | 2020-09-01 12:15 | CMDISCH_ITS ---
- If Service Date Differs Date of service: 09/01/20 Time of Service: 12:15 LACE Index Scoring Tool - Questions: Length of Stay (in days): 4 - 6 Acuity (Admit via E.D.?): Yes Comorbidities: Chronic Pulmonary Disease E.D. Visits: 2 - Answers: Total Score: 11 Risk of Readmission: High Risk Care Management Discharge Reason for Hospitalization: Altered Mental Status, Dehydration Discharge Plan: Sveta is returning home with new Home Health services for nu rsing, PT, OT, and [employer]UE[employer]TER. She will follow up with her neurologist, PCP, and plan of care as directed. Her son, Feliberto, is driving her home via private vehicle. Patient/Family Education Needs: Review discharge instructions, limitations, follow up plan of care, including Ask Me Three and self management.
--- NOTE | 2020-09-04 08:23 | INDS_ITS ---
Date of service: 09/04/20 Time of Service: 08:24 PT Notes Visit Reasons: ALTERED MENTAL STATUS,MILD DEHYDRATION Physical Therapy Inpatient Discharge Summary Date: 09/04/2019 Dates of Service: 08/28/2020 through 08/31/2020 This is a clinical summary of care provided on the duration of dates listed above. No charge was made in the completion of this documentation. Referring Doctor: Jon Alexander MD PT Orders: PT CONSULT: Limited ability Precautions: Fall. Standard. Activity as tolerated. Patient Profile/Admitting Diagnosis: Sveta is a 79-year-old female who presented to the ED on 08/27/2020 via EMS due to family concern for patient who has not been answering her calls. Patient was found on the floor by EMS staff who are not sure how long the patient has stayed down on the floor prior to being found. Patient is diagnosed with altered mental status with question of progressive dementia, dementia, and frequent falls. PMHX: Medical History Angina pectoris Arthropathy Chronic low back pain Chronic pain Claustrophobia Claustrophobia COPD (chronic obstructive pulmonary disease) Degenerative spondylolisthesis Diverticulosis Essential hypertension Gastroesophageal reflux disease Hyperlipidemia Hypothyroidism Hypothyroidism Impaired mobility Left carotid stenosis Lower gastrointestinal bleed Migraine Near syncope Osteoarthritis RLS (restless legs syndrome) Spinal stenosis Stress incontinence Urge urinary incontinence Surgical History Abdominal hysterectomy Age 29 Cholecystectomy (~09/2002) Colonoscopy - MAC (05/23/17) Extraction of cataract (~10/2007) Bilateral Laminectomy (03/27/09) L3-L5,medial facetectomy,L3-L4 and L4-L5. Open Carpal Tunnel release (~1998) Left Right done by Dr. Paulson 2016 Replacement of total knee joint Left 2011 TVT (~05/2004) Social History/Home Situation: Lives alone on the fourth floor of the [facility]. She states that she will be getting about 20 hours of help once she goes home. Her son Feliberto has been very much involved and as of today, has just been added in patient's HIPAA list. Modified independent with all mobility ADLs using 4WW. Equipment Owned/DME: 4WW, shower chair Subjective: NT. See most recent HOSPICE MUSIC THERAPIST notes. Objective: General Observation: NT. See most recent HOSPICE MUSIC THERAPIST notes. Mental Status: NT. See most recent HOSPICE MUSIC THERAPIST notes. Pain: NT. See most recent HOSPICE MUSIC THERAPIST notes. ROM: Right Upper Extremity: Shoulder Flexion allows only up to 20 degrees due to pain. Shoulder abduction allows only up to 20 degrees due to pain. Elbow flexion WFL. Wrist flexion WFL. Opening and closing of hand WFL. Left Upper Extremity: Shoulder Flexion WFL. Shoulder abduction WFL. Elbow flexion WFL. Wrist flexion WFL. Opening and closing of hand WFL. Right Lower Extremity: Hip flexion allows nothing beyond 90 degrees due to weakness . Hip abduction about 20 degrees, gravity-eliminated. Knee flexion 45 degrees to about 90 degrees. Knee extension -45 degrees. Ankle dorsiflexion about 10 degrees beyond neutral. Ankle plantarflexion WFL. Left Lower Extremity: Hip flexion WFL. Hip abduction WFL. Knee flexion WFL. Ankle dorsiflexion WFL. Ankle plantarflexion WFL. Strength: Right Upper Extremity: Shoulder flexors 2-/5. Shoulder abductors 2-/5. Elbow flexors 3/5. Elbow extensors 3/5. [employer] strong. Left Upper Extremity: Shoulder flexors 4-/5. Shoulder abductors 4-/5. Elbow flexors 54-5. Elbow extensors 4-/5. [employer] Ticketer strong. Right Lower Extremity: Hip flexors 3-/5. Hip abductors 3-/5. Knee flexors 4-/5. Knee extensors 4-/5. Ankle dorsiflexors 4/5. Ankle plantarflexors 4/5. Left Lower Extremity: Hip flexors 3-/5. Hip abductors 3-/5. Knee flexors 3-5. Knee extensors 3-/5. Ankle dorsiflexors 3-/5. Ankle plantarflexors 3-/5. Sensation: Intact as to pain and pressure on bilateral lower extremities. Bed Mobility/Transfers: Rolling independent Supine to sit independent Sit to supine independent Sit to stand independent Stand to sit independent Bed to chair independent Chair to bed independent Gait: 100 feet + 150 feet with FWW requiring 4WW and FWB with supervision. Balance: Static Sitting: Normal Dynamic Sitting: Normal Static Standing: Fair Dynamic Standing: Fair Assessment: Sveta continues to require FWW with all mobility ADL performance, impairment with balance, difficulty with walking, and increased fall risk due to admitting diagnoses and co-morbidities. Patient continues to present with clinical signs and symptoms consistent with current/admitting diagnoses that have resulted to mobility limitations, gait instability, generalized weakness, and impairment of motor control as demonstrated by the following impairment level findings: 1. Decreased strength to R UE and B LE major muscle groups 2. Impaired standing balance 3. Impaired activity tolerance 4. Limitation of joint range of motion in R shoulder R LE Impairments are continuing to contribute to the following functional limitations: 1. Inability to safely ambulate without assistive device 2. Increase completion time for mobility ADL performance 3. Increased fall risk 4. Inability to negotiate steps alone safely Goals: Goals X1 week 1. Supine-Sit independent MET 2. Sit-Supine independent MET 3. Sit-Stand independent MET 4. Stand-Sit independent MET 5. Bed-Chair independent MET 6. Chair-Bed independent MET 7. Independent gait on level surface with use of least restrictive device for at least 300 feet without report of pain nor dyspnea NOT MET 8. Good static and dynamic standing balance/tolerance NOT MET DISCHARGE RECOMMENDATIONS: Patient will benefit from senior care facility placement for continued skilled physical therapy services in order to progress mobility level, strength, and balance in preparation for a safe discharge to home. TREATMENT CODE/TIME: NC. Thank you for the opportunity to participate in the care of this patient. May Reid PT, DPT, CLT [facility] [place], [place]
== END 2020-09-01 11:22 | disposition home health service (06) | DRG 948 ==
LOC: ER 18:52 → MS 19:29
PROVIDERS: Internal Medicine; Nurse Practitioner Family; Physician Assistant; Admitting Provider Family Medicine; Emergency Provider Physician Assistant; PCP Nurse Practitioner; Visit Provider Family Medicine
DX: R41.0 Disorientation, unspecified (principal); T42.6X5A Adverse effect of other antiepileptic and sedative-hypnotic drugs, initial encounter; E86.0 Dehydration; W19.XXXA Unspecified fall, initial encounter; R29.6 Repeated falls; E11.22 Type 2 diabetes mellitus with diabetic chronic kidney disease; N18.30 Chronic kidney disease, stage 3 unspecified; D64.9 Anemia, unspecified; G89.29 Other chronic pain; M54.9 Dorsalgia, unspecified; J44.9 Chronic obstructive pulmonary disease, unspecified; M43.10 Spondylolisthesis, site unspecified; K57.90 Diverticulosis of intestine, part unspecified, without perforation or abscess without bleeding; I12.9 Hypertensive chronic kidney disease with stage 1 through stage 4 chronic kidney disease, or unspecified chronic kidney disease; K21.9 Gastro-esophageal reflux disease without esophagitis; E78.5 Hyperlipidemia, unspecified; I65.22 Occlusion and stenosis of left carotid artery; M48.00 Spinal stenosis, site unspecified; G43.909 Migraine, unspecified, not intractable, without status migrainosus; N39.46 Mixed incontinence; G25.81 Restless legs syndrome; M19.012 Primary osteoarthritis, left shoulder; I20.9 Angina pectoris, unspecified
CPT/HCPCS: 36415; 80053; 82550; 93005; 96360; 96361; 97110; 97162; 97165; 97530; 97535; 99220; 99233; 99239; 99254; 99285; U0003; 70450; 71045; 73030; 81003; 82728; 83540; 83550; 83735; 84443; 84484; 85025; 85610; 85730; 93010; 99222; G0378; J1644; J1885

== ENCOUNTER → 2020-09-21 14:37 | Outpatient (BNVA) | payer OTHER, MEDICAID, SELFPAY | PROVIDERS: PCP Nurse Practitioner; Referring Provider Nurse Practitioner; Visit Provider Physical Therapy Assistant | DX: D64.9 Anemia, unspecified (principal); R53.1 Weakness | CPT/HCPCS: 99214 ==

== ENCOUNTER 2020-12-12 15:17 | Outpatient (CLI) | payer OTHER, MEDICAID, SELFPAY ==
--- NOTE | 2020-12-12 15:15 | RT.EKG_ITS ---
APPROVED REPORT Exam: Resting ECG Patient Location: O HR:98 bpm ECG Measurements Heart Rate 98 AXIS VA 186 P 51 QRSd 99 QRS 30 QT 379 T 40 QTc 486 Conclusion Sinus rhythm...normal P axis, V-rate 60- 99
== END 2020-12-12 15:18 | disposition home or self-care (01) ==
PROVIDERS: PCP Nurse Practitioner; Visit Provider Nurse Practitioner
DX: Z01.810 Encounter for preprocedural cardiovascular examination (principal)
CPT/HCPCS: 93010

== ENCOUNTER 2020-12-12 18:17 | Outpatient (REF) | payer OTHER, MEDICAID, SELFPAY ==
[2020-12-12 19:59] LABS: HCT 27.2 % (36.0-46.0); HGB 8.4 g/dL (11.2-15.7); MCH 27.6 pg (27.0-33.0); MCHC 30.9 % (32.0-36.0); MCV 89.5 fL (80-95); Platelet Count 324 10^3/uL (130-400); RBC 3.04 10^6/uL (3.93-5.22); RDW 23.1 % (11.7-14.6); RDW-SD 75.7 fL; WBC 9.97 10^3/uL (4.4-10.8)
[2020-12-12 20:24] LABS: ALT 18 U/L (14-59); AST 15 U/L (15-37); Albumin 4.1 g/dL (3.4-5.0); Alkaline Phosphatase 67 U/L (46-116); Anion Gap 7.2 mmol/L (3-11); BUN 17 mg/dL (7-18); Bilirubin, Total 0.3 mg/dL (0.2-1.0); CO2 31.8 mmol/L (21.0-32.0); CREATININE 1.1 mg/dL (0.55-1.02); Calcium 9.4 mg/dL (8.5-10.1); Chloride 105 mmol/L (98-107); Estimated GFR 48.04 (mL/min/1.73m2); Glucose 160 mg/dL (74-106); Potassium 4.1 mmol/L (3.5-5.1); Sodium 144 mmol/L (136-145); Total Protein 7.3 g/dL (6.4-8.2)
== END 2020-12-12 18:18 | disposition home or self-care (01) ==
LOC: LBN 18:17
PROVIDERS: PCP Nurse Practitioner; Visit Provider Nurse Practitioner
DX: D64.9 Anemia, unspecified (principal); M25.512 Pain in left shoulder; Z01.818 Encounter for other preprocedural examination
CPT/HCPCS: 80053; 85027

== ENCOUNTER 2020-12-28 19:46 | Outpatient (REF) | payer OTHER, MEDICAID, SELFPAY ==
[2020-12-28 19:57] LABS: Abs Immature Grans 0.41 10^3/uL (0.0-0.06); Absolute Basophil Count 0.07 10^3/uL (0.0-0.2); Absolute Eosinophil Count 0.41 10^3/uL (0.0-0.7); Absolute Lymphocyte Count 2.02 10^3/uL (1.2-3.4); Basophils % 0.6; Eosinophils % 3.5; HCT 29.5 % (36.0-46.0); HGB 9.3 g/dL (11.2-15.7); Immature Grans % 3.5; Lymphocytes % 17.3; MCH 27.8 pg (27.0-33.0); MCHC 31.5 % (32.0-36.0); MCV 88.1 fL (80-95); MPV 9.7 fL (8.0-11.0); Monocytes % 8.6; Neutrophils % 66.5; Nucleated RBC 0 %; Platelet Count 335 10^3/uL (130-400); RBC 3.35 10^6/uL (3.93-5.22); RDW 18.8 % (11.7-14.6); RDW-SD 59.9 fL; WBC 11.69 10^3/uL (4.4-10.8)
[2020-12-28 19:58] LABS: Absolute Monocyte Count 1.01 10^3/uL (0.1-0.8); Absolute Neutrophil Count 7.77 10^3/uL (1.2-6.7)
[2020-12-28 21:09] LABS: Iron 49 ug/dL (50-170)
[2020-12-28 21:22] LABS: Anion Gap 5.3 mmol/L (3-11); BUN 11 mg/dL (7-18); CO2 33.7 mmol/L (21.0-32.0); Calcium 8.6 mg/dL (8.5-10.1); Chloride 101 mmol/L (98-107); Estimated GFR 53.48 (mL/min/1.73m2); Ferritin 103 ng/mL (8-252); Glucose 169 mg/dL (74-106); Potassium 4.3 mmol/L (3.5-5.1); Sodium 140 mmol/L (136-145); TSH (W/Ref FT4) 26.21 uIU/mL (0.36-3.74)
== END 2020-12-28 19:47 | disposition home or self-care (01) ==
LOC: LBN 19:46
PROVIDERS: PCP Nurse Practitioner; Visit Provider Family Medicine
DX: D64.9 Anemia, unspecified (principal); I10 Essential (primary) hypertension; E03.9 Hypothyroidism, unspecified
CPT/HCPCS: 80048; 82728; 83540; 84439; 84443; 85025

== ENCOUNTER 2021-01-02 18:45 | Outpatient (REF) | payer OTHER, MEDICAID, SELFPAY ==
[2021-01-02 19:17] LABS: Abs Immature Grans 0.21 10^3/uL (0.0-0.06); Absolute Eosinophil Count 0.42 10^3/uL (0.0-0.7); Absolute Lymphocyte Count 2.05 10^3/uL (1.2-3.4); Absolute Monocyte Count 1.16 10^3/uL (0.1-0.8); Absolute Neutrophil Count 10.69 10^3/uL (1.2-6.7); Basophils % 0.7; Eosinophils % 2.9; HCT 31.7 % (36.0-46.0); Immature Grans % 1.4; MCHC 31.5 % (32.0-36.0); MCV 88.8 fL (80-95); MPV 9.7 fL (8.0-11.0); Monocytes % 7.9; Neutrophils % 73.1; Nucleated RBC 0 %; Platelet Count 340 10^3/uL (130-400); RBC 3.57 10^6/uL (3.93-5.22); RDW 19.4 % (11.7-14.6); RDW-SD 61.1 fL; WBC 14.63 10^3/uL (4.4-10.8)
[2021-01-02 19:26] LABS: Iron 84 ug/dL (50-170)
[2021-01-02 19:41] LABS: BUN 15 mg/dL (7-18); CREATININE 0.9 mg/dL (0.55-1.02); Calcium 9.5 mg/dL (8.5-10.1); Chloride 102 mmol/L (98-107); Ferritin 127 ng/mL (8-252); Glucose 135 mg/dL (74-106); Potassium 4.4 mmol/L (3.5-5.1); Sodium 142 mmol/L (136-145)
== END 2021-01-02 18:46 | disposition home or self-care (01) ==
LOC: LBN 18:45
PROVIDERS: PCP Nurse Practitioner; Visit Provider Family Medicine
DX: R62.7 Adult failure to thrive (principal); I10 Essential (primary) hypertension; E03.9 Hypothyroidism, unspecified; D64.9 Anemia, unspecified
CPT/HCPCS: 80048; 82728; 83540; 85025

== ENCOUNTER 2021-03-20 16:35 | Emergency (ER) | payer OTHER, MEDICAID, SELFPAY ==
[2021-03-20] VITALS (18 sets, daily range): BP systolic 165–193; BP diastolic 84–149; PULSE 75–87; RESP 14–27; TEMP 36.7; O2SAT 96–99
--- NOTE | 2021-03-20 16:30 | RT.EKG_ITS ---
APPROVED REPORT Exam: Resting ECG Reason for Exam: difficulty breathing Patient Location: E HR:79 bpm ECG Measurements Heart Rate 79 AXIS TX 157 P 50 QRSd 107 QRS -18 QT 395 T -1 QTc 453 Conclusion Sinus rhythm...normal P axis, V-rate 60- 99 Inferior infarct, old...Q >35mS, II III aVF
--- NOTE | 2021-03-20 16:30 | DI.RAD_ITS ---
Exam(s) XR CHEST 2V PA LATERAL EXAM: XR CHEST 2V PA LATERAL CLINICAL HISTORY: SOB, BLE edema. TECHNIQUE: 2D digital imaging was performed. COMPARISON: CR,XR XR CHEST 1V IN DI DEPT from 08/27/2020 FINDINGS: Heart size is normal. The mediastinum is not widened. Lungs are clear. No infiltrates nor pleural effusions. There is reverse arthroplasty in left shoulder. IMPRESSION: No acute pulmonary findings. DATA REPOSITORY: RADIATION DOSE DELIVERED:
--- NOTE | 2021-03-20 16:48 | ED.GENADUL_ITS ---
Discharge Plan Disposition Patient Disposition: HOME Condition: Improving Discharge Details Clinical Impression: Elevated brain natriuretic peptide (BNP) level, Bilateral edema of lower extremity, Breath, shortness Primary Care Provider: Jocy Kate ED Provider: Apolonia Pang Home Meds and New Rx's Prescriptions: New furosemide [Lasix] 20 mg tablet 20 mg PO DAILY Qty: 4 RF: 0 Continued (DME) compr.stocking,knee,long,large Misc See Rx Instructions .ROUTE .MEDSUPPLY Qty: 4 RF: 0 oxycodone 5 mg tablet See Rx Instructions PO BID MDD 10mg PRN (Reason: pain) Qty: 20 RF: 0 acetaminophen [Mapap Extra Strength] 500 mg tablet 1,000 mg PO Q4H PRN PRN (Reason: fever or pain) Qty: 120 RF: 3 aspirin [Adult Low Dose Aspirin] 81 mg tablet,delayed release (DR/EC) 81 mg PO DAILY RF: 0 (DME) diaper,brief,adult,disposable Misc 1 ea Miscellaneous PRN Qty: 100 RF: 6 atorvastatin 40 mg tablet 40 mg PO QPM Qty: 90 RF: 3 duloxetine 60 mg capsule,delayed release(DR/EC) 60 mg PO DAILY Qty: 30 RF: 5 enalapril maleate 10 mg tablet 10 mg PO DAILY Qty: 90 RF: 3 nitroglycerin 0.4 mg tablet, sublingual 0.4 mg Sublingual PRN Qty: 100 RF: 3 albuterol sulfate 90 mcg/actuation aerosol powdr breath activated 2 inh IH Q6H PRN (Reason: shortness of breath or wheezing) Qty: 1 RF: 5 (DME) Blood Glucose Test Strip See Rx Instructions .ROUTE .MEDSUPPLY Qty: 50 RF: 3 (DME) lancets Misc See Rx Instructions .ROUTE .MEDSUPPLY Qty: 100 RF: 3 Myrbetriq 25 mg tablet extended release 24 hr 25 mg PO DAILY Qty: 90 RF: 1 levothyroxine [Synthroid] 125 mcg tablet 125 mcg PO DAILY Qty: 90 RF: 3 melatonin 5 mg capsule 5 mg PO HS PRN Qty: 90 RF: 1 omeprazole 40 mg capsule,delayed release(DR/EC) 40 mg PO DAILY Qty: 90 RF: 3 (DME) blood-glucose meter [Blood Glucose Monitoring] Kit See Rx Instructions .ROUTE .MEDSUPPLY Qty: 1 RF: 0 multivitamin [Daily Multi-Vitamin] 1 EACH tablet 1 tab DAILY RF: 0 melatonin 5 mg capsule 5 mg PO HS MAY REPEAT X1 Qty: 60 RF: 0 Discharge Instructions Instructions: Furosemide (By mouth), Dyspnea (ED) Additional Instructions: Your shortness of breath is improving after IV Lasix. This will cause you to pee out excess fluid that was causing you to be short of breath. I would like you to continue on this medication orally for the next few days. He will be sent home with 1, please take this in the morning. Please also call your primary care tomorrow morning to schedule follow-up appointment the end of the week. If you develop fever/chills, chest pain, increase shortness of breath or other new/worsening symptoms please seek care urgently once again. Referrals: Jocy Kate NP [Primary Care Provider] - Discharge Data Discharge Date/Time-TO BE ENTERED AT DEPARTURE: 03/20/21 21:05 Medical Decision Making Patient is a pleasant 80 year old female, brought in via EMS with c/ cof SOB x 3 days. STates that symptoms have been persistant throughout this entire time. States it is better when she is outside in the breeze. Has not had symptoms like this historically. Reports dry cough. Denies fevers/chills, GI upset. No other symptoms of URI. No CP. PMH pertinent for COPD, HTN, GERD, hyperlipidemia, hypothyroidism. On exam, patient appears anxious. She has crackles in bilateral bases. Abdomen benign. Pitting BLE which patient reports is new. 2+ distal pulses. No calf tenderness. ECG obtained and reviewed by Dr. Andrade. NSR, rate 79. Old inferior infarct noted. Primarily concerned for CHF. She does report orthopnea. Also concered ACS, pneumonia. She does not have evidence of dissection. She has hx of COPD but this does not correlate clinically. Labs reviewed. Hgb 11, this is baseline. CMP WNL. Troponin WNL. As symptoms have been x 3 days, I do not feel that repeat troponin is warranted at this time, particularly as she has had no CP. BNP elevated at 960, this correlates clinically and is new for the patient. Will give IV Lasix. Patient responded well to diuresis. She feels much improved, crackes have subsided. Patient and I discussed disposition. She would like to go home. She does not have her walker, we have asked EMS to help her get into her apartment. Will continue with Lasix x 4 days. Have asked that she f/u with PCP for reevluation at the end of the week. Encouraged lower extremity elevation. Advised she ab stain from salt intake. Strict return precautions were discussed, she is in agreement with this plan. HPI General Mode of arrival: EMS . Date/Time Provider Initiated Documentation: 03/20/21 16:37 . Limitations to Documentation: no limitations . Information obtained by: patient, EMS, RN notes reviewed and old records reviewed . History of Present Illness 80 year old F presents to the emergency department with the chief complaint of SOB, described as moderate, with intensity rated at 7. Quality is described as other (no pain), and is localized to the chest. Patient reports no radiation. Patient started experiencing this day(s) (3) and it has been constant. Movement improves symptom(s), (better when outside in the breeze, worse when in the home at rest) Immoblization worsens symptoms . Patient notes cough and shortness of breath; denies chest pain, fever/chills, loss of appetite, nausea/vomiting, rash, syncope and weakness. Patient did receive the following treatments prior to arrival, other (inhaler) Related Data Home Medications Medication Instructions Recorded Confirmed multivitamin [Daily Multi-Vitamin] 1 tab DAILY 06/14/14 03/20/21 aspirin 81 mg tablet,delayed 81 mg PO DAILY 07/12/19 03/20/21 release diaper,brief,adult,disposable #100 ea 01/10/20 03/20/21 compr.stocking,knee,long,large #4 each 02/02/20 03/20/21 atorvastatin 40 mg tablet 40 mg PO QPM #90 tab 06/12/20 03/20/21 duloxetine 60 mg capsule,delayed 60 mg PO DAILY #30 cap 06/12/20 03/20/21 release enalapril maleate 10 mg tablet 10 mg PO DAILY #90 tab 06/12/20 03/20/21 nitroglycerin 0.4 mg sublingual 0.4 mg SUBLINGUAL PRN #100 tab-cap 06/12/20 03/20/21 tablet albuterol sulfate 90 mcg/actuation 2 inh IH Q6H PRN #1 each 07/20/20 03/20/21 breath activated powder inhaler melatonin 5 mg PO HS MAY REPEAT X1 #60 cap 08/31/20 03/20/21 blood sugar diagnostic #50 each 09/06/20 03/20/21 lancets #100 ea 09/07/20 03/20/21 mirabegron 25 mg tablet,extended 25 mg PO DAILY #90 tab 10/02/20 03/20/21 release 24 hr levothyroxine 125 mcg tablet 125 mcg PO DAILY #90 tab 10/23/20 03/20/21 melatonin 5 mg capsule 5 mg PO HS PRN #90 cap 10/23/20 03/20/21 omeprazole 40 mg capsule,delayed 40 mg PO DAILY #90 cap 10/23/20 03/20/21 release acetaminophen 500 mg tablet 1,000 mg PO Q4H PRN PRN #120 tab 10/25/20 03/20/21 blood-glucose meter #1 ea 10/30/20 03/20/21 oxycodone 5 mg tablet See Rx Instructions PO BID PRN #20 12/12/20 03/20/21 tab MDD 10mg furosemide [Lasix] 20 mg PO DAILY #4 tab 03/20/21 Previous Rx's Medication Instructions Recorded diaper,brief,adult,disposable #100 ea 01/10/20 compr.stocking,knee,long,large #4 each 02/02/20 atorvastatin 40 mg tablet 40 mg PO QPM #90 tab 06/12/20 duloxetine 60 mg capsule,delayed 60 mg PO DAILY #30 cap 06/12/20 release enalapril maleate 10 mg tablet 10 mg PO DAILY #90 tab 06/12/20 nitroglycerin 0.4 mg sublingual 0.4 mg SUBLINGUAL PRN #100 tab-cap 06/12/20 tablet albuterol sulfate 90 mcg/actuation 2 inh IH Q6H PRN #1 each 07/20/20 breath activated powder inhaler melatonin 5 mg PO HS MAY REPEAT X1 #60 cap 08/31/20 blood sugar diagnostic #50 each 09/06/20 lancets #100 ea 09/07/20 mirabegron 25 mg tablet,extended 25 mg PO DAILY #90 tab 10/02/20 release 24 hr levothyroxine 125 mcg tablet 125 mcg PO DAILY #90 tab 10/23/20 melatonin 5 mg capsule 5 mg PO HS PRN #90 cap 10/23/20 omeprazole 40 mg capsule,delayed 40 mg PO DAILY #90 cap 10/23/20 release acetaminophen 500 mg tablet 1,000 mg PO Q4H PRN PRN #120 tab 10/25/20 blood-glucose meter #1 ea 10/30/20 oxycodone 5 mg tablet See Rx Instructions PO BID PRN #20 12/12/20 tab MDD 10mg furosemide [Lasix] 20 mg PO DAILY #4 tab 03/20/21 Allergies Allergy/AdvReac Type Severity Reaction Status Date / Time fentanyl [From Duragesic] Allergy Intermediate RASH, Verified 03/20/21 16:46 ITCHING oxybutynin chloride AdvReac Intermediate Itching Verified 03/20/21 16:46 [From Ditropan] tramadol AdvReac Intermediate ITCHING Verified 03/20/21 16:46 ENVIRONMENTAL Allergy RHINITIS Uncoded 03/20/21 16:46 General Stated Complaint: SOB ARMEN: 2 Review of Systems Constitutional Constitutional: Reports as per HPI, Denies chills, Denies fever(s), Denies headache(s), Denies lethargy and Denies poor appetite Eyes Eyes: Denies change in vision ENT Ears, Nose, Mouth, and Throat: Denies dizziness and Denies headache(s) Cardiovascular Cardiovascular: Reports as per HPI, Reports dyspnea and Denies dyspnea on exertion Respiratory Respiratory: Reports as per HPI, Denies chest congestion, Reports cough, Denies pain on inspiration, Denies pain with cough, Reports dyspnea, Denies dyspnea on exertion and Denies wheezing Gastrointestinal Gastrointestinal: Reports as per HPI, Denies abdominal pain, Denies diarrhea, Denies nausea and Denies vomiting Musculoskeletal Musculoskeletal: Reports as per HPI and Denies back pain Integumentary/Breasts Skin/Breast: Reports as per HPI and Denies rash Neurologic Neurologic: Reports as per HPI, Denies dizziness and Denies headache(s) Allergic/Immunologic Allergic/Immunologic: Denies wheezing [facility] Medical History (Updated 03/20/21 @ 19:28 by ANNIE Flores) Angina pectoris Arthropathy Chronic low back pain Chronic pain Claustrophobia Claustrophobia COPD (chronic obstructive pulmonary disease) Degenerative spondylolisthesis Diverticulosis Essential hypertension Gastroesophageal reflux disease Hyperlipidemia Hypothyroidism Hypothyroidism Impaired mobility Left carotid stenosis Lower gastrointestinal bleed Migraine Near syncope Osteoarthritis RLS (restless legs syndrome) Spinal stenosis Stress incontinence Urge urinary incontinence Surgical History Abdominal hysterectomy Age 29 Cholecystectomy (~09/2002) Colonoscopy - MAC (05/23/17) Extraction of cataract (~10/2007) Bilateral Laminectomy (03/27/09) L3-L5,medial facetectomy,L3-L4 and L4-L5. Open Carpal Tunnel release (~1998) Left Right done by Dr. Paulson 2017 Replacement of total knee joint Left 2012 Status post reverse total arthroplasty of left shoulder (~11/2020) TVT (~05/2004) Family History Mother Essential hypertension Neoplasm Lymphoma Sister , DM Complications at age 53. Diabetes Social History Smoking/Tobacco Use Status: Former Tobacco Use Smoking risk assessment performed?: Yes Alcohol Intake: former Drug use: Never Substance use type: does not use Adopted: No Caregiver/Support person: No Foster care: No Household members: none Housing: apartment Number of Children: 3 Do you need help understanding health information?: Often Pets and animals: No Sexually active: No Current gender identity: female What type of physical activity do you participate in: none Seatbelt use: always Do you feel safe at home: Yes ([facility] [facility]) Do you feel safe in your relationship?: Yes Exam Const General: cooperative, comfortable, no acute distress, well developed and anxious Nutritional Appearance: well nourished and overweight Orientation: alert, awake and oriented x3 HENMT Head: normal to inspection Ears: hearing grossly normal bilaterally Mouth: moist mucous membranes Chest Chest: normal inspection of the chest, normal palpation of entire chest wall and no crepitus Resp Effort & Inspection: normal respiratory effort, able to speak in complete sentences and no respiratory distress Auscultation: crackles bilaterally at the base, no rales, no rhonchi and no wh eezes Cardio Rate: regular rate Rhythm: regular rhythm Heart Sounds: murmur GI Inspection: normal to inspection, no edema and non-distended Palpation: soft, no hepatosplenomegaly, not firm, no guarding, not rigid and nontender Auscultation: normal bowel sounds Skin General skin exam: no rashes or lesions noted Trauma: no lacerations or abrasions Neuro General: patient alert, patient awake and patient oriented x3 Cognition: normal cognition Speech: speech normal Gait: normal gait (ambulates with assistances, uses walker at baseline) Extrem General: normal to inspection, capillary refill normal, no calf tenderness and pedal edema bilaterally pitting and 2+ Psych Appearance: grossly normal and well kempt Mental Status: mental status grossly normal Speech and Movement: speech and movement normal Course Vital Signs Vital signs: Vital Signs Temperature 36.7 C 03/20/21 16:37 Pulse 83 03/20/21 16:37 Respiratory Rate 22 03/20/21 16:37 Blood Pressure 193/84 H 03/20/21 16:37 Pulse Oximetry 98 03/20/21 16:37 Temperature 36.7 C 03/20/21 16:37 Pulse 83 03/20/21 16:37 Respiratory Rate 22 03/20/21 16:37 Respiratory Effort 03/20/21 16:45 Blood Pressure 193/84 H 03/20/21 16:37 Pulse Oximetry 98 03/20/21 16:37 Oxygen Delivery Method Room Air 03/20/21 16:37 Oxygen Flow Rate 0 03/20/21 16:37 Pain Level 7 03/20/21 16:37
[2021-03-20 17:09] LABS: Abs Immature Grans 0.15 10^3/uL (0.0-0.06); Absolute Basophil Count 0.08 10^3/uL (0.0-0.2); Absolute Eosinophil Count 0.14 10^3/uL (0.0-0.7); Absolute Lymphocyte Count 2.44 10^3/uL (1.2-3.4); Absolute Monocyte Count 0.81 10^3/uL (0.1-0.8); Absolute Neutrophil Count 6.78 10^3/uL (1.2-6.7); Basophils % 0.8; Eosinophils % 1.3; Immature Grans % 1.4; Lymphocytes % 23.5; MCH 31.3 pg (27.0-33.0); MCHC 32.4 % (32.0-36.0); MCV 96.9 fL (80-95); MPV 9.4 fL (8.0-11.0); Monocytes % 7.8; Neutrophils % 65.2; Nucleated RBC 0 %; Platelet Count 346 10^3/uL (130-400); RBC 3.51 10^6/uL (3.93-5.22); RDW 16.9 % (11.7-14.6); RDW-SD 58.8 fL
[2021-03-20 17:29] LABS: ALT 16 U/L (14-59); AST 11 U/L (15-37); Alkaline Phosphatase 63 U/L (46-116); Anion Gap 6.3 mmol/L (3-11); BUN 13 mg/dL (7-18); Bilirubin, Total 0.3 mg/dL (0.2-1.0); CO2 30.7 mmol/L (21.0-32.0); Calcium 9.4 mg/dL (8.5-10.1); Chloride 105 mmol/L (98-107); Estimated GFR 53.48 (mL/min/1.73m2); Glucose 175 mg/dL (74-106); NT-proBNP 960 pg/mL (<300); Potassium 3.9 mmol/L (3.5-5.1); Sodium 142 mmol/L (136-145); Total Protein 7.9 g/dL (6.4-8.2); Troponin I < 0.05 ng/mL (<0.06)
--- NOTE | 2021-03-20 17:36 | DI.VRAD_ITS ---
PROCEDURE INFORMATION: Exam: XR Chest Exam date and time: 03/20/2021 4:45 PM Age: 80 years old Clinical indication: Shortness of breath TECHNIQUE: Imaging protocol: XR of the chest. Views: 2 views. COMPARISON: CR XR CHEST 1V IN DI DEPT 08/27/2020 3:34 PM FINDINGS: Lungs: Unremarkable. No consolidation. Pleural spaces: Unremarkable. No pleural effusion. No pneumothorax. Heart/Mediastinum: Unremarkable. No cardiomegaly. Bones/joints: Degenerative arthritis in the spine and shoulders. Left reverse shoulder arthroplasty. IMPRESSION: No acute findings Dictated and Authenticated by: Abigail Ramesh MD. Ordering:NOEL Barksdale MD
[2021-03-20] MEDS: Furosemide 20 MG/2 ML VIAL IVP (17:41)
[2021-03-20] MEDS: Furosemide 20 MG TAB PO (19:56)
== END 2021-03-20 21:05 | disposition home or self-care (01) ==
PROVIDERS: Emergency Provider Physician Assistant; PCP Nurse Practitioner
DX: R06.02 Shortness of breath (principal); R79.89 Other specified abnormal findings of blood chemistry; R60.0 Localized edema
CPT/HCPCS: 80053; 93005; 96374; 99284; 71046; 83735; 83880; 84484; 85025; 93010; 99283; J1941

== ENCOUNTER 2021-04-19 15:50 | Outpatient (CLI) | payer OTHER, MEDICAID, SELFPAY ==
--- NOTE | 2021-04-19 14:45 | DI.US_ITS ---
Exam(s) US LOWER EXTREMITY VENOUS RT EXAM: US LOWER EXTREMITY VENOUS RT CLINICAL HISTORY: eval for possible DVT M79.604 PAIN RT LEG M79.661 PAIN LT LOWER LEG M79.89 TECHNIQUE: Grayscale, color, and doppler imaging of the deep venous system of the right lower extrem ity was performed. COMPARISON: US US LOWER EXTREMITY VENOUS RT from 07/14/2020 FINDINGS: There is no evidence of intraluminal thrombus and there is normal compression and augmentation demons trated within the common femoral vein, femoral vein, and popliteal vein. In the ipsilateral calf the interrogated veins also exhibit normal compression/ augmentation properti es. The ipsilateral saphenofemoral junction is patent. IMPRESSION: 1. No evidence of DVT in the right lower extremity. DATA REPOSITORY:
== END 2021-04-19 16:10 ==
PROVIDERS: PCP Nurse Practitioner; Visit Provider Student in an Organized Health Care Education/Training Program
DX: M79.661 Pain in right lower leg (principal); M79.89 Other specified soft tissue disorders; Z78.9 Other specified health status
CPT/HCPCS: 93971

== ENCOUNTER 2021-04-22 11:09 | Emergency (ER) | payer OTHER, MEDICAID, SELFPAY ==
[2021-04-22] VITALS (9 sets, daily range): BP systolic 109–160; BP diastolic 58–92; PULSE 78–91; RESP 18–20; TEMP 36.5–36.7; O2SAT 97–99
--- NOTE | 2021-04-22 11:30 | ED.GENADUL_ITS ---
Discharge Plan Disposition Patient Disposition: HOME Condition: Stable Discharge Details Clinical Impression: Cellulitis of right leg Primary Care Provider: Jocy Kate ED Provider: Fidelia Mckeon Home Meds and New Rx's Prescriptions: New clindamycin HCl 150 mg capsule 450 mg PO TID 7 Days Qty: 63 RF: 0 oxycodone 5 mg tablet 5 mg PO Q6H PRN (Reason: pain) Qty: 10 RF: 0 Continued (DME) compr.stocking,knee,long,large Misc See Rx Instructions .ROUTE .MEDSUPPLY Qty: 4 RF: 0 Bengay Ultra Strength 4-30-10 % cream 1 applic topical TID PRNRF: 0 oxycodone 5 mg tablet See Rx Instructions PO BID MDD 10mg PRN (Reason: pain) Qty: 30 RF: 0 furosemide [Lasix] 20 mg tablet 20 mg PO DAILY Qty: 30 RF: 0 acetaminophen [Mapap Extra Strength] 500 mg tablet 1,000 mg PO Q4H PRN PRN (Reason: fever or pain) Qty: 120 RF: 3 aspirin [Adult Low Dose Aspirin] 81 mg tablet,delayed release (DR/EC) 81 mg PO DAILY RF: 0 (DME) diaper,brief,adult,disposable Misc 1 ea Miscellaneous PRN Qty: 100 RF: 6 atorvastatin 40 mg tablet 40 mg PO QPM Qty: 90 RF: 3 duloxetine 60 mg capsule,delayed release(DR/EC) 60 mg PO DAILY Qty: 30 RF: 5 enalapril maleate 10 mg tablet 10 mg PO DAILY Qty: 90 RF: 3 nitroglycerin 0.4 mg tablet, sublingual 0.4 mg Sublingual PRN Qty: 100 RF: 3 albuterol sulfate 90 mcg/actuation aerosol powdr breath activated 2 inh IH Q6H PRN (Reason: shortness of breath or wheezing) Qty: 1 RF: 5 (DME) Blood Glucose Test Strip See Rx Instructions .ROUTE .MEDSUPPLY Qty: 50 RF: 3 (DME) lancets Misc See Rx Instructions .ROUTE .MEDSUPPLY Qty: 100 RF: 3 Myrbetriq 25 mg tablet extended release 24 hr 25 mg PO DAILY Qty: 90 RF: 1 levothyroxine [Synthroid] 125 mcg tablet 125 mcg PO DAILY Qty: 90 RF: 3 melatonin 5 mg capsule 5 mg PO HS PRN Qty: 90 RF: 1 omeprazole 40 mg capsule,delayed release(DR/EC) 40 mg PO DAILY Qty: 90 RF: 3 (DME) blood-glucose meter [Blood Glucose Monitoring] Kit See Rx Instructions .ROUTE .MEDSUPPLY Qty: 1 RF: 0 multivitamin [Daily Multi-Vitamin] 1 EACH tablet 1 tab DAILY RF: 0 melatonin 5 mg capsule 5 mg PO HS MAY REPEAT X1 Qty: 60 RF: 0 Discontinued cephalexin 500 mg capsule 500 mg PO QID Qty: 20 RF: 0 Discharge Instructions Instructions: Cellulitis (ED) Additional Instructions: Rest, ice, and elevate the affected area as much as possible. Stop taking your keflex. Prescriptions for a new antibiotic and pain medication have been sent electronically to your pharmacy. Alternate tylenol and motrin as needed and directed for pain. You can take the oxycodone as needed and directed for pain not relieved with Tylenol or Motrin. Call your primary care doctor tomorrow to schedule a follow-up appointment for reevaluation in the next few days. Return immediately to the emergency department if you develop any worsening or new concerning symptoms such as fever, worsening pain, redness or swelling. Discharge Data Discharge Physician: Fidelia Mckeon Medical Decision Making 80-year-old female with a history of morbid obesity, diabetes, COPD, hype rtension, hyperlipidemia, wheelchair-bound presents for concern for worsening infection to her right lower leg currently on Keflex. She had negative leg ultrasound 3 days ago. Her right distal lower leg is warm to touch with erythema extending from distal aspect lower leg. There is no significant edema. She is neurovascular intact. No rash or lesions. No abscess noted. Patient referred for labs which noted normal white blood cell count at 8. Lactate normal at 0.7. ESR normal at 18. CRP minimally elevated at 0.73. Will DC patient's Keflex and start on clindamycin. Discussed the importance of supplementing with probiotics to maintain her gut bacteria and prevent C. difficile diarrhea. She also complained of significant leg pain and was given oxycodone with relief. We will send also a prescription for oxycodone which she tolerated well. Medical Records Medical records reviewed: Yes I reviewed the patient's medical records. Lab Data Lab results reviewed: Yes I reviewed the patient's lab results. Labs: Laboratory Tests Range/Units 04/22/21 04/22/21 04/22/21 11:40 11:40 11:40 WBC (4.4-10.8) 10^3/uL RBC (3.93-5.22) 10^6/uL Hgb (11.2-15.7) g/dL Hct (36.0-46.0) % MCV (80-95) fL MCH (27.0-33.0) pg MCHC (32.0-36.0) % RDW (11.7-14.6) % Plt Count (130-400) 10^3/uL MPV (8.0-11.0) fL Immature Gran % Neutrophils % Lymphocytes % Monocytes % Eosinophils % Basophils % Nucleated RBC % % Absolute Neutrophils (1.2-6.7) 10^3/uL Absolute Lymphocytes (1.2-3.4) 10^3/uL Absolute Monocytes (0.1-0.8) 10^3/uL Absolute Eosinophils (0.0-0.7) 10^3/uL Absolute Basophils (0.0-0.2) 10^3/uL ESR (0-30) mm/hr 18 VBG Lactate (0.6-1.4) mmol/L 0.7 Sodium (136-145) mmol/L 142 Potassium (3.5-5.1) mmol/L 4.2 Chloride (98-107) mmol/L 106 Carbon Dioxide (21.0-32.0) mmol/L 29.4 Anion Gap (3-11) mmol/L 6.6 BUN (7-18) mg/dL 17 Creatinine (0.55-1.02) mg/dL 1.0 Estimated GFR/1.73 m2 (mL/min/1.73m2) 53.48 Glucose (74-106) mg/dL 136 H Calcium (8.5-10.1) mg/dL 9.6 Total Bilirubin (0.2-1.0) mg/dL 0.4 AST (15-37) U/L 21 ALT (14-59) U/L 23 Alkaline Phosphatase (46-116) U/L 60 C-Reactive Protein (0.0-0.3) mg/dL 0.73 H Total Protein (6.4-8.2) g/dL 7.9 Albumin (3.4-5.0) g/dL 4.1 Range/Units 04/22/21 11:40 WBC (4.4-10.8) 10^3/uL 8.60 RBC (3.93-5.22) 10^6/uL 3.29 L Hgb (11.2-15.7) g/dL 10.3 L Hct (36.0-46.0) % 32.4 L MCV (80-95) fL 98.5 H MCH (27.0-33.0) pg 31.3 MCHC (32.0-36.0) % 31.8 L RDW (11.7-14.6) % 15.5 H Plt Count (130-400) 10^3/uL 324 MPV (8.0-11.0) fL 9.5 Immature Gran % 1.2 Neutrophils % 69.6 Lymphocytes % 19.7 Monocytes % 7.2 Eosinophils % 1.6 Basophils % 0.7 Nucleated RBC % % 0 Absolute Neutrophils (1.2-6.7) 10^3/uL 5.99 Absolute Lymphocytes (1.2-3.4) 10^3/uL 1.69 Absolute Monocytes (0.1-0.8) 10^3/uL 0.62 Absolute Eosinophils (0.0-0.7) 10^3/uL 0.14 Absolute Basophils (0.0-0.2) 10^3/uL 0.06 ESR (0-30) mm/hr VBG Lactate (0.6-1.4) mmol/L Sodium (136-145) mmol/L Potassium (3.5-5.1) mmol/L Chloride (98-107) mmol/L Carbon Dioxide (21.0-32.0) mmol/L Anion Gap (3-11) mmol/L BUN (7-18) mg/dL Creatinine (0.55-1.02) mg/dL Estimated GFR/1.73 m2 (mL/min/1.73m2) Glucose (74-106) mg/dL Calcium (8.5-10.1) mg/dL Total Bilirubin (0.2-1.0) mg/dL AST (15-37) U/L ALT (14-59) U/L Alkaline Phosphatase (46-116) U/L C-Reactive Protein (0.0-0.3) mg/dL Total Protein (6.4-8.2) g/dL Albumin (3.4-5.0) g/dL HPI General Mode of arrival: wheelchair . Date/Time Provider Initiated Documentation: 04/22/21 11:24 . Limitations to Documentation: no limitations . Information obtained by: patient . HPI Narrative: Patient is a 80-year-old female with a history of diabetes, morbid obesity, COPD, hypertension, hyperlipidemia, GERD who is wheelchair-bound currently on Keflex for a right leg cellulitis presents from home for worsening right leg pain, and redness. Patient was seen at her PCP office this week for right calf pain and started on Keflex for right leg cellulitis. She was referred for outpatient ultrasound which was negative for DVT. Patient states her right leg pain is worse and the area is now more red and warm to touch. She denies any known fever. Related Data Home Medications Medication Instructions Recorded Confirmed multivitamin [Daily Multi-Vitamin] 1 tab DAILY 06/14/14 04/22/21 aspirin 81 mg tablet,delayed 81 mg PO DAILY 07/12/19 04/22/21 release diaper,brief,adult,disposable #100 ea 01/10/20 04/22/21 compr.stocking,knee,long,large #4 each 02/02/20 04/22/21 atorvastatin 40 mg tablet 40 mg PO QPM #90 tab 06/12/20 04/22/21 duloxetine 60 mg capsule,delayed 60 mg PO DAILY #30 cap 06/12/20 04/22/21 release enalapril maleate 10 mg tablet 10 mg PO DAILY #90 tab 06/12/20 04/22/21 nitroglycerin 0.4 mg sublingual 0.4 mg SUBLINGUAL PRN #100 tab-cap 06/12/20 04/22/21 tablet albuterol sulfate 90 mcg/actuation 2 inh IH Q6H PRN #1 each 07/20/20 04/22/21 breath activated powder inhaler melatonin 5 mg PO HS MAY REPEAT X1 #60 cap 08/31/20 04/22/21 blood sugar diagnostic #50 each 09/06/20 04/22/21 lancets #100 ea 09/07/20 04/22/21 mirabegron 25 mg tablet,extended 25 mg PO DAILY #90 tab 10/02/20 04/22/21 release 24 hr levothyroxine 125 mcg tablet 125 mcg PO DAILY #90 tab 10/23/20 04/22/21 melatonin 5 mg capsule 5 mg PO HS PRN #90 cap 10/23/20 04/22/21 omeprazole 40 mg capsule,delayed 40 mg PO DAILY #90 cap 10/23/20 04/22/21 release acetaminophen 500 mg tablet 1,000 mg PO Q4H PRN PRN #120 tab 10/25/20 04/22/21 blood-glucose meter #1 ea 10/30/20 04/22/21 camphor 4 %-methyl salicylate 30 1 applic TOPICAL TID PRN g 03/28/21 04/22/21 %-menthol 10 % topical cream furosemide 20 mg tablet 20 mg PO DAILY #30 tab 03/28/21 04/22/21 oxycodone 5 mg tablet See Rx Instructions PO BID PRN #30 03/28/21 04/22/21 tab MDD 10mg clindamycin HCl 450 mg PO TID 7 Days #63 cap 04/22/21 oxycodone 5 mg PO Q6H PRN #10 tab 04/22/21 Previous Rx's Medication Instructions Recorded diaper,brief,adult,disposable #100 ea 01/10/20 compr.stocking,knee,long,large #4 each 02/02/20 atorvastatin 40 mg tablet 40 mg PO QPM #90 tab 06/12/20 duloxetine 60 mg capsule,delayed 60 mg PO DAILY #30 cap 06/12/20 release enalapril maleate 10 mg tablet 10 mg PO DAILY #90 tab 06/12/20 nitroglycerin 0.4 mg sublingual 0.4 mg SUBLINGUAL PRN #100 tab-cap 06/12/20 tablet albuterol sulfate 90 mcg/actuation 2 inh IH Q6H PRN #1 each 07/20/20 breath activated powder inhaler melatonin 5 mg PO HS MAY REPEAT X1 #60 cap 08/31/20 blood sugar diagnostic #50 each 09/06/20 lancets #100 ea 09/07/20 mirabegron 25 mg tablet,extended 25 mg PO DAILY #90 tab 10/02/20 release 24 hr levothyroxine 125 mcg tablet 125 mcg PO DAILY #90 tab 10/23/20 melatonin 5 mg capsule 5 mg PO HS PRN #90 cap 10/23/20 omeprazole 40 mg capsule,delayed 40 mg PO DAILY #90 cap 10/23/20 release acetaminophen 500 mg tablet 1,000 mg PO Q4H PRN PRN #120 tab 10/25/20 blood-glucose meter #1 ea 10/30/20 furosemide 20 mg tablet 20 mg PO DAILY #30 tab 03/28/21 oxycodone 5 mg tablet See Rx Instructions PO BID PRN #30 03/28/21 tab MDD 10mg clindamycin HCl 450 mg PO TID 7 Days #63 cap 04/22/21 oxycodone 5 mg PO Q6H PRN #10 tab 04/22/21 Allergies Allergy/AdvReac Type Severity Reaction Status Date / Time fentanyl [From Duragesic] Allergy Intermediate RASH, Verified 04/22/21 11:22 ITCHING oxybutynin chloride AdvReac Intermediate Itching Verified 04/22/21 11:22 [From Ditropan] tramadol AdvReac Intermediate ITCHING Verified 04/22/21 11:22 ENVIRONMENTAL Allergy RHINITIS Uncoded 04/22/21 11:22 General Stated Complaint: Cellulitis ARMEN: 3 Review of Systems All systems reviewed & are unremarkable except as noted in HPI and below Constitutional Constitutional: Reports as per HPI, Denies chills and Denies fever(s) Eyes Eyes: Denies blurry vision ENT Ears, Nose, Mouth, and Throat: Denies dizziness, Denies sore throat and Denies throat swelling Cardiovascular Cardiovascular: Denies chest pain and Denies dyspnea Respiratory Respiratory: Denies cough and Denies dyspnea Gastrointestinal Gastrointestinal: Denies abdominal pain, Denies diarrhea and Denies vomiting Genitourinary Genitourinary: Denies hematuria and Denies dysuria Musculoskeletal Musculoskeletal: Denies back pain, Denies numbness and Reports other (R leg pain) Integumentary/Breasts Skin/Breast: Denies lesions and Denies rash Neurologic Neurologic: Denies dizziness, Denies localized weakness and Denies numbness Allergic/Immunologic Allergic/Immunologic: Denies throat swelling [facility] Medical History (Updated 04/22/21 @ 13:40 by Fidelia Mckeon DO) Angina pectoris Arthropathy Chronic low back pain Chronic pain Claustrophobia Claustrophobia COPD (chronic obstructive pulmonary disease) Degenerative spondylolisthesis Diverticulosis Essential hypertension Gastroesophageal reflux disease Hyperlipidemia Hypothyroidism Hypothyroidism Impaired mobility Left carotid stenosis Lower gastrointestinal bleed Migraine Near syncope Osteoarthritis Right leg swelling RLS (restless legs syndrome) Spinal stenosis Stress incontinence Tenderness of right calf Tender, swollen, firm, warm .. possible DVT? possible cellulitis? Urge urinary incontinence Surgical History Abdominal hysterectomy Age 29 Cholecystectomy (~09/2002) Colonoscopy - MAC (05/23/17) Extraction of cataract (~10/2007) Bilateral Laminectomy (03/27/09) L3-L5,medial facetectomy,L3-L4 and L4-L5. Open Carpal Tunnel release (~1998) Left Right done by Dr. Paulson 2017 Replacement of total knee joint Left 2011 Status post reverse total arthroplasty of left shoulder (~11/2020) TVT (~05/2004) Family History Mother Essential hypertension Neoplasm Lymphoma Sister , DM Complications at age 53. Diabetes Social History Smoking/Tobacco Use Status: Former Tobacco Use Smoking risk assessment performed?: Yes Alcohol Intake: former Drug use: Never Substance use type: does not use Adopted: No Caregiver/Support person: No Foster care: No Household members: none Housing: apartment Number of Children: 3 Do you need help understanding health information?: Often Pets and animals: No Sexually active: No Current gender identity: female What type of physical activity do you participate in: none Seatbelt use: always Do you feel safe at home: Yes ([place]) Do you feel safe in your relationship?: Yes Exam Const General: cooperative and no acute distress HENMT Head: normal to inspection Face and sinus: normal facial exam Eyes General: appearance normal, both eyes and all related structures EOM: EOM intact bilaterally Neck Neck: normal visual inspection and No submandibular swelling Lymphatic: no lymphadenopathy noted Chest Chest: normal inspection of the chest and no tenderness Resp Effort & Inspection: normal respiratory effort and able to speak in complete sentences Cardio Rate: regular rate Skin General skin exam: no rashes or lesions noted Neuro General: patient alert, patient awake and patient oriented x3 Cognition: normal cognition Speech: speech normal Motor: muscle tone normal throughout Sensory Exam: no sensory deficits noted Extrem General: full ROM, capillary refill normal and edema Ankle/foot/toe images: 1. Erythema extending upward from ankle to distal lower leg. Warm to touch, most on distal aspect. 2. Erythema extending upward from ankle to distal lower leg. Warm to touch, most on distal aspect. Other: R DP and PT pulses intact. Psych Appearance: grossly normal Mental Status: mental status grossly normal Speech and Movement: speech and movement normal Affect: normal affect Course Vital Signs Vital signs: Vital Signs Temperature 98.1 F 04/22/21 11:10 Pulse 85 04/22/21 11:10 Respiratory Rate 20 04/22/21 11:10 Blood Pressure 160/76 H 04/22/21 11:10 Pulse Oximetry 98 04/22/21 11:10 Temperature 98.1 F 04/22/21 11:10 Temperature Source Temporal Artery Scan 04/22/21 11:10 Pulse 85 04/22/21 11:10 Respiratory Rate 20 04/22/21 11:10 Respiratory Effort Non-Labored 04/22/21 11:20 Blood Pressure 160/76 H 04/22/21 11:10 Blood Pressure Position Supine 04/22/21 11:10 Pulse Oximetry 98 04/22/21 11:10 Oxygen Delivery Method Room Air 04/22/21 11:10 Oxygen Flow Rate 0 04/22/21 11:10 Pain Level 8 04/22/21 11:10
[2021-04-22 11:54] LABS: Absolute Basophil Count 0.06 10^3/uL (0.0-0.2); Absolute Eosinophil Count 0.14 10^3/uL (0.0-0.7); Absolute Lymphocyte Count 1.69 10^3/uL (1.2-3.4); Absolute Monocyte Count 0.62 10^3/uL (0.1-0.8); Absolute Neutrophil Count 5.99 10^3/uL (1.2-6.7); Basophils % 0.7; Eosinophils % 1.6; HCT 32.4 % (36.0-46.0); HGB 10.3 g/dL (11.2-15.7); Immature Grans % 1.2; Lymphocytes % 19.7; MCH 31.3 pg (27.0-33.0); MCHC 31.8 % (32.0-36.0); MCV 98.5 fL (80-95); MPV 9.5 fL (8.0-11.0); Monocytes % 7.2; Neutrophils % 69.6; Nucleated RBC 0 %; Platelet Count 324 10^3/uL (130-400); RBC 3.29 10^6/uL (3.93-5.22); RDW 15.5 % (11.7-14.6); RDW-SD 54.4 fL
[2021-04-22 11:56] LABS: Lactate 0.7 mmol/L (0.6-1.4)
[2021-04-22 12:00] LABS: ESR 18 mm/hr (0-30)
[2021-04-22 12:12] LABS: ALT 23 U/L (14-59); AST 21 U/L (15-37); Albumin 4.1 g/dL (3.4-5.0); Alkaline Phosphatase 60 U/L (46-116); Anion Gap 6.6 mmol/L (3-11); BUN 17 mg/dL (7-18); Bilirubin, Total 0.4 mg/dL (0.2-1.0); C-Reactive Protein 0.73 mg/dL (0.0-0.3); CO2 29.4 mmol/L (21.0-32.0); Calcium 9.6 mg/dL (8.5-10.1); Chloride 106 mmol/L (98-107); Estimated GFR 53.48 (mL/min/1.73m2); Glucose 136 mg/dL (74-106); Potassium 4.2 mmol/L (3.5-5.1); Sodium 142 mmol/L (136-145); Total Protein 7.9 g/dL (6.4-8.2)
[2021-04-22] MEDS: oxyCODONE 10 MG TAB PO (12:27)
[2021-04-22] MEDS: Clindamycin 150 MG CAP 450 MG PO (13:22)
[2021-04-22] MEDS: Clindamycin 150 MG CAP, 12 CAPS/BTL 450 MG PO (14:44)
== END 2021-04-22 15:25 | disposition home or self-care (01) ==
PROVIDERS: Emergency Provider Physician Assistant; PCP Nurse Practitioner
DX: L03.115 Cellulitis of right lower limb (principal); M79.604 Pain in right leg; Z99.3 Dependence on wheelchair
CPT/HCPCS: 36415; 80053; 85652; 99283; 83605; 85025; 86140; 99284

== ENCOUNTER 2021-06-07 03:14 | Outpatient (CLI) | payer MEDICARE, MEDICAID, SELFPAY ==
[2021-06-07 09:49] LABS: Abs Immature Grans 0.06 10^3/uL (0.0-0.06); Absolute Basophil Count 0.05 10^3/uL (0.0-0.2); Absolute Eosinophil Count 0.12 10^3/uL (0.0-0.7); Absolute Lymphocyte Count 1.54 10^3/uL (1.2-3.4); Absolute Monocyte Count 0.68 10^3/uL (0.1-0.8); Absolute Neutrophil Count 7.26 10^3/uL (1.2-6.7); Basophils % 0.5; Eosinophils % 1.2; HCT 30.3 % (36.0-46.0); HGB 9.6 g/dL (11.2-15.7); Immature Grans % 0.6; Lymphocytes % 15.9; MCH 31.6 pg (27.0-33.0); MCHC 31.7 % (32.0-36.0); MCV 99.7 fL (80-95); MPV 9.6 fL (8.0-11.0); Neutrophils % 74.8; Nucleated RBC 0 %; Platelet Count 288 10^3/uL (130-400); RBC 3.04 10^6/uL (3.93-5.22); RDW 16.6 % (11.7-14.6); RDW-SD 59.8 fL; WBC 9.71 10^3/uL (4.4-10.8)
[2021-06-07 10:01] LABS: Hemoglobin A1C 6.9 % (<5.7)
[2021-06-07 11:18] LABS: ALT 24 U/L (14-59); AST 14 U/L (15-37); Albumin 4.5 g/dL (3.4-5.0); Alkaline Phosphatase 47 U/L (46-116); Anion Gap 6.5 mmol/L (3-11); BUN 14 mg/dL (7-18); Bilirubin, Total 0.7 mg/dL (0.2-1.0); CO2 30.5 mmol/L (21.0-32.0); Calcium 9.8 mg/dL (8.5-10.1); Calculated LDL 48 mg/dL (<100); Chloride 104 mmol/L (98-107); Cholesterol 123 mg/dL (<200); Estimated GFR 53.48 (mL/min/1.73m2); Glucose 123 mg/dL (74-106); HDL Cholesterol 61 mg/dL (40-60); Potassium 4.4 mmol/L (3.5-5.1); Sodium 141 mmol/L (136-145); TSH (W/Ref FT4) 1.57 uIU/mL (0.36-3.74); Total Protein 7.8 g/dL (6.4-8.2); Triglyceride 71 mg/dL (<150)
== END 2021-06-07 03:15 | disposition home or self-care (01) ==
LOC: LBO 03:14
PROVIDERS: PCP Nurse Practitioner; Visit Provider Nurse Practitioner
DX: I10 Essential (primary) hypertension; E03.9 Hypothyroidism, unspecified; E11.9 Type 2 diabetes mellitus without complications; E78.5 Hyperlipidemia, unspecified; D64.9 Anemia, unspecified; F32.9 Major depressive disorder, single episode, unspecified; J45.909 Unspecified asthma, uncomplicated
CPT/HCPCS: 36415; 80053; 80061; 83036; 84443; 85025

== ENCOUNTER 2021-07-23 11:30 | Outpatient (CLI) | payer MEDICARE, MEDICAID, SELFPAY ==
--- NOTE | 2021-07-23 11:00 | DI.RAD_ITS ---
Exam(s) XR KNEE RT 2V AP,LAT EXAM: XR KNEE RT 2V AP,LAT CLINICAL HISTORY: RIGHT KNEE INJURY. TECHNIQUE: 2D digital imaging was performed. COMPARISON: CR XR KNEE RT 2V AP,LAT from 06/02/2019 FINDINGS: BONES: No acute fracture is present. No bony destructive lesion is seen. JOINTS: Moderate to severe joint space narrowing medial femoral tibial joint. Mild periarticular spu rring throughout. No joint effusion is seen. SOFT TISSUE: Normal. IMPRESSION: Severe degenerative changes medial femoral tibial joint. DATA REPOSITORY: RADIATION DOSE DELIVERED:
== END 2021-07-23 11:31 | disposition home or self-care (01) ==
LOC: DIORS 11:30
PROVIDERS: PCP Nurse Practitioner; Referring Provider Nurse Practitioner; Visit Provider Student in an Organized Health Care Education/Training Program
DX: M25.561 Pain in right knee (principal); G89.29 Other chronic pain; L03.115 Cellulitis of right lower limb; M17.11 Unilateral primary osteoarthritis, right knee
CPT/HCPCS: 20610; 73560; J1040

== ENCOUNTER → 2021-10-11 09:31 | Outpatient (BNVA) | payer MEDICARE, MEDICAID, SELFPAY | PROVIDERS: PCP Nurse Practitioner; Referring Provider Nurse Practitioner; Visit Provider Student in an Organized Health Care Education/Training Program | DX: M17.11 Unilateral primary osteoarthritis, right knee (principal) | CPT/HCPCS: 20610; 99213; J1040 ==

== ENCOUNTER 2021-10-18 16:48 | Inpatient (IN) | payer MEDICARE, MEDICAID, SELFPAY ==
[2021-10-18] VITALS (51 sets, daily range): BP systolic 74–127; BP diastolic 41–107; PULSE 67–172; RESP 19–35; TEMP 36; O2SAT 89–94
--- NOTE | 2021-10-18 16:45 | RT.EKG_ITS ---
APPROVED REPORT Exam: Resting ECG Reason for Exam: sob Patient Location: E HR:153 bpm ECG Measurements Heart Rate 153 AXIS IA 74 P 0 QRSd 134 QRS 70 QT 310 T -37 QTc 495 Conclusion Afib w RVR Right bundle branch block.
--- NOTE | 2021-10-18 17:00 | DI.RAD_ITS ---
Exam(s) XR PORTABLE CHEST AP EXAM: XR PORTABLE CHEST AP CLINICAL HISTORY: SOB, rapid heart rate TECHNIQUE: 2D digital imaging was performed of the chest. One image was obtained. An AP view was ob tained. COMPARISON: CR,XR XR CHEST 2V PA LATERAL from 03/20/2021 FINDINGS: MEDIASTINUM: Normal. HEART: Normal. PULMONARY VASCULATURE: Normal. Atherosclerosis. LUNGS: There is a question of mild airspace opacities. PLEURAL SPACE: No pleural effusion or pneumothorax. BONE:Within normal limits for the patient's age. Postsurgical changes of a left total reverse shoulde r replacement. OTHER FINDINGS:Normal. IMPRESSION: Question of bilateral airspace opacities. This may reflect pneumonia or edema. Please correlate cli nically. DATA REPOSITORY: RADIATION DOSE DELIVERED:
--- NOTE | 2021-10-18 17:03 | ED.GENADUL_ITS ---
Discharge Plan Disposition Patient Disposition: [facility] INPATIENT Condition: Improving Discharge Details Chief Complaint: SOB Clinical Impression: Atrial fibrillation with rapid ventricular response Primary Care Provider: Jocy Kate ED Provider: Raffy Licea Home Meds and New Rx's Prescriptions: No Action (DME) compr.stocking,knee,long,large Misc See Rx Instructions .ROUTE .MEDSUPPLY Qty: 4 0RF Rx Instructions: Put on in the AM, off in the evening. Bengay Ultra Strength 4-30-10 % cream 1 applic topical TID [id number] Label Comments: using 3-4 times per day bupropion HCl [Wellbutrin XL] 150 mg tablet extended release 24 hr 150 mg PO QAM Qty: 30 3RF fluticasone propionate 50 mcg/actuation spray,suspension 2 spray intranasal DAILY Qty: 16 3RF Rx Instructions: administer into each nostril albuterol sulfate 90 mcg/actuation aerosol powdr breath activated 2 inh IH Q6H PRN (Reason: shortness of breath or wheezing) Qty: 1 12RF aspirin [Adult Low Dose Aspirin] 81 mg tablet,delayed release (DR/EC) 81 mg PO DAILY Qty: 90 3RF Rx Instructions: note dated 07/09/19 [facility] [place] melatonin 5 mg capsule 5 mg PO HS PRN Qty: 90 3RF hydrocortisone [Anusol-HC] 2.5 % cream with perineal applicator 1 applic WA BID-QID PRN (Reason: pain) Qty: 60 2RF (DME) diaper,brief,adult,disposable Misc 1 ea Miscellaneous PRN Qty: 100 6RF Rx Instructions: urinary incontinence. XL cephalexin 500 mg capsule 500 mg PO QID Qty: 21 0RF oxycodone 5 mg tablet See Rx Instructions PO BID MDD 10mg PRN (Reason: pain) Qty: 50 0RF Rx Instructions: 1/2 to 1 tab PO twice a day PRN; Myrbetriq 25 mg tablet extended release 24 hr 25 mg PO DAILY Qty: 90 3RF acetaminophen [Mapap Extra Strength] 500 mg tablet 1,000 mg PO Q4H PRN PRN (Reason: fever or pain) Qty: 120 3RF Rx Instructions: Do not exceed 3000 mg in 24 hours. (DME) Blood Glucose Test Strip See Rx Instructions .ROUTE .MEDSUPPLY Qty: 50 3RF Rx Instructions: As directed to check blood glucose daily. No insulin. Dispense covered brand. (DME) lancets Misc See Rx Instructions .ROUTE .MEDSUPPLY Qty: 100 3RF Rx Instructions: No insulin. Dispense covered brand. Check daily levothyroxine [Synthroid] 125 mcg tablet 125 mcg PO DAILY Qty: 90 3RF omeprazole 40 mg capsule,delayed release(DR/EC) 40 mg PO DAILY Qty: 90 3RF (DME) blood-glucose meter [Blood Glucose Monitoring] Kit See Rx Instructions .ROUTE .MEDSUPPLY Qty: 1 0RF Rx Instructions: Please dispense One Touch Verio Flex. Test daily, keep A1c under 8 duloxetine 60 mg capsule,delayed release(DR/EC) 60 mg PO DAILY Qty: 90 3RF atorvastatin 40 mg tablet 40 mg PO QPM Qty: 90 3RF enalapril maleate 10 mg tablet 10 mg PO DAILY Qty: 90 3RF nitroglycerin 0.4 mg tablet, sublingual 0.4 mg Sublingual PRN Qty: 100 3RF Rx Instructions: 0.4mg sublingual Q5 minutes as needed for chest pain/pressure; if no relief, call 911 multivitamin [Daily Multi-Vitamin] 1 EACH tablet 1 tab DAILY 0RF melatonin 5 mg capsule 5 mg PO HS MAY REPEAT X1 Qty: 60 0RF Medical Decision Making 80-year-old female presents via EMS. She lives on her own [place] in, had noted that when using her wheelchair and transferring the last 2 days she has had some shortness of breath. She denied to me feeling chest pain or palpitations. She was evaluated by EMS, found to have rapid atrial fibrillation for which she was transported to the ER, receiving 10 mg of IV diltiazem on route. Patient arrives with a rapid atrial fibrillation with a pulse of approximately 160. She is hemodynamically stable with a pressure 104/71. Oxygenating normally at 95% on room air. Differential diagnosis includes dehydration, electrolyte abnormality, ischemia. Patient IV access established, diltiazem bolus and drip initiated, referred for laboratory testing and chest x-ray. Laboratories noted elevated white blood cell count of 19, hematocrit of 28, platelets 352. Chemistries note dehydration with a BUN of 27, creatinine 1.2 which are elevated over baseline. Patient has a slight troponin bump with a troponin I of 92. Chest x-ray: No focal consolidation. Mild patchy airspace opacity noted in both lungs, see formal report. Patient was initiated on diltiazem bolus and drip for rate control. Case discussed with Dr. Mi and patient to be admitted. Lab Data Lab results reviewed: Yes I reviewed the patient's lab results. Labs: Laboratory Results - last 24 hr 10/18/21 10/18/21 10/18/21 17:10 17:10 17:10 WBC 19.48 H RBC 2.87 L Hgb 8.9 L Hct 27.9 L MCV 97.2 H MCH 31.0 MCHC 31.9 L RDW 17.8 H Plt Count 352 MPV 10.6 Immature Gran % See Differential Neutrophils % 76.0 Band Neutrophils % 1 Lymphocytes % 12.0 Monocytes % 10.0 Eosinophils % 0.0 Basophils % 0.0 Myelocytes % 1 Nucleated RBC % 0 Absolute Neutrophils 15.00 H Absolute Lymphocytes 2.34 Absolute Monocytes 1.95 H Absolute Eosinophils 0.00 Absolute Basophils 0.00 RBC Morphology See Below Polychromasia Present Hypochromasia 1+ Poikilocytosis 1+ Anisocytosis 1+ PT 11.5 H INR 1.1 APTT 21.0 Sodium 136 Potassium 4.1 Chloride 101 Carbon Dioxide 27.4 Anion Gap 7.6 BUN 27 H Creatinine 1.2 H Estimated GFR/1.73 m2 43.34 Glucose 194 H Calcium 9.1 Magnesium 2.0 Total Bilirubin 1.2 H AST 16 ALT 25 Alkaline Phosphatase 54 Troponin I 92 H* Total Protein 7.6 Albumin 3.8 HPI General Mode of arrival: EMS . Date/Time Provider Initiated Documentation: 10/18/21 17:17 . Limitations to Documentation: no limitations . Information obtained by: patient and EMS . History of Present Illness 80 year old F presents to the emergency department with the chief complaint of Shortness of breath with exertion for the past 2 days, no chest pain, described as moderate, and is localized to the chest. Patient reports no radiation. Patient started experiencing this day(s) and it has been intermittent. improves with Rest improves symptom(s), Movement worsens symptoms . Patient notes denies chest pain and syncope. Patient did receive the following treatments prior to arrival, none Related Data Home Medications Medication Instructions Recorded Confirmed multivitamin (Daily Multi-Vitamin) 1 tab DAILY 06/14/14 10/18/21 compr.stocking,knee,long,large #4 each 02/02/20 10/18/21 melatonin 5 mg capsule 5 mg PO HS MAY REPEAT X1 #60 cap 08/31/20 10/18/21 blood sugar diagnostic (Blood #50 each 09/06/20 10/18/21 Glucose Test) lancets #100 ea 09/07/20 10/18/21 levothyroxine 125 mcg tablet 125 mcg PO DAILY #90 tab 10/23/20 10/18/21 (Synthroid) omeprazole 40 mg capsule,delayed 40 mg PO DAILY #90 cap 10/23/20 10/18/21 release acetaminophen 500 mg tablet (Mapap 1,000 mg PO Q4H PRN PRN #120 tab 10/25/20 10/18/21 Extra Strength) blood-glucose meter (Blood Glucose #1 ea 10/30/20 10/18/21 Monitoring) camphor 4 %-methyl salicylate 30 1 applic TOPICAL TID PRN g 03/28/21 10/18/21 %-menthol 10 % topical cream (Bengay Ultra Strength) bupropion HCl 150 mg 24 hr tablet, 150 mg PO QAM #30 tab 05/01/21 10/18/21 extended release (Wellbutrin XL) duloxetine 60 mg capsule,delayed 60 mg PO DAILY #90 cap 05/01/21 10/18/21 release fluticasone propionate 50 2 spray INTRANASAL DAILY #16 g 06/28/21 10/18/21 mcg/actuation nasal spray,suspension albuterol sulfate 90 mcg/actuation 2 inh IH Q6H PRN #1 each 08/30/21 10/18/21 breath activated powder inhaler aspirin 81 mg tablet,delayed 81 mg PO DAILY #90 tab 08/30/21 10/18/21 release (Adult Low Dose Aspirin) cephalexin 500 mg capsule 500 mg PO QID #21 cap 08/30/21 10/18/21 diaper,brief,adult,disposable #100 ea 08/30/21 10/18/21 hydrocortisone 2.5 % topical cream 1 applic WA BID-QID PRN #60 g 08/30/21 10/18/21 with perineal applicator (Anusol-HC) melatonin 5 mg capsule 5 mg PO HS PRN #90 cap 08/30/21 10/18/21 mirabegron 25 mg tablet,extended 25 mg PO DAILY #90 tab 09/20/21 10/18/21 release 24 hr (Myrbetriq) oxycodone 5 mg tablet See Rx Instructions PO BID PRN #50 09/20/21 10/18/21 tab MDD 10mg atorvastatin 40 mg tablet 40 mg PO QPM #90 tab 10/08/21 10/18/21 enalapril maleate 10 mg tablet 10 mg PO DAILY #90 tab 10/08/21 10/18/21 nitroglycerin 0.4 mg sublingual 0.4 mg SUBLINGUAL PRN #100 tab-cap 10/08/21 10/18/21 tablet Previous Rx's Medication Instructions Recorded compr.stocking,knee,long,large #4 each 02/02/20 melatonin 5 mg capsule 5 mg PO HS MAY REPEAT X1 #60 cap 08/31/20 blood sugar diagnostic (Blood #50 each 09/06/20 Glucose Test) lancets #100 ea 09/07/20 levothyroxine 125 mcg tablet 125 mcg PO DAILY #90 tab 10/23/20 (Synthroid) omeprazole 40 mg capsule,delayed 40 mg PO DAILY #90 cap 10/23/20 release acetaminophen 500 mg tablet (Mapap 1,000 mg PO Q4H PRN PRN #120 tab 10/25/20 Extra Strength) blood-glucose meter (Blood Glucose #1 ea 10/30/20 Monitoring) bupropion HCl 150 mg 24 hr tablet, 150 mg PO QAM #30 tab 05/01/21 extended release (Wellbutrin XL) duloxetine 60 mg capsule,delayed 60 mg PO DAILY #90 cap 05/01/21 release fluticasone propionate 50 2 spray INTRANASAL DAILY #16 g 06/28/21 mcg/actuation nasal spray,suspension albuterol sulfate 90 mcg/actuation 2 inh IH Q6H PRN #1 each 08/30/21 breath activated powder inhaler aspirin 81 mg tablet,delayed 81 mg PO DAILY #90 tab 08/30/21 release (Adult Low Dose Aspirin) cephalexin 500 mg capsule 500 mg PO QID #21 cap 08/30/21 diaper,brief,adult,disposable #100 ea 08/30/21 hydrocortisone 2.5 % topical cream 1 applic WA BID-QID PRN #60 g 08/30/21 with perineal applicator (Anusol-HC) melatonin 5 mg capsule 5 mg PO HS PRN #90 cap 08/30/21 mirabegron 25 mg tablet,extended 25 mg PO DAILY #90 tab 09/20/21 release 24 hr (Myrbetriq) oxycodone 5 mg tablet See Rx Instructions PO BID PRN #50 09/20/21 tab MDD 10mg atorvastatin 40 mg tablet 40 mg PO QPM #90 tab 10/08/21 enalapril maleate 10 mg tablet 10 mg PO DAILY #90 tab 10/08/21 nitroglycerin 0.4 mg sublingual 0.4 mg SUBLINGUAL PRN #100 tab-cap 10/08/21 tablet Allergies Allergy/AdvReac Type Severity Reaction Status Date / Time fentanyl [From Duragesic] Allergy Intermediate RASH, Verified 10/18/21 17:47 ITCHING oxybutynin chloride AdvReac Intermediate Itching Verified 10/18/21 17:47 [From Ditropan] tramadol AdvReac Intermediate ITCHING Verified 10/18/21 17:47 ENVIRONMENTAL Allergy RHINITIS Uncoded 10/18/21 17:47 General Stated Complaint: SOB ARMEN: 3 Review of Systems Narrative: States she is fully immunized against COVID-19. Denies recent illness. Has a chronic cough. No known history of atrial fibrillation. Eight systems were reviewed and otherwise negative PFSH All Active Problems (Updated 10/18/21 @ 19:11 by Raffy Licea MD) Atrial fibrillation with rapid ventricular response (Acute) Localized osteoarthritis of right knee (Acute) Depression (Chronic) Chronic pain of right knee (Acute) Cellulitis of right leg (Acute) Tenderness of right calf (Acute) Tender, swollen, firm, warm .. possible DVT? possible cellulitis? Right leg swelling (Acute) Right knee pain (Acute) Elevated brain natriuretic peptide (BNP) level (Acute) Bilateral edema of lower extremity (Acute) Breath, shortness (Acute) Impaired mobility and ADLs (Acute) Pre-op evaluation (Acute) Left shoulder pain (Acute) 12/26/20- total left shoulder arthoplasty;[facility]. Insomnia (Acute) Guaiac + stool (Acute) Anemia (Chronic) Palliative care patient (Acute) [place] Discharge planning issues (Acute) Fall (Acute) Dehydration (Acute) Edema (Acute) Hypothyroidism (Chronic) Primary osteoarthritis, left shoulder (Acute) Lower extremity edema (Acute) Degenerative spondylolisthesis (Acute) Chronic pain (Chronic) Liver hemangioma (Acute) Abnormal abdominal CT scan (Acute) PVD (peripheral vascular disease) with claudication (Acute) 08/18/19-[facility] [place] [facility]. Jon Cardenas MD Left carotid stenosis (Acute) Myalgia (Acute) Osteoarthritis of left shoulder (Acute) Spondylosis of lumbar region without myelopathy or radiculopathy (Chronic) Angina pectoris (Acute) Chronic low back pain (Acute) Diabetes mellitus, controlled (Chronic) Type II per record note recieved from previous pcp office, on 04/15/16, question as to wheter patient ever really had DM. Have stopped her Metformin and last time checked her A1C was excellent. Will juan luis Essential hypertension (Acute) Gastroesophageal reflux disease without esophagitis (Acute) Hyperlipidemia (Acute) Hypothyroidism (Acute) Impaired mobility and ADLs (Acute 06/23/17) Migraine without status migrainosus (Acute) OA (osteoarthritis) (Acute 04/16/17) Pulmonary emphysema (Acute) Restless legs syndrome (RLS) (Acute) Spinal stenosis (Chronic 04/16/17) Urinary incontinence (Acute) Lumbar radiculitis (Acute) Frequent falls (Chronic) Anemia, macrocytic (Acute) Status post total left knee replacement (Chronic) DOS (estimated from x-rays) 01/2010 DJD of both shoulders (Chronic) Diverticulosis of intestine (Acute 05/14/95) Decreased pedal pulses (Acute) Impaired circulation of right leg (Acute) Primary osteoarthritis of right knee (Acute) Injected: 06/02/2019 Stress incontinence (Acute) Medical History Angina pectoris Arthropathy Chronic low back pain Claustrophobia Claustrophobia COPD (chronic obstructive pulmonary disease) Diverticulosis Essential hypertension Gastroesophageal reflux disease Hyperlipidemia Hypothyroidism Impaired mobility Lower gastrointestinal bleed Migraine Near syncope Osteoarthritis RLS (restless legs syndrome) Spinal stenosis Urge urinary incontinence Surgical History Abdominal hysterectomy Age 29 Cholecystectomy (~09/2002) Colonoscopy - MAC (05/23/17) Extraction of cataract (~10/2007) Bilateral Laminectomy (03/27/09) L3-L5,medial facetectomy,L3-L4 and L4-L5. Replacement of total knee joint Left 2012 Status post reverse total arthroplasty of left shoulder (~11/2020) TVT (~05/2004) Family History Mother Essential hypertension Neoplasm Lymphoma Sister , DM Complications at age 53. Diabetes Social History Smoking/Tobacco Use Status: Former Tobacco Use Smoking risk assessment performed?: Yes Alcohol Intake: former Drug use: Never Substance use type: does not use Adopted: No Caregiver/Support person: No Foster care: No Household members: none Housing: apartment Number of Children: 3 Do you need help understanding health information?: Often Pets and animals: No Sexually active: No Current gender identity: female What type of physical activity do you participate in: none Seatbelt use: always Do you feel safe at home: Yes ([place]) Do you feel safe in your relationship?: Yes Exam Narrative Exam Narrative: GEN: awake, alert, oriented 3. Pleasant, well groomed, interactive. HEAD: Normocephalic, atraumatic ENT: Mucous membranes moist, oropharynx unremarkable, External ear exam unremarkable EYES: PERRL, EOMI NECK: Full ROM, no GONZALO, no menigismus CHEST/RESP: Nontender, clear to auscultation bilateral, no wheeze/rhonchi/rales CARDIOVASCULAR: Irregularly irregular, tachycardic. 2+ Rad pulse bilateral ABDOMEN: Soft, nontender, no mass. +Bowel sounds EXT: Full ROM, no rash Neuro: Grossly normal neurologic exam, conversant, interactive. Psych: Speech fluent, thoughts congruent, affect normal Course Vital Signs Vital signs: Vital Signs Pulse 162 H 10/18/21 16:52 Respiratory Rate 24 10/18/21 16:52 Blood Pressure 104/71 10/18/21 16:52 Pulse Oximetry 91 L 10/18/21 16:52 Pulse 162 H 10/18/21 16:52 Respiratory Rate 24 10/18/21 16:52 Blood Pressure 104/71 10/18/21 16:52 Blood Pressure Position Sitting 10/18/21 16:52 Pulse Oximetry 91 L 10/18/21 16:52 Oxygen Delivery Method Room Air 10/18/21 16:52 Oxygen Flow Rate 0 10/18/21 16:52 Critical Care Time Critical Care Time Critical Care Time: Yes Total Critical Care Time: 20 Attestation: Bedside management, review of records, discussion with admitting team
[2021-10-18 17:20] LABS: Abs Immature Grans 0.25 10^3/uL (0.0-0.06); HCT 27.9 % (36.0-46.0); HGB 8.9 g/dL (11.2-15.7); MCHC 31.9 % (32.0-36.0); MCV 97.2 fL (80-95); MPV 10.6 fL (8.0-11.0); Nucleated RBC 0 %; Platelet Count 352 10^3/uL (130-400); RBC 2.87 10^6/uL (3.93-5.22); RDW 17.8 % (11.7-14.6); RDW-SD 61.3 fL; WBC 19.48 10^3/uL (4.4-10.8)
[2021-10-18] MEDS: dilTIAZem 25 MG/5 ML VIAL 10 MG IVP ×2 (17:25→17:38)
[2021-10-18 17:34] LABS: INR 1.1 (0.9-1.1); Prothrombin Time 11.5 sec (9.3-11.0)
[2021-10-18 17:36] LABS: Absolute Lymphocyte Count 2.34 10^3/uL (1.2-3.4); Absolute Monocyte Count 1.95 10^3/uL (0.1-0.8); Bands % 1
[2021-10-18 17:37] LABS: Anisocytosis 1+; Diff Comment Manual Differential; Hypochromasia 1+; Myelocytes % 1; Poikilocytes 1+; Polychromasia Present
[2021-10-18 17:44] LABS: ALT 25 U/L (14-59); AST 16 U/L (15-37); Albumin 3.8 g/dL (3.4-5.0); Alkaline Phosphatase 54 U/L (46-116); Anion Gap 7.6 mmol/L (3-11); BUN 27 mg/dL (7-18); Bilirubin, Total 1.2 mg/dL (0.2-1.0); CO2 27.4 mmol/L (21.0-32.0); CREATININE 1.2 mg/dL (0.55-1.02); Calcium 9.1 mg/dL (8.5-10.1); Chloride 101 mmol/L (98-107); Estimated GFR 43.34 (mL/min/1.73m2); Glucose 194 mg/dL (74-106); Potassium 4.1 mmol/L (3.5-5.1); Sodium 136 mmol/L (136-145); Total Protein 7.6 g/dL (6.4-8.2)
[2021-10-18 17:45] LABS: Troponin I 92 ng/L (<or=60)
[2021-10-18] MEDS: dilTIAZem 125 MG in Normal Saline 100 ML 10 MG IV (17:54)
[2021-10-18] MEDS: dilTIAZem 125 MG in Normal Saline 100 ML 15 MG IV (18:03)
[2021-10-18] MEDS: Normal Saline 500 ML IV (18:48)
--- NOTE | 2021-10-18 18:53 | NUR.NOTE ---
PAtient reported a pressure sore to buttocks. Mepelex with border placed by friend
[2021-10-18 19:00] LABS: TSH 12.97 uIU/mL (0.36-3.74)
--- NOTE | 2021-10-18 19:09 | DI.VRAD_ITS ---
PROCEDURE INFORMATION: Exam: XR Chest Exam date and time: 10/18/2021 5:03 PM Age: 80 years old Clinical indication: Other: SOB, rapid heart rate TECHNIQUE: Imaging protocol: XR of the chest. Views: 1 view. COMPARISON: CR XR CHEST 2V PA LATERAL 03/20/2021 5:08 PM FINDINGS: Lungs: Mild patchy airspace opacity noted in both lungs, with relative sparing in the left lower lobe. No focal consolidation or collapse. Pleural spaces: Unremarkable. No pleural effusion. No pneumothorax. Heart/Mediastinum: Mild cardiomegaly. Bones/joints: Shoulder replacement noted on the left. Moderate arthropathy noted in the right shoulder. Degenerative changes present throughout the spine. IMPRESSION: Multifocal pneumonia and/or edema. Dictated and Authenticated by: Emanuel Guerin MD. Ordering:TOMMY Akbar MD
[2021-10-18] MEDS: Aspirin 325 MG TAB PO (19:11)
[2021-10-18 19:57] LABS: Lab Add On Test DONE
[2021-10-18 20:29] LABS: Procalcitonin 0.1 ng/mL
[2021-10-18 20:36] LABS: Troponin I 103 ng/L (<or=60)
[2021-10-18] MEDS: Normal Saline 1,000 ML 100 ML IV (21:00)
--- NOTE | 2021-10-18 21:01 | HPE_ITS ---
Date of service: 10/18/21 Time of Service: 21:01 Assessment and Plan Assessment and plan (1) Atrial fibrillation with rapid ventricular response: Status: Acute Assessment and plan: No previous h/o afib. Questionably driven by pneumonia. Now in the ICU on a diltiazem drip. Ventricular HR into the low 100's, but goes up to 140 intermittently with mild activity. Will give a total of 1000 ml of NS; volume depletion as indicated by elevated BUN and mildly elevated creatinine above her baseline. Monitor for pulmonary edema. Electrolytes normal. (2) Palliative care patient: Status: Acute Assessment and plan: Pt is a full code. (3) Hypothyroidism: Status: Chronic Assessment and plan: TSH 12.97; has been intermittently elevated as well as normal. Free T4 normal in 2019 and 2020. Ensure she administers her levothyroxine correctly. (4) PVD (peripheral vascular disease) with claudication: Status: Acute Assessment and plan: On an aspirin; no other antiplatlet meds. No acitive complaint of claudication currently. (5) Diabetes mellitus, controlled: Status: Chronic Assessment and plan: Not on medications. A1c 7.4 in September of this year. Will check ACHS accuchecks and initiate SS insulin correction dosing. Diabetic diet. 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 Now on diltiazem drip with SBP in the low 100's. (7) Hyperlipidemia: Status: Acute Assessment and plan: Cont atorvastatin. (8) COPD (chronic obstructive pulmonary disease): Assessment and plan: PRN levalbuterol nebs. May need to schedule Duoneb is requiring frequent levalbuterol. No supplemental O2 requirement at this time. (9) Community acquired pneumonia: Status: Acute Assessment and plan: CXR with bilateral infiltrates; PNA vs edema. Elevated WBC count. Rocephin and doxycycline initiated. Procal 0.1. (10) Chronic pain of right knee: Status: Acute Assessment and plan: Cont prn oxycodone. Planning treatment with pain management. History of Present Illness History of Present Illness Chief Complaint: Dyspnea on exertion Narrative: ?80 year old?female with a PMH of COPD, angina, HTN, HLD, R knee DJD, hypothyroidism, PAD, DM2. She presented to the emergency department with the chief complaint of shortness of breath with exertion for the past 2 days. No chest pain, palpitations, cough/sputum, F/C. She described her HUTCHINSON?as modera tePatient reports no radiation. Her SOA?improves with rest. She lives on her own at the [facility] and has noted that when using her wheelchair and transferring she has had some shortness of breath.? ? She was evaluated by EMS, found to have atrial fibrillation with a rapid ventricular rate. She received 10 mg of IV diltiazem ed route. No known h/o atrial fibrillation. Upon arrival to the ED, noted to be in rapid atrial fibrillation with a pulse of approximately 160.? She is hemodynamically stable with a pressure 104/71.? Oxygenating normally at 95% on room air.? Laboratories noted elevated white blood cell count of 19, hematocrit of 28, platelets 352.? Chemistries note dehydration with a BUN of 27, creatinine 1.2 which are elevated over baseline.? Patient has a slight troponin bump with a troponin I of 92. Chest x-ray: No focal consolidation.? Mild patchy airspace opacity noted in both lungs; pulmonary edema vs infectious process. Patient was initiated on diltiazem bolus and subsequently a diltiazem drip for rate control. She was admitted to the ICU. Review of Systems All systems reviewed & are unremarkable except as noted in HPI and below PFSH All Active Problems (Updated 10/18/21 @ 21:33 by Cristobal Mi MD) Community acquired pneumonia (Acute) Atrial fibrillation with rapid ventricular response (Acute) Localized osteoarthritis of right knee (Acute) Depression (Chronic) Chronic pain of right knee (Acute) Cellulitis of right leg (Acute) Tenderness of right calf (Acute) Tender, swollen, firm, warm .. possible DVT? possible cellulitis? Right leg swelling (Acute) Right knee pain (Acute) Elevated brain natriuretic peptide (BNP) level (Acute) Bilateral edema of lower extremity (Acute) Breath, shortness (Acute) Impaired mobility and ADLs (Acute) Pre-op evaluation (Acute) Left shoulder pain (Acute) 12/26/20- [facility]. Insomnia (Acute) Guaiac + stool (Acute) Anemia (Chronic) Palliative care patient (Acute) [place] Discharge planning issues (Acute) Fall (Acute) Dehydration (Acute) Edema (Acute) Hypothyroidism (Chronic) Primary osteoarthritis, left shoulder (Acute) Lower extremity edema (Acute) Degenerative spondylolisthesis (Acute) Chronic pain (Chronic) Liver hemangioma (Acute) Abnormal abdominal CT scan (Acute) PVD (peripheral vascular disease) with claudication (Acute) 08/18/19-[facility]. Jon Cardenas MD Left carotid stenosis (Acute) Myalgia (Acute) Osteoarthritis of left shoulder (Acute) Spondylosis of lumbar region without myelopathy or radiculopathy (Chronic) Angina pectoris (Acute) Chronic low back pain (Acute) Diabetes mellitus, controlled (Chronic) Type II per record note recieved from previous pcp office, on 04/15/16, question as to wheter patient ever really had DM. Have stopped her Metformin and last time checked her A1C was excellent. Will juan luis Essential hypertension (Acute) Gastroesophageal reflux disease without esophagitis (Acute) Hyperlipidemia (Acute) Hypothyroidism (Acute) Impaired mobility and ADLs (Acute 06/23/17) Migraine without status migrainosus (Acute) OA (osteoarthritis) (Acute 04/16/17) Pulmonary emphysema (Acute) Restless legs syndrome (RLS) (Acute) Spinal stenosis (Chronic 04/16/17) Urinary incontinence (Acute) Lumbar radiculitis (Acute) Frequent falls (Chronic) Anemia, macrocytic (Acute) Status post total left knee replacement (Chronic) DOS (estimated from x-rays) 01/2010 DJD of both shoulders (Chronic) Diverticulosis of intestine (Acute 05/14/95) Decreased pedal pulses (Acute) Impaired circulation of right leg (Acute) Primary osteoarthritis of right knee (Acute) Injected: 06/02/2019 Stress incontinence (Acute) Medical History Angina pectoris Arthropathy Chronic low back pain Claustrophobia Claustrophobia COPD (chronic obstructive pulmonary disease) Diverticulosis Essential hypertension Gastroesophageal reflux disease Hyperlipidemia Hypothyroidism Impaired mobility Lower gastrointestinal bleed Migraine Near syncope Osteoarthritis RLS (restless legs syndrome) Spinal stenosis Urge urinary incontinence Surgical History Abdominal hysterectomy Age 29 Cholecystectomy (~09/2002) Colonoscopy - MAC (05/23/17) Extraction of cataract (~10/2007) Bilateral Laminectomy (03/27/09) L3-L5,medial facetectomy,L3-L4 and L4-L5. Replacement of total knee joint Left 2011 Status post reverse total arthroplasty of left shoulder (~11/2020) TVT (~05/2004) Family History Mother Essential hypertension Neoplasm Lymphoma Sister , DM Complications at age 53. Diabetes Social History Smoking/Tobacco Use Status: Former Tobacco Use Smoking risk assessment performed?: Yes Alcohol Intake: former Drug use: Never Substance use type: does not use Adopted: No Caregiver/Support person: No Foster care: No Household members: none Housing: apartment Number of Children: 3 Do you need help understanding health information?: Often Pets and animals: No Sexually active: No Current gender identity: female What type of physical activity do you participate in: none Seatbelt use: always Do you feel safe at home: Yes ([facility] [facility]) Do you feel safe in your relationship?: Yes Meds Allergies and Home Medications Allergies Allergy/AdvReac Type Severity Reaction Status Date / Time fentanyl [From Duragesic] Allergy Intermediate RASH, Verified 10/18/21 17:47 ITCHING oxybutynin chloride AdvReac Intermediate Itching Verified 10/18/21 17:47 [From Ditropan] tramadol AdvReac Intermediate ITCHING Verified 10/18/21 17:47 ENVIRONMENTAL Allergy RHINITIS Uncoded 10/18/21 17:47 Home Medications Medication Instructions Recorded Confirmed Type multivitamin (Daily Multi-Vitamin) 1 tab DAILY 06/14/14 10/18/21 History compr.stocking,knee,long,large #4 each 02/02/20 10/18/21 Rx melatonin 5 mg capsule 5 mg PO HS MAY REPEAT X1 #60 cap 08/31/20 10/18/21 Rx blood sugar diagnostic (Blood #50 each 09/06/20 10/18/21 Rx Glucose Test) lancets #100 ea 09/07/20 10/18/21 Rx levothyroxine 125 mcg tablet 125 mcg PO DAILY #90 tab 10/23/20 10/18/21 Rx (Synthroid) omeprazole 40 mg capsule,delayed 40 mg PO DAILY #90 cap 10/23/20 10/18/21 Rx release acetaminophen 500 mg tablet (Mapap 1,000 mg PO Q4H PRN PRN #120 tab 10/25/20 10/18/21 Rx Extra Strength) blood-glucose meter (Blood Glucose #1 ea 10/30/20 10/18/21 Rx Monitoring) camphor 4 %-methyl salicylate 30 1 applic TOPICAL TID PRN g 03/28/21 10/18/21 History %-menthol 10 % topical cream (Bengay Ultra Strength) bupropion HCl 150 mg 24 hr tablet, 150 mg PO QAM #30 tab 05/01/21 10/18/21 Rx extended release (Wellbutrin XL) duloxetine 60 mg capsule,delayed 60 mg PO DAILY #90 cap 05/01/21 10/18/21 Rx release fluticasone propionate 50 2 spray INTRANASAL DAILY #16 g 06/28/21 10/18/21 Rx mcg/actuation nasal spray,suspension albuterol sulfate 90 mcg/actuation 2 inh IH Q6H PRN #1 each 08/30/21 10/18/21 Rx breath activated powder inhaler aspirin 81 mg tablet,delayed 81 mg PO DAILY #90 tab 08/30/21 10/18/21 Rx release (Adult Low Dose Aspirin) cephalexin 500 mg capsule 500 mg PO QID #21 cap 08/30/21 10/18/21 Rx diaper,brief,adult,disposable #100 ea 08/30/21 10/18/21 Rx hydrocortisone 2.5 % topical cream 1 applic SC BID-QID PRN #60 g 08/30/21 10/18/21 Rx with perineal applicator (Anusol-HC) melatonin 5 mg capsule 5 mg PO HS PRN #90 cap 08/30/21 10/18/21 Rx mirabegron 25 mg tablet,extended 25 mg PO DAILY #90 tab 09/20/21 10/18/21 Rx release 24 hr (Myrbetriq) oxycodone 5 mg tablet See Rx Instructions PO BID PRN #50 09/20/21 10/18/21 Rx tab MDD 10mg atorvastatin 40 mg tablet 40 mg PO QPM #90 tab 10/08/21 10/18/21 Rx enalapril maleate 10 mg tablet 10 mg PO DAILY #90 tab 10/08/21 10/18/21 Rx nitroglycerin 0.4 mg sublingual 0.4 mg SUBLINGUAL PRN #100 tab-cap 10/08/21 10/18/21 Rx tablet Exam Const General: cooperative and no acute distress Nutritional Appearance: obese Orientation: alert and oriented x3 Eyes General: appearance normal, both eyes and all related structures Sclera: sclerae normal Resp Effort & Inspection: normal respiratory effort Auscultation: clear to auscultation bilaterally and diminished lung sounds Cardio Rate: tachycardic Rhythm: abnormal rhythm irregularly irregular GI Inspection: normal to inspection and obesity Palpation: soft and nontender General: deferred Skin General skin exam: no rashes or lesions noted Neuro General: no meningeal signs and no focal motor deficits Cranial Nerves: facial strength normal Cognition: normal cognition Speech: speech normal Extrem General: no pedal edema and no calf tenderness Psych Appearance: grossly normal Mental Status: mental status grossly normal Affect: normal affect Results Labs Result diagrams: 10/18/21 17:10 10/18/21 17:10 Labs: Laboratory Results - last 24 hr 10/18/21 10/18/21 10/18/21 17:10 17:10 17:10 WBC 19.48 H RBC 2.87 L Hgb 8.9 L Hct 27.9 L MCV 97.2 H MCH 31.0 MCHC 31.9 L RDW 17.8 H Plt Count 352 MPV 10.6 Immature Gran % See Differential Neutrophils % 76.0 Band Neutrophils % 1 Lymphocytes % 12.0 Monocytes % 10.0 Eosinophils % 0.0 Basophils % 0.0 Myelocytes % 1 Nucleated RBC % 0 Absolute Neutrophils 15.00 H Absolute Lymphocytes 2.34 Absolute Monocytes 1.95 H Absolute Eosinophils 0.00 Absolute Basophils 0.00 RBC Morphology See Below Polychromasia Present Hypochromasia 1+ Poikilocytosis 1+ Anisocytosis 1+ PT 11.5 H INR 1.1 APTT 21.0 Sodium 136 Potassium 4.1 Chloride 101 Carbon Dioxide 27.4 Anion Gap 7.6 BUN 27 H Creatinine 1.2 H Estimated GFR/1.73 m2 43.34 Glucose 194 H Calcium 9.1 Magnesium 2.0 Total Bilirubin 1.2 H AST 16 ALT 25 Alkaline Phosphatase 54 Troponin I 92 H* Total Protein 7.6 Albumin 3.8 Procalcitonin TSH Add-On Test Request 10/18/21 10/18/21 10/18/21 17:10 17:10 20:05 WBC RBC Hgb Hct MCV MCH MCHC RDW Plt Count MPV Immature Gran % Neutrophils % Band Neutrophils % Lymphocytes % Monocytes % Eosinophils % Basophils % Myelocytes % Nucleated RBC % Absolute Neutrophils Absolute Lymphocytes Absolute Monocytes Absolute Eosinophils Absolute Basophils RBC Morphology Polychromasia Hypochromasia Poikilocytosis Anisocytosis PT INR APTT Sodium Potassium Chloride Carbon Dioxide Anion Gap BUN Creatinine Estimated GFR/1.73 m2 Glucose Calcium Magnesium Total Bilirubin AST ALT Alkaline Phosphatase Troponin I 103 H* Total Protein Albumin Procalcitonin 0.1 TSH 12.97 H Add-On Test Request 10/18/21 Unknown WBC RBC Hgb Hct MCV MCH MCHC RDW Plt Count MPV Immature Gran % Neutrophils % Band Neutrophils % Lymphocytes % Monocytes % Eosinophils % Basophils % Myelocytes % Nucleated RBC % Absolute Neutrophils Absolute Lymphocytes Absolute Monocytes Absolute Eosinophils Absolute Basophils RBC Morphology Polychromasia Hypochromasia Poikilocytosis Anisocytosis PT INR APTT Sodium Potassium Chloride Carbon Dioxide Anion Gap BUN Creatinine Estimated GFR/1.73 m2 Glucose Calcium Magnesium Total Bilirubin AST ALT Alkaline Phosphatase Troponin I Total Protein Albumin Procalcitonin TSH Add-On Test Request DONE Last Vital Signs Pulse 119 H 10/18/21 19:46 Resp 32 H 10/18/21 19:50 BP 119/90 10/18/21 19:46 Pulse Ox 90 L 10/18/21 19:50
[2021-10-18] MEDS: Atorvastatin 40 MG TAB PO (21:23)
[2021-10-18] MEDS: Heparin 5,000 UNITS/ML VIAL 5000 UNITS SC (21:24)
[2021-10-18] MEDS: cefTRIAXone 1 GM/50 ML BAG IVPB (21:24)
[2021-10-18 21:37] LABS: COVID-19 PCR Negative (Negative)
[2021-10-18 21:40] LABS: Source Nasal/Nares
[2021-10-18 22:13] LABS: Lab Add On Test DONE
[2021-10-18] MEDS: DOXYCYCLINE 100 MG in Normal Saline 100 ML IVPB (22:35)
[2021-10-18 22:42] LABS: NT-proBNP 5142 pg/mL (<300)
[2021-10-19] VITALS (80 sets, daily range): BP systolic 88–138; BP diastolic 33–95; PULSE 67–166; RESP 1–38; TEMP 35.8–37.1; O2SAT 3–100
--- NOTE | 2021-10-19 | DI.CT_ITS ---
Exam(s) CT CHEST PE CTA EXAM: CT CHEST PE CTA CLINICAL HISTORY: Afib, resp. distress. TECHNIQUE: Imaging Protocol: Axial CT angiography was performed with multi-slice acquisition and mu lti-planar and/or 3D reconstructions. CONTRAST MATERIAL: Intravenous: Omnipaque 350 Contrast volume:[address] ABDOMEN W from 09/17/2019 FINDINGS: The examination is limited due to patient motion artifact. Tracheobronchial tree: Patent where visualized. Pulmonary parenchyma: No pulmonary nodule. There is a small right pleural effusion and subjacent inf iltrate. No architectural distortion. Pulmonary Arteries: Peripheral pulmonary artery evaluation is limited due to patient motion artifact and poor inspiration. No central pulmonary embolus is present. Mediastinum and Carly: No dominant adenopathy or fluid collection. The esophagus is unremarkable. Visualized thyroid gland: Unremarkable. Pleura: No left pleural effusion. No pneumothorax. Heart: The heart is not dilated. Coronary artery calcification is present. No pericardial effusion. Aorta: Thoracic aorta non-dilated. Atherosclerosis. The thoracic aorta is not opacified well enough to evaluate for dissection. Upper abdomen: Status post cholecystectomy. Soft tissues: Unremarkable. Bones: Within normal limits for the patient's age. IMPRESSION: 1. The peripheral pulmonary artery evaluation is limited due to patient motion artifact and poor insp iration. No central pulmonary embolus is present. 2. There is poor opacification of the thoracic aorta. No aneurysm is seen. 3. Small right pleural effusion and subjacent infiltrate which may represent atelectasis or pneumonia . RADIATION DOSE DELIVERED: 604.03mGy.cm Total DLP DATA REPOSITORY: All CT scans at this facility are submitted to the National Radiology Data Registry (NRDR) Dose Index Registry (DIR) with the [employer] (ACR). RADIATION OPTIMIZATION: All CT scans at this facility use at least one of these dose optimization te chniques: automated exposure control; mA and/or kV adjustment per patient size (includes targeted exa ms where dose is matched to clinical indication); or iterative reconstruction.
[2021-10-19] MEDS: dilTIAZem 125 MG in Normal Saline 100 ML 15 MG IV ×2 (01:15→09:33)
[2021-10-19 01:35] LABS: Troponin I 96 ng/L (<or=60)
[2021-10-19] MEDS: Levalbuterol 0.63 MG/3 ML UPD VIAL UPD ×3 (03:30→22:56)
[2021-10-19] MEDS: Albuterol/Ipratropium 3 ML UPD VIAL UPD (06:03)
[2021-10-19] MEDS: Furosemide 20 MG/2 ML VIAL IVP ×2 (06:03→12:19)
[2021-10-19] MEDS: Levothyroxine 125 MCG TAB PO (06:04)
[2021-10-19] MEDS: Heparin 5,000 UNITS/ML VIAL 5000 UNITS SC ×3 (06:04→22:15)
[2021-10-19 07:02] LABS: Abs Immature Grans 0.22 10^3/uL (0.0-0.06); Basophils % 0.3; Eosinophils % 0.3; HCT 26.2 % (36.0-46.0); HGB 8.5 g/dL (11.2-15.7); Immature Grans % 1.2; Lymphocytes % 7.2; MCH 31.1 pg (27.0-33.0); MCHC 32.4 % (32.0-36.0); Monocytes % 8.6; Neutrophils % 82.4; Nucleated RBC 0 %; RBC 2.73 10^6/uL (3.93-5.22); RDW 17.8 % (11.7-14.6); RDW-SD 59.9 fL; WBC 18.88 10^3/uL (4.4-10.8)
[2021-10-19 07:09] LABS: Absolute Basophil Count 0.06 10^3/uL (0.0-0.2); Absolute Eosinophil Count 0.06 10^3/uL (0.0-0.7); Absolute Lymphocyte Count 1.36 10^3/uL (1.2-3.4); Absolute Monocyte Count 1.62 10^3/uL (0.1-0.8); Absolute Neutrophil Count 15.56 10^3/uL (1.2-6.7)
[2021-10-19 07:23] LABS: ALT 24 U/L (14-59); AST 20 U/L (15-37); Albumin 3.3 g/dL (3.4-5.0); Alkaline Phosphatase 54 U/L (46-116); Anion Gap 7.3 mmol/L (3-11); BUN 24 mg/dL (7-18); Bilirubin, Total 1.1 mg/dL (0.2-1.0); CO2 26.7 mmol/L (21.0-32.0); CREATININE 1.1 mg/dL (0.55-1.02); Calcium 8.9 mg/dL (8.5-10.1); Chloride 103 mmol/L (98-107); Estimated GFR 47.91 (mL/min/1.73m2); Glucose 197 mg/dL (74-106); Potassium 4.5 mmol/L (3.5-5.1); Sodium 137 mmol/L (136-145)
[2021-10-19 07:28] LABS: Basophilic Stippling Present; Diff Comment Agrees w/ Instrument; Hypochromasia 1+
[2021-10-19 07:29] LABS: Poikilocytes 1+
[2021-10-19] MEDS: Omeprazole 20 MG CAPCR 40 MG PO (08:48)
[2021-10-19] MEDS: buPROPion-XL 150 MG TABCR PO (08:48)
[2021-10-19] MEDS: DULoxetine 30 MG CAP 60 MG PO (08:49)
[2021-10-19] MEDS: Multivitamin TAB 1 TAB PO (08:49)
[2021-10-19] MEDS: Mirabegron 25 MG TABCR PO (08:49)
[2021-10-19] MEDS: Metoprolol 5 MG/5 ML VIAL 2.5 MG IVP (08:50)
[2021-10-19] MEDS: Normal Saline Flush 10 ML SYR IVP ×6 (08:50→20:11)
[2021-10-19] MEDS: Fluticasone NASAL SPRAY 16 GM BTL NS (08:51)
--- NOTE | 2021-10-19 08:51 | W.PULMCC ---
General Date of Service Date of service: 10/19/21 Time of Service: 08:00 Reason for Admission to ICU: Atrial fibrillation with RVR Assessment and Plan Assessment and plan (1) Community acquired pneumonia: Status: Acute (2) Atrial fibrillation with rapid ventricular response: Status: Acute (3) Bilateral edema of lower extremity: Status: Acute (4) Anemia: Status: Chronic (5) Diabetes mellitus, controlled: Status: Chronic Qualifiers: Diabetes mellitus type: type 2 Diabetes mellitus halfway insulin use: without classification clerk use Diabetes mellitus complication status: with kidney complications Diabetes mellitus complication detail: with chronic kidney disease Chronic kidney disease stage: stage 3 (moderate) Qualified Code(s): E11.22 - Type 2 diabetes mellitus with diabetic chronic kidney disease; N18.30 - Chronic kidney disease, stage 3 unspecified (6) Pulmonary emphysema: Status: Acute Assessment and plan: This is a 80 yo female with obesity, diabetes, HLD and right knee pain who is admitted to the ICU with A.fib with RVR. She was found to have a RLL pneumonia as the potential inciting cause. Her rate was not adequately controlled on diltiazem alone so PO metoprolol will be added. As long as her rate is below 110bpm we can work on weaning her off of the dilt gtt. Her [id number] score is at least 5 (unsure about true CHF vs volume overload) and so would warrant A/C therapy. This is not an emergency, however she should be on a DOAC by the time she is discharged. Recommendations Pulmonary: Emphysema - unknown whether COPD (no PFT's) - would switch home albuterol to levalbuterol given A.fib. Cardiac: Atrial fibrillation with RVR - continue dilt gtt while HR>110bpm - PO meoprolol added - can titrate up if needed - if having issues with control can also consider putting on PO dilt in order to liberate from drip Hypertension - hold enalapril Renal: DAVIDSON - continue to hold enalapril - UA is ok I&O: Intake & Output 10/16/21 10/17/21 10/18/21 10/19/21 23:59 23:59 23:59 23:59 Intake Total 735.25 / 735.25 48.75 / 48.75 Output Total 300 / 300 250 / 250 Balance 435.25 / 435.25 -201.25 / -201.25 Weight 101.3 kg 100.9 kg Daily Fluid Goal:: even GI Nutrition: Ok for diet Date of Last Bowel Movement: 10/17/21 Infectious Disease: Community acquired pneumonia - agree with ceftriaxone and doxucycline for 5 days of coverage - repeat CXR as outpatient in 2 months Hematologic: Anemia - chronic, continue to monitor Neurologic: No acute concerns, continue home depression meds Endocrine: Diabetes - sliding scale for coverage Hypothyroidism - TSH high during this admission - do not recommend adjusting dosage, continue with 125mcg dosing Lines: PIV Prophylaxis: No GI ppx needed Do recommend DVT ppx dosing at least or starting therapeutic A/C for A.fib Code Status: Resuscitation Status Full Code Subjective Critical and life-threatening events over the past 24 hours: This is a 80 yo female with diabetes, GERD, COPD, HLD, angina and obesity who is admitted to the ICU for A.fib with RVR. She is on a diltiazem drip at 15 and is still having tachycardia. This is the first time she has been told she has A. fib. She has been found to have a right sided pneumonia as the precipitating cause of the A. fib. She has no PE on her CTPE. There is a UA ordered but it has yet to be collected. She tells me she did not experience chest pains or shortness of breath. She is a sedentary person that she attributes to right knee pain. She tells me the is in her recliner most of the day. She does not have cardiac awareness of her rate. Exam Const General: cooperative Nutritional Appearance: obese HENMT Head: normal to inspection Mouth: oral mucosae normal Eyes Pupils: PERRL Neck Neck: normal visual inspection Resp Effort & Inspection: normal respiratory effort Auscultation: diminished lung sounds Cardio Rate: tachycardic Rhythm: abnormal rhythm Heart Sounds: no gallops, no murmurs and no rubs GI Inspection: normal to inspection Palpation: soft Skin General skin exam: no rashes or lesions noted Neuro General: patient alert, patient awake and patient oriented x3 Extrem Other: 1+ pitting edema B/L legs Most Recent VS/Results Last Vital Signs Temp 36.5 C 10/19/21 07:15 Pulse 145 H 10/19/21 07:15 Resp 30 H 10/19/21 07:15 BP 110/57 L 10/19/21 06:00 Pulse Ox 96 10/19/21 06:00 Laboratory Results - last 24 hr 10/18/21 10/18/21 10/18/21 17:10 17:10 17:10 WBC 19.48 H RBC 2.87 L Hgb 8.9 L Hct 27.9 L MCV 97.2 H MCH 31.0 MCHC 31.9 L RDW 17.8 H Plt Count 352 MPV 10.6 Immature Gran % See Differential Neutrophils % 76.0 Band Neutrophils % 1 Lymphocytes % 12.0 Monocytes % 10.0 Eosinophils % 0.0 Basophils % 0.0 Myelocytes % 1 Nucleated RBC % 0 Absolute Neutrophils 15.00 H Absolute Lymphocytes 2.34 Absolute Monocytes 1.95 H Absolute Eosinophils 0.00 Absolute Basophils 0.00 RBC Morphology See Below Polychromasia Present Hypochromasia 1+ Poikilocytosis 1+ Basophilic Stippling Anisocytosis 1+ PT 11.5 H INR 1.1 APTT 21.0 Sodium 136 Potassium 4.1 Chloride 101 Carbon Dioxide 27.4 Anion Gap 7.6 BUN 27 H Creatinine 1.2 H Estimated GFR/1.73 m2 43.34 Glucose 194 H Calcium 9.1 Magnesium 2.0 Total Bilirubin 1.2 H AST 16 ALT 25 Alkaline Phosphatase 54 Troponin I 92 H* NT-Pro-B Natriuret Pep Total Protein 7.6 Albumin 3.8 Procalcitonin TSH COVID-19 Source SARS-CoV-2 (PCR) Add-On Test Request 10/18/21 10/18/21 10/18/21 17:10 17:10 17:10 WBC RBC Hgb Hct MCV MCH MCHC RDW Plt Count MPV Immature Gran % Neutrophils % Band Neutrophils % Lymphocytes % Monocytes % Eosinophils % Basophils % Myelocytes % Nucleated RBC % Absolute Neutrophils Absolute Lymphocytes Absolute Monocytes Absolute Eosinophils Absolute Basophils RBC Morphology Polychromasia Hypochromasia Poikilocytosis Basophilic Stippling Anisocytosis PT INR APTT Sodium Potassium Chloride Carbon Dioxide Anion Gap BUN Creatinine Estimated GFR/1.73 m2 Glucose Calcium Magnesium Total Bilirubin AST ALT Alkaline Phosphatase Troponin I NT-Pro-B Natriuret Pep Total Protein Albumin Procalcitonin 0.1 TSH 12.97 H COVID-19 Source SARS-CoV-2 (PCR) Add-On Test Request DONE 10/18/21 10/18/21 10/18/21 17:10 18:27 20:05 WBC RBC Hgb Hct MCV MCH MCHC RDW Plt Count MPV Immature Gran % Neutrophils % Band Neutrophils % Lymphocytes % Monocytes % Eosinophils % Basophils % Myelocytes % Nucleated RBC % Absolute Neutrophils Absolute Lymphocytes Absolute Monocytes Absolute Eosinophils Absolute Basophils RBC Morphology Polychromasia Hypochromasia Poikilocytosis Basophilic Stippling Anisocytosis PT INR APTT Sodium Potassium Chloride Carbon Dioxide Anion Gap BUN Creatinine Estimated GFR/1.73 m2 Glucose Calcium Magnesium Total Bilirubin AST ALT Alkaline Phosphatase Troponin I 103 H* NT-Pro-B Natriuret Pep 5142 H Total Protein Albumin Procalcitonin TSH COVID-19 Source Nasal/Nares SARS-CoV-2 (PCR) Negative Add-On Test Request 10/18/21 10/19/21 10/19/21 Unknown 01:15 06:20 WBC RBC Hgb Hct MCV MCH MCHC RDW Plt Count MPV Immature Gran % Neutrophils % Band Neutrophils % Lymphocytes % Monocytes % Eosinophils % Basophils % Myelocytes % Nucleated RBC % Absolute Neutrophils Absolute Lymphocytes Absolute Monocytes Absolute Eosinophils Absolute Basophils RBC Morphology Polychromasia Hypochromasia Poikilocytosis Basophilic Stippling Anisocytosis PT INR APTT Sodium 137 Potassium 4.5 Chloride 103 Carbon Dioxide 26.7 Anion Gap 7.3 BUN 24 H Creatinine 1.1 H Estimated GFR/1.73 m2 47.91 Glucose 197 H Calcium 8.9 Magnesium Total Bilirubin 1.1 H AST 20 ALT 24 Alkaline Phosphatase 54 Troponin I 96 H* NT-Pro-B Natriuret Pep Total Protein 7.0 Albumin 3.3 L Procalcitonin TSH COVID-19 Source SARS-CoV-2 (PCR) Add-On Test Request DONE 10/19/21 06:20 WBC 18.88 H RBC 2.73 L Hgb 8.5 L Hct 26.2 L MCV 96.0 H MCH 31.1 MCHC 32.4 RDW 17.8 H Plt Count MPV Immature Gran % 1.2 Neutrophils % 82.4 Band Neutrophils % Lymphocytes % 7.2 Monocytes % 8.6 Eosinophils % 0.3 Basophils % 0.3 Myelocytes % Nucleated RBC % 0 Absolute Neutrophils 15.56 H Absolute Lymphocytes 1.36 Absolute Monocytes 1.62 H Absolute Eosinophils 0.06 Absolute Basophils 0.06 RBC Morphology See Below Polychromasia Hypochromasia 1+ Poikilocytosis 1+ Basophilic Stippling Present Anisocytosis PT INR APTT Sodium Potassium Chloride Carbon Dioxide Anion Gap BUN Creatinine Estimated GFR/1.73 m2 Glucose Calcium Magnesium Total Bilirubin AST ALT Alkaline Phosphatase Troponin I NT-Pro-B Natriuret Pep Total Protein Albumin Procalcitonin TSH COVID-19 Source SARS-CoV-2 (PCR) Add-On Test Request Review of Systems All systems reviewed & are unremarkable except as noted in HPI and below Time spent with patient Time spent in Critical Care: 45 Time spent in Critical care included: Coordination of care, Chart review, Documenting critically ill care, Time at immediate bedside and Discussing critically ill care with other medical staff
[2021-10-19] MEDS: Insulin Aspart 300 UNITS/3 ML PEN SC ×3 (08:53→17:06)
[2021-10-19] MEDS: Aspirin E.C. 81 MG TABEC PO (09:00)
[2021-10-19] MEDS: Acetaminophen 325 MG TAB PO (09:26)
[2021-10-19] MEDS: DOXYCYCLINE 100 MG in Normal Saline 100 ML IVPB ×2 (09:27→22:15)
[2021-10-19] MEDS: Omnipaque 350 MG/ML 100 ML BTL IJ (10:20)
[2021-10-19] MEDS: Metoprolol 25 MG TAB PO ×3 (11:26→22:15)
--- NOTE | 2021-10-19 11:53 | DM INPTCON_ITS ---
Date of service: 10/19/21 Time of Service: 11:54 Diabetes Inpatient Consult Reason for Visit: Inpatient Diabetes Consult Request DESCRIPTION/ASSESSMENT: Ms. Persaud has excellent PO intake on CHO counting/heart healthy diet. She is 165 cm and 100.9 kg. Her BMI is 37 kg/m2 c/w class 2 obesity. Looking back at her weight history, her weight has been entirely stable for many years. She has type 2 diabetes. A1C in September was 7.4 suggesting glycemic control is at goal given her age and comorbidities. She is on aspart here for correction however she does not take any medications for diabetes at home. INTERVENTION: Continue with current nutrition and diabetes care plan. PLAN: Will check in with Ms. Persaud prior to d/c to see if she has any diabetes educat ion needs. Time Spent in Nutritional Counseling and Treatment: 0
--- NOTE | 2021-10-19 11:57 | W.PM.PROGNOT ---
Date of Service Date of service: 10/19/21 Time of Service: 11:57 Assessment and Plan Assessment and plan (1) Atrial fibrillation with rapid ventricular response: Status: Acute Assessment and plan: HR better. We introduced metoprolol in addition to cardizem gtt. Will attempt to wean off of cardizem gtt and replace with short acting cardizem. PE ruled out. Obtain echo. Hold anticoagulation until we have results of hematest as has a h/o heme + stools. (2) Acute CHF: Status: Acute Assessment and plan: Diurese. Monitor I/O's, daily weights. Obtain echo. (3) Community acquired pneumonia: Status: Acute Assessment and plan: Continue empiric doxycycline/ceftriaxone. (4) Guaiac + stool: Status: Acute Assessment and plan: As above hold full anticoagulation. Hematest ordered (5) Hypothyroidism: Status: Acute Assessment and plan: Increase levothyroxine to 150 mcg daily (6) Hypoxia: Status: Acute Assessment and plan: Diurese. Wean O2 as tolerated (7) DVT prophylaxis: Status: Acute Assessment and plan: SC heparin while carefully monitoring for bleeding (8) Discharge planning issues: Status: Acute Assessment and plan: Full code Keep in ICU. Total Critical Care Time is 45 minutes. Subjective Subjective Interval history since last seen: Does not feel shortness of breath, palpitations, or chest discomfort. Denies dizziness, nausea. Remains on cardizem gtt at 15 mg/hr. HR in 80s-low 100s. Requiring 1 L of O2 to saturate 92%. Exam Narrative Exam Narrative: General: Pleasant obese elderly female who does not looks dyspneic/tachypneic, UPPER [place], A&Ox3 HEENT: EOMI, MMM Heart: irregularly irregular rhythm, no m/r/g Lungs: crackles at B bases Abdomen: soft, nontender, nondistended Extremities: +1 BLE edema, no c/c Objective Last Vital Signs Temp 37.1 C 10/19/21 11:30 Pulse 107 H 10/19/21 11:30 Resp 32 H 10/19/21 11:30 BP 98/50 L 10/19/21 11:30 Pulse Ox 92 10/19/21 11:30 Laboratory Results - last 24 hr 10/18/21 10/18/21 10/18/21 17:10 17:10 17:10 WBC 19.48 H RBC 2.87 L Hgb 8.9 L Hct 27.9 L MCV 97.2 H MCH 31.0 MCHC 31.9 L RDW 17.8 H Plt Count 352 MPV 10.6 Immature Gran % See Differential Neutrophils % 76.0 Band Neutrophils % 1 Lymphocytes % 12.0 Monocytes % 10.0 Eosinophils % 0.0 Basophils % 0.0 Myelocytes % 1 Nucleated RBC % 0 Absolute Neutrophils 15.00 H Absolute Lymphocytes 2.34 Absolute Monocytes 1.95 H Absolute Eosinophils 0.00 Absolute Basophils 0.00 RBC Morphology See Below Polychromasia Present Hypochromasia 1+ Poikilocytosis 1+ Basophilic Stippling Anisocytosis 1+ PT 11.5 H INR 1.1 APTT 21.0 Sodium 136 Potassium 4.1 Chloride 101 Carbon Dioxide 27.4 Anion Gap 7.6 BUN 27 H Creatinine 1.2 H Estimated GFR/1.73 m2 43.34 Glucose 194 H Calcium 9.1 Magnesium 2.0 Total Bilirubin 1.2 H AST 16 ALT 25 Alkaline Phosphatase 54 Troponin I 92 H* NT-Pro-B Natriuret Pep Total Protein 7.6 Albumin 3.8 Procalcitonin TSH COVID-19 Source SARS-CoV-2 (PCR) Add-On Test Request 10/18/21 10/18/21 10/18/21 17:10 17:10 17:10 WBC RBC Hgb Hct MCV MCH MCHC RDW Plt Count MPV Immature Gran % Neutrophils % Band Neutrophils % Lymphocytes % Monocytes % Eosinophils % Basophils % Myelocytes % Nucleated RBC % Absolute Neutrophils Absolute Lymphocytes Absolute Monocytes Absolute Eosinophils Absolute Basophils RBC Morphology Polychromasia Hypochromasia Poikilocytosis Basophilic Stippling Anisocytosis PT INR APTT Sodium Potassium Chloride Carbon Dioxide Anion Gap BUN Creatinine Estimated GFR/1.73 m2 Glucose Calcium Magnesium Total Bilirubin AST ALT Alkaline Phosphatase Troponin I NT-Pro-B Natriuret Pep Total Protein Albumin Procalcitonin 0.1 TSH 12.97 H COVID-19 Source SARS-CoV-2 (PCR) Add-On Test Request DONE 10/18/21 10/18/21 10/18/21 17:10 18:27 20:05 WBC RBC Hgb Hct MCV MCH MCHC RDW Plt Count MPV Immature Gran % Neutrophils % Band Neutrophils % Lymphocytes % Monocytes % Eosinophils % Basophils % Myelocytes % Nucleated RBC % Absolute Neutrophils Absolute Lymphocytes Absolute Monocytes Absolute Eosinophils Absolute Basophils RBC Morphology Polychromasia Hypochromasia Poikilocytosis Basophilic Stippling Anisocytosis PT INR APTT Sodium Potassium Chloride Carbon Dioxide Anion Gap BUN Creatinine Estimated GFR/1.73 m2 Glucose Calcium Magnesium Total Bilirubin AST ALT Alkaline Phosphatase Troponin I 103 H* NT-Pro-B Natriuret Pep 5142 H Total Protein Albumin Procalcitonin TSH COVID-19 Source Nasal/Nares SARS-CoV-2 (PCR) Negative Add-On Test Request 10/18/21 10/19/21 10/19/21 Unknown 01:15 06:20 WBC RBC Hgb Hct MCV MCH MCHC RDW Plt Count MPV Immature Gran % Neutrophils % Band Neutrophils % Lymphocytes % Monocytes % Eosinophils % Basophils % Myelocytes % Nucleated RBC % Absolute Neutrophils Absolute Lymphocytes Absolute Monocytes Absolute Eosinophils Absolute Basophils RBC Morphology Polychromasia Hypochromasia Poikilocytosis Basophilic Stippling Anisocytosis PT INR APTT Sodium 137 Potassium 4.5 Chloride 103 Carbon Dioxide 26.7 Anion Gap 7.3 BUN 24 H Creatinine 1.1 H Estimated GFR/1.73 m2 47.91 Glucose 197 H Calcium 8.9 Magnesium Total Bilirubin 1.1 H AST 20 ALT 24 Alkaline Phosphatase 54 Troponin I 96 H* NT-Pro-B Natriuret Pep Total Protein 7.0 Albumin 3.3 L Procalcitonin TSH COVID-19 Source SARS-CoV-2 (PCR) Add-On Test Request DONE 10/19/21 06:20 WBC 18.88 H RBC 2.73 L Hgb 8.5 L Hct 26.2 L MCV 96.0 H MCH 31.1 MCHC 32.4 RDW 17.8 H Plt Count MPV Immature Gran % 1.2 Neutrophils % 82.4 Band Neutrophils % Lymphocytes % 7.2 Monocytes % 8.6 Eosinophils % 0.3 Basophils % 0.3 Myelocytes % Nucleated RBC % 0 Absolute Neutrophils 15.56 H Absolute Lymphocytes 1.36 Absolute Monocytes 1.62 H Absolute Eosinophils 0.06 Absolute Basophils 0.06 RBC Morphology See Below Polychromasia Hypochromasia 1+ Poikilocytosis 1+ Basophilic Stippling Present Anisocytosis PT INR APTT Sodium Potassium Chloride Carbon Dioxide Anion Gap BUN Creatinine Estimated GFR/1.73 m2 Glucose Calcium Magnesium Total Bilirubin AST ALT Alkaline Phosphatase Troponin I NT-Pro-B Natriuret Pep Total Protein Albumin Procalcitonin TSH COVID-19 Source SARS-CoV-2 (PCR) Add-On Test Request Objective Narrative Objective Narrative: CTA chest :1. The peripheral pulmonary artery evaluation is limited due to patient motion artifact and poor inspiration.? No central pulmonary embolus is present. 2. There is poor opacification of the thoracic aorta.? No aneurysm is seen. 3. Small right pleural effusion and subjacent infiltrate which may represent atelectasis or pneumonia.?
[2021-10-19] MEDS: Lidocaine 5% Patch 1 PATCH TP (13:05)
--- NOTE | 2021-10-19 14:16 | PDOC.CMIN ---
- If Service Date Differs Date of service: 10/19/21 Time of Service: 14:16 Care Management Initial Assess REASON FOR HOSPITALIZATION:: Atrial fibrillation with rapid ventricular response, Acute CHF, Community acquired pneumonia, Hypoxia, Guaiac + stool, Hypothyroidism, PAST MEDICAL HISTORY/PAST SURGICAL HISTORY:: All Active Problems (Updated 10/18/21 @ 21:33 by Cristobal Mi MD). Community acquired pneumonia (Acute). Atrial fibrillation with rapid ventricular response (Acute). Localized osteoarthritis of right knee (Acute). Depression (Chronic). Chronic pain of right knee (Acute). Cellulitis of right leg (Acute). Tenderness of right calf (Acute). Tender, swollen, firm, warm .. possible DVT? possible cellulitis? Right leg swelling (Acute). Right knee pain (Acute). Elevated brain natriuretic peptide (BNP) level (Acute). Bilateral edema of lower extremity (Acute). Breath, shortness (Acute). Impaired mobility and ADLs (Acute). Pre-op evaluation (Acute). Left shoulder pain (Acute). 12/26/20- total left shoulder arthoplasty;[facility]. Insomnia (Acute). Guaiac + stool (Acute). Anemia (Chronic). Palliative care patient (Acute). [place]. Discharge planning issues (Acute). Fall (Acute). Dehydration (Acute). Edema (Acute). Hypothyroidism (Chronic). Primary osteoarthritis, left shoulder (Acute). Lower extremity edema (Acute). Degenerative spondylolisthesis (Acute). Chronic pain (Chronic). Liver hemangioma (Acute). Abnormal abdominal CT scan (Acute). PVD (peripheral vascular disease) with claudication (Acute). 08/18/19-[facility] [place] [facility]. Jon Cardenas MD. Left carotid stenosis (Acute). Myalgia (Acute). Osteoarthritis of left shoulder (Acute). Spondylosis of lumbar region without myelopathy or radiculopathy (Chronic). Angina pectoris (Acute). Chronic low back pain (Acute). Diabetes mellitus, controlled (Chronic). Type II. per record note recieved from previous pcp office, on 04/15/16, question as to wheter patient ever really had DM. Have stopped her Metformin and last time checked her A1C was excellent. Will juan luis. Essential hypertension (Acute). Gastroesophageal reflux disease without esophagitis (Acute). Hyperlipidemia (Acute). Hypothyroidism (Acute). Impaired mobility and ADLs (Acute 06/23/17). Migraine without status migrainosus (Acute). OA (osteoarthritis) (Acute 04/16/17). Pulmonary emphysema (Acute). Restless legs syndrome (RLS) (Acute). Spinal stenosis (Chronic 04/16/17). Urinary incontinence (Acute). Lumbar radiculitis (Acute). Frequent falls (Chronic). Anemia, macrocytic (Acute). Status post total left knee replacement (Chronic). DOS (estimated from x-rays) 01/2010. DJD of both shoulders (Chronic). Diverticulosis of intestine (Acute 05/14/95). Decreased pedal pulses (Acute). Impaired circulation of right leg (Acute). Primary osteoarthritis of right knee (Acute). Injected: 06/02/2019. Stress incontinence (Acute). Medical History . Angina pectoris. Arthropathy. Chronic low back pain. Claustrophobia. Claustrophobia. COPD (chronic obstructive pulmonary disease). Diverticulosis. Essential hypertension. Gastroesophageal reflux disease. Hyperlipidemia. Hypothyroidism. Impaired mobility. Lower gastrointestinal bleed. Migraine. Near syncope. Osteoarthritis. RLS (restless legs syndrome). Spinal stenosis. Urge urinary incontinence. Surgical History . Abdominal hysterectomy. Age 29. Cholecystectomy (~09/2002). Colonoscopy - MAC (05/23/17). Extraction of cataract (~10/2007). Bilateral. Laminectomy (03/27/09). L3-L5,medial facetectomy,L3-L4 and L4-L5. Replacement of total knee joint. Left 2011. Status post reverse total arthroplasty of left shoulder (~11/2020). TVT (~05/2004) PREVIOUS FUNCTIONAL STATUS/SOCIAL/FAMILY SUPPORTS:: Sveta lives at the [facility], alone with her cat in a one bedroom apartment. Her about four years ago. They had three children, two of which in separate automobile accidents. Her son Feliberto is supportive, as well as her granddaughter Jillian. Sveta has [facility] highest needs and has caregivers 4-10 hours a day. 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 Sveta uses a wheel chair and feels very supported at home by her caregivers and family. CURRENT FUNCTIONAL STATUS:: Sveta was lying in bed when CM met with her. She was alert, oriented X3, pleasant and easily engaged in conversation. She shares that her son is going to take care of her cat while she is in the hospital. Sveta also shares that her Granddaughter recently had a baby girl. The baby joins a 9 year old brother and Sveta couldn't be more proud that her Granddaughter has a boy and girl. ADVANCE DIRECTIVES:: Appointment of [facility] Agent form on file completed 08/28/20: [facility]CA: Feliberto Persaud (Son), Alternate: Jillian Cerda (Granddaughter.) Has patient been provided with info about the portal/API?: Yes Did the patient sign up for the portal?: No CODE STATUS:: Full Code INSURANCE COVERAGE / FINANCIAL ISSUES:: AARP. CMR. Medicaid CURRENT HOME/COMMUNITY SERVICES/EQUIPMENT:: Sveta has a wheelchair and shower bench. She has [employer] highest needs, and states that she has 40+ hrs a week of personal care. Caregiver Schedule (per pt): Mon 8-4p. Tues 8-4p. Weds 8-6:30p. Thurs 8-4p. Fri 8-1230p. Sat 8-12p. Sun 8-3p PRIMARY CARE PHYSICIAN:: Jocy Kate POTENTIAL DISCHARGE NEEDS:: Notify [facility], assessment for further needs. Follow up appointments PATIENT/FAMILY EDUCATION NEEDS:: Review discharge instructions, limitations, medications and plan to follow up with community providers. ask me three. TRANSPORTATION:: Anticipate Sveta will transport via private vehicle by family. PLAN:: Sveta requires treatment and close monitoring in the ICU. Anticipate, Sveta will return home with resumption of [facility] and [facility] services via private vehicle with family. She will follow up with her PCP and discharge plan of care. CM will continue to follow.
[2021-10-19] MEDS: dilTIAZem 30 MG TAB 90 MG PO (15:06)
[2021-10-19 15:33] LABS: Bilirubin Negative (Negative); Blood Small (Negative); Clarity Clear (Clear); Glucose Negative (Negative); Ketones Negative (Negative); Leukocyte Esterase Negative (Negative); Nitrite Positive (Negative); Urobilinogen 0.2 EU/dL (Up TO 0.2)
[2021-10-19 15:43] LABS: Bacteria Few HPF (Negative); C & S Indicated? Yes; Casts Negative LPF (Negative); Crystals Negative HPF (Negative); Epithelial Cells Few HPF (Negative); Mucus Trace (Negative)
[2021-10-19] MEDS: Furosemide 100 MG/10 ML VIAL 80 MG IVP (15:45)
--- NOTE | 2021-10-19 17:48 | PT.INNT ---
Date of service: 10/19/21 Time of Service: 17:48 PT Notes Visit Reasons: Atrial fibrillation with rapid ventricular rate Per nurse electrician substation supervisor Lorraine, waiting tomorrow may be more safe for patient as her HR has been bouncing from 109-125 just lying down in bed at time of PT consultation with nurse. Dr. Mcdonnell was apprised and is agreeable to PT eval tomorrow morning. Order was originally written for 10/20/21. Weekend on-call PT updated of plan. Thank you for the opportunity to participate in the care of this patient. May Reid PT, DPT, CLT [facility] [place], [place]
[2021-10-19] MEDS: Mylanta Suspension 30 ML CUP PO (20:10)
[2021-10-19] MEDS: Ondansetron 4 MG/2 ML VIAL IVP (20:10)
[2021-10-19] MEDS: Docusate Sodium 100 MG CAP PO (20:12)
[2021-10-19] MEDS: Melatonin 3 MG TAB 6 MG PO (20:12)
[2021-10-19] MEDS: Atorvastatin 40 MG TAB PO (20:12)
[2021-10-19] MEDS: cefTRIAXone 1 GM/50 ML BAG IVPB (20:13)
[2021-10-20] VITALS (131 sets, daily range): BP systolic 35–183; BP diastolic 13–144; PULSE 49–163; RESP 14–34; TEMP 35.3–36.5; O2SAT 54–97
[2021-10-20] MEDS: dilTIAZem 30 MG TAB 90 MG PO (02:44)
[2021-10-20] MEDS: Metoprolol 25 MG TAB PO (04:54)
[2021-10-20] MEDS: Heparin 5,000 UNITS/ML VIAL 5000 UNITS SC (05:47)
[2021-10-20] MEDS: Levothyroxine 150 MCG TAB PO (05:47)
[2021-10-20 06:17] LABS: HCT 27.5 % (36.0-46.0); HGB 8.5 g/dL (11.2-15.7); MCHC 30.9 % (32.0-36.0); MCV 97.2 fL (80-95); Platelet Count 372 10^3/uL (130-400); RBC 2.83 10^6/uL (3.93-5.22); RDW 17.7 % (11.7-14.6); RDW-SD 60.9 fL; WBC 19.73 10^3/uL (4.4-10.8)
[2021-10-20 06:24] LABS: Anion Gap 10.8 mmol/L (3-11); BUN 41 mg/dL (7-18); CO2 23.2 mmol/L (21.0-32.0); CREATININE 1.9 mg/dL (0.55-1.02); Chloride 100 mmol/L (98-107); Glucose 192 mg/dL (74-106); Magnesium 2.2 mg/dL (1.8-2.4); Potassium 4.8 mmol/L (3.5-5.1); Sodium 134 mmol/L (136-145)
[2021-10-20 06:39] LABS: Absolute Lymphocyte Count 1.38 10^3/uL (1.2-3.4); Absolute Monocyte Count 0.79 10^3/uL (0.1-0.8); Absolute Neutrophil Count 17.17 10^3/uL (1.2-6.7); Bands % 1; Diff Comment Manual Differential; Hypochromasia 1+; Metamyelocytes % 2; Nucleated RBC 0 %
[2021-10-20] MEDS: Insulin Aspart 300 UNITS/3 ML PEN SC (07:49)
[2021-10-20] MEDS: Aspirin E.C. 81 MG TABEC PO (07:58)
[2021-10-20] MEDS: DULoxetine 30 MG CAP 60 MG PO (07:59)
[2021-10-20] MEDS: Docusate Sodium 100 MG CAP PO (07:59)
[2021-10-20] MEDS: buPROPion-XL 150 MG TABCR PO (07:59)
[2021-10-20] MEDS: Fluticasone NASAL SPRAY 16 GM BTL NS (07:59)
[2021-10-20] MEDS: Furosemide 40 MG/4 ML VIAL IVP (08:00)
[2021-10-20] MEDS: Mirabegron 25 MG TABCR PO (08:01)
[2021-10-20] MEDS: Omeprazole 20 MG CAPCR 40 MG PO (08:01)
[2021-10-20] MEDS: Multivitamin TAB 1 TAB PO (08:01)
--- NOTE | 2021-10-20 08:37 | NUR.NOTE ---
[Patient desating to mid 80's on nasal cannula at 4 liters of 02. Patient started on an oxymask at 5 liters and sat rises to 93%. Patient much more comfortable.Nursing Note:
[2021-10-20 09:25] LABS: Lab Add On Test DONE
--- NOTE | 2021-10-20 10:09 | W.PM.PROGNOT ---
Date of Service Date of service: 10/20/21 Time of Service: 10:10 Assessment and Plan Assessment and plan (1) Hypotension: Status: Acute Assessment and plan: Patient had systolic blood pressures in the low nineties to low one hundreds last night. She remains hypotensive this morning with systolic blood pressures in the seventies. Patient was given fluid bolus of normal saline at 250 mL x 2 doses. I will try phenylephrine as this is a pure vasoconstrictor. Meanwhile we will repeat her H&H and type and screen given that she presented with anemia and heme positive stools. Also check a troponin and EKG to make sure she has not had an ischemic event. Continue to hold her Lasix for now. Continue holding her enalapril. Diltiazem and metoprolol on hold but once her pressure stabilizes will resume them at a reduced dose and change in her schedule. Echocardiogram has been ordered for Friday. POCUS exam shows normal LV systolic function with LVH. Exam was limited due to her body habitus. Addendum: patient became quite hypotensive w/ SBP in the 50's; patient given multiple fluid boluses of 250 mL each for total of 650 mL. She finally responded to phenylephrine initially given 50 mcg IVP but eventually required phenylephrine drip at 1 mcg/kg/minute. I have put her diltiazem and metoprolol on hold for now but will resume later tonight at reduced dose if her BP and HR will allow. repeat EKG done and shows stable afib rate w/ RBBB (not new) and repeat troponin is declining at 71 and her Hb is stable at 8.7 gm. 90 minutes of critical care time evaluating and stabilizing the patient. I update her son on her condition. Patient has decided on a DNR/DNI status as she does not want to be put on life support measures including intubation or mechanical ventilation. Qualifiers: Hypotension type: hypotension due to drug Qualified Code(s): I95.2 - Hypotension due to drugs (2) Acute CHF: Status: Acute Assessment and plan: Acute CHF secondary to rapid atrial fibrillation and LVH. I also suspect some valvular heart disease but due to the limited images did not get good color-flow Doppler study of her mitral and aortic valve and tricuspid valves. Diuretics on hold due to her hypotension. Formal echocardiogram will be obtained on Friday. (3) CAP (community acquired pneumonia): Status: Acute Assessment and plan: Continue antibiotic coverage for community-acquired pneumonia with doxycycline and ceftriaxone. Continue I-S and Acapella. Wean oxygen as tolerated. (4) Atrial fibrillation with rapid ventricular response: Status: Acute Assessment and plan: Diltiazem and metoprolol on hold due to hypotension. Will resume at a reduced dose later tonight once she is off phenylephrine and has a stable BP. Her atrial fibrillation is apparently a new diagnosis and she has been na?ve to beta-blockers and calcium channel blockers therefore I think she should have reduced dose of both once her pressure is able to tolerate resumption of her AV lobito blocking drugs. (5) Acute kidney injury (nontraumatic): Status: Acute Assessment and plan: BUN creatinine jonas overnight to 41 and 1.9. Her baseline creatinine is around 1.1-1.2. I suspect this is from aggressive diuresis. Furosemide on hold. (6) DVT prophylaxis: Status: Acute Assessment and plan: Remains on subcutaneous heparin however in light of her heme positive stools and anemia we will discontinue subcutaneous heparin and put her on SCDs. (7) Guaiac + stool: Status: Acute Assessment and plan: placed on omeprazole 40 mg daily. I increased this to 40 mg bid and added carafate for now (8) Gastroesophageal reflux disease without esophagitis: Status: Acute Assessment and plan: Patient's omeprazole increased to 40 mg p.o. twice daily Will add Carafate to her regimen. Subjective Subjective Interval history since last seen: Patient feels dyspneic w/ any movement. She is not in any acute respiratory distress but is hypotensive (78/56 confirmed manually). Afib rate is well controlled. Off diltiazem drip since yesterday afternoon. She is scheduled to receive diltiazem 90mg Q6h and metoprolol 25 mg Q6h. Both were held this morning d/t low BP, however she received her lasix 40 mg IVP. Through the night her SBP has been in the low 90's to 100's. I have put her lasix on hold. Her BUN and creatinine are climbing (now 41 and 1.9; baseline is 24 and 1.1). she is also anemic w/ Hb of 8.5 gm (baseline is 9.6 to 10 gm although she presented w/ Hb of 8.9 gm). She reportedly is heme positive on her stools but is on omeprazole 40 mg daily but I have increased this to bid). She is not on anticoagulants for that reason. Exam Narrative Exam Narrative: Morbidly obese female lying in bed who is having dry heaves. Neck is obese difficult to discern JVD. Lungs with diffuse bilateral rales in all lung corral Heart is irregularly irregular at a controlled rate without appreciable murmur rub Abdomen is obese soft nondistended with active bowel sounds Lower extremities without pitting edema. She has diminished pedal pulses feet are cool dry without cyanosis. Objective Last Vital Signs Temp 35.5 C L 10/20/21 10:02 Pulse 64 10/20/21 10:02 Resp 25 H 10/20/21 10:02 BP 79/61 L 10/20/21 10:02 Pulse Ox 94 10/20/21 10:02 Laboratory Results - last 24 hr 10/19/21 10/20/21 10/20/21 14:30 05:32 05:32 WBC 19.73 H RBC 2.83 L Hgb 8.5 L Hct 27.5 L MCV 97.2 H MCH 30.0 MCHC 30.9 L RDW 17.7 H Plt Count 372 MPV 11.0 Immature Gran % 0.0 Neutrophils % 86.0 Band Neutrophils % 1 Lymphocytes % 7.0 Monocytes % 4.0 Eosinophils % 0.0 Basophils % 0.0 Metamyelocytes % 2 Nucleated RBC % 0 Absolute Neutrophils 17.17 H Absolute Lymphocytes 1.38 Absolute Monocytes 0.79 Absolute Eosinophils 0.00 Absolute Basophils 0.00 RBC Morphology See Below Hypochromasia 1+ Sodium 134 L Potassium 4.8 Chloride 100 Carbon Dioxide 23.2 Anion Gap 10.8 BUN 41 H D Creatinine 1.9 H D Estimated GFR/1.73 m2 25.50 Glucose 192 H Calcium 9.0 Magnesium 2.2 Urine Color Yellow Urine Clarity Clear Urine pH 5.0 Ur Specific [place] 1.010 Urine Protein 100 H Urine Ketones Negative Urine Blood Small H Urine Nitrite Positive H Urine Bilirubin Negative Urine Urobilinogen 0.2 Ur Leukocyte Esterase Negative Urine RBC 3-5 H Urine WBC 5-10 Ur Epithelial Cells Few Urine Crystals Negative Urine Bacteria Few Urine Casts Negative Urine Mucus Trace Ur Culture Indicated? Yes Urine Glucose Negative Add-On Test Request 10/20/21 05:32 WBC RBC Hgb Hct MCV MCH MCHC RDW Plt Count MPV Immature Gran % Neutrophils % Band Neutrophils % Lymphocytes % Monocytes % Eosinophils % Basophils % Metamyelocytes % Nucleated RBC % Absolute Neutrophils Absolute Lymphocytes Absolute Monocytes Absolute Eosinophils Absolute Basophils RBC Morphology Hypochromasia Sodium Potassium Chloride Carbon Dioxide Anion Gap BUN Creatinine Estimated GFR/1.73 m2 Glucose Calcium Magnesium Urine Color Urine Clarity Urine pH Ur Specific [place] Urine Protein Urine Ketones Urine Blood Urine Nitrite Urine Bilirubin Urine Urobilinogen Ur Leukocyte Esterase Urine RBC Urine WBC Ur Epithelial Cells Urine Crystals Urine Bacteria Urine Casts Urine Mucus Ur Culture Indicated? Urine Glucose Add-On Test Request DONE
[2021-10-20 10:13] LABS: Vitamin B12 1606 pg/mL (193-986)
[2021-10-20 10:15] LABS: Folate > 20.0 ng/mL (8.6-20.0)
[2021-10-20 10:15] LABS: Iron 36 ug/dL (50-170); Total Iron Binding Capacity 343 ug/dL (250-450)
[2021-10-20 10:29] LABS: Ferritin 268 ng/mL (8-252)
[2021-10-20] MEDS: Normal Saline 250 ML 1000 ML IV ×2 (10:35→11:41)
[2021-10-20] MEDS: DOXYCYCLINE 100 MG in Normal Saline 100 ML IVPB ×2 (10:38→22:30)
--- NOTE | 2021-10-20 10:40 | NUR.NOTE ---
MD performs bedside ultrasound on patient. Patient reports only symptom as being tired.Nursing Note:
--- NOTE | 2021-10-20 10:49 | NUR.NOTE ---
Patient is receiving a bolus of 0.NS 250ml and is presently also receiving Doxycycline.Nursing Note:
[2021-10-20] MEDS: Ondansetron 4 MG/2 ML VIAL IVP (10:58)
--- NOTE | 2021-10-20 11:15 | RT.EKG_ITS ---
APPROVED REPORT Exam: Resting ECG Reason for Exam: HYPOTENSION Patient Location: I HR:87 bpm ECG Measurements Heart Rate 87 AXIS [place] [id number] P [id number] QRSd 158 QRS 44 QT 425 T 22 QTc 512 Conclusion Atrial fibrillation...? atrial activity Right bundle branch block...QRSd>120, terminal axis(90,270)
[2021-10-20] MEDS: Phenylephrine 800 MCG/10 ML SYR 50 MCG IVP (11:39)
[2021-10-20 11:50] LABS: HCT 28.8 % (36.0-46.0); HGB 8.7 g/dL (11.2-15.7)
--- NOTE | 2021-10-20 12:06 | PT.INNT ---
PT Notes Visit Reasons: Atrial fibrillation with rapid ventricular rate Per MD, pt unavailable for physical therapy today due to unstable BP. Will defer to later date pending stabilized vitals.
[2021-10-20 12:10] LABS: Troponin I 71 ng/L (<or=60)
--- NOTE | 2021-10-20 12:14 | WOUNDCARE ---
Wound Care Report Patient has an ordered wound consult today. I went to visit the patient. Ginna, the ICU nurse told this nurse that the patient was not currently clinically stable, as she had worsening lab values and was hypotensive. I will revisit the patient at a time when she is clinically stable. ICU is asked to offload pressure, and keep a mepilex on the site they acknowledge and thank nursing for the recommendation.
--- NOTE | 2021-10-20 12:37 | NUR.NOTE ---
Nursing Note: Dr. Mitchell has been managing patient for the past 1.5 hours. Vital signs now stable on 1mcg/kg/min of Phenylephrine. Patient's color much improved. Patient speaks to her son on the telephone and is much clearer.
--- NOTE | 2021-10-20 13:42 | NUR.NOTE ---
Arlene Altamirano arrives to attempt PICC line placement.Nursing Note:
--- NOTE | 2021-10-20 14:00 | DI.RAD_ITS ---
Exam(s) XR PORTABLE CHEST AP POST LINE EXAM: XR PORTABLE CHEST AP POST LINE CLINICAL HISTORY: Picc line placement. TECHNIQUE: 2D digital imaging was performed. COMPARISON: CR,XR XR PORTABLE CHEST AP from 10/18/2021 FINDINGS: Heart size is upper normal. The mediastinum is not widened. There is a newly placed right PICC line. Its distal tip is in the mid right atrium and should be ret racted into the SVC. There is no significant mediastinal widening. Mild increased markings in the r ight lung base noted. No pleural effusions. No pulmonary edema. No pneumothorax. There is a reversed left shoulder prosthesis noted and advanced degenerative narrowing of the right s houlder glenohumeral joint. IMPRESSION: PICC line should be repositioned into the SVC. It is presently in the right atrium DATA REPOSITORY: RADIATION DOSE DELIVERED: All CT scans at this facility use at least one of these dose optimization techniques: automated exposure control; mA and/or kV adjustment per patient size (includes targeted e xams where dose is matched to clinical indication); or iterative reconstruction.
--- NOTE | 2021-10-20 14:16 | NUR.NOTE ---
RN orders x-ray to confirm placement of triple lumen picc line.Nursing Note:
--- NOTE | 2021-10-20 14:30 | DI.RAD_ITS ---
Exam(s) XR PORTABLE CHEST AP POST LINE EXAM: XR PORTABLE CHEST AP POST LINE CLINICAL HISTORY: f/u picc line placement. TECHNIQUE: 2D digital imaging was performed. COMPARISON: CR XR PORTABLE CHEST AP POST LINE from 10/20/2021 FINDINGS: Heart size unchanged. Distal tip of the right PICC line is at the lower SVC-RA junction, improved from 6 minutes ago. Mild increased markings in the lung bases noted. IMPRESSION: Improved position of the PICC line. DATA REPOSITORY: RADIATION DOSE DELIVERED: All CT scans at this facility use at least one of these dose optimization techniques: automated exposure control; mA and/or kV adjustment per patient size (includes targeted e xams where dose is matched to clinical indication); or iterative reconstruction.
[2021-10-20 14:48] LABS: HCT 29.8 % (36.0-46.0); HGB 8.7 g/dL (11.2-15.7)
--- NOTE | 2021-10-20 15:07 | DI.VRAD_ITS ---
PROCEDURE INFORMATION: Exam: XR Chest Exam date and time: 10/20/2021 2:03 PM Age: 80 years old Clinical indication: Device placement; Patient HX: 2nd image taken for adjustment of picc TECHNIQUE: Imaging protocol: XR of the chest. Views: 1 view. COMPARISON: XR PORTABLE CHEST AP 10/18/2021 6:12 PM FINDINGS: 2 images of the chest. The 1st image taken chronologically shows the right-sided PICC terminating over the cavoatrial junction. The 2nd image chronologically shows the right-sided PICC terminating over the SVC. Worsening bilateral lung opacities. Similar cardiomediastinal silhouette. Similar/stable bony structures. No pneumothorax. Impression: Right-sided PICC positioning as above. Worsening bilateral lung opacities. Dictated and Authenticated by: Giovani Ma MD. Ordering:.[facility] Stephen Brown MD
--- NOTE | 2021-10-20 15:08 | DI.VRAD_ITS ---
PROCEDURE INFORMATION: Exam: XR Chest Exam date and time: 10/20/2021 2:40 PM Age: 80 years old Clinical indication: Device placement; Picc TECHNIQUE: Imaging protocol: XR of the chest. Views: 1 view. COMPARISON: XR PORTABLE CHEST AP 10/18/2021 6:12 PM FINDINGS: Tubes, catheters and devices: Right-sided PICC terminates over the SVC. Lungs: Worsening bilateral lung opacities. Pleural spaces: No pneumothorax. Heart/Mediastinum: Similar cardiomediastinal silhouette. Bones/joints: Similar/stable bony structures. IMPRESSION: 1. Right-sided PICC terminates over the SVC. 2. Worsening bilateral lung opacities. Dictated and Authenticated by: Giovani Ma MD. Ordering:[facility] Stephen Brown MD
--- NOTE | 2021-10-20 16:27 | NUR.NOTE ---
RN assists oncoming nurse commence norepinephrine and assists with titration of phenylephrine, taking manual BP and repositioning patient over the last 1.5 hours. This RN hands off patient to Josephine Mcgrath and CINDI Ramos. RN suggest patient's son be called. MD calls patient's son to given update and suggest he come to hospital today instead of tomorrow.Nursing Note:
[2021-10-20] MEDS: Normal Saline Flush 10 ML SYR IVP (16:42)
[2021-10-20] MEDS: Hydrocortisone SOD SUC. 100 MG VIAL IVP ×2 (16:42→22:57)
[2021-10-20] MEDS: Dextrose 50%-Water 25 GM/50 ML SYR IVP ×3 (17:15→22:20)
--- NOTE | 2021-10-20 19:34 | W.PM.OP ---
Date of service: 10/20/21 Time of Service: 19:35 Operative Note Operative Note PRE-OP DIAGNOSIS: Hypotension POST-OP DIAGNOSIS: same PROCEDURE: Left radial arterial catheter line placement SURGEON: Kevin Mitchell Refer to Anesthesia Record ESTIMATED BLOOD LOSS: 3 (mL) Indications: Hypotension Procedure Description: After obtaining written informed consent from the patient's son Feliberto Persaud, left radial A-line was attempted after performing an modified Adan's test confirming ulnar and radial blood flow. Left radial area at the wrist was prepped in sterile fashion and using an Arrow 20-gauge 1 and three-quarter inch radial artery catheterization set and after having prepped the skin and draped it in sterile fashion 2 mL of 1% Xylocaine was used to infiltrate the subcutaneous skin and using ultrasound guidance using a translinear probe from a [employer] PX machine which was covered with a sterile probe cover the radial artery was identified found to be compressible an attempt was made to catheterize the artery. Initially good blood flow was obtained but when the catheter was attempted to be advanced over the guidewire the catheter kinked and the procedure was abandoned. 2 more attempts were obtained without successful cannulation of the artery at which point further attempts were abandoned.
[2021-10-20] MEDS: DEXTROSE 10%-WATER 500 ML 50 ML IV (21:15)
[2021-10-20] MEDS: VANCOMYCIN/WATER (PEG) 1.5 GM/300 ML BAG IV (23:59)
[2021-10-21] VITALS (7 sets, daily range): BP systolic 39–88; BP diastolic 21–74; PULSE 102–131; RESP 21–25
[2021-10-21 00:29] LABS: HCO3 (Venous) 5 mmol/L (23-28); O2 Sat (Venous) 83 %; TCO2 (Venous) 6 mmol/L (24-29); pCO2 (Venous) 32 mmHg (41-51); pO2 (Venous) 79 mmHg
[2021-10-21 00:31] LABS: pH (Venous) 6.79 (7.31-7.41)
[2021-10-21 00:50] LABS: Lactate 12.8 mmol/L (0.6-1.4)
[2021-10-21] MEDS: Sodium Bicarbonate 50 MEQ/50 ML SYR IVP (00:53)
[2021-10-21] MEDS: Normal Saline Flush 10 ML SYR IVP (00:54)
--- NOTE | 2021-10-21 00:55 | W.PM.PROGNOT ---
Date of Service Date of service: 10/21/21 Time of Service: 00:56 Subjective Subjective Interval history since last seen: The patient's blood pressure were requiring two vasopressors, her breathing was becoming progressively more labored on 10 L of O2, and her VBG revealed pH of 6.79 with lactate of 12.8. She is persistently hypoglycemic, requiring repetitive administrations of D50 while on D10 and on stress dose steroids, whose dose was doubled. The patient is dying and, unfortunately, despite maximum supportive measures including broad spectrum IV abx for the suspected underlying sepsis, vasopressors, IVF, stress dose steroids, respiratory support with O2, we have been unable to reverse the underlying pathologic process. I have contacted her son Feliberto, the DPOA, who given above information, elected to initiate the patient on comfort measures. I have also spoken with Pat, the patient's granddaughter, and notified her of same. The patient will remain in the ICU on comfort measures as she is not expected to survive past 1-2 hrs. Total Critical Care Time 60 minutes. Objective Last Vital Signs Temp 36.4 C L 10/20/21 20:00 Pulse 108 H 10/21/21 00:19 Resp 23 10/21/21 00:19 BP 73/52 L 10/21/21 00:19 Pulse Ox 54 L 10/20/21 19:36 Laboratory Results - last 24 hr 10/20/21 10/20/21 10/20/21 05:32 05:32 05:32 WBC 19.73 H RBC 2.83 L Hgb 8.5 L Hct 27.5 L MCV 97.2 H MCH 30.0 MCHC 30.9 L RDW 17.7 H Plt Count 372 MPV 11.0 Immature Gran % 0.0 Neutrophils % 86.0 Band Neutrophils % 1 Lymphocytes % 7.0 Monocytes % 4.0 Eosinophils % 0.0 Basophils % 0.0 Metamyelocytes % 2 Nucleated RBC % 0 Absolute Neutrophils 17.17 H Absolute Lymphocytes 1.38 Absolute Monocytes 0.79 Absolute Eosinophils 0.00 Absolute Basophils 0.00 RBC Morphology See Below Hypochromasia 1+ ABG Sample Site ABG pH ABG pCO2 ABG pO2 ABG HCO3 ABG Total CO2 ABG O2 Saturation ABG Base Excess VBG pH VBG pCO2 VBG pO2 VBG HCO3 VBG Total CO2 VBG O2 Saturation VBG Base Excess VBG Lactate Oxygen Liter Flow FiO2 Sodium 134 L Potassium 4.8 Chloride 100 Carbon Dioxide 23.2 Anion Gap 10.8 BUN 41 H D Creatinine 1.9 H D Estimated GFR/1.73 m2 25.50 Glucose 192 H Fructosamine Calcium 9.0 Magnesium 2.2 Iron TIBC Ferritin Troponin I NT-Pro-B Natriuret Pep Vitamin B12 Folate Add-On Test Request tnp 10/20/21 10/20/21 10/20/21 05:32 05:32 09:37 WBC RBC Hgb Hct MCV MCH MCHC RDW Plt Count MPV Immature Gran % Neutrophils % Band Neutrophils % Lymphocytes % Monocytes % Eosinophils % Basophils % Metamyelocytes % Nucleated RBC % Absolute Neutrophils Absolute Lymphocytes Absolute Monocytes Absolute Eosinophils Absolute Basophils RBC Morphology Hypochromasia ABG Sample Site ABG pH ABG pCO2 ABG pO2 ABG HCO3 ABG Total CO2 ABG O2 Saturation ABG Base Excess VBG pH VBG pCO2 VBG pO2 VBG HCO3 VBG Total CO2 VBG O2 Saturation VBG Base Excess VBG Lactate Oxygen Liter Flow FiO2 Sodium Potassium Chloride Carbon Dioxide Anion Gap BUN Creatinine Estimated GFR/1.73 m2 Glucose Fructosamine Calcium Magnesium Iron 36 L TIBC 343 Ferritin Troponin I NT-Pro-B Natriuret Pep Vitamin B12 1606 H Folate > 20.0 H Add-On Test Request DONE 10/20/21 10/20/21 10/20/21 09:37 11:35 11:35 WBC RBC Hgb 8.7 L Hct 28.8 L MCV MCH MCHC RDW Plt Count MPV Immature Gran % Neutrophils % Band Neutrophils % Lymphocytes % Monocytes % Eosinophils % Basophils % Metamyelocytes % Nucleated RBC % Absolute Neutrophils Absolute Lymphocytes Absolute Monocytes Absolute Eosinophils Absolute Basophils RBC Morphology Hypochromasia ABG Sample Site ABG pH ABG pCO2 ABG pO2 ABG HCO3 ABG Total CO2 ABG O2 Saturation ABG Base Excess VBG pH VBG pCO2 VBG pO2 VBG HCO3 VBG Total CO2 VBG O2 Saturation VBG Base Excess VBG Lactate Oxygen Liter Flow FiO2 Sodium Potassium Chloride Carbon Dioxide Anion Gap BUN Creatinine Estimated GFR/1.73 m2 Glucose Fructosamine Calcium Magnesium Iron TIBC Ferritin 268 H Troponin I 71 H* NT-Pro-B Natriuret Pep Vitamin B12 Folate Add-On Test Request 10/20/21 10/21/21 10/21/21 14:37 00:20 00:20 WBC RBC Hgb 8.7 L Hct 29.8 L MCV MCH MCHC RDW Plt Count MPV Immature Gran % Neutrophils % Band Neutrophils % Lymphocytes % Monocytes % Eosinophils % Basophils % Metamyelocytes % Nucleated RBC % Absolute Neutrophils Absolute Lymphocytes Absolute Monocytes Absolute Eosinophils Absolute Basophils RBC Morphology Hypochromasia ABG Sample Site ABG pH ABG pCO2 ABG pO2 ABG HCO3 ABG Total CO2 ABG O2 Saturation ABG Base Excess VBG pH 6.79 L* VBG pCO2 32 L VBG pO2 79 VBG HCO3 5 L VBG Total CO2 6 L VBG O2 Saturation 83 VBG Base Excess < -15 L VBG Lactate 12.8 H* Oxygen Liter Flow FiO2 Sodium Potassium Chloride Carbon Dioxide Anion Gap BUN Creatinine Estimated GFR/1.73 m2 Glucose Fructosamine Calcium Magnesium Iron TIBC Ferritin Troponin I NT-Pro-B Natriuret Pep Vitamin B12 Folate Add-On Test Request 10/21/21 10/21/21 10/21/21 00:32 05:35 05:35 WBC RBC Hgb Hct MCV MCH MCHC RDW Plt Count MPV Immature Gran % Neutrophils % Band Neutrophils % Lymphocytes % Monocytes % Eosinophils % Basophils % Metamyelocytes % Nucleated RBC % Absolute Neutrophils Absolute Lymphocytes Absolute Monocytes Absolute Eosinophils Absolute Basophils RBC Morphology Hypochromasia ABG Sample Site Cancelled ABG pH Cancelled ABG pCO2 Cancelled ABG pO2 Cancelled ABG HCO3 Cancelled ABG Total CO2 Cancelled ABG O2 Saturation Cancelled ABG Base Excess Cancelled VBG pH VBG pCO2 VBG pO2 VBG HCO3 VBG Total CO2 VBG O2 Saturation VBG Base Excess VBG Lactate Oxygen Liter Flow Cancelled FiO2 Cancelled Sodium Potassium Chloride Carbon Dioxide Anion Gap BUN Creatinine Estimated GFR/1.73 m2 Glucose Fructosamine Cancelled Calcium Magnesium Iron TIBC Ferritin Troponin I Cancelled NT-Pro-B Natriuret Pep Cancelled Vitamin B12 Folate Add-On Test Request 10/21/21 05:35 WBC RBC Hgb Hct MCV MCH MCHC RDW Plt Count MPV Immature Gran % Neutrophils % Band Neutrophils % Lymphocytes % Monocytes % Eosinophils % Basophils % Metamyelocytes % Nucleated RBC % Absolute Neutrophils Absolute Lymphocytes Absolute Monocytes Absolute Eosinophils Absolute Basophils RBC Morphology Hypochromasia ABG Sample Site ABG pH ABG pCO2 ABG pO2 ABG HCO3 ABG Total CO2 ABG O2 Saturation ABG Base Excess VBG pH VBG pCO2 VBG pO2 VBG HCO3 VBG Total CO2 VBG O2 Saturation VBG Base Excess VBG Lactate Oxygen Liter Flow FiO2 Sodium Cancelled Potassium Cancelled Chloride Cancelled Carbon Dioxide Cancelled Anion Gap Cancelled BUN Cancelled Creatinine Cancelled Estimated GFR/1.73 m2 Cancelled Glucose Cancelled Fructosamine Calcium Cancelled Magnesium Iron TIBC Ferritin Troponin I NT-Pro-B Natriuret Pep Vitamin B12 Folate Add-On Test Request
[2021-10-21 00:59] LABS: Anion Gap 22.7 mmol/L (3-11); BUN 44 mg/dL (7-18); C-Reactive Protein 15.62 mg/dL (0.0-0.3); CO2 7.3 mmol/L (21.0-32.0); CREATININE 3.1 mg/dL (0.55-1.02); Chloride 102 mmol/L (98-107); Estimated GFR 14.49 (mL/min/1.73m2); Magnesium 2.1 mg/dL (1.8-2.4); Potassium 5.4 mmol/L (3.5-5.1); Sodium 132 mmol/L (136-145); Troponin I 57 ng/L (<or=60)
[2021-10-21 01:04] LABS: PHOSPHORUS 11.1 mg/dL (2.6-4.7)
[2021-10-21 01:07] LABS: Calcium 6.4 mg/dL (8.5-10.1); Glucose 698 mg/dL (74-106)
[2021-10-21] MEDS: MORPHine 4 MG/ML SYR IV/SC (01:09)
--- NOTE | 2021-10-21 07:27 | W.PM.DDS ---
Date of service: 10/21/21 Time of Service: 07:27 Discharge Sum: Prov Provider Primary care physician: Jocy Kate Admitting clinician: Cristobal Mi Attending physician on admission: Cristobal Mi Consults: 10/19/21 08:14 Wound Care Consult [CONS] Routine Consultation Status:: Follow-up needed Clarification:: Manage/follow per spec. Reason for consult:: buttock stage 2 wound Pronouncing clinician: Janina Mcdonnell Discharge Sum: Diag PCOD Cause of : Arterial disease Contributing Factors (1) Hypotension: (2) Acute CHF: (3) CAP (community acquired pneumonia): (4) Atrial fibrillation with rapid ventricular response: (5) Acute kidney injury (nontraumatic): (6) DVT prophylaxis: (7) Guaiac + stool: (8) Gastroesophageal reflux disease without esophagitis: Discharge Sum: Summary Date and Time Admission Date: 10/18/2201/17/22 19:06 Date of : 10/21/21 Time of : 01:35 Summary Details: Ms Persaud was a 80 year old female with PMHx of NIDDM2, HTN, hyperlipidemia, PAD, obesity with BMI of 37 kg/m2, who was admitted to [facility] ICU under the hospitalist service on 10/18/21 for new onset rapid Afib, acute CHF and community acquired pneumonia with hypoxia. She was initiated on empiric doxycycline and ceftriaxone for the pnuemonia. Meanwhile, for Afib, the patient was initially treated with IV cardizem infusion with addition of beta blockers for adequate rate control while diuresing while ensuring adequate blood pressure. She was weaned off of cardizem drip and transitioned to short acting cardizem. However, on 10/20/21 the patient became more confused and consistently hypotensive despite holding of the cardizem, metoprolol, and lasix, to the point of shock requiring initiation of vasopressors. The etiology of this shock is felt to be septic. Her antibiotics were broadened to vancomycin, cefepime; doxycycline was continued. While her mental status permitted this, she changed her code status to DNR/DNI. However, her mentation continued to deteriorate. She was noted to be persistently hypoglycemic. This was treated with intravenous dextrose in addition to initiation of stress dose steroids. The patient continued to decline. There was a question of whether she had an acute CVA as her pupils were demonstrating asymmetry - however, the patient was not stable enough to go down to get a CT scan, and this did in fact happen while she was hypoglycemic, which could be an alternative reason for focal neurologic deficits. On her last VBG, her pH is 6.8, not consistent with life. While non-specific, her lactate of >12 is also suggestive of a possible intraabdominal catastrophy. While her last chemistry demonstrates hyperglycemia, it is felt that this is due to the blood work being collected from a PICC line in the same extremity. Her oxygen requirement and respiratory effort were worsening (up to 10L of O2 by NRB), and she stopped making urine. At this point, the patient was in multisystem organ failure and was not expected to survive. Patient's son was contacted and updated on her status, electing to switch to comfort measures only. The patient on 10/21/21 at 01:35 am, pronounced at 01:40 am. We appreciate the opportunity to help take care of the patient in her final days and wish the family well. Additional 40 minutes were spent on care for patient and documentation. Additional Data Confirmation of as documented by pronouncing clinician: no pulse, no respirations, no heart sounds and pupils fixed and dilated Family: contacted Attending/PCP notified?: Yes Attending Physician: Janina Vilchis MD, Cristobal Was code activated?: No Autopsy requested?: No legal examiner notified?: No Organ bank notified?: No Advance directives: No Hospice patient?: No
== END 2021-10-21 02:41 | disposition expired | DRG 871 ==
LOC: ER 19:21 → ICU 20:26
PROVIDERS: Internal Medicine; Student in an Organized Health Care Education/Training Program; Admitting Provider Family Medicine; Emergency Provider Emergency Medicine; PCP Nurse Practitioner; Visit Provider Family Medicine
DX: A41.9 Sepsis, unspecified organism (principal); J18.9 Pneumonia, unspecified organism; R65.21 Severe sepsis with septic shock; N17.9 Acute kidney failure, unspecified; I13.0 Hypertensive heart and chronic kidney disease with heart failure and stage 1 through stage 4 chronic kidney disease, or unspecified chronic kidney disease; J44.0 Chronic obstructive pulmonary disease with (acute) lower respiratory infection; I73.9 Peripheral vascular disease, unspecified; E66.9 Obesity, unspecified; Z68.37 Body mass index [BMI] 37.0-37.9, adult; E11.649 Type 2 diabetes mellitus with hypoglycemia without coma; E03.9 Hypothyroidism, unspecified; I50.9 Heart failure, unspecified; N18.30 Chronic kidney disease, stage 3 unspecified; I65.22 Occlusion and stenosis of left carotid artery; D53.9 Nutritional anemia, unspecified; F32.9 Major depressive disorder, single episode, unspecified; E11.22 Type 2 diabetes mellitus with diabetic chronic kidney disease; K21.9 Gastro-esophageal reflux disease without esophagitis; R19.5 Other fecal abnormalities; R09.02 Hypoxemia; Z66 Do not resuscitate; Z51.5 Encounter for palliative care; Z79.82 Long term (current) use of aspirin; I48.91 Unspecified atrial fibrillation; M17.11 Unilateral primary osteoarthritis, right knee; E78.5 Hyperlipidemia, unspecified; M43.10 Spondylolisthesis, site unspecified; G89.29 Other chronic pain; K57.90 Diverticulosis of intestine, part unspecified, without perforation or abscess without bleeding
CPT/HCPCS: 36620; 36410; 36415; 36569; 36592; 71045; 71275; 80048; 80053; 82805; 84145; 86900; 86901; 87040; 87635; 93005; 96361; 96374; 99285; U0005; 81003; 81015; 82607; 82728; 82746; 82985; 83540; 83550; 83605; 83735; 83880; 84100; 84443; 84484; 85014; 85018; 85025; 85610; 85730; 86140; 87086; 93010; 99223; 99239; 99291; J0696; J1644; J1720; J1940; J1941; J2270; J2370; J2405; J3490; J7614; J7620